=== PATIENT | male | born 1970 | race Caucasian/White ===

== ENCOUNTER 2016-07-20 10:32 | Observation (INO) | payer OTHER ==
[2016-07-20] MEDS ORDERED: ceFAZolin 1,000 MG in DEXTROSE/WATER 1 50ML.BAG IVPB STA (11:09)
[2016-07-20] MEDS ORDERED: ASPIRIN 325 MG TAB PO ONE (11:12)
[2016-07-20] MEDS ORDERED: fentaNYL (PF) 50 MCG/ML 2 ML AMP IV ONE (11:18)
[2016-07-20] MEDS ORDERED: SODIUM CHLORIDE 0.9% 1,000 ML IV ONE (11:19)
[2016-07-20] MEDS ORDERED: BIVALIRUDIN BOLUS 250 MG/50 ML IV ONE (11:22)
[2016-07-20] MEDS ORDERED: BIVALIRUDIN 250 MG in SODIUM CHLORIDE 0.9% 50 ML IV ONE (11:23)
[2016-07-20] MEDS ORDERED: NITROGLYCERIN 1000MCG/10ML SYRINGE INTRACORON ONE (11:39)
[2016-07-20] MEDS ORDERED: IOHEXOL 350 MG/ML 100 ML BOTTLE INJ ONE (11:48)
[2016-07-20] MEDS ORDERED: CLOPIDOGREL 75 MG TAB PO ONE (11:56)
[2016-07-20] MEDS ORDERED: RX INFO: IV CONTRAST WAS GIVEN 1 EACH MISC MISCELLANE PRN (12:01)
[2016-07-20] MEDS ORDERED: FAMOTIDINE 20 MG TAB PO PRN (12:01)
[2016-07-20] MEDS ORDERED: NITROGLYCERIN SL TABS 0.4 MG TAB SUBLINGUAL PRN (12:01)
[2016-07-20] MEDS ORDERED: HYDROmorphone 2 MG/ML 1 ML SYRINGE IV ONE (12:01)
[2016-07-20] MEDS ORDERED: ATROPINE SULFATE 0.1 MG/ML 10ML SYRINGE IV PRN (12:01)
[2016-07-20] MEDS ORDERED: ZOLPIDEM 5 MG TAB PO PRN (12:01)
[2016-07-20] MEDS ORDERED: MAG HYDROX/AL HYDROX/SIMETH 30 ML CUP PO PRN (12:01)
[2016-07-20] MEDS: SODIUM CHLORIDE 0.9% 1,000 ML IV SCH (14:02)
[2016-07-20] MEDS: HYDROmorphone 1 MG/ML 1 ML SYRINGE IVP PRN ×2 (14:33→20:45)
[2016-07-20] MEDS: GABAPENTIN 100 MG CAP PO SCH ×2 (17:00→22:37)
[2016-07-20] MEDS: GEMFIBROZIL 600 MG TAB PO SCH (17:00)
[2016-07-20] MEDS: HYDROcodone/APAP 5-325MG 1 EACH TAB PO PRN ×2 (17:08→22:47)
[2016-07-20] MEDS: METOPROLOL TARTRATE 25 MG TAB PO SCH (20:42)
[2016-07-20] MEDS ORDERED: ATORVASTATIN 80 MG TAB PO SCH (21:00)
--- NOTE | 2016-07-20 21:21 | PTCA ---
DATE OF SERVICE: CLINICAL INFORMATION: Patrick Hidalgo is a 45-year-old gentleman, known patient of hypertension, history of smoking, hypercholesterolemia, has been morbid obese also history with BMI 45, has been admitted to the hospital several times with stress tests which were inconclusive. Yesterday he had a stress test, which was positive for reversible ischemia in the anterior wall. Underwent cardiac catheterization, found to have 90% stenosis of the LAD and brought over here for angioplasty and stenting of the proximal LAD before any branches. Patient tolerated the procedure very well. There were no complications during or after completion of the procedure. DESCRIPTION OF PROCEDURE: With sterile precautions, exchanged a 6 Maori sheath for another 6 Maori sheath, gave prophylactic antibiotics, proceeded with angioplasty using left coronary guide, obtained Eigen shots of the LAD in FOX caudal and FOX cranial and FOX caudal projections. Advanced a Choice extra-support wire into the distal LAD , over the wire advanced a Xience stent 3.25, 12 mm placed across the lesion, confirmed the position, deployed at 12 atmospheres with excellent angiographic results. Patient tolerated the procedure very well. The patient had no EKG changes or symptoms suggestive of angina during the stent deployment. After the stent deployment, patient is asymptomatic. EKGs reverted to normal. Patient has received Angiomax bolus and infusion. Patient ( ) sheath pulled out in 2 hours from now and apply FemStop for 4 hours. ASSESSMENT: Successful dilatation of the 90% proximal LAD lesion to reduce 90 to 0% distal stenosis with excellent angiographic results.
--- NOTE | 2016-07-20 21:38 | HP ---
DATE OF ADMISSION: 07/20/2016 SUBJECTIVE: This is a 45-year-old white male admitted status post percutaneous transluminal coronary angioplasty after having an abnormal heart catheterization at [facility], transferred here for angioplasty and coronary stent was placed in the LAD and patient was admitted on to the floor. The patient currently is chest pain free. He has history of hypertension, obesity, and has been having pain down his left arm at which time he was sent to the hospital for work-up. MEDICATIONS: He is on includes: 1. Tower 5/325 every 4 hours for chronic neck pain back pain, neuropathy. 2. Aspirin 325 mg daily. 3. Lipitor 80 daily. 4. Plavix 75 daily. 5. Pepcid 20 daily. 6. Vitamin D 50,000 units weekly. 7. Gabapentin 100 t.i.d. 8. Gemfibrozil 600 b.i.d. 9. Synthroid 300 mcg daily. 10. Lisinopril 10 mg daily. 11. Lopressor 25 b.i.d. Past medical history of dementia, hypertension, degenerative disc disease, hypothyroidism, and nicotine addiction, restless leg syndrome for which he takes Requip at home and insomnia. REVIEW OF SYSTEMS: CARDIAC: As mentioned above. PULMONARY: Negative. GASTROINTESTINAL: Negative. MUSCULOSKELETAL: As mentioned above. NEUROLOGIC: Negative. PSYCH: Negative. Ophthalmologic: Negative. ENDOCRINE: BMI is over 40. INTEGUMENT: Negative. Immune: Negative. : Negative. PHYSICAL EXAM: Pulse is in the 60s, respiratory rate 16 to 18, blood pressure is 120s to 130s over 60s to 70s, O2 is 95% to 97% on 2 liters. CARDIOVASCULAR: S1, S2. LUNGS: Transmitted upper airway sounds, scattered wheeze. MUSCULOSKELETAL: Shows palpation of paracervical spinal muscles. 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 GI: Soft. HEMATOLOGIC: Negative Homans. PSYCHIATRIC: Fair mood and affect. ASSESSMENT: 1. Status post PTCA coronary artery disease. 2. Hypertension. 3. Dyslipidemia. 4. Cervical degenerative disease. 5. Hypothyroidism. 6. Restless leg syndrome. 7. Obstructive sleep apnea. PLAN: Continue home medications. Risk factor modification with the patient, nicotine patch for smoking, status post angioplasty care was given.
[2016-07-21 01:28] VITALS: RESP 18
[2016-07-21] MEDS: HYDROmorphone 1 MG/ML 1 ML SYRINGE IVP PRN ×3 (01:45→10:55)
[2016-07-21 03:27] VITALS: PULSE 65
[2016-07-21 06:17] LABS: Basophils % (A) 0 %; CH 29.4; CHCM 33.9; Eosinophils # (A) 0.2 k/uL (0-0.7); Eosinophils % (A) 2 %; HCT 42.7 % (39.0-53.0); HDW 2.84; HGB 13.9 gm/dL (13.0-17.5); Luc # (Auto) 0.11; Luc % (Auto) 2; Lymphocytes # (A) 1.9 k/uL (1.0-4.8); Lymphocytes % (A) 27 %; MCH 28.3 pg (25.0-35.0); MCHC 32.4 g/dL (31.0-37.0); MCV 87.1 fL (80.0-100.0); Mean Platelet Volume 7.6; Monocytes # (A) 0.6 k/uL (0-1.0); Monocytes % (A) 8 %; Neutrophils # (A) 4.3 k/uL (1.3-7.7); Neutrophils % (A) 61 %; RDW 13.8 % (11.5-15.5); WBC 7.1 k/uL (3.8-10.6); WBC (Perox) 7.38
[2016-07-21] MEDS ORDERED: LEVOTHYROXINE 100 MCG TAB PO SCH (06:30)
[2016-07-21 06:33] LABS: Anion Gap 10 mmol/L; Blood Urea Nitrogen 14 mg/dL (9-20); Calcium 9.4 mg/dL (8.4-10.2); Carbon Dioxide 27 mmol/L (22-30); Chloride 100 mmol/L (98-107); Cholesterol 208 mg/dL (<200); Glucose 128 mg/dL (74-99); HDL Cholesterol 32 mg/dL (40-60); Non-African American GFR(MDRD) >60 (>60 ml/min/1.73 sqM); Potassium 4.5 mmol/L (3.5-5.1); Sodium 137 mmol/L (137-145); Triglycerides 168 mg/dL (<150)
[2016-07-21] MEDS: GEMFIBROZIL 600 MG TAB PO SCH (06:40)
[2016-07-21] MEDS: SODIUM CHLORIDE 0.9% 1,000 ML IV SCH ×2 (07:39→13:04)
[2016-07-21] MEDS: METOPROLOL TARTRATE 25 MG TAB PO SCH (07:43)
[2016-07-21] MEDS: GABAPENTIN 100 MG CAP PO SCH (07:44)
[2016-07-21] MEDS ORDERED: CLOPIDOGREL 75 MG TAB PO SCH (09:00)
[2016-07-21] MEDS ORDERED: LISINOPRIL 10 MG TAB PO SCH (09:00)
[2016-07-21] MEDS ORDERED: ASPIRIN 325 MG TAB PO SCH (09:00)
[2016-07-21] MEDS ORDERED: NICOTINE 21MG/24HR PATCH TRANSDERM SCH (09:00)
[2016-07-21 09:21] VITALS: TEMP 98.1
[2016-07-21 12:57] VITALS: BP 130/78
--- NOTE | 2016-07-21 13:08 | P.DS ---
Providers Date of admission: 07/20/16 11:52 Expected date of discharge: 07/21/16 Attending physician: Lukas Reynolds Consults: 07/20/16 12:01 Consult Physician Routine Consulting Provider: [facility] Consult Reason/Comments: Post Interventional patient Do you want consulting provider notified?: Already Contacted Primary care physician: [facility] Course: 07/20/16 11:52 45-year-old male admitted on the day of admission as a transfer from [facility] for an abnormal heart catheterization done at [facility] transferred here for angioplasty coronary stent placed to the drug-eluting stent LAD. Postprocedure patient remained chest pain free. Patient denied any dizziness lightheadedness or shortness of breath. Patient does have a history of hypertension and dyslipidemia. On the day of discharge patient was ambulatory on the unit was not experiencing any chest pain was anxious to be discharged home Impression discharge diagnose Abnormal stress test done on the on June positive for reversible ischemia anterior wall Heart catheterization done on July 20 showing 90% stenosis of the LAD status post drug-eluting stent to the LAD Morbid obesity BMI 46 History of dyslipidemia History of hypertension essential benign Chronic nicotine dependency greater than a 20 year history Hypothyroid on supplements Vitamin D deficiency History of degenerative disc disease chronic A history of restless leg syndrome on Requip The above dictated assessment and findings were discussed with dr reynolds . Impression and the plan of care have been dictated as directed. Selene Johnson nurse practitioner acting as a scribe for dr reynolds Plan - Discharge Summary New Discharge Prescriptions: Atorvastatin [Lipitor] 80 mg PO HS #30 tab Clopidogrel [Plavix] 75 mg PO DAILY #30 tab Lisinopril [Zestril] 10 mg PO DAILY #30 tab Discharge Medication List rOPINIRole HCL [Requip] 0.25 mg PO HS 08/21/15 [History] Gemfibrozil [Lopid] 600 mg PO AC-BID 11/04/15 [History] Levothyroxine Sodium [Synthroid] 300 mcg PO DAILY 11/08/15 [History] Cyanocobalamin [Vitamin B-12] 1,000 mcg PO DAILY 05/16/16 [History] Ergocalciferol (Vitamin D2) [Drisdol] 50,000 unit PO WE 05/16/16 [History] Gabapentin [Neurontin] 100 mg PO TID 05/16/16 [History] Ibuprofen [Motrin] 600 mg PO TID PRN 05/16/16 [History] Hydrocodone/Acetaminophen [Beggs 5-325] 1 tab PO Q6HR PRN 06/12/16 [History] Loratadine [Claritin] 10 mg PO DAILY PRN 07/20/16 [History] Metoprolol Tartrate [Lopressor] 25 mg PO BID 07/20/16 [History] Sertraline HCl [Zoloft] 50 mg PO DAILY 07/20/16 [History] Aspirin 325 mg PO DAILY tab 07/21/16 [Rx] Atorvastatin [Lipitor] 80 mg PO HS #30 tab 07/21/16 [Rx] Clopidogrel [Plavix] 75 mg PO DAILY #30 tab 07/21/16 [Rx] Ergocalciferol [Vitamin D2 (DRISDOL)] 50,000 unit PO TU cap 07/21/16 [Rx] Gemfibrozil [Lopid] 600 mg PO AC-BID tab 07/21/16 [Rx] HYDROcodone/APAP 5-325MG [Beggs 5-325] 1 each PO Q4HR PRN #0 tab 07/21/16 [Rx] Lisinopril [Zestril] 10 mg PO DAILY #30 tab 07/21/16 [Rx] Nicotine 21Mg/24Hr Patch [Habitrol] 1 patch TRANSDERM DAILY patch 07/21/16 [Rx] Nitroglycerin Sl Tabs [Nitrostat] 0.4 mg SUBLINGUAL Q5M PRN #0 tab 07/21/16 [Rx] Follow up Appointment(s)/Referral(s): Jamila Mane MD [STAFF PHYSICIAN] - 07/25/16 Lukas Reynolds MD [Primary Care Provider] - 07/27/16 Activity/Diet/Wound Care/Special Instructions: Smoking cessation information provided patient's been advised to stop smoking cigarettes Discharge Disposition: HOME SELF-CARE
--- NOTE | 2016-07-21 13:25 | PN ---
Mr. Patrick Hidalgo is a 45-year-old male patient who was brought from [facility] with reversible ischemia in the anterior wall. He was found to have 90% stenosis of the LAD. He underwent stenting of the proximal LAD with a drug-eluting stent. He is doing very well. His ECG is normal. Heart rates are normal. Blood pressure is on 123/64 mmHg, pulse rate is in the 60s, afebrile, 98.1 degrees Fahrenheit. Head and neck examination is normal. Heart sounds S1, S2 are normal. No murmurs or gallops. Lungs are clear to auscultation. Extremities are warm. No edema. IMPRESSION: 1. Coronary artery disease, proximal left anterior descending artery stenosis, status post coronary stenting. 2. History of dyslipidemia. 3. Increased body mass index. SUGGEST: Discharge home on aspirin, Plavix, statins, beta blockers, MANUEL inhibitors and he will see Dr. Jef Mane on Sunday.
[2016-07-25] MEDS ORDERED: ERGOCALCIFEROL 50,000 UNIT CAP PO SCH (12:00)
== END 2016-07-21 15:12 | disposition home or self-care (01) ==
LOC: 6SEL 11:52 → INTOOBSV 11:52 → 6SEL 13:04
PROVIDERS: ADMIT Family Medicine; ATTEND Family Medicine
DX: I25.10 Atherosclerotic heart disease of native coronary artery without angina pectoris (principal); I10 Essential (primary) hypertension; E66.01 Morbid (severe) obesity due to excess calories; Z68.42 Body mass index [BMI] 45.0-49.9, adult; F17.200 Nicotine dependence, unspecified, uncomplicated; E78.5 Hyperlipidemia, unspecified; E03.9 Hypothyroidism, unspecified; E55.9 Vitamin D deficiency, unspecified; G25.81 Restless legs syndrome; G62.9 Polyneuropathy, unspecified; G47.33 Obstructive sleep apnea (adult) (pediatric); G89.29 Other chronic pain; M50.30 Other cervical disc degeneration, unspecified cervical region; M54.9 Dorsalgia, unspecified; Z79.02 Long term (current) use of antithrombotics/antiplatelets; Z79.82 Long term (current) use of aspirin; Z79.899 Other long term (current) drug therapy
CPT/HCPCS: 80061; 80048; 85025; G0379; G0378 ×3; C9600; C1769 ×2; C1887; C1894; C1874; S4990; J1170 ×3; Q9967; J3010; J0690; J0583

== ENCOUNTER 2016-09-24 17:12 | Emergency (ER) | payer OTHER ==
[2016-09-24] MEDS ORDERED: DIPH,PERTUS(ACELL)TETVAC-LF 0.5 ML VIAL IM ONE (18:00)
[2016-09-24 18:06] VITALS: BP 136/76; PULSE 64; RESP 20; TEMP 98.1
--- NOTE | 2016-09-24 18:13 | ED ---
General Adult HPI - General Chief complaint: Wound/Laceration Stated complaint: WRIST LACERATION - BOTH Time Seen by Provider: 09/24/16 17:55 Source: patient, RN notes reviewed Mode of arrival: ambulatory Limitations: no limitations - History of Present Illness Initial comments: This is a 45-year-old male who presents with scratches to bilateral wrists. Patient states he was moving a wooden table and scratched his wrist on it. Patient denies any numbness/tingling or weakness. Patient states he is not up to date on his tetanus shot. Patient denies any recent fever, chills, shortness breath, chest pain, abdominal pain, nausea/vomiting/diarrhea, back pain, hematuria, headache, or visual changes, or any other complaints. - Related Data Home Medications Medication Instructions Recorded Confirmed rOPINIRole HCL [Requip] 0.25 mg PO HS 08/21/15 09/24/16 Levothyroxine Sodium [Synthroid] 300 mcg PO DAILY 11/08/15 09/24/16 Cyanocobalamin [Vitamin B-12] 1,000 mcg PO DAILY 05/16/16 09/24/16 Ergocalciferol (Vitamin D2) 50,000 unit PO WE 05/16/16 09/24/16 [Drisdol] Gabapentin [Neurontin] 100 mg PO TID 05/16/16 09/24/16 Ibuprofen [Motrin] 600 mg PO TID PRN 05/16/16 09/24/16 Loratadine [Claritin] 10 mg PO DAILY PRN 07/20/16 09/24/16 Metoprolol Tartrate [Lopressor] 25 mg PO BID 07/20/16 09/24/16 Blood Thinner (Unknown) 1 tab PO DAILY 09/24/16 09/24/16 Previous Rx's Medication Instructions Recorded Atorvastatin [Lipitor] 80 mg PO HS #30 tab 07/21/16 Clopidogrel [Plavix] 75 mg PO DAILY #30 tab 07/21/16 Gemfibrozil [Lopid] 600 mg PO AC-BID tab 07/21/16 Lisinopril [Zestril] 10 mg PO DAILY #30 tab 07/21/16 Nitroglycerin Sl Tabs [Nitrostat] 0.4 mg SUBLINGUAL Q5M PRN #0 tab 07/21/16 Allergies Allergy/AdvReac Type Severity Reaction Status Date / Time No Known Allergies Allergy Verified 09/24/16 18:03 Review of Systems ROS Statement: Those systems with pertinent positive or pertinent negative responses have been documented in the HPI. ROS Other: All systems not noted in ROS Statement are negative. Past Medical History Past Medical History: Atrial Fibrillation, Coronary Artery Disease (CAD), CVA/ TIA, Myocardial Infarction ([place]), Sleep Apnea/CPAP/BIPAP, Thyroid Disorder Additional Past Medical History / Comment(s): restless leg syndrome, "stroke in mar 2016, lt arm weakness and chronic pain in lt arm since. History of Any Multi-Drug Resistant Organisms: None Reported Past Surgical History: Heart Catheterization, Heart Catheterization With Stent Additional Past Surgical History / Comment(s): loop monitor in chest. 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 Past Anesthesia/Blood Transfusion Reactions: No Reported Reaction Past Psychological History: Anxiety Smoking Status: Current every day smoker Past Alcohol Use History: Occasional Additional Past Alcohol Use History / Comment(s): patient states smoking about 1 /2 ppd Past Drug Use History: None Reported - Past Family History Father Family Medical History: Myocardial Infarction ([place]) Additional Family Medical History / Comment(s): of [place] Mother Family Medical History: No Reported History Brother(s) Additional Family Medical History / Comment(s): Bipolar disorder General Exam - General Exam Comments Initial Comments: General: The patient is awake and alert, in no distress, and does not appear acutely ill. Neck: The neck is supple, there is no tenderness or JVD. Cardiovascular: There is a regular rate and rhythm. No murmur, rub or gallop is appreciated. Respiratory: Lungs are clear to auscultation, respirations are non-labored, breath sounds are equal. No wheezes, stridor, rales, or rhonchi. Musculoskeletal: Patient has full range of motion, strength 5/5 and Sensation intact. Radial pulses 2+ bilaterally. Capillary refill is normal at less than 2 seconds. Neurological: A&O x 3. CN II-XII intact, There are no obvious motor or sensory deficits. Coordination appears grossly intact. Speech is normal. Skin: There are superficial scratches to the patient's bilateral wrists approximately 5 cm and 2 cm. Skin is warm and dry. Psychiatric: Normal mood and affect. Limitations: no limitations Course Vital Signs 09/24/16 17:59 Temperature 98.1 F Pulse Rate 64 Respiratory 20 Rate Blood Pressure 136/76 O2 Sat by Pulse 96 Oximetry Medical Decision Making - Medical Decision Making This is a 45-year-old male who presents with scratches to bilateral wrists. On physical exam there are superficial scratches to the patient's bilateral wrists approximately 5 cm and 2 cm. Skin is warm and dry. Patient is given a tetanus shot in the EC today. Lungs are soaked, cleansed and irrigated with normal saline. Wounds are very superficial. Scratch on the left upper extremity does not need any closure. Scratch on the left wrist will be covered with Dermabond to protect the wound while it heals. I discussed that Dermabond will fall off on its own. I discussed wound care. I discussed signs and symptoms of infection. I discussed Tylenol and Motrin for any pain. Bacitracin was applied to a scratch on the left side. I discussed return parameters. Discussed that patient should follow up with PCP in one to 2 days or return to the [facility] for any worsening symptoms or for any further concerns. Patient was receptive to this plan and patient will be discharged home. Disposition Clinical Impression: Scratch of wrist Disposition: HOME SELF-CARE Condition: Good Instructions: Abrasion (ED) Additional Instructions: Please keep the areas clean and dry. May apply Neosporin to the areas. Please allow Dermabond to fall off on its own. Please use Tylenol and Motrin for any pain. Please percent and symptoms of infection such as erythema, swelling, tenderness or any purulent drainage. Please follow-up with family doctor in the next 2 days of symptoms have not improved. Please return to emergency room if the symptoms increase or worsen or for any other concerns. Referrals: Lukas Bain MD [Primary Care Provider] - 1-2 days Time of Disposition: 18:22
[2016-09-24] MEDS ORDERED: TOPICAL SKIN ADHESIVE 1 EACH AMP TOPICAL ONE (18:18)
== END 2016-09-24 18:45 | disposition home or self-care (01) ==
LOC: EC 17:12
DX: S60.812A Abrasion of left wrist, initial encounter (principal); S60.811A Abrasion of right wrist, initial encounter; I48.91 Unspecified atrial fibrillation; I25.10 Atherosclerotic heart disease of native coronary artery without angina pectoris; I25.2 Old myocardial infarction; E07.9 Disorder of thyroid, unspecified; F41.9 Anxiety disorder, unspecified; G25.81 Restless legs syndrome; G47.30 Sleep apnea, unspecified; Z23 Encounter for immunization; F17.200 Nicotine dependence, unspecified, uncomplicated; Z86.73 Personal history of transient ischemic attack (TIA), and cerebral infarction without residual deficits; W20.8XXA Other cause of strike by thrown, projected or falling object, initial encounter; Y92.89 Other specified places as the place of occurrence of the external cause
CPT/HCPCS: 90471; 90715; 99282

== ENCOUNTER 2016-11-14 22:05 | Emergency (ER) | payer OTHER ==
[2016-11-14] MEDS ORDERED: HYDROmorphone 1 MG/ML 1 ML SYRINGE IVP STA (22:31)
[2016-11-14] MEDS ORDERED: RX INFO: IV CONTRAST WAS GIVEN 1 EACH MISC MISCELLANE PRN (22:31)
[2016-11-14] MEDS ORDERED: SODIUM CHLORIDE 0.9% 1,000 ML IV STA (22:31)
[2016-11-14] MEDS ORDERED: ONDANSETRON 4 MG/2 ML VIAL IVP STA (22:31)
[2016-11-14 23:08] LABS: Basophils % (A) 0 %; CH 29.8; CHCM 34.7; Eosinophils # (A) 0.2 k/uL (0-0.7); Eosinophils % (A) 3 %; HCT 44.9 % (39.0-53.0); HDW 2.96; HGB 14.8 gm/dL (13.0-17.5); Luc # (Auto) 0.09; Luc % (Auto) 1; Lymphocytes # (A) 2.3 k/uL (1.0-4.8); Lymphocytes % (A) 33 %; MCH 28.5 pg (25.0-35.0); MCV 86.4 fL (80.0-100.0); Mean Platelet Volume 6.8; Monocytes # (A) 0.3 k/uL (0-1.0); Monocytes % (A) 5 %; Neutrophils # (A) 4.1 k/uL (1.3-7.7); Neutrophils % (A) 58 %; RBC 5.19 m/uL (4.30-5.90); RDW 14.5 % (11.5-15.5)
[2016-11-14 23:15] LABS: ALT 36 U/L (21-72); AST 29 U/L (17-59); Alkaline Phosphatase 100 U/L (38-126); Amylase 44 U/L (30-110); Anion Gap 13 mmol/L; Blood Urea Nitrogen 11 mg/dL (9-20); Calcium 9.4 mg/dL (8.4-10.2); Carbon Dioxide 26 mmol/L (22-30); Chloride 104 mmol/L (98-107); Glucose 137 mg/dL (74-99); Non-African American GFR(MDRD) >60 (>60 ml/min/1.73 sqM); Potassium 3.8 mmol/L (3.5-5.1); Sodium 143 mmol/L (137-145); Total Bilirubin 0.7 mg/dL (0.2-1.3)
[2016-11-14 23:16] LABS: INR 1.1 (<1.1); Partial Thromboplastin Time 23.7 sec (22.0-30.0); Prothrombin Time 10.6 sec (9.0-12.0)
--- NOTE | 2016-11-14 23:29 | ED ---
Abdominal Pain HPI - General Chief Complaint: Abdominal Pain Stated Complaint: abd and groin pain Time Seen by Provider: 11/14/16 22:22 Source: patient, RN notes reviewed Mode of arrival: ambulatory Limitations: no limitations - History of Present Illness Initial Comments: 46-year-old male presents emergency Department chief complaint severe abdominal pain started yesterday. Patient states that he was walking his dog this felt mid abdominal pain. States it's more in the Umbilical region. He states it radiates down into his scrotum. Patient states he has no testicular swelling or pain itself he states his chest pain that radiates down there. Patient also states that his had some problems urinating and which she states it hurts. Patient has fever, chills. Patient had no prior abdominal surgeries. Denies any trauma. Patient denies any flank pain and has no history kidney stones. Patient had some nausea no vomiting or diarrhea no constipation. - Related Data Home Medications Medication Instructions Recorded Confirmed rOPINIRole HCL [Requip] 0.25 mg PO HS 08/21/15 11/14/16 Levothyroxine Sodium [Synthroid] 300 mcg PO DAILY 11/08/15 11/14/16 Gabapentin [Neurontin] 100 mg PO TID 05/16/16 11/14/16 Ibuprofen [Motrin] 600 mg PO TID PRN 05/16/16 11/14/16 Loratadine [Claritin] 10 mg PO DAILY PRN 07/20/16 11/14/16 Metoprolol Tartrate [Lopressor] 25 mg PO BID 07/20/16 11/14/16 cloNIDine HCL [Catapres] 0.1 mg PO DAILY 11/14/16 11/14/16 Previous Rx's Medication Instructions Recorded Clopidogrel [Plavix] 75 mg PO DAILY #30 tab 07/21/16 Gemfibrozil [Lopid] 600 mg PO AC-BID tab 07/21/16 Nitroglycerin Sl Tabs [Nitrostat] 0.4 mg SUBLINGUAL Q5M PRN #0 tab 07/21/16 HYDROcodone/APAP 7.5-325MG [[place] 1 tab PO Q6HR PRN #20 tab 11/15/16 7.5-325] Allergies Allergy/AdvReac Type Severity Reaction Status Date / Time No Known Allergies Allergy Verified 11/14/16 22:40 Review of Systems ROS Statement: Those systems with pertinent positive or pertinent negative responses have been documented in the HPI. ROS Other: All systems not noted in ROS Statement are negative. Past Medical History Past Medical History: Atrial Fibrillation, Coronary Artery Disease (CAD), CVA/ TIA, Hyperlipidemia, Hypertension, Myocardial Infarction ([place]), Sleep Apnea/CPAP/ BIPAP, Thyroid Disorder Additional Past Medical History / Comment(s): restless leg syndrome, "stroke in mar 2016, lt arm weakness and chronic pain in lt arm since. History of Any Multi-Drug Resistant Organisms: None Reported Past Surgical History: Heart Catheterization, Heart Catheterization With Stent Additional Past Surgical History / Comment(s): loop monitor in chest. 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 Past Anesthesia/Blood Transfusion Reactions: No Reported Reaction Past Psychological History: Anxiety Smoking Status: Current every day smoker Past Alcohol Use History: Occasional Additional Past Alcohol Use History / Comment(s): patient states smoking about 1 /2 ppd Past Drug Use History: None Reported - Past Family History Father Family Medical History: Myocardial Infarction ([place]) Additional Family Medical History / Comment(s): of [place] Mother Family Medical History: No Reported History Brother(s) Additional Family Medical History / Comment(s): Bipolar disorder General Exam Limitations: no limitations General appearance: alert, in no apparent distress, obese Neck exam: Present: normal inspection. Absent: tenderness, meningismus, lymphadenopathy Respiratory exam: Present: normal lung sounds bilaterally. Absent: respiratory distress, wheezes, rales, rhonchi, stridor Cardiovascular Exam: Present: regular rate, normal rhythm, normal heart sounds. Absent: systolic murmur, diastolic murmur, rubs, gallop, clicks GI/Abdominal exam: Present: soft, tenderness (Moderate umbilical tenderness, suprapubic tenderness), normal bowel sounds. Absent: distended, guarding, rebound, rigid exam: Present: normal inspection, testicular tenderness (right), other ( right inguinal tenderness). Absent: scrotal swelling Back exam: Absent: CVA tenderness (R), CVA tenderness (L) Skin exam: Present: warm, dry, intact, normal color. Absent: rash Course Vital Signs 11/14/16 11/15/16 22:17 00:11 Temperature 98.9 F Pulse Rate 60 76 Respiratory 18 20 Rate Blood Pressure 176/90 121/55 O2 Sat by Pulse 97 99 Oximetry Medical Decision Making - Medical Decision Making 46-year-old male presents emergency department for abdominal pain. Patient's CT shows fat-containing umbilical hernia and inguinal hernia. Patient's ultrasound shows hydroceles. Patient pain is most likely related to his him focal hernia, inguinal hernia. Patient will be discharged with follow-up with surgery. Patient discharged with pain medication. - Lab Data Result diagrams: 11/14/16 22:55 11/14/16 22:55 Lab Results 11/14/16 11/14/16 11/14/16 Range/Units 22:55 22:55 22:55 WBC 7.0 (3.8-10.6) k/uL RBC 5.19 (4.30-5.90) m/uL Hgb 14.8 (13.0-17.5) gm/dL Hct 44.9 (39.0-53.0) % MCV 86.4 (80.0-100.0) fL MCH 28.5 (25.0-35.0) pg MCHC 33.0 (31.0-37.0) g/dL RDW 14.5 (11.5-15.5) % Plt Count 185 (150-450) k/uL Neutrophils % 58 % Lymphocytes % 33 % Monocytes % 5 % Eosinophils % 3 % Basophils % 0 % Neutrophils # 4.1 (1.3-7.7) k/uL Lymphocytes # 2.3 (1.0-4.8) k/uL Monocytes # 0.3 (0-1.0) k/uL Eosinophils # 0.2 (0-0.7) k/uL Basophils # 0.0 (0-0.2) k/uL PT (9.0-12.0) sec INR (<1.1) APTT (22.0-30.0) sec Sodium 143 (137-145) mmol/L Potassium 3.8 (3.5-5.1) mmol/L Chloride 104 (98-107) mmol/L Carbon Dioxide 26 (22-30) mmol/L Anion Gap 13 mmol/L BUN 11 (9-20) mg/dL Creatinine 0.91 (0.66-1.25) mg/dL Est GFR (MDRD) Af Amer >60 (>60 ml/min/1.73 sqM) Est GFR (MDRD) Non-Af >60 (>60 ml/min/1.73 sqM) Glucose 137 H (74-99) mg/dL Plasma Lactic Acid Carlos 1.2 (0.7-2.0) mmol/L Calcium 9.4 (8.4-10.2) mg/dL Total Bilirubin 0.7 (0.2-1.3) mg/dL AST 29 (17-59) U/L ALT 36 (21-72) U/L Alkaline Phosphatase 100 (38-126) U/L Total Protein 8.0 (6.3-8.2) g/dL Albumin 4.5 (3.5-5.0) g/dL Amylase 44 (30-110) U/L Lipase 53 (23-300) U/L Urine Color Urine Appearance (Clear) Urine pH (5.0-8.0) Ur Specific [place] (1.001-1.035) Urine Protein (Negative) Urine Glucose (UA) (Negative) Urine Ketones (Negative) Urine Blood (Negative) Urine Nitrite (Negative) Urine Bilirubin (Negative) Urine Urobilinogen (<2.0) mg/dL Ur Leukocyte Esterase (Negative) 11/14/16 11/14/16 Range/Units 22:55 23:35 WBC (3.8-10.6) k/uL RBC (4.30-5.90) m/uL Hgb (13.0-17.5) gm/dL Hct (39.0-53.0) % MCV (80.0-100.0) fL MCH (25.0-35.0) pg MCHC (31.0-37.0) g/dL RDW (11.5-15.5) % Plt Count (150-450) k/uL Neutrophils % % Lymphocytes % % Monocytes % % Eosinophils % % Basophils % % Neutrophils # (1.3-7.7) k/uL Lymphocytes # (1.0-4.8) k/uL Monocytes # (0-1.0) k/uL Eosinophils # (0-0.7) k/uL Basophils # (0-0.2) k/uL PT 10.6 (9.0-12.0) sec INR 1.1 (<1.1) APTT 23.7 (22.0-30.0) sec Sodium (137-145) mmol/L Potassium (3.5-5.1) mmol/L Chloride (98-107) mmol/L Carbon Dioxide (22-30) mmol/L Anion Gap mmol/L BUN (9-20) mg/dL Creatinine (0.66-1.25) mg/dL Est GFR (MDRD) Af Amer (>60 ml/min/1.73 sqM) Est GFR (MDRD) Non-Af (>60 ml/min/1.73 sqM) Glucose (74-99) mg/dL Plasma Lactic Acid Carlos (0.7-2.0) mmol/L Calcium (8.4-10.2) mg/dL Total Bilirubin (0.2-1.3) mg/dL AST (17-59) U/L ALT (21-72) U/L Alkaline Phosphatase (38-126) U/L Total Protein (6.3-8.2) g/dL Albumin (3.5-5.0) g/dL Amylase (30-110) U/L Lipase (23-300) U/L Urine Color Yellow Urine Appearance Clear (Clear) Urine pH 5.5 (5.0-8.0) Ur Specific [place] 1.020 (1.001-1.035) Urine Protein Negative (Negative) Urine Glucose (UA) Negative (Negative) Urine Ketones Negative (Negative) Urine Blood Negative (Negative) Urine Nitrite Negative (Negative) Urine Bilirubin Negative (Negative) Urine Urobilinogen <2.0 (<2.0) mg/dL Ur Leukocyte Esterase Negative (Negative) Disposition Clinical Impression: Abdominal pain, Umbilical hernia, Inguinal hernia Disposition: HOME SELF-CARE Condition: Stable Instructions: Umbilical Hernia (ED), Inguinal Hernia (ED) Additional Instructions: Please return to the Emergency Department if symptoms worsen or any other concerns. Prescriptions: HYDROcodone/APAP 7.5-325MG [[place] 7.5-325] 1 tab PO Q6HR PRN #20 tab PRN Reason: Pain Referrals: Lukas Bain MD [Primary Care Provider] - 1-2 days Jose Ortiz MD [STAFF PHYSICIAN] - 1-2 days Time of Disposition: 01:01
[2016-11-14 23:59] LABS: Appearance,Urine Clear (Clear); Bilirubin,Urine Negative (Negative); Glucose,Urine (UA) Negative (Negative); Ketones,Urine Negative (Negative); Leukocyte Esterase,Urine Negative (Negative); Nitrite,Urine Negative (Negative); PH, Urine 5.5 (5.0-8.0); Protein,Urine Negative (Negative); UA Billing (MACRO vs. MICRO) CHEM; Urobilinogen,Urine <2.0 mg/dL (<2.0)
[2016-11-15 00:12] VITALS: RESP 20
--- NOTE | 2016-11-15 00:23 | CT ---
EXAM: CT Abdomen and Pelvis With Intravenous Contrast CLINICAL HISTORY: Abdominal pain. Umbilical pain radiates to right testis x 2 days. TECHNIQUE: Axial computed tomography images of the abdomen and pelvis with intravenous contrast. Coronal and sagittal reformatted images were created and reviewed. DOSE INFORMATION: CTDI is 40.00, 59.30 mGy and DLP is 4342.60 mGy-cm. This CT exam was performed using one or more of the following dose reduction techniques: automated exposure control, adjustment of the mA and/or kV according to patient size, and/or use of iterative reconstruction technique. CONTRAST: 100 mL of Omnipaque 300 administered intravenously. COMPARISON: No relevant prior studies available. FINDINGS: Lower thorax: No acute findings. ABDOMEN: Liver: Mild fatty infiltration of the liver. Liver is mildly enlarged, measuring 22.8 cm in craniocaudal dimension. Gallbladder and bile ducts: Unremarkable. No radiopaque calculi. No biliary ductal dilation. Pancreas: Unremarkable. No ductal dilation. No mass. No adjacent inflammatory changes. Spleen: Unremarkable. No splenomegaly. Small splenule noted. Adrenals: Unremarkable. No mass. Kidneys and ureters: Mild symmetric perinephric stranding, nonspecific. Kidneys otherwise unremarkable. No hydronephrosis or ureteral calculus. Stomach and bowel: Unremarkable. No bowel obstruction. No significant bowel wall thickening. Appendix: No evidence of acute appendicitis. PELVIS: Bladder: Unremarkable. No mass or wall thickening. Reproductive: Unremarkable as visualized. ABDOMEN and PELVIS: Intraperitoneal space: No free air. No significant fluid collection. Bones/joints: No acute fracture. No dislocation. Soft tissues: Rim calcified nodule in the right lower quadrant, possibly sequela of fat necrosis. Tiny fat-containing umbilical hernia. Small amount of fat within the inguinal canals. No large hernia or other abnormality. Vasculature: Mild atherosclerosis. No abdominal aortic aneurysm. Lymph nodes: No enlarged lymph nodes. IMPRESSION: 1. No CT evidence of acute inflammatory or obstructive process in the abdomen or pelvis to account for symptoms. 2. Mild symmetric perinephric stranding, nonspecific. Kidneys otherwise unremarkable without hydronephrosis or ureteral calculus. Recommend clinical correlation and correlation with laboratory values as clinically indicated. 3. Tiny fat-containing umbilical hernia. Small amount of fat within the bilateral inguinal canals. Otherwise no evidence of soft tissue abnormality. Scrotal contents not visualized. If there is clinical concern for acute scrotal pathology, scrotal ultrasound is recommended. 4. Mildly enlarged fatty liver. 5. No evidence of acute appendicitis.
[2016-11-15] MEDS ORDERED: HYDROmorphone 1 MG/ML 1 ML SYRINGE IVP STA (00:26)
[2016-11-15 01:18] VITALS: BP 151/62; PULSE 68; TEMP 98.4
--- NOTE | 2016-11-15 01:20 | US ---
EXAM: US Scrotum CLINICAL HISTORY: Pain. TECHNIQUE: Real-time ultrasound of the scrotum with color Doppler and image documentation. COMPARISON: No relevant prior studies available. FINDINGS: Right testicle: Right testis measures 4.4 x 2.7 x 2.7 cm. Color flow and arterial and venous waveforms documented in the right testis. No evidence of torsion. No evidence of testicular mass. Left testicle: Left testis measures 4.4 x 2.7 x 2.6 cm. Color flow and arterial and venous waveforms documented in the left testis. No evidence of torsion. No evidence of testicular mass. Epididymides: Right epididymis measures 1.2 cm. Right epididymal head cyst measuring 8 x 7 x 10 mm. Left epididymis measures 1.1 cm. no increased color flow to suggest acute epididymitis. Scrotum: Small bilateral hydroceles. No evidence of varicoceles. IMPRESSION: 1. No evidence of testicular torsion or acute epididymitis. 2. Incidental right epididymal head cyst measuring 8 x 7 x 10 mm. 3. Small bilateral hydroceles.
== END 2016-11-15 01:17 | disposition home or self-care (01) ==
LOC: EC 22:05
DX: K42.9 Umbilical hernia without obstruction or gangrene (principal); K40.90 Unilateral inguinal hernia, without obstruction or gangrene, not specified as recurrent; N43.3 Hydrocele, unspecified; R07.9 Chest pain, unspecified; G25.81 Restless legs syndrome; I48.91 Unspecified atrial fibrillation; I10 Essential (primary) hypertension; I25.2 Old myocardial infarction; E07.9 Disorder of thyroid, unspecified; I25.10 Atherosclerotic heart disease of native coronary artery without angina pectoris; F41.9 Anxiety disorder, unspecified; F17.200 Nicotine dependence, unspecified, uncomplicated; Z79.899 Other long term (current) drug therapy; Z95.5 Presence of coronary angioplasty implant and graft
CPT/HCPCS: 36415; 80053; 82150; 83605; 83690; 85025; 85610; 85730; 81003; 93975; 76870; 74177; 99284; 96374; 96375; 96361; J2405; J1170; Q9967

== ENCOUNTER 2016-11-15 11:27 | Observation (INO) | payer OTHER ==
[2016-11-15 12:05] VITALS: BMI 48.2
[2016-11-15] MEDS ORDERED: NITROGLYCERIN SL TABS 0.4 MG TAB SUBLINGUAL PRN (12:32)
[2016-11-15] MEDS ORDERED: HYDROcodone/APAP 7.5-325MG 1 EACH TAB PO PRN (12:32)
[2016-11-15 13:52] LABS: Basophils % (A) 0 %; CH 29.4; CHCM 33.6; Eosinophils # (A) 0.2 k/uL (0-0.7); Eosinophils % (A) 3 %; HCT 41.6 % (39.0-53.0); HDW 2.99; HGB 13.9 gm/dL (13.0-17.5); Luc # (Auto) 0.11; Luc % (Auto) 2; Lymphocytes # (A) 1.7 k/uL (1.0-4.8); Lymphocytes % (A) 27 %; MCH 29.5 pg (25.0-35.0); MCHC 33.5 g/dL (31.0-37.0); Monocytes # (A) 0.3 k/uL (0-1.0); Monocytes % (A) 6 %; Neutrophils # (A) 3.8 k/uL (1.3-7.7); Neutrophils % (A) 62 %; RBC 4.72 m/uL (4.30-5.90); RDW 14.4 % (11.5-15.5); WBC 6.1 k/uL (3.8-10.6); WBC (Perox) 6.24
[2016-11-15] MEDS: HYDROmorphone 1 MG/ML 1 ML SYRINGE IVP PRN ×3 (13:57→20:45)
[2016-11-15] MEDS: SODIUM CHLORIDE 0.9% 1,000 ML IV SCH ×2 (13:57→21:37)
[2016-11-15 14:06] LABS: ALT 40 U/L (21-72); AST 26 U/L (17-59); Alkaline Phosphatase 87 U/L (38-126); Anion Gap 11 mmol/L; Blood Urea Nitrogen 11 mg/dL (9-20); Calcium 9.5 mg/dL (8.4-10.2); Carbon Dioxide 24 mmol/L (22-30); Chloride 107 mmol/L (98-107); Glucose 106 mg/dL (74-99); Non-African American GFR(MDRD) >60 (>60 ml/min/1.73 sqM); Potassium 4.3 mmol/L (3.5-5.1); Sodium 142 mmol/L (137-145); Total Bilirubin 0.4 mg/dL (0.2-1.3); Total Protein 7.3 g/dL (6.3-8.2)
[2016-11-15] MEDS: FAMOTIDINE 20 MG/2 ML VIAL IV SCH ×2 (15:44→20:49)
[2016-11-15] MEDS: GABAPENTIN 100 MG CAP PO SCH ×2 (15:44→21:38)
--- NOTE | 2016-11-15 16:02 | P.GSCN ---
History of Present Illness Consult date: 11/15/16 Reason for Consult: Umbilical hernia Requesting physician: Lukas Bain History of present illness: Patient is a 46-year-old male, patient of Dr. Lukas Bain in the outpatient setting, admitted directly to the observation unit by Dr. Bain for abdominal pain. Patient had originally presented to the emergency department on 11/14/2016 with complaints of severe abdominal pain 1 day located in the umbilical region radiating down to the scrotum associated with urinary hesitancy and pain when urinating. No history of fevers, nausea, or vomiting. CT of abdomen and pelvis with evidence of tiny fat-containing umbilical hernia and small amount of fat within the bilateral inguinal canals. Scrotal ultrasound with evidence of small bilateral hydroceles; no evidence of varicoceles; no evidence of testicular torsion or acute epididymitis. Past Medical History Past Medical History: Atrial Fibrillation, Coronary Artery Disease (CAD), CVA/ TIA, Hyperlipidemia, Hypertension, Myocardial Infarction ([place]), Sleep Apnea/CPAP/ BIPAP, Thyroid Disorder Additional Past Medical History / Comment(s): restless leg syndrome, "stroke in mar 2016, lt arm weakness and chronic pain in lt arm since. Last Myocardial Infarction Date:: unk History of Any Multi-Drug Resistant Organisms: None Reported Past Surgical History: Heart Catheterization, Heart Catheterization With Stent Additional Past Surgical History / Comment(s): loop monitor in chest. Placed 2015, 07-20-16 transfer from [facility] to [facility]- heart cath with stent to lad. Past Anesthesia/Blood Transfusion Reactions: No Reported Reaction Date of Last Stent Placement:: unk Past Psychological History: Anxiety Smoking Status: Former smoker Past Alcohol Use History: Occasional Additional Past Alcohol Use History / Comment(s): pt quit smoking approx 3 months ago. Past Drug Use History: None Reported - Past Family History Father Family Medical History: Myocardial Infarction ([place]) Additional Family Medical History / Comment(s): of [place] Mother Family Medical History: No Reported History Brother(s) Additional Family Medical History / Comment(s): Bipolar disorder Medications and Allergies Home Medications Medication Instructions Recorded Confirmed Type rOPINIRole HCL [Requip] 0.25 mg PO HS 08/21/15 11/15/16 History Levothyroxine Sodium [Synthroid] 300 mcg PO DAILY 11/08/15 11/15/16 History Gabapentin [Neurontin] 100 mg PO TID 05/16/16 11/15/16 History Ibuprofen [Motrin] 600 mg PO TID PRN 05/16/16 11/15/16 History Loratadine [Claritin] 10 mg PO DAILY PRN 07/20/16 11/15/16 History Metoprolol Tartrate [Lopressor] 25 mg PO BID 07/20/16 11/15/16 History cloNIDine HCL [Catapres] 0.1 mg PO DAILY 11/14/16 11/15/16 History Allergies Allergy/AdvReac Type Severity Reaction Status Date / Time No Known Allergies Allergy Verified 11/14/16 22:40 Surgical - Exam Vital Signs Temp Pulse Resp BP Pulse Ox 98.1 F 51 L 18 120/68 98 11/15/16 11:45 11/15/16 11:45 11/15/16 11:45 11/15/16 11:45 11/15/16 11:45 GENERAL: Pt awake and alert, well-nourished, and in no acute distress. LUNGS: Breath sounds clear to auscultation bilaterally. No wheezes, rales, or rhonchi. HEART: Heart S1, S2, no S3 or S4. No murmurs, rubs or gallops. ABDOMEN: Soft, umbilical and suprapubic tenderness, nondistended, normoactive bowel sounds. No guarding, no rebound. NEUROLOGICAL: Pt oriented x 3. Results - Labs 11/15/16 13:23 11/15/16 13:23 Abnormal Lab Results - Last 24 Hours (Table) 11/15/16 Range/Units 13:23 Glucose 106 H (74-99) mg/dL Diabetes panel 11/15/16 Range/Units 13:23 Sodium 142 (137-145) mmol/L Potassium 4.3 (3.5-5.1) mmol/L Chloride 107 (98-107) mmol/L Carbon Dioxide 24 (22-30) mmol/L BUN 11 (9-20) mg/dL Creatinine 0.90 (0.66-1.25) mg/dL Glucose 106 H (74-99) mg/dL Calcium 9.5 (8.4-10.2) mg/dL AST 26 (17-59) U/L ALT 40 (21-72) U/L Alkaline Phosphatase 87 (38-126) U/L Total Protein 7.3 (6.3-8.2) g/dL Albumin 4.2 (3.5-5.0) g/dL Calcium panel 11/15/16 Range/Units 13:23 Calcium 9.5 (8.4-10.2) mg/dL Albumin 4.2 (3.5-5.0) g/dL Pituitary panel 11/15/16 Range/Units 13:23 Sodium 142 (137-145) mmol/L Potassium 4.3 (3.5-5.1) mmol/L Chloride 107 (98-107) mmol/L Carbon Dioxide 24 (22-30) mmol/L BUN 11 (9-20) mg/dL Creatinine 0.90 (0.66-1.25) mg/dL Glucose 106 H (74-99) mg/dL Calcium 9.5 (8.4-10.2) mg/dL Adrenal panel 11/15/16 Range/Units 13:23 Sodium 142 (137-145) mmol/L Potassium 4.3 (3.5-5.1) mmol/L Chloride 107 (98-107) mmol/L Carbon Dioxide 24 (22-30) mmol/L BUN 11 (9-20) mg/dL Creatinine 0.90 (0.66-1.25) mg/dL Glucose 106 H (74-99) mg/dL Calcium 9.5 (8.4-10.2) mg/dL Total Bilirubin 0.4 (0.2-1.3) mg/dL AST 26 (17-59) U/L ALT 40 (21-72) U/L Alkaline Phosphatase 87 (38-126) U/L Total Protein 7.3 (6.3-8.2) g/dL Albumin 4.2 (3.5-5.0) g/dL - Imaging CT scan - abdomen: report reviewed CT scan - pelvis: report reviewed Assessment and Plan Plan: Impression: 1. Small umbilical hernia. Plan: Patient will be scheduled for umbilical hernia repair as an outpatient. Continue medical management per medicine service. The above impression and plan have been discussed and directed by Dr. Ortiz. Damian HUTTON acting as scribe for Dr. Ortiz.
[2016-11-15] MEDS: GEMFIBROZIL 600 MG TAB PO SCH (17:17)
[2016-11-15 19:42] VITALS: RESP 18
[2016-11-15] MEDS ORDERED: METOPROLOL TARTRATE 25 MG TAB PO SCH (21:00)
[2016-11-15 23:05] LABS: Appearance,Urine Clear (Clear); Bilirubin,Urine Negative (Negative); Glucose,Urine (UA) Negative (Negative); Ketones,Urine Negative (Negative); Leukocyte Esterase,Urine Negative (Negative); Nitrite,Urine Negative (Negative); PH, Urine 5.5 (5.0-8.0); Protein,Urine Negative (Negative); Specific Gravity,Urine 1.013 (1.001-1.035); UA Billing (MACRO vs. MICRO) CHEM; Urobilinogen,Urine <2.0 mg/dL (<2.0)
[2016-11-16] MEDS: HYDROmorphone 1 MG/ML 1 ML SYRINGE IVP PRN ×2 (00:36→04:44)
[2016-11-16] MEDS ORDERED: LEVOTHYROXINE 100 MCG TAB PO SCH (06:30)
[2016-11-16] MEDS: GEMFIBROZIL 600 MG TAB PO SCH (07:40)
[2016-11-16] MEDS: GABAPENTIN 100 MG CAP PO SCH (07:40)
[2016-11-16] MEDS: FAMOTIDINE 20 MG/2 ML VIAL IV SCH (07:42)
[2016-11-16 08:02] VITALS: BP 121/82; PULSE 48; TEMP 97.9
[2016-11-16] MEDS ORDERED: cloNIDine HCL 0.1 MG TAB PO SCH (09:00)
--- NOTE | 2016-11-16 09:40 | HP ---
DATE OF ADMISSION: CHIEF COMPLAINT: A 46-year-old white male with acute abdominal pain. HISTORY OF PRESENT ILLNESS: This 46-year-old white male with recent PTCA 3 months ago, developed severe pain in his abdomen, worsening over the last 2 weeks, unable to get any relief. He is admitted for surgical consultation at this time. Is unable to eat or drink due to his severe abdominal pain, unable to move around due to the severe pain. Most of pain is surrounding his umbilical area. PAST MEDICAL HISTORY: As mentioned, hypertension, coronary artery disease with recent stent, hypothyroidism, obesity, restless leg syndrome, degenerative disc disease. HOME MEDICATIONS: 1. Catapres. 2. Nitro paste. 3. Lopressor. 4. Claritin. 5. Synthroid. 6. Motrin. 7. Requip. 8. Lopid. 9. Neurontin. 10. Plavix. A 14-point review of systems negative except for as mentioned in HPI. VITAL SIGNS: Temperature 96 to 97, pulse is in the high 40s. Respirations 16 to 18, blood pressure 114 to 120's/60s to 80s. O2 sat 95% to 100% on room air. CARDIOVASCULAR: S1, S2. LUNGS: Scattered wheeze. HEMATOLOGIC: Negative Homans. PSYCH: Fair mood and affect. Neurologically alert and oriented x3. ASSESSMENT: 1. Acute abdominal pain, atypical in nature. 2. History of coronary artery disease, ( ). 3. Hypertension. 4. Obesity. 5. Dyslipidemia. Continue home medications. Surgical consultation will be done for abdominal pain. If cleared from their standpoint, he would be able to be sent home.
--- NOTE | 2016-11-16 09:42 | P.DS ---
Providers Date of admission: 11/15/16 11:33 Expected date of discharge: 11/16/16 Attending physician: Lukas Reynolds Consults: 11/15/16 12:31 Consult Physician Stat Consulting Provider: Jose Ortiz Consult Reason/Comments: Umbilical hernia Do you want consulting provider notified?: Yes Primary care physician: [facility] Hospital Course: 46-year-old was a direct admission from Dr. Lukas Reynolds's office. Patient originally presented to the emergency room on November 14 with the complaint of severe abdominal pain 1 day. Patient stated was located in umbilical region. Radiated down to the scrotum. Patient did have a computed tomography scan of the abdomen pelvis it showed a tiny fat-containing umbilical hernia with a small amount of fat within the bilateral inguinal canals. Scrotal ultrasound showed no evidence of testicular torsion or acute epididymitis. Patient gives a history of having chronic pain in his left arm he stated that he had a stroke in 2016 and since then has had pain in his left arm. Patient was seen and evaluated by surgical service who indicated that there was no surgical intervention warranted at this time and that the patient could be discharged home patient was asking for IV dilaidid for pain control was asking for a prescription for dilaudid. Told patient that there would not be a prescription for pain medication that he has [place] start home. Instructed the patient he can follow-up with Dr. Reynolds in Dr. mack in the outpatient setting Impression discharge diagnoses Present on admission severe abdominal pain unclear etiology negative computed tomography scan of the abdomen and pelvis Computed tomography scan abdomen and pelvis showed evidence of a tiny fat- containing umbilical hernia with a small amount of fat within the bilateral inguinal canal surgery reviewed the CAT scan indicated no surgical intervention Scrotal ultrasound present on admission showed evidence of small bilateral hydroceles no evidence of testicular torsion or acute epididymitis Morbid obesity BMI 48 History of nicotine dependency quit 3 months ago former smoker Anxiety disorder nonspecified The above dictated assessment and findings were discussed with dr reynolds . Impression and the plan of care have been dictated as directed. Selene Johnson nurse practitioner acting as a scribe for dr reynolds Plan - Discharge Summary Discharge Medication List rOPINIRole HCL [Requip] 0.25 mg PO HS 08/21/15 [History] Levothyroxine Sodium [Synthroid] 300 mcg PO DAILY 11/08/15 [History] Gabapentin [Neurontin] 100 mg PO TID 05/16/16 [History] Ibuprofen [Motrin] 600 mg PO TID PRN 05/16/16 [History] Loratadine [Claritin] 10 mg PO DAILY PRN 07/20/16 [History] Metoprolol Tartrate [Lopressor] 25 mg PO BID 07/20/16 [History] Clopidogrel [Plavix] 75 mg PO DAILY #30 tab 07/21/16 [Rx] Gemfibrozil [Lopid] 600 mg PO AC-BID tab 07/21/16 [Rx] Nitroglycerin Sl Tabs [Nitrostat] 0.4 mg SUBLINGUAL Q5M PRN #0 tab 07/21/16 [Rx] cloNIDine HCL [Catapres] 0.1 mg PO DAILY 11/14/16 [History] HYDROcodone/APAP 7.5-325MG [[place] 7.5-325] 1 tab PO Q6HR PRN #20 tab 11/15/16 [ Rx] Follow up Appointment(s)/Referral(s): Jose Ortiz MD [STAFF PHYSICIAN] - 1 Week Lukas Reynolds MD [Primary Care Provider] - 1 Week Discharge Disposition: HOME SELF-CARE
== END 2016-11-16 10:00 | disposition home or self-care (01) ==
LOC: 3OBS 11:33
PROVIDERS: ADMIT Family Medicine; ATTEND Family Medicine
DX: K42.9 Umbilical hernia without obstruction or gangrene (principal); F41.9 Anxiety disorder, unspecified; G89.29 Other chronic pain; I48.91 Unspecified atrial fibrillation; I25.2 Old myocardial infarction; I25.10 Atherosclerotic heart disease of native coronary artery without angina pectoris; I10 Essential (primary) hypertension; G47.30 Sleep apnea, unspecified; E78.5 Hyperlipidemia, unspecified; E07.9 Disorder of thyroid, unspecified; G25.81 Restless legs syndrome; E66.9 Obesity, unspecified; E03.9 Hypothyroidism, unspecified; I69.354 Hemiplegia and hemiparesis following cerebral infarction affecting left non-dominant side; Z82.49 Family history of ischemic heart disease and other diseases of the circulatory system; Z87.891 Personal history of nicotine dependence; Z79.899 Other long term (current) drug therapy; Z68.42 Body mass index [BMI] 45.0-49.9, adult; Z79.02 Long term (current) use of antithrombotics/antiplatelets
CPT/HCPCS: 96376 ×2; 96361 ×2; 96374; 96375; 80053; 85025; 81003; 87086; G0378 ×2; G0379; J1170 ×2; 36415; 74177; 76870; 82150; 83605; 83690; 85610; 85730; 93975; 99284

== ENCOUNTER 2016-12-05 06:34 | Day surgery (SDC) | payer OTHER ==
[2016-11-30 15:54] VITALS: BMI 48.8
[~2016-12-05 06:34] MED LIST: DEXAMETHASONE SOD PHOSPHATE 10 MG/ML 1 ML VIAL IV ONE; FAMOTIDINE 20 MG/2 ML VIAL IV PRN; HEPARIN SODIUM,PORCINE 5,000 UNIT/ML 1 ML VIAL SQ ONE; HYDROmorphone 1 MG/ML 1 ML SYRINGE IVP PRN; LACTATED RINGERS 1,000 ML IV SCH; LIDOCAINE 1% 20 ML VIAL (10MG/ML) FOR IV START INTRADERMA PRN; SCOPOLAMINE 1.5MG/72HR PATCH TRANSDERM ONE; ceFAZolin 3 GM in SODIUM CHLORIDE 0.9% 100 ML IVPB ONE
[2016-12-05] MEDS ORDERED: ONDANSETRON 4 MG/2 ML VIAL IVP ONE ×2 (07:25)
[2016-12-05] MEDS: MIDAZOLAM 2 MG/2 ML VIAL IV PRN ×2 (07:27→07:58)
--- NOTE | 2016-12-05 08:55 | P.GSHP ---
History of Present Illness H&P Date: 12/05/16 Chief Complaint: Incarcerated umbilical hernia This is a 46-year-old male referred from Dr. Lukas Murguia. Patient presents today for laparoscopic robotic-assisted repair of incarcerated umbilical hernia. - Constitutional Constitutional: Reports as per HPI Past Medical History Past Medical History: Atrial Fibrillation, Coronary Artery Disease (CAD), CVA/ TIA, Myocardial Infarction ([place]), Sleep Apnea/CPAP/BIPAP, Thyroid Disorder Additional Past Medical History / Comment(s): denies hx hypertension, restless leg syndrome, "TIA (x 5) last Apr 2016", memory loss and numbness left fingers left hand and occ lt arm weakness, gout, Last Myocardial Infarction Date:: unk History of Any Multi-Drug Resistant Organisms: None Reported Past Surgical History: Heart Catheterization, Heart Catheterization With Stent Additional Past Surgical History / Comment(s): loop monitor in chest. one cardiac stent Past Anesthesia/Blood Transfusion Reactions: No Reported Reaction Date of Last Stent Placement:: unknown Type of Cardiac Device: Loop Device Placement Date:: Apr 2016 Past Psychological History: Anxiety Additional Psychological History / Comment(s): memory loss from TIA's Smoking Status: Former smoker Past Alcohol Use History: Occasional Additional Past Alcohol Use History / Comment(s): quit smoking 08/2016- smoked for 4 yrs- 1/2 PPD Past Drug Use History: None Reported - Past Family History Father Family Medical History: Myocardial Infarction ([place]) Additional Family Medical History / Comment(s): of [place] Mother Family Medical History: No Reported History Brother(s) Additional Family Medical History / Comment(s): Bipolar disorder Medications and Allergies Home Medications Medication Instructions Recorded Confirmed Type rOPINIRole HCL [Requip] 0.25 mg PO HS 08/21/15 11/30/16 History Levothyroxine Sodium [Synthroid] 300 mcg PO DAILY 11/08/15 11/30/16 History Gabapentin [Neurontin] 100 mg PO TID 05/16/16 11/30/16 History Ibuprofen [Motrin] 600 mg PO TID PRN 05/16/16 11/30/16 History Loratadine [Claritin] 10 mg PO DAILY PRN 07/20/16 11/30/16 History Metoprolol Tartrate [Lopressor] 25 mg PO BID 01/26/17 06/08/17 History cloNIDine HCL [Catapres] 0.1 mg PO DAILY 11/14/16 11/30/16 History Allergies Allergy/AdvReac Type Severity Reaction Status Date / Time No Known Allergies Allergy Verified 11/30/16 15:39 Surgical - Exam Vital Signs Temp Pulse Resp BP Pulse Ox 97.1 F L 55 L 18 117/81 95 12/05/16 06:58 12/05/16 06:58 12/05/16 06:58 12/05/16 06:58 12/05/16 06:58 - General well developed, no distress - Eyes PERRL - ENT normal pinna - Neck no masses - Respiratory normal expansion - Cardiovascular Rhythm: regular - Abdomen Abdomen: soft, non tender Hernia: umbilical (Incarcerated) Assessment and Plan Plan: Incarcerated umbilical hernia. We'll perform laparoscopic robotic-assisted repair.
[2016-12-05] MEDS ORDERED: fentaNYL (PF) 50 MCG/ML 2 ML AMP ONE (08:58)
[2016-12-05] MEDS ORDERED: KETOROLAC 30 MG/ML 1 ML VIAL ONE (08:58)
[2016-12-05] MEDS ORDERED: MORPHINE SULFATE 10 MG/ML SYRINGE ONE (08:58)
[2016-12-05] MEDS ORDERED: MIDAZOLAM 2 MG/2 ML VIAL ONE (08:58)
[2016-12-05] MEDS ORDERED: GLYCOPYRROLATE 0.2 MG/ML 2 ML VIAL ONE (08:58)
[2016-12-05] MEDS ORDERED: ROCURONIUM BROMIDE 10 MG/ML 10 ML VIAL IV ONE (08:58)
[2016-12-05] MEDS ORDERED: SUCCINYLCHOLINE CHLORIDE VIAL 200 MG/10 ML VIAL IV ONE (08:58)
[2016-12-05] MEDS ORDERED: LIDOCAINE 1% INJ 10MG/ML (20 ML MDV) ONE (08:58)
[2016-12-05] MEDS ORDERED: PROPOFOL 10 MG/ML 20 ML VIAL IV ONE (08:58)
[2016-12-05] MEDS ORDERED: NEOSTIGMINE 1 MG/ML 10 ML VIAL ONE (08:58)
[2016-12-05] MEDS ORDERED: BUPIVACAIN-EPI 0.25%-1:200,000 30 ML VIAL SQ ONE (09:38)
--- NOTE | 2016-12-05 10:04 | P.OP ---
Date of Procedure: 12/05/16 Preoperative Diagnosis: Incarcerated umbilical hernia Postoperative Diagnosis: Incarcerated umbilical hernia Procedure(s) Performed: Laparoscopic robotic-assisted repair of incarcerated umbilical hernia Implants: Anesthesia: VASYLA Surgeon: Jose Ortiz Estimated Blood Loss (ml): 5 Pathology: none sent Condition: stable Disposition: PACU Indications for Procedure: Operative Findings: Description of Procedure: Patient's placed the operative table in the supine position. He received general anesthesia. His abdomen was prepped and draped usual sterile fashion. The skin incision sites were anesthetized 1% local Xylocaine. Using 11 blade the skin was incised in the left upper quadrant and then using a I millimeter optical trocar the peritoneal cavity was entered under direct visualization. Abdomen insufflated. After adequate insufflation the laparoscope was placed the peritoneal cavity. Next a 8 mm robotic trochars placed in the left lower quadrant and a 12 mm robotic trochars placed in the left lateral position. And the original 5 ohmmeter trocar was exchanged for a 8 mm robotic trocar. The patient's placed in the left side up position. The patient was then docked to the robot. The incarcerated hernia was visualized. There was omentum within the incarcerated hernia. Using the hook cautery the pressure omentum was withdrawn. And then the fascial defect was closed OV lock suture. Next a round ventral light ST mesh 11 cm was placed into the cavity and this was secured with 2 OV lock suture. The patient was then undocked the robot. The needles were retrieved. The fascia was then clipped closed with 0 Ethibond suture at the 12 trocar site. The skin was closed interrupted 3-0 Monocryl suture. Dermabond was applied. Patient top she will was sent to recovery in stable condition.
[2016-12-05] MEDS ORDERED: LACTATED RINGERS 1,000 ML IV ONE (10:11)
[2016-12-05 10:26] VITALS: TEMP 98.8
[2016-12-05] MEDS ORDERED: HYDROmorphone 1 MG/ML 1 ML SYRINGE IVP ONE (11:00)
[2016-12-05] MEDS ORDERED: HYDROcodone/APAP 7.5-325MG 1 EACH TAB PO ONE (11:52)
[2016-12-05 12:28] VITALS: BP 131/81; PULSE 50; RESP 20
== END 2016-12-05 13:17 | disposition home or self-care (01) ==
LOC: OR 06:34
PROVIDERS: ATTEND Surgery
DX: K42.0 Umbilical hernia with obstruction, without gangrene (principal); G47.33 Obstructive sleep apnea (adult) (pediatric); E07.9 Disorder of thyroid, unspecified; I25.2 Old myocardial infarction; I25.10 Atherosclerotic heart disease of native coronary artery without angina pectoris; Z87.891 Personal history of nicotine dependence; Z95.5 Presence of coronary angioplasty implant and graft; Z79.899 Other long term (current) drug therapy; Z86.73 Personal history of transient ischemic attack (TIA), and cerebral infarction without residual deficits
CPT/HCPCS: 49653; C1781; J2250; J0330; J1644; J1100; J2710; J2270; J0690; J2405; J2001; J3010; J1885; J1170; J2704

== ENCOUNTER 2016-12-15 23:30 | Emergency (ER) | payer OTHER ==
[2016-12-15 23:43] VITALS: RESP 20
[2016-12-15] MEDS ORDERED: HYDROmorphone 1 MG/ML 1 ML SYRINGE IVP STA (23:51)
[2016-12-15] MEDS ORDERED: SODIUM CHLORIDE 0.9% 1,000 ML IV STA (23:51)
--- NOTE | 2016-12-15 23:54 | ED ---
Abdominal Pain HPI - General Chief Complaint: Abdominal Pain Stated Complaint: Abd Pain/Injury-Post Hernia Sx Time Seen by Provider: 12/15/16 23:44 Source: patient, RN notes reviewed Mode of arrival: wheelchair Limitations: no limitations - History of Present Illness Initial Comments: 46-year-old male presents emergency Department chief complaint of left-sided abdominal pain. Patient recently had a umbilical hernia surgery by Dr. Valencia. Patient states she's been healing well without any complications until today when his dog jumped onto his abdomen. Patient states since she's been having some left-sided abdominal pain. Patient denies any nausea vomiting fever chills this. Patient denies any cough cold. Patient states that he was concerned due to his continued pain and discomfort so he thought that he should be evaluated. Patient denies any changes of bowel or bladder habits. Patient states pain is moderate worse to touch and worse to sitting forward. Patient is better when he lays back. - Related Data Home Medications Medication Instructions Recorded Confirmed rOPINIRole HCL [Requip] 0.25 mg PO HS 08/21/15 11/30/16 Levothyroxine Sodium [Synthroid] 300 mcg PO DAILY 11/08/15 11/30/16 Gabapentin [Neurontin] 100 mg PO TID 05/16/16 11/30/16 Ibuprofen [Motrin] 600 mg PO TID PRN 05/16/16 11/30/16 Loratadine [Claritin] 10 mg PO DAILY PRN 07/20/16 11/30/16 Metoprolol Tartrate [Lopressor] 25 mg PO BID 07/20/16 11/30/16 cloNIDine HCL [Catapres] 0.1 mg PO DAILY 11/14/16 11/30/16 Previous Rx's Medication Instructions Recorded Clopidogrel [Plavix] 75 mg PO DAILY #30 tab 07/21/16 Gemfibrozil [Lopid] 600 mg PO AC-BID tab 07/21/16 HYDROcodone/APAP 7.5-325MG [[place] 1 tab PO Q6HR PRN #20 tab 11/15/16 7.5-325] Docusate [Colace] 100 mg PO BID #20 capsule 12/05/16 HYDROcodone/APAP 7.5-325MG [[place] 1 each PO Q4H PRN #60 tab 12/05/16 7.5] Allergies Allergy/AdvReac Type Severity Reaction Status Date / Time No Known Allergies Allergy Verified 12/15/16 23:42 Review of Systems ROS Statement: Those systems with pertinent positive or pertinent negative responses have been documented in the HPI. ROS Other: All systems not noted in ROS Statement are negative. Past Medical History Past Medical History: Atrial Fibrillation, Coronary Artery Disease (CAD), CVA/ TIA, Myocardial Infarction ([place]), Sleep Apnea/CPAP/BIPAP, Thyroid Disorder Additional Past Medical History / Comment(s): denies hx hypertension, restless leg syndrome, "TIA (x 5) last Apr 2016", memory loss and numbness left fingers left hand and occ lt arm weakness, gout, Last Myocardial Infarction Date:: unk History of Any Multi-Drug Resistant Organisms: None Reported Past Surgical History: Heart Catheterization, Heart Catheterization With Stent, Hernia Repair Additional Past Surgical History / Comment(s): loop monitor in chest. one cardiac stent Past Anesthesia/Blood Transfusion Reactions: No Reported Reaction Date of Last Stent Placement:: unknown Type of Cardiac Device: Loop Device Placement Date:: Apr 2016 Past Psychological History: Anxiety Smoking Status: Former smoker Past Alcohol Use History: Occasional Past Drug Use History: None Reported - Past Family History Father Family Medical History: Myocardial Infarction ([place]) Additional Family Medical History / Comment(s): of [place] Mother Family Medical History: No Reported History Brother(s) Additional Family Medical History / Comment(s): Bipolar disorder General Exam - General Exam Comments Initial Comments: General: The patient is awake and alert, in no distress, and does not appear acutely ill. Eye: Pupils are equal, round and reactive to light, extra-ocular movements are intact; there is normal conjunctiva bilaterally. No signs of icterus. Ears, nose, mouth and throat: There are moist mucous membranes and no oral lesions. Neck: The neck is supple, there is no tenderness. Cardiovascular: There is a regular rate and rhythm. No murmur, rub or gallop is appreciated. Respiratory: Lungs are clear to auscultation, respirations are non-labored, breath sounds are equal. No wheezes, stridor, rales, or rhonchi. Gastrointestinal: Ecchymosis and healing surgical incisions noted to the abdominal wall, Soft, non-distended, localized superficial tenderness over the left side of the abdomen without masses or organomegaly noted. There is no rebound or guarding present. No CVA tenderness. Bowel sounds are unremarkable. Back: There is no tenderness to palpation in the midline. There is no obvious deformity. No rashes noted. Musculoskeletal: Normal ROM, no tenderness, There is no pedal edema. There is no calf tenderness or swelling. Sensation intact. Pulses equal bilaterally 2+. Neurological: CN II-XII intact, There are no obvious motor or sensory deficits. Coordination appears grossly intact. Speech is normal. Skin: Skin is warm and dry and no rashes or lesions are noted. Psychiatric: Cooperative, appropriate mood & affect, normal judgment. Limitations: no limitations Course Vital Signs 12/15/16 23:38 Temperature 98.6 F Pulse Rate 62 Respiratory 20 Rate Blood Pressure 140/89 O2 Sat by Pulse 97 Oximetry Medical Decision Making - Medical Decision Making 46-year-old male presents emergency Department chief complaint of abdominal pain after his dog jumped onto his abdomen. At this time patient's CAT scan is reviewed. This time there does not appear to be an acute traumatic process going on. This time CAT scan of the results do show concern for inflammation patient has no white count. No pain prior to this traumatic incident. This tenderness is most likely the appropriately healing surgery. This time we did discuss close follow-up with a surgeon. We discussed return for hours on questions. Patient's pain has completely resolved at this time. This time we will discharge the patient home. Patient is in agreement with the plan. - Lab Data Result diagrams: 12/16/16 00:22 12/16/16 00:22 Lab Results 12/16/16 12/16/16 Range/Units 00:22 00:22 WBC 9.4 (3.8-10.6) k/uL RBC 4.98 (4.30-5.90) m/uL Hgb 14.9 (13.0-17.5) gm/dL Hct 43.5 (39.0-53.0) % MCV 87.4 (80.0-100.0) fL MCH 29.9 (25.0-35.0) pg MCHC 34.2 (31.0-37.0) g/dL RDW 14.8 (11.5-15.5) % Plt Count 187 (150-450) k/uL Neutrophils % 71 % Lymphocytes % 21 % Monocytes % 5 % Eosinophils % 2 % Basophils % 0 % Neutrophils # 6.6 (1.3-7.7) k/uL Lymphocytes # 2.0 (1.0-4.8) k/uL Monocytes # 0.5 (0-1.0) k/uL Eosinophils # 0.2 (0-0.7) k/uL Basophils # 0.0 (0-0.2) k/uL Sodium 141 (137-145) mmol/L Potassium 4.3 (3.5-5.1) mmol/L Chloride 103 (98-107) mmol/L Carbon Dioxide 24 (22-30) mmol/L Anion Gap 14 mmol/L BUN 15 (9-20) mg/dL Creatinine 1.10 (0.66-1.25) mg/dL Est GFR (MDRD) Af Amer >60 (>60 ml/min/1.73 sqM) Est GFR (MDRD) Non-Af >60 (>60 ml/min/1.73 sqM) Glucose 103 H (74-99) mg/dL Calcium 9.8 (8.4-10.2) mg/dL Total Bilirubin 0.6 (0.2-1.3) mg/dL AST 33 (17-59) U/L ALT 45 (21-72) U/L Alkaline Phosphatase 92 (38-126) U/L Total Protein 7.9 (6.3-8.2) g/dL Albumin 4.7 (3.5-5.0) g/dL - Radiology Data Radiology results: report reviewed, image reviewed Disposition Clinical Impression: Abdominal pain Disposition: TRANSFER TO PSYCH HOSP/UNIT Condition: Stable Instructions: Abdominal Pain (ED) Additional Instructions: Please use medication as discussed. Please follow up with family doctor if symptoms have not improved over the next two days. Please return to the emergency room if your symptoms increase or worsen or for any other concerns. Referrals: Lukas Bain MD [Primary Care Provider] - 1-2 days Time of Disposition: 01:36
[2016-12-16 01:00] LABS: Basophils % (A) 0 %; CHCM 34.5; Eosinophils # (A) 0.2 k/uL (0-0.7); Eosinophils % (A) 2 %; HCT 43.5 % (39.0-53.0); HDW 2.88; HGB 14.9 gm/dL (13.0-17.5); Luc # (Auto) 0.13; Luc % (Auto) 1; Lymphocytes % (A) 21 %; MCH 29.9 pg (25.0-35.0); MCHC 34.2 g/dL (31.0-37.0); MCV 87.4 fL (80.0-100.0); Mean Platelet Volume 7.3; Monocytes # (A) 0.5 k/uL (0-1.0); Monocytes % (A) 5 %; Neutrophils # (A) 6.6 k/uL (1.3-7.7); Neutrophils % (A) 71 %; RBC 4.98 m/uL (4.30-5.90); RDW 14.8 % (11.5-15.5); WBC 9.4 k/uL (3.8-10.6); WBC (Perox) 8.94
[2016-12-16 01:09] LABS: ALT 45 U/L (21-72); AST 33 U/L (17-59); Alkaline Phosphatase 92 U/L (38-126); Anion Gap 14 mmol/L; Blood Urea Nitrogen 15 mg/dL (9-20); Calcium 9.8 mg/dL (8.4-10.2); Carbon Dioxide 24 mmol/L (22-30); Chloride 103 mmol/L (98-107); Glucose 103 mg/dL (74-99); Non-African American GFR(MDRD) >60 (>60 ml/min/1.73 sqM); Potassium 4.3 mmol/L (3.5-5.1); Sodium 141 mmol/L (137-145); Total Bilirubin 0.6 mg/dL (0.2-1.3); Total Protein 7.9 g/dL (6.3-8.2)
--- NOTE | 2016-12-16 01:11 | CT ---
EXAM: CT Abdomen Without Intravenous Contrast CLINICAL HISTORY: Reason: Pain TECHNIQUE: Axial computed tomography images of the abdomen without intravenous contrast. CTDI is 51.7 mGy and DLP is 2884.3 mGy-cm. This CT exam was performed using one or more of the following dose reduction techniques: automated exposure control, adjustment of the mA and/or kV according to patient size, and/or use of iterative reconstruction technique. Coronal and sagittal reformatted images were created and reviewed. COMPARISON: CT 11/14/16 FINDINGS: Lower thorax: No acute findings. Liver: Fatty liver with mild hepatomegaly. Gallbladder and bile ducts: Unremarkable. No calcified stones. No ductal dilation. Pancreas: Unremarkable. No ductal dilation. Spleen: Unremarkable. No splenomegaly. Adrenals: Unremarkable. No mass. Kidneys and ureters: Similar appearance of bilateral nonspecific perinephric stranding. No renal calculus or hydronephrosis. Stomach and bowel: Unremarkable. No obstruction. No mucosal thickening. Appendix: No findings to suggest acute appendicitis. Intraperitoneal space: Unremarkable. No free air. No significant fluid collection. Bones/joints: Multilevel degenerative changes of the spine. No acute fracture. No dislocation. Soft tissues: Interval ventral hernia repair with mesh. Some fat stranding is seen along the mesh as well as skin thickening and edema in the region of surgery. Vasculature: Unremarkable. No abdominal aortic aneurysm. Lymph nodes: Unremarkable. No enlarged lymph nodes. IMPRESSION: 1. Interval ventral hernia repair with mesh. Some fat stranding is seen along the mesh as well as skin thickening and edema in the region of surgery. While this may be due to surgery, underlying inflammatory process is not excluded. Mesenteric infarct may also be considered. 2. Similar appearance of bilateral nonspecific perinephric stranding. No renal calculus or hydronephrosis. 3. Fatty liver with mild hepatomegaly.
[2016-12-16 01:41] VITALS: BP 115/54; PULSE 51; TEMP 98
== END 2016-12-16 01:51 ==
LOC: EC 23:30
DX: R10.9 Unspecified abdominal pain (principal); R58 Hemorrhage, not elsewhere classified; G25.81 Restless legs syndrome; E07.9 Disorder of thyroid, unspecified; I25.2 Old myocardial infarction; Z87.891 Personal history of nicotine dependence; Z79.899 Other long term (current) drug therapy; Z98.890 Other specified postprocedural states
CPT/HCPCS: 99285; 96374; 96361; 36415; 80053; 85025; 74176; J1170

== ENCOUNTER 2017-01-09 23:28 | Emergency (ER) | payer OTHER ==
[2017-01-10] MEDS ORDERED: RX INFO: IV CONTRAST WAS GIVEN 1 EACH MISC MISCELLANE PRN (00:06)
--- NOTE | 2017-01-10 00:14 | ED ---
Abdominal Pain HPI - General Chief Complaint: Abdominal Pain Stated Complaint: abd pain post hernia surgery Time Seen by Provider: 01/10/17 00:00 Source: patient Mode of arrival: ambulatory Limitations: no limitations - History of Present Illness Initial Comments: Patient is an obese 46-year-old male who presents to the emergency department for evaluation of abdominal pain. Patient states that on December 05 of this year he underwent a laparoscopic umbilical hernia repair with mesh. Patient states that he was prescribed 2 weeks of [place] postoperatively but since that time is been without pain medication. Patient reports that he has had pain in his abdomen since the procedure but over the past 2 days the pain has become unbearable. Pain is on the left side of his abdomen, sharp and worse with palpation or movement. Patient states when he stands he feels as though he can see a bulge on his left abdomen. Patient reports he's been able to eat a normal diet, had normal bowel movements without the caliber or consistency. He denies any melena or hematochezia. He reports no change in bladder habits or development of any hematuria. She denies any fevers, chills chest pain or shortness of breath. He reports that this evening the pain became unbearable which prompted him to come to the emergency department for further evaluation. - Related Data Home Medications Medication Instructions Recorded Confirmed rOPINIRole HCL [Requip] 0.25 mg PO HS 08/21/15 11/30/16 Levothyroxine Sodium [Synthroid] 300 mcg PO DAILY 11/08/15 11/30/16 Gabapentin [Neurontin] 100 mg PO TID 05/16/16 11/30/16 Ibuprofen [Motrin] 600 mg PO TID PRN 05/16/16 11/30/16 Loratadine [Claritin] 10 mg PO DAILY PRN 07/20/16 11/30/16 Metoprolol Tartrate [Lopressor] 25 mg PO BID 07/20/16 11/30/16 cloNIDine HCL [Catapres] 0.1 mg PO DAILY 11/14/16 11/30/16 Previous Rx's Medication Instructions Recorded Clopidogrel [Plavix] 75 mg PO DAILY #30 tab 07/21/16 Gemfibrozil [Lopid] 600 mg PO AC-BID tab 07/21/16 HYDROcodone/APAP 7.5-325MG [[place] 1 tab PO Q6HR PRN #20 tab 11/15/16 7.5-325] Docusate [Colace] 100 mg PO BID #20 capsule 12/05/16 HYDROcodone/APAP 7.5-325MG [[place] 1 each PO Q4H PRN #60 tab 12/05/16 7.5] Allergies Allergy/AdvReac Type Severity Reaction Status Date / Time No Known Allergies Allergy Verified 01/09/17 23:52 Review of Systems ROS Statement: Those systems with pertinent positive or pertinent negative responses have been documented in the HPI. ROS Other: All systems not noted in ROS Statement are negative. Constitutional: Denies: fever, chills ENT: Denies: throat pain Respiratory: Denies: cough, dyspnea Cardiovascular: Denies: chest pain, palpitations Endocrine: Denies: fatigue Gastrointestinal: Reports: abdominal pain. Denies: vomiting, diarrhea, constipation, hematemesis, melena, hematochezia Genitourinary: Denies: urgency, dysuria, frequency, hematuria Musculoskeletal: Denies: back pain Skin: Reports: other (Well-healing) Neurological: Denies: headache, weakness Psychiatric: Denies: anxiety, depression Hematological/Lymphatic: Denies: easy bleeding, easy bruising Past Medical History Past Medical History: Atrial Fibrillation, Coronary Artery Disease (CAD), CVA/ TIA, Myocardial Infarction ([place]), Sleep Apnea/CPAP/BIPAP, Thyroid Disorder Additional Past Medical History / Comment(s): denies hx hypertension, restless leg syndrome, "TIA (x 5) last Apr 2016", memory loss and numbness left fingers left hand and occ lt arm weakness, gout, Last Myocardial Infarction Date:: unk History of Any Multi-Drug Resistant Organisms: None Reported Past Surgical History: Heart Catheterization, Heart Catheterization With Stent, Hernia Repair Additional Past Surgical History / Comment(s): loop monitor in chest. one cardiac stent Past Anesthesia/Blood Transfusion Reactions: No Reported Reaction Date of Last Stent Placement:: unknown Type of Cardiac Device: Loop Device Placement Date:: Apr 2016 Past Psychological History: Anxiety Smoking Status: Former smoker Past Alcohol Use History: Occasional Past Drug Use History: None Reported - Past Family History Father Family Medical History: Myocardial Infarction ([place]) Additional Family Medical History / Comment(s): of [place] Mother Family Medical History: No Reported History Brother(s) Additional Family Medical History / Comment(s): Bipolar disorder General Exam Limitations: no limitations General appearance: alert, in no apparent distress, obese Head exam: Present: atraumatic, normocephalic, normal inspection Eye exam: Present: normal appearance, PERRL, EOMI. Absent: scleral icterus, conjunctival injection, periorbital swelling ENT exam: Present: normal exam, mucous membranes moist Neck exam: Present: normal inspection. Absent: tenderness, meningismus, lymphadenopathy Respiratory exam: Present: normal lung sounds bilaterally. Absent: respiratory distress Cardiovascular Exam: Present: regular rate, normal rhythm GI/Abdominal exam: Present: soft, tenderness, normal bowel sounds. Absent: guarding, rebound Extremities exam: Present: normal inspection, full ROM Neurological exam: Present: alert, oriented X3, CN II-XII intact Psychiatric exam: Present: normal affect, normal mood Skin exam: Present: warm, dry, intact, other (Well-healing laparoscopic surgical incisions) Course Vital Signs 01/09/17 23:48 Temperature 97.7 F Pulse Rate 64 Respiratory 18 Rate Blood Pressure 153/95 O2 Sat by Pulse 97 Oximetry - Reevaluation(s) Reevaluation #1: Patient re-evaluated, laying in hospital bed using his cell phone. Advised patient we are awaiting CT read. Patient states he would like to just be sent home if he isnt going to receive any IV pain medications. Advised patient we will await CT read for discharge. 01/10/17 02:41 Medical Decision Making - Medical Decision Making Patient was seen and evaluated Vital signs were reviewed, they reveal no Sirs criteria History was obtained from the patient and review of his medical record Physical exam with an obese abdomen, tender to gentle palpation in the left abdomen, well-healing laparoscopic surgical incisions Patient's pain appears to be distractible, although when asked if he has pain during palpation patient very dramatically rides and states that he is in excruciating pain however when palpating his abdomen during conversation the patient did not appear distressed Labs and imaging ordered Patient able to go to CT prior to AAS being completed, AAS canceled Patient requesting IV narcotics for abdominal pain, advised we will await full workup and treat based on findings. CT with no acute findings Results were discussed with the patient, advised the patient the treatment for postsurgical pain is anti-inflammatories patient states he's been taking Motrin with minimal help. Advised the patient to continue taking Motrin scheduled and to follow-up with his surgeon as scheduled. I advised the patient that narcotics are not the treatment of choice for abdominal pain persisting in 2 weeks after surgery. I advised him that narcotics are treatment for acute pain but long-term pain is better treated with anti-inflammatories. All questions pertaining to care to do the best of my ability and patient was discharged home in stable condition. - Lab Data Result diagrams: 01/10/17 00:35 01/10/17 00:35 Lab Results 01/10/17 01/10/17 01/10/17 Range/Units 00:35 00:35 00:35 WBC 7.1 (3.8-10.6) k/uL RBC 5.13 (4.30-5.90) m/uL Hgb 14.9 (13.0-17.5) gm/dL Hct 44.6 (39.0-53.0) % MCV 86.8 (80.0-100.0) fL MCH 29.1 (25.0-35.0) pg MCHC 33.5 (31.0-37.0) g/dL RDW 14.5 (11.5-15.5) % Plt Count 195 (150-450) k/uL Neutrophils % 54 % Lymphocytes % 35 % Monocytes % 5 % Eosinophils % 3 % Basophils % 0 % Neutrophils # 3.9 (1.3-7.7) k/uL Lymphocytes # 2.5 (1.0-4.8) k/uL Monocytes # 0.4 (0-1.0) k/uL Eosinophils # 0.2 (0-0.7) k/uL Basophils # 0.0 (0-0.2) k/uL PT 10.8 (9.0-12.0) sec INR 1.1 (<1.2) APTT 24.5 (22.0-30.0) sec Sodium 143 (137-145) mmol/L Potassium 3.9 (3.5-5.1) mmol/L Chloride 106 (98-107) mmol/L Carbon Dioxide 24 (22-30) mmol/L Anion Gap 13 mmol/L BUN 12 (9-20) mg/dL Creatinine 0.90 (0.66-1.25) mg/dL Est GFR (MDRD) Af Amer >60 (>60 ml/min/1.73 sqM) Est GFR (MDRD) Non-Af >60 (>60 ml/min/1.73 sqM) Glucose 95 (74-99) mg/dL Calcium 9.8 (8.4-10.2) mg/dL Total Bilirubin 0.6 (0.2-1.3) mg/dL AST 28 (17-59) U/L ALT 48 (21-72) U/L Alkaline Phosphatase 106 (38-126) U/L Total Protein 8.0 (6.3-8.2) g/dL Albumin 4.8 (3.5-5.0) g/dL Disposition Clinical Impression: Postoperative abdominal pain Disposition: HOME SELF-CARE Condition: Good Instructions: Acute Abdominal Pain (ED), Abdominal Pain (ED) Referrals: Lukas Bain MD [Primary Care Provider] - 1-2 days Time of Disposition: 02:46
[2017-01-10 00:54] LABS: Basophils % (A) 0 %; CH 30.2; Eosinophils # (A) 0.2 k/uL (0-0.7); Eosinophils % (A) 3 %; HCT 44.6 % (39.0-53.0); HDW 3.03; HGB 14.9 gm/dL (13.0-17.5); Luc # (Auto) 0.15; Luc % (Auto) 2; Lymphocytes # (A) 2.5 k/uL (1.0-4.8); Lymphocytes % (A) 35 %; MCH 29.1 pg (25.0-35.0); MCHC 33.5 g/dL (31.0-37.0); MCV 86.8 fL (80.0-100.0); Mean Platelet Volume 7.5; Monocytes # (A) 0.4 k/uL (0-1.0); Monocytes % (A) 5 %; Neutrophils # (A) 3.9 k/uL (1.3-7.7); Neutrophils % (A) 54 %; RBC 5.13 m/uL (4.30-5.90); RDW 14.5 % (11.5-15.5); WBC 7.1 k/uL (3.8-10.6); WBC (Perox) 7.15
[2017-01-10 01:05] LABS: INR 1.1 (<1.2); Partial Thromboplastin Time 24.5 sec (22.0-30.0); Prothrombin Time 10.8 sec (9.0-12.0)
[2017-01-10 01:06] LABS: ALT 48 U/L (21-72); AST 28 U/L (17-59); Alkaline Phosphatase 106 U/L (38-126); Anion Gap 13 mmol/L; Blood Urea Nitrogen 12 mg/dL (9-20); Calcium 9.8 mg/dL (8.4-10.2); Carbon Dioxide 24 mmol/L (22-30); Chloride 106 mmol/L (98-107); Glucose 95 mg/dL (74-99); Non-African American GFR(MDRD) >60 (>60 ml/min/1.73 sqM); Potassium 3.9 mmol/L (3.5-5.1); Sodium 143 mmol/L (137-145); Total Bilirubin 0.6 mg/dL (0.2-1.3)
--- NOTE | 2017-01-10 02:44 | CT ---
EXAM: CT Abdomen and Pelvis With Intravenous Contrast CLINICAL HISTORY: Lower abdominal pain TECHNIQUE: Axial computed tomography images of the abdomen and pelvis with intravenous contrast. CTDI is 118.5 mGy and DLP is 5565.80 mGy-cm. This CT exam was performed using one or more of the following dose reduction techniques: automated exposure control, adjustment of the mA and/or kV according to patient size, and/or use of iterative reconstruction technique. COMPARISON: CT of the abdomen/pelvis dated 12/16/2016 FINDINGS: Lower thorax: No acute findings. ABDOMEN: Liver: Liver is again noted to be mildly enlarged, measuring up to 23. 4 cm in craniocaudad dimension, with evidence of hepatic steatosis. Gallbladder and bile ducts: Unremarkable. No calcified stones. No ductal dilation. Pancreas: Unremarkable. No mass. No ductal dilation. Spleen: Unremarkable. No splenomegaly. Adrenals: Unremarkable. No mass. Kidneys and ureters: Mild symmetric perinephric stranding is again seen, nonspecific. Stomach and bowel: Unremarkable. No obstruction. No mucosal thickening. Appendix: A normal appendix is seen. PELVIS: Bladder: Unremarkable. No mass. Reproductive: Unremarkable as visualized. ABDOMEN and PELVIS: Intraperitoneal space: No significant fluid collection. Bones/joints: No acute fracture. No dislocation. Soft tissues: Patient status post ventral abdominal hernia repair with associated postsurgical changes. Small amount of fat is again seen within the inguinal canals. No large hernia or other abnormality. Vasculature: Minimal atherosclerotic vascular calcifications involving the abdominal aorta. No abdominal aortic aneurysm. Lymph nodes: Unremarkable. No grossly enlarged lymph nodes. IMPRESSION: Mildly enlarged fatty liver, as seen on prior study. No evidence of acute intra-abdominal pathology. No significant interval change from the prior study. Findings as above.
[2017-01-10 02:57] VITALS: BP 134/65; PULSE 78; RESP 16; TEMP 98.2
== END 2017-01-10 02:56 | disposition home or self-care (01) ==
LOC: EC 23:28
DX: R10.9 Unspecified abdominal pain (principal); G89.18 Other acute postprocedural pain; I48.91 Unspecified atrial fibrillation; I25.10 Atherosclerotic heart disease of native coronary artery without angina pectoris; E07.9 Disorder of thyroid, unspecified; I25.2 Old myocardial infarction; I10 Essential (primary) hypertension; G25.81 Restless legs syndrome; Z87.891 Personal history of nicotine dependence; Z79.899 Other long term (current) drug therapy; Z98.890 Other specified postprocedural states; Z95.5 Presence of coronary angioplasty implant and graft; Y83.8 Other surgical procedures as the cause of abnormal reaction of the patient, or of later complication, without mention of misadventure at the time of the procedure
CPT/HCPCS: 36415; 80053; 85025; 85610; 85730; 74177; 99284; Q9967

== ENCOUNTER 2017-06-16 18:32 | Observation (INO) | payer OTHER ==
[2017-06-16] MEDS ORDERED: SODIUM CHLORIDE 0.9% 1,000 ML IV STA (19:02)
[2017-06-16] MEDS ORDERED: MORPHINE SULFATE 5 MG/ML SYRINGE IV STA (19:02)
[2017-06-16] MEDS ORDERED: NITROGLYCERIN OINT 1 INCH/GM PACKET TOPICAL STA (19:02)
[2017-06-16] MEDS ORDERED: ASPIRIN 81 MG PO STA (19:02)
[2017-06-16 19:16] LABS: Basophils % (A) 0 %; Eosinophils # (A) 0.2 k/uL (0-0.7); Eosinophils % (A) 3 %; HCT 40.7 % (39.0-53.0); HGB 13.3 gm/dL (13.0-17.5); Lymphocytes # (A) 1.5 k/uL (1.0-4.8); Lymphocytes % (A) 21 %; MCH 28.2 pg (25.0-35.0); MCHC 32.7 g/dL (31.0-37.0); MCV 86.2 fL (80.0-100.0); Mean Platelet Volume 8.1; Monocytes # (A) 0.3 k/uL (0-1.0); Monocytes % (A) 5 %; Neutrophils % (A) 70 %; Platelet Count 175 k/uL (150-450); RBC 4.72 m/uL (4.30-5.90); RDW 14.5 % (11.5-15.5); WBC 7.1 k/uL (3.8-10.6)
--- NOTE | 2017-06-16 19:17 | ED ---
General Adult HPI - General Chief complaint: Chest Pain Stated complaint: Chest pain Time Seen by Provider: 06/16/17 18:43 Source: patient, family, EMS, RN notes reviewed, old records reviewed Mode of arrival: EMS Limitations: no limitations - History of Present Illness Initial comments: Chief complaint and history of present illness a 46-year-old male to complaint of chest pain that started 45 minutes ago. Patient reports it's retrosternal no some left arm numbness. He complains of mild nausea but no vomiting no sweats. It occurred while just resting. He was given sublingual nitroglycerin by EMS that brought the pain from a 10 to a 7. Stat EKG was done and did not show any acute ST elevation - Related Data Home Medications Medication Instructions Recorded Confirmed rOPINIRole HCL [Requip] 0.25 mg PO HS 08/21/15 06/16/17 Levothyroxine Sodium [Synthroid] 300 mcg PO DAILY 11/08/15 06/16/17 Ibuprofen [Motrin] 600 mg PO TID PRN 05/16/16 06/16/17 Allergies Allergy/AdvReac Type Severity Reaction Status Date / Time No Known Allergies Allergy Verified 06/16/17 20:06 Review of Systems ROS Statement: Those systems with pertinent positive or pertinent negative responses have been documented in the HPI. Review of systems. No headache or visual acuity changes. He has retrosternal area chest discomfort. Complained of some numbness to the left arm before range of motion. Nausea but no vomiting no diarrhea pains slightly reproducible by taking a deep breath or pushing on his chest. Denies any injuries from lifting or movement lately. No neuro deficits. All systems are reviewed. Past medical problems significant for angina and a stent because of a 90% occlusion of the LAD. Also hypertension, hypothyroidism. Patient used to have A. fib. But after the stent stopped. He is no longer on any blood thinners. The patient's surgeries 1 stent, umbilical hernia repair. Family history no cancers. Patient denies any ALLERGIES. Quit smoking one year ago. Drink alcohol socially. ROS Other: All systems not noted in ROS Statement are negative. Past Medical History Past Medical History: Atrial Fibrillation, Coronary Artery Disease (CAD), CVA/ TIA, Myocardial Infarction ([place]), Sleep Apnea/CPAP/BIPAP, Thyroid Disorder Additional Past Medical History / Comment(s): denies hx hypertension, restless leg syndrome, "TIA (x 5) last Apr 2016", memory loss and numbness left fingers left hand and occ lt arm weakness, gout, Last Myocardial Infarction Date:: unk History of Any Multi-Drug Resistant Organisms: None Reported Past Surgical History: Heart Catheterization, Heart Catheterization With Stent, Hernia Repair Additional Past Surgical History / Comment(s): loop monitor in chest. one cardiac stent Past Anesthesia/Blood Transfusion Reactions: No Reported Reaction Date of Last Stent Placement:: unknown Type of Cardiac Device: Loop Device Placement Date:: Apr 2016 Past Psychological History: Anxiety Smoking Status: Former smoker Past Alcohol Use History: Occasional Past Drug Use History: None Reported - Past Family History Father Family Medical History: Myocardial Infarction ([place]) Additional Family Medical History / Comment(s): of [place] Mother Family Medical History: No Reported History Brother(s) Additional Family Medical History / Comment(s): Bipolar disorder General Exam - General Exam Comments Initial Comments: General: The patient is awake and alert, in no distress, and does not appear acutely ill. With a chief complaint of retrosternal chest pain no left arm numbness. Vital signs shows temperature 98.2 pulse 60 respiratory rate 16 pulse ox 98% on 2 L. Blood pressure 132/77 Eye: Pupils are equal, round and reactive to light, extra-ocular movements are intact ; there is normal conjunctiva bilaterally. No signs of icterus. Ears, nose, mouth and throat: There are moist mucous membranes and no oral lesions. Neck: The neck is supple, there is no tenderness .. Cardiovascular: There is a regular rate and rhythm. No murmur, rub or gallop is appreciated. Respiratory: Lungs are clear to auscultation, respirations are non-labored, breath sounds are equal. No wheezes, stridor, rales, or rhonchi. Gastrointestinal: Soft, non-distended, non-tender abdomen without masses or organomegaly noted. There is no rebound or guarding present. No CVA tenderness. Bowel sounds are unremarkable. Back: There is no tenderness to palpation in the midline. There is no obvious deformity. No rashes noted. Musculoskeletal: Normal ROM, no tenderness, There is no pedal edema. There is no calf tenderness or swelling. Sensation intact. Pulses equal bilaterally 2+. Neurological: CN II-XII intact, There are no obvious motor or sensory deficits. Coordination appears grossly intact. Speech is normal. Skin: Skin is warm and dry and no rashes or lesions are noted. Psychiatric: Cooperative, appropriate mood & affect, normal judgment. Limitations: no limitations Course Vital Signs 06/16/17 18:38 Temperature 98.2 F Pulse Rate 68 Respiratory 16 Rate Blood Pressure 132/77 O2 Sat by Pulse 98 Oximetry EKG Findings - EKG Comments: EKG Findings:: EKG was done and reviewed at 1840 6 PM showing normal sinus rhythm no acute ST elevation no ectopy no ischemic changes. Rate 63 MI interval was 172 QRS 84 QT 316 QTC 368. This EKG was compared to one done on and they're very similar. Dr. Ludwig Medical Decision Making - Medical Decision Making Decision-making the patient's arrived with angina type pain. Mildly relieved with nitro given by EMS. EKG does not show any acute changes at this time. The patient had lab work done labs show white count 7.1 hemoglobin 13 hematocrit 40.7. INR is 1.0, potassium 4.4, BUN 12 creatinine 0.8 with a GFR greater than 60. Troponin less than 0.012 CK and MB normal. Blood sugar 109. Chest x-ray is done AP and lateral view and reviewed by radiologist his findings are there is mild cephalization of the pulmonary vessels. An implantable device is again noted in the left hemithorax. There is no pneumothorax or pleural effusion. Cardiac silhouette is mildly enlarged. Impression; mild CHF as read by Dr. Stewart. Case discussion Dr. Lukas Bain, the patient's attending. Patient be admitted his service and started on heparin with cardiology consultation. Patient states feeling better with the medications provided including morphine and Nitropaste. - Lab Data Result diagrams: 06/16/17 19:02 06/16/17 19:02 Lab Results 06/16/17 06/16/17 06/16/17 Range/Units 19:02 19:02 19:02 WBC 7.1 (3.8-10.6) k/uL RBC 4.72 (4.30-5.90) m/uL Hgb 13.3 (13.0-17.5) gm/dL Hct 40.7 (39.0-53.0) % MCV 86.2 (80.0-100.0) fL MCH 28.2 (25.0-35.0) pg MCHC 32.7 (31.0-37.0) g/dL RDW 14.5 (11.5-15.5) % Plt Count 175 (150-450) k/uL Neutrophils % 70 % Lymphocytes % 21 % Monocytes % 5 % Eosinophils % 3 % Basophils % 0 % Neutrophils # 5.0 (1.3-7.7) k/uL Lymphocytes # 1.5 (1.0-4.8) k/uL Monocytes # 0.3 (0-1.0) k/uL Eosinophils # 0.2 (0-0.7) k/uL Basophils # 0.0 (0-0.2) k/uL PT (9.0-12.0) sec INR (<1.2) APTT (22.0-30.0) sec D-Dimer (<0.60) mg/L FEU Sodium 141 (137-145) mmol/L Potassium 4.4 (3.5-5.1) mmol/L Chloride 104 (98-107) mmol/L Carbon Dioxide 28 (22-30) mmol/L Anion Gap 9 mmol/L BUN 12 (9-20) mg/dL Creatinine 0.81 (0.66-1.25) mg/dL Est GFR (MDRD) Af Amer >60 (>60 ml/min/1.73 sqM) Est GFR (MDRD) Non-Af >60 (>60 ml/min/1.73 sqM) Glucose 109 H (74-99) mg/dL Calcium 9.8 (8.4-10.2) mg/dL Magnesium 1.9 (1.6-2.3) mg/dL Total Bilirubin 0.7 (0.2-1.3) mg/dL AST 23 (17-59) U/L ALT 36 (21-72) U/L Alkaline Phosphatase 73 (38-126) U/L Total Creatine Kinase 147 (55-170) U/L CK-MB (CK-2) 1.4 (0.0-2.4) ng/mL CK-MB (CK-2) Rel Index 1.0 Troponin I <0.012 (0.000-0.034) ng/mL Total Protein 7.8 (6.3-8.2) g/dL Albumin 4.2 (3.5-5.0) g/dL 06/16/17 Range/Units 19:02 WBC (3.8-10.6) k/uL RBC (4.30-5.90) m/uL Hgb (13.0-17.5) gm/dL Hct (39.0-53.0) % MCV (80.0-100.0) fL MCH (25.0-35.0) pg MCHC (31.0-37.0) g/dL RDW (11.5-15.5) % Plt Count (150-450) k/uL Neutrophils % % Lymphocytes % % Monocytes % % Eosinophils % % Basophils % % Neutrophils # (1.3-7.7) k/uL Lymphocytes # (1.0-4.8) k/uL Monocytes # (0-1.0) k/uL Eosinophils # (0-0.7) k/uL Basophils # (0-0.2) k/uL PT 9.9 (9.0-12.0) sec INR 1.0 (<1.2) APTT 24.3 (22.0-30.0) sec D-Dimer 0.45 (<0.60) mg/L FEU Sodium (137-145) mmol/L Potassium (3.5-5.1) mmol/L Chloride (98-107) mmol/L Carbon Dioxide (22-30) mmol/L Anion Gap mmol/L BUN (9-20) mg/dL Creatinine (0.66-1.25) mg/dL Est GFR (MDRD) Af Amer (>60 ml/min/1.73 sqM) Est GFR (MDRD) Non-Af (>60 ml/min/1.73 sqM) Glucose (74-99) mg/dL Calcium (8.4-10.2) mg/dL Magnesium (1.6-2.3) mg/dL Total Bilirubin (0.2-1.3) mg/dL AST (17-59) U/L ALT (21-72) U/L Alkaline Phosphatase (38-126) U/L Total Creatine Kinase (55-170) U/L CK-MB (CK-2) (0.0-2.4) ng/mL CK-MB (CK-2) Rel Index Troponin I (0.000-0.034) ng/mL Total Protein (6.3-8.2) g/dL Albumin (3.5-5.0) g/dL Disposition Clinical Impression: Unstable angina pectoris Disposition: ADMITTED IP TO THIS HOSP Condition: Fair Referrals: Lukas Bain MD [Primary Care Provider] - 1-2 days
[2017-06-16 19:26] LABS: ALT 36 U/L (21-72); AST 23 U/L (17-59); Albumin 4.2 g/dL (3.5-5.0); Alkaline Phosphatase 73 U/L (38-126); Anion Gap 9 mmol/L; Blood Urea Nitrogen 12 mg/dL (9-20); Calcium 9.8 mg/dL (8.4-10.2); Carbon Dioxide 28 mmol/L (22-30); Chloride 104 mmol/L (98-107); Glucose 109 mg/dL (74-99); Magnesium 1.9 mg/dL (1.6-2.3); Potassium 4.4 mmol/L (3.5-5.1); Sodium 141 mmol/L (137-145); Total Bilirubin 0.7 mg/dL (0.2-1.3); Total Protein 7.8 g/dL (6.3-8.2)
[2017-06-16 19:31] LABS: D-Dimer 0.45 mg/L FEU (<0.60); Partial Thromboplastin Time 24.3 sec (22.0-30.0); Prothrombin Time 9.9 sec (9.0-12.0)
[2017-06-16 19:34] LABS: Creatine Kinase 147 U/L (55-170)
[2017-06-16 19:47] LABS: Creatine Kinase MB 1.4 ng/mL (0.0-2.4); Troponin I <0.012 ng/mL (0.000-0.034)
--- NOTE | 2017-06-16 20:09 | XR ---
EXAMINATION TYPE: XR chest 2V DATE OF EXAM: 06/16/2017 COMPARISON: June 21, 2016 HISTORY: Chest pain TECHNIQUE: Frontal and lateral views of the chest are obtained. FINDINGS: There is mild cephalization of the pulmonary vessels. An implantable device is again noted in the left hemithorax. There is no pneumothorax or pleural effusion. The cardiac silhouette is mild ly enlarged. IMPRESSION: Mild CHF
[2017-06-16] MEDS ORDERED: HEPARIN SODIUM,PORCINE 5,000 UNIT/ML 1 ML VIAL IV STA (20:26)
[2017-06-16] MEDS ORDERED: HEPARIN SOD,PORK IN 0.45% NACL 25,000 UNIT in 0.45% NACL 1 500ML.BAG IV SCH (20:30)
[2017-06-16] MEDS ORDERED: NALOXONE 0.4 MG/ML 1 ML VIAL IV PRN (20:30)
[2017-06-16] MEDS ORDERED: ONDANSETRON 4 MG/2 ML VIAL IVP PRN (20:30)
[2017-06-16 21:36] VITALS: BMI 47.5
[2017-06-16] MEDS: FAMOTIDINE 20 MG TAB PO SCH (21:46)
[2017-06-16] MEDS: MORPHINE SULFATE 5 MG/ML SYRINGE IV PRN (23:27)
[2017-06-17 02:14] LABS: Creatine Kinase 123 U/L (55-170)
[2017-06-17 02:27] LABS: Creatine Kinase MB 1.1 ng/mL (0.0-2.4); Troponin I <0.012 ng/mL (0.000-0.034)
[2017-06-17] MEDS: MORPHINE SULFATE 5 MG/ML SYRINGE IV PRN (05:05)
[2017-06-17] MEDS ORDERED: LEVOTHYROXINE 100 MCG TAB PO SCH (06:30)
[2017-06-17 06:57] LABS: Creatine Kinase 115 U/L (55-170)
[2017-06-17 07:10] LABS: Troponin I <0.012 ng/mL (0.000-0.034)
[2017-06-17] MEDS: FAMOTIDINE 20 MG TAB PO SCH (09:23)
[2017-06-17 09:30] VITALS: BP 107/50; PULSE 56; RESP 17; TEMP 97
[2017-06-17] MEDS ORDERED: ATORVASTATIN 40 MG TAB PO SCH (11:00)
[2017-06-17] MEDS ORDERED: CLOPIDOGREL 75 MG TAB PO SCH (11:00)
--- NOTE | 2017-06-17 18:16 | CONS ---
CONSULTATION This is a 46-year-old obese gentleman who used to see Dr. Howard on a regular basis. In June of 2016, because of an abnormal stress test, he underwent stenting of mid LAD performed by Dr. Howard. Since then, he has seen him in the office and somewhere along the road and unsure when, he stopped taking both aspirin and Plavix and just takes a beta vi and his and seems to be quite unaware of the importance of taking his medications on a regular basis. He is here because of an episode of chest pain. He described this as a feeling of a sharp pain lasting less than a minute or so, came on spontaneously without and without any physical activity. It seemed to have recurred twice and he came into the hospital with these symptoms. He is currently taking Ultram, Synthroid and ibuprofen and sees Dr. Lukas Bain as an outpatient. He has not seen Dr. Howard for the last few months. PAST MEDICAL HISTORY: 1. Unstable angina with a positive stress test and stenting of a mid LAD performed on July 21, 2016 with a drug-eluting Xience stent of 3.25 caliber. 2. Obesity. 3. Hyperlipidemia. 4. Hypertension. EXAMINATION: Blood pressure is 128/70, pulse rate is 56 per minute. HEENT unremarkable. Fundus was not examined by me. NECK: Supple. No JVD. I do not hear a carotid bruit. There is no thyromegaly. Heart exam reveals S1, S2 heard normally. Heart sounds are distantly. Lungs are clear. ABDOMEN: Soft, nontender. Lower extremities reveal normal pulses. No edema. Central nervous system is normal. EKG revealed sinus rhythm, sinus bradycardia, no acute changes. IMPRESSION: 1. Atypical chest pain. 2. History of coronary artery disease with previous LAD PCI in June of this year. 3. Obesity. 4. Hyperlipidemia. 5. RECOMMENDATIONS: I explained to the patient importance of dual antiplatelet therapy. Will be start him on aspirin 81 mg daily, Plavix 75 mg daily, Lipitor 40 mg daily, metoprolol tartrate 25 mg daily, discontinue IV heparin and increase activity. His troponins are normal. Pain is atypical. Reassured the patient. Advised risk factor modification. We will discharge him and I will see him in the office in the next 7-10 days. Discharge instructions and importance of being compliant with medications was emphasized. MMODL / IJN: [id number] /
--- NOTE | 2017-06-17 21:07 | HP ---
HISTORY AND PHYSICAL CHIEF COMPLAINT: A 46-year-old white male with chest pain. HISTORY OF PRESENT ILLNESS: 46-year-old white male with chest pain, rule out myocardial infarction. Pain is more epigastric and lower sternum area. It is more of a burning pain. So far troponins are negative x3. D-dimer is negative. Chest x-ray shows mild CHF. No tachypneic. No tachycardia. No hemoptysis. No diarrhea, vomiting, nausea. HOME MEDICINES: See list. ALLERGIES: See list. REVIEW OF SYSTEM: Fourteen point review of systems negative except for mentioned in HPI. VITAL SIGNS: Stable, afebrile. ENDOCRINE: BMI is over 40. CARDIOVASCULAR: S1, S2 without any murmurs, rubs or gallops. LUNGS: Clear to auscultation. No rales, rhonchi, or wheezing. ABDOMEN: Soft, nontender. No mass, organomegaly. Mild tenderness to palpation epigastric area. VASCULAR: Normal dorsalis pedis, posterior pulse. HEMATOLOGIC: Negative Homans. SKIN: No rash, excoriations, bruising. OPHTHALMOLOGIC: Pupils equal, round, react to light and accommodation. NEUROLOGIC: Alert and oriented x3. PSYCH: Fair mood and affect. ASSESSMENT: Atypical chest pain, suspect GERD. Myocardial infarction was ruled out. Pulmonary embolism is ruled out. Cardiology will see the patient. Patient will possibly be discharged home once cleared by Cardiology. MMODL / IJN: [id number] /
[2017-06-18] MEDS ORDERED: METOPROLOL TARTRATE 25 MG TAB PO SCH (09:00)
[2017-06-18] MEDS ORDERED: ASPIRIN 81 MG PO SCH (09:00)
--- NOTE | 2017-07-15 15:59 | DS ---
DISCHARGE SUMMARY DATE OF ADMISSION: 06/16/2017. DATE OF DISCHARGE: 06/17/2017. MEDICATIONS: Including Requip 0.25 mg daily, Synthroid 300 mcg daily, Motrin 600 t.i.d., tramadol 50 mg daily, aspirin 81 mg daily, Lipitor 40 mg daily, Plavix 75 mg daily, metoprolol 25 mg daily. CONDITION: Stable. PROGNOSIS: Guarded. Ambulate as tolerated. DISCHARGE DIAGNOSES: 1. Atypical chest pain. 2. History of coronary artery disease with previous LAD. PCI in June of this year. 3. Dyslipidemia. The patient stabilized. Came to the hospital with atypical chest pain. Was seen by Cardiology. Cardiology placed him on aspirin and Plavix, Lipitor, metoprolol, took him off heparin. He was ruled out for myocardial infarction. Follow up as an outpatient. All pulmonary findings were ruled out also. EDISON / SANDY: [id number] /
== END 2017-06-17 12:19 | disposition home or self-care (01) ==
LOC: EC 18:32 → 6SEL 20:30
PROVIDERS: ADMIT Family Medicine; ATTEND Family Medicine
DX: R07.89 Other chest pain (principal); I25.10 Atherosclerotic heart disease of native coronary artery without angina pectoris; Z95.5 Presence of coronary angioplasty implant and graft; I25.2 Old myocardial infarction; E66.9 Obesity, unspecified; R11.0 Nausea; E78.5 Hyperlipidemia, unspecified; Z68.42 Body mass index [BMI] 45.0-49.9, adult; E03.9 Hypothyroidism, unspecified; Z87.891 Personal history of nicotine dependence; G47.30 Sleep apnea, unspecified; G25.81 Restless legs syndrome; Z99.89 Dependence on other enabling machines and devices; Z86.73 Personal history of transient ischemic attack (TIA), and cerebral infarction without residual deficits; Z79.899 Other long term (current) drug therapy; Z82.49 Family history of ischemic heart disease and other diseases of the circulatory system; Z91.14 Patient's other noncompliance with medication regimen
CPT/HCPCS: 99285; 96365; 96366 ×2; 96375 ×2; 96376 ×3; 36415; 94760; 93005; 85379; 83880; 80053; 82550 ×2; 82553 ×2; 83735; 84484 ×2; 85025; 85610; 85730 ×2; 71020; G0378 ×2; J1644 ×2; J2405; J2274 ×2

== ENCOUNTER → 2017-07-18 | Outpatient (CLI) | payer OTHER ==
--- NOTE | 2017-07-18 12:53 | XR ---
EXAMINATION TYPE: XR Hip Complete LT DATE OF EXAM: 07/18/2017 CLINICAL HISTORY: Left hip pain for 2 days. TECHNIQUE: AP and frogleg views of the left hip are obtained. COMPARISON: None. FINDINGS: Evaluation suboptimal as there is overlying linear lucency possibly from overlying clothing material. In addition evaluation suboptimal as patient performed limited frog-leg position. There is no definitive acute fracture/dislocation evident in the left hip. Mild axial joint space loss left h ip is present. Small spur greater trochanter level is seen. A few pelvic phleboliths are noted. IMPRESSION: There is no acute fracture or dislocation in the left hip.
--- NOTE | 2017-07-18 12:56 | XR ---
EXAMINATION TYPE: XR shoulder complete RT DATE OF EXAM: 07/18/2017 CLINICAL HISTORY: Right shoulder pain. TECHNIQUE: Three views of the right shoulder are attempted. COMPARISON: None. FINDINGS: Exam is suboptimal as patient refused to move arm for dedicated internal rotational and ex ternal rotational views. There is no acute fracture/dislocation evident in the right shoulder. The a cromioclavicular and glenohumeral joint spaces appear within normal limits on images acquired. The v isualized ribs are intact and unremarkable. IMPRESSION: Suboptimal study but there is no acute fracture or dislocation in the right shoulder.
== END | disposition home or self-care (01) ==
LOC: RADXRMAIN 12:04
PROVIDERS: ATTEND Family Medicine
DX: M25.552 Pain in left hip (principal); M25.511 Pain in right shoulder
CPT/HCPCS: 73502

== ENCOUNTER 2017-09-26 22:08 | Inpatient (IN) | payer MEDICAID, OTHER ==
[2017-09-26 22:45] LABS: Amphetamine Screen,Urine Not Detected (NotDetected); Barbiturate Screen,Urine Not Detected (NotDetected); Benzodiazepines Screen,Urine Not Detected (NotDetected); Cocaine Screen,Urine Not Detected (NotDetected); Methadone Screen, Urine Not Detected (NotDetected); Opiate Screen,Urine Not Detected (NotDetected); Oxycodone Screen, Urine Not Detected (NotDetected); Phencyclidine Screen,Urine Not Detected (NotDetected); Tricyclic Antidepressant,Urine Not Detected (NotDetected); Urn Cannabinoid Scrn Not Detected (NotDetected)
--- NOTE | 2017-09-27 00:07 | ED ---
General Adult HPI - General Chief complaint: Psychiatric Symptoms Stated complaint: mental health Time Seen by Provider: 09/26/17 22:09 Source: patient, RN notes reviewed, old records reviewed Mode of arrival: EMS Limitations: no limitations - History of Present Illness Initial comments: This is a 46-year-old male to the ER for evaluation. Patient is ER for evaluation of psychiatric illness, suicidal thoughts. Positive EtOH patient has significant suicidal thoughts secondary to recently living including taking a lot of her house. - Related Data Home Medications Medication Instructions Recorded Confirmed Gabapentin (Unknown Dose) 1 tab PO DIRECTED 09/26/17 09/26/17 HYDROcodone/APAP 5-325MG [[place] 1 tab PO BID PRN 09/26/17 09/26/17 5-325] Ibuprofen (Unknown Dose) 1 tab PO DIRECTED PRN 09/26/17 09/26/17 Klonopin (Unknown Dose) 1 tab PO DIRECTED 09/26/17 09/26/17 Metoprolol (Unknown Dose) 1 tab PO DAILY 09/26/17 09/26/17 Requip (Unknown Dose) 1 tab PO HS 09/26/17 09/26/17 Synthroid (Unknown Dose) 1 dose PO DAILY 09/26/17 09/26/17 Allergies Allergy/AdvReac Type Severity Reaction Status Date / Time No Known Allergies Allergy Verified 09/26/17 23:16 Review of Systems ROS Statement: Those systems with pertinent positive or pertinent negative responses have been documented in the HPI. ROS Other: All systems not noted in ROS Statement are negative. Past Medical History Past Medical History: Atrial Fibrillation, Coronary Artery Disease (CAD), CVA/ TIA, Myocardial Infarction ([place]), Sleep Apnea/CPAP/BIPAP, Thyroid Disorder Additional Past Medical History / Comment(s): denies hx hypertension, restless leg syndrome, "TIA (x 5) last Apr 2016", memory loss and numbness left fingers left hand and occ lt arm weakness, gout, wears CPAP at home Last Myocardial Infarction Date:: unk History of Any Multi-Drug Resistant Organisms: None Reported Past Surgical History: Heart Catheterization, Heart Catheterization With Stent, Hernia Repair Additional Past Surgical History / Comment(s): loop monitor in chest. one cardiac stent Past Anesthesia/Blood Transfusion Reactions: No Reported Reaction Date of Last Stent Placement:: unknown Type of Cardiac Device: Loop Device Placement Date:: Apr 2016 Past Psychological History: Anxiety Smoking Status: Former smoker Past Alcohol Use History: Occasional Past Drug Use History: None Reported - Past Family History Father Family Medical History: Myocardial Infarction ([place]) Additional Family Medical History / Comment(s): of [place] Mother Family Medical History: No Reported History Brother(s) Additional Family Medical History / Comment(s): Bipolar disorder General Exam Limitations: no limitations General appearance: alert, in no apparent distress Head exam: Present: atraumatic, normocephalic, normal inspection Eye exam: Present: normal appearance, PERRL, EOMI. Absent: scleral icterus, conjunctival injection, periorbital swelling ENT exam: Present: normal exam, mucous membranes moist Neck exam: Present: normal inspection. Absent: tenderness, meningismus, lymphadenopathy Respiratory exam: Present: normal lung sounds bilaterally. Absent: respiratory distress, wheezes, rales, rhonchi, stridor Cardiovascular Exam: Present: regular rate, normal rhythm, normal heart sounds. Absent: systolic murmur, diastolic murmur, rubs, gallop, clicks GI/Abdominal exam: Present: soft, normal bowel sounds. Absent: distended, tenderness, guarding, rebound, rigid Extremities exam: Present: normal inspection, full ROM, normal capillary refill. Absent: tenderness, pedal edema, joint swelling, calf tenderness Back exam: Present: normal inspection Neurological exam: Present: alert, oriented X3, CN II-XII intact Psychiatric exam: Present: normal affect, normal mood Skin exam: Present: warm, dry, intact, normal color. Absent: rash Course Vital Signs 09/26/17 09/27/17 22:12 02:59 Temperature 98.3 F Pulse Rate 88 65 Respiratory 19 18 Rate Blood Pressure 169/100 128/56 O2 Sat by Pulse 95 97 Oximetry - Reevaluation(s) Reevaluation #1: 09/27/17 00:30 Patient will medically clear Medical Decision Making - Medical Decision Making 46 male the ER for evaluation of suicidal thoughts and ideation, patient is seen by psyche will be admitted for psychiatric treatment - Lab Data Lab Results 09/26/17 Range/Units 22:09 Urine Opiates Screen Not Detected (NotDetected) Ur Oxycodone Screen Not Detected (NotDetected) Urine Methadone Screen Not Detected (NotDetected) Ur Propoxyphene Screen Not Detected (NotDetected) Ur Barbiturates Screen Not Detected (NotDetected) U Tricyclic Antidepress Not Detected (NotDetected) Ur Phencyclidine Scrn Not Detected (NotDetected) Ur Amphetamines Screen Not Detected (NotDetected) U Methamphetamines Scrn Not Detected (NotDetected) U Benzodiazepines Scrn Not Detected (NotDetected) Urine Cocaine Screen Not Detected (NotDetected) U Marijuana (THC) Screen Not Detected (NotDetected) Disposition Clinical Impression: Suicidal ideation, Attempted suicide, Depression Disposition: TRANSFER TO PSYCH HOSP/UNIT Condition: Fair
[2017-09-27] MEDS ORDERED: cloNIDine HCL 0.1 MG TAB PO STA (02:41)
[2017-09-27] MEDS ORDERED: METOPROLOL TARTRATE 50 MG TAB PO STA (02:41)
[2017-09-27] MEDS ORDERED: TOPICAL SKIN ADHESIVE 1 EACH AMP TOPICAL ONE (02:43)
[2017-09-27] MEDS ORDERED: MAG HYDROX/AL HYDROX/SIMETH 30 ML CUP PO PRN (03:09)
[2017-09-27] MEDS ORDERED: ACETAMINOPHEN TAB 325 MG TAB PO PRN (03:09)
[2017-09-27] MEDS ORDERED: MAGNESIUM HYDROXIDE 2,400 MG/10 ML CUP PO PRN (03:09)
[2017-09-27 06:37] VITALS: TEMP 98.2
[2017-09-27 08:23] LABS: Basophils % (A) 0 %; Eosinophils # (A) 0.1 k/uL (0-0.7); Eosinophils % (A) 1 %; HCT 41.9 % (39.0-53.0); Lymphocytes # (A) 1.7 k/uL (1.0-4.8); Lymphocytes % (A) 20 %; MCH 27.6 pg (25.0-35.0); MCHC 33.4 g/dL (31.0-37.0); MCV 82.6 fL (80.0-100.0); Mean Platelet Volume 7.2; Monocytes # (A) 0.3 k/uL (0-1.0); Monocytes % (A) 4 %; Neutrophils # (A) 5.9 k/uL (1.3-7.7); Neutrophils % (A) 72 %; Platelet Count 263 k/uL (150-450); Poikilocytosis Slight; RBC 5.07 m/uL (4.30-5.90); RDW 13.9 % (11.5-15.5); WBC 8.2 k/uL (3.8-10.6)
[2017-09-27 08:30] LABS: ALT 29 U/L (21-72); AST 20 U/L (17-59); Albumin 4.5 g/dL (3.5-5.0); Alkaline Phosphatase 104 U/L (38-126); Anion Gap 15 mmol/L; Blood Urea Nitrogen 19 mg/dL (9-20); Calcium 10.1 mg/dL (8.4-10.2); Carbon Dioxide 25 mmol/L (22-30); Chloride 104 mmol/L (98-107); Cholesterol 186 mg/dL (<200); Glucose 135 mg/dL (74-99); HDL Cholesterol 30 mg/dL (40-60); LDL Cholesterol,Calculated 111 mg/dL (0-99); Potassium 4.7 mmol/L (3.5-5.1); Sodium 144 mmol/L (137-145); Total Bilirubin 0.4 mg/dL (0.2-1.3); Triglycerides 226 mg/dL (<150)
[2017-09-27] MEDS ORDERED: METOPROLOL TARTRATE 25 MG TAB PO SCH (09:00)
[2017-09-27 09:37] VITALS: BP 135/77; PULSE 78; RESP 16
--- NOTE | 2017-09-27 12:05 | P.HP ---
Psychiatric H&P - . H&P Date: 09/27/17 History & Physical: Allergies Allergy/AdvReac Type Severity Reaction Status Date / Time No Known Allergies Allergy Verified 09/26/17 23:16 Vital Signs Temp 98.2 F 09/27/17 06:36 Pulse 78 09/27/17 09:36 Resp 16 09/27/17 09:36 BP 135/77 09/27/17 09:36 Pulse Ox 94 L 09/27/17 04:15 Intake & Output 09/26/17 09/27/17 09/27/17 18:59 06:59 18:59 Weight 148.733 kg Laboratory Last Values WBC 8.2 k/uL (3.8-10.6) 09/27/17 07:56 RBC 5.07 m/uL (4.30-5.90) 09/27/17 07:56 Hgb 14.0 gm/dL (13.0-17.5) 09/27/17 07:56 Hct 41.9 % (39.0-53.0) 09/27/17 07:56 MCV 82.6 fL (80.0-100.0) 09/27/17 07:56 MCH 27.6 pg (25.0-35.0) 09/27/17 07:56 MCHC 33.4 g/dL (31.0-37.0) 09/27/17 07:56 RDW 13.9 % (11.5-15.5) 09/27/17 07:56 Plt Count 263 k/uL (150-450) 09/27/17 07:56 Neutrophils % 72 % 09/27/17 07:56 Lymphocytes % 20 % 09/27/17 07:56 Monocytes % 4 % 09/27/17 07:56 Eosinophils % 1 % 09/27/17 07:56 Basophils % 0 % 09/27/17 07:56 Neutrophils # 5.9 k/uL (1.3-7.7) 09/27/17 07:56 Lymphocytes # 1.7 k/uL (1.0-4.8) 09/27/17 07:56 Monocytes # 0.3 k/uL (0-1.0) 09/27/17 07:56 Eosinophils # 0.1 k/uL (0-0.7) 09/27/17 07:56 Basophils # 0.0 k/uL (0-0.2) 09/27/17 07:56 Poikilocytosis Slight 09/27/17 07:56 Sodium 144 mmol/L (137-145) 09/27/17 07:56 Potassium 4.7 mmol/L (3.5-5.1) 09/27/17 07:56 Chloride 104 mmol/L (98-107) 09/27/17 07:56 Carbon Dioxide 25 mmol/L (22-30) 09/27/17 07:56 Anion Gap 15 mmol/L 09/27/17 07:56 BUN 19 mg/dL (9-20) 09/27/17 07:56 Creatinine 0.92 mg/dL (0.66-1.25) 09/27/17 07:56 Est GFR (CKD-EPI)AfAm >90 (>60 ml/min/1.73 sqM) 09/27/17 07:56 Est GFR (CKD-EPI)NonAf >90 (>60 ml/min/1.73 sqM) 09/27/17 07:56 Glucose 135 mg/dL (74-99) H 09/27/17 07:56 Calcium 10.1 mg/dL (8.4-10.2) 09/27/17 07:56 Total Bilirubin 0.4 mg/dL (0.2-1.3) 09/27/17 07:56 AST 20 U/L (17-59) 09/27/17 07:56 ALT 29 U/L (21-72) 09/27/17 07:56 Alkaline Phosphatase 104 U/L (38-126) 09/27/17 07:56 Total Protein 8.0 g/dL (6.3-8.2) 09/27/17 07:56 Albumin 4.5 g/dL (3.5-5.0) 09/27/17 07:56 Triglycerides 226 mg/dL (<150) H 09/27/17 07:56 Cholesterol 186 mg/dL (<200) 09/27/17 07:56 LDL Cholesterol, Calc 111 mg/dL (0-99) H 09/27/17 07:56 HDL Cholesterol 30 mg/dL (40-60) L 09/27/17 07:56 TSH 2.520 mIU/L (0.465-4.680) 09/27/17 07:56 Urine Opiates Screen Not Detected (NotDetected) 09/26/17 22:09 Ur Oxycodone Screen Not Detected (NotDetected) 09/26/17 22:09 Urine Methadone Screen Not Detected (NotDetected) 09/26/17 22:09 Ur Propoxyphene Screen Not Detected (NotDetected) 09/26/17 22:09 Ur Barbiturates Screen Not Detected (NotDetected) 09/26/17 22:09 U Tricyclic Antidepress Not Detected (NotDetected) 09/26/17 22:09 Ur Phencyclidine Scrn Not Detected (NotDetected) 09/26/17 22:09 Ur Amphetamines Screen Not Detected (NotDetected) 09/26/17 22:09 U Methamphetamines Scrn Not Detected (NotDetected) 09/26/17 22:09 U Benzodiazepines Scrn Not Detected (NotDetected) 09/26/17 22:09 Urine Cocaine Screen Not Detected (NotDetected) 09/26/17 22:09 U Marijuana (THC) Screen Not Detected (NotDetected) 09/26/17 22:09 09/27/17 11:47 Identification: Patient is a 46-year-old male who presented to the emergency room after calling 911 when he cut his left forearm with a knife after he had been drinking a 12 pack of beer and a half a pint of alcohol. History of Present Illness: Patient states that he was doing well until a week ago when his girlfriend of 10 months asked him to move out. He states that his girlfriend told him she had heard rumors that he was losing his job and was visiting with a female friend. She asked him to leave and he states that this was all done through text messages. He told her that none of it was true and found out later that she was seeing someone else. Patient states he moved into a motel and was doing well until yesterday when he hurt his song which caused him to feel sad and he started drinking. Patient states that he does not usually use alcohol at all and became intoxicated and then cut his arm, he states once he saw the blood and the cuts that he had made he called 911. Patient states that he did not have suicidal ideation yesterday, has never made any suicide attempts and currently is not feeling suicidal nor does he want to . He states when he saw what he had done to himself he realized stupid it was and reports he was intoxicated when he did it. Patient states he does not usually use alcohol, has no prior history of depression, does not endorse any symptoms of clementine or psychosis currently or in the past. 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 Patient reports that he was living in a hotel with his dog. Patient does not endorse any current symptoms of feeling worthless or hopeless, he denies any suicidal ideation currently and states that he is not feeling depressed now and has not been depressed in the past. Patient does not endorse any current manic symptoms and no psychotic symptoms. Past Psychiatric History: Patient denies any prior psychiatric inpatient treatment or outpatient treatment and no history of treatment with psychotropic medication. Past Medical/Surgical History: Patient has a history of hypertension, hypothyroidism, coronary artery disease with a stent placement, hyperlipidemia and he reports having TIAs/CVA in the past with no sequela. Patient states he also has diagnosis of gout and is being worked up for neuropathy secondary to degenerative disc disease. He reports he is status post hernia repair. Family History: Patient states that there is no family history of psychiatric illness, alcohol or drug use and no completed suicides. Social History: Patient was born and raised in [place]. His mother is alive his father in 2002.'s parents were at the age of 10 and he continued to live with his mother never remarried. He states that his father had on and off contact with them and he did not have a good relationship with them. He has 2 brothers and 1 sister. He states that he quit high school in the 11th grade because he got caught up with the wrong crowd. He never obtained his GED. He states that he has been 3 times and is currently but from his third . He has a son from a prior relationship who is 22 years of age and from his first marriage he has a 21-year -old daughter, he states this marriage lasted several months. His second marriage lasted 15 years and he has a 19-year-old daughter from that marriage. He states that he is currently but and they have no children together, they've been together for 4 years. He states they due to his being unfaithful. 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 He denies any abuse history and states he is currently living in a motel with his dog. Substance Use History: Patient states that he rarely uses alcohol, and denies any prior drug use or current drug use. Patient states he quit smoking cigarettes. Legal History: Patient states that he was charged with larceny in the past and [facility] several [facility] and then was sent to see her in house for 6 months. He states he was charged with felony theft, he states he stole jewelry spent 4 months in [facility] and then was sent to [facility]. Mental status: Appearance/Attitude: Patient is appropriately dressed, makes good eye contact and was cooperative. Behavior: Patient did not display any psychomotor agitation or retardation. Speech/Language: Patient's speech was spontaneous and normal volume and rhythm and he was coherent. Thought Process: Patient was goal-directed there is no evidence of loose association or flight of ideas and he was not circumstantial or tangential. Thought Content: Patient denied any auditory or visual hallucinations and no delusions or paranoid ideation were elicited. Patient states that he began drinking yesterday after hearing a song and while intoxicated cut his forearm when he realized what he had done immediately called 911 and was brought to the emergency room. He states he usually does not drink at all and stated what he did was stupid. Patient states he does not want to , is not currently feeling depressed or hopeless or worthless. Patient states that he and his girlfriend of 10 months broke up a week ago when she asked him to leave and he found out that she was seeing someone else. Patient reports no sleep or appetite disturbance Suicidal/Homicidal Ideation: Patient states he is not currently suicidal or homicidal and states what he did yesterday was stupid and he was intoxicated when he did. Sensorium/Cognition: Patient is alert and oriented to person, place, and time and his recent and remote memory are grossly intact. Mood/Affect: Patient's mood is euthymic and his affect is appropriate. Insight/Judgment: Patient's insight and judgment are intact Intellectual Functioning: Patient's intellectual functioning appears average Strength/Weakness: Patient has employment, housing, support system/relationship concerns Assessment: Patient presented to the emergency room after he called EMS after he had cut his left forearm in a suicide attempt while he was intoxicated. Patient states that once he realized what he had done immediately called 911. Patient states today he has no idea why he did this as he was not feeling depressed or suicidal before he started drinking. He states that he heard a song and began drinking alcohol. States that he and his girlfriend of 10 months broke up a week ago when she asked him to move out and he later found it was due to her being involved with someone else. Patient is not able to endorse any symptoms of depression stating he is not feeling hopeless, helpless or worthless and states he has no prior history of suicide attempts and is not currently feeling suicidal and reports what he did yesterday was stupid. Patient has no prior psychiatric treatment history. Patient does not endorse any symptoms of depression, clementine, psychosis or anxiety currently or in the past. Patient has no history of alcohol use and stated that he drinks on very rare occasions. Admission Diagnosis: Alcohol intoxication without use disorder Plan: Patient was admitted on a voluntary basis, routine observation was ordered and the patient was ordered group and activity therapy. Patient was also ordered routine laboratory studies as well as a medical consultation. Patient was restarted on Lipitor and metoprolol but his other medications were not restarted due to awaiting confirmation from his medical doctor. Patient and I met and discussed his suicide attempt yesterday while intoxicated and he stated that he is not currently suicidal, which shocked when he discovered what he had done and immediately called 911. He states that it was a stupid idea and that he usually does not drink alcohol. Patient and I discussed his relationship with his who is currently from and this current ex- girlfriend and he was agreeable to counseling. Patient is not endorsing any symptoms of depression, clementine, psychosis or anxiety and denies that he has any current suicidal ideation stating that he has no reason to and wants to live. Patient will be discharged today with outpatient follow-up counseling which the patient was agreeable to and felt may be helpful to him. Patient was not begun on any psychotropic medication at this time and will follow-up with his primary care physician for his continued medical care. 09/27/17 11:52
--- NOTE | 2017-09-27 12:14 | P.DS ---
Providers Date of admission: 09/27/17 02:24 Expected date of discharge: 09/27/17 Attending physician: Shira Villatoro MD Consults: 09/27/17 03:09 Consult Physician Routine Consulting Provider: Lukas Bain Consult Reason/Comments: H and P with medical follow up Do you want consulting provider notified?: Yes, Notify in am Primary care physician: Lukas Bain [facility] Course: Discharge Diagnosis: Alcohol intoxication, without use disorder; lacerations of the left forearm Reason for Admission: Patient is a 46-year-old male who presented to the emergency room after calling 911 when he cut his left forearm with a knife after he had been drinking a 12 pack of beer and a half a pint of alcohol. Patient states that he was doing well until a week ago when his girlfriend of 10 months asked him to move out. He states that his girlfriend told him she had heard rumors that he was losing his job and was visiting with a female friend. She asked him to leave and he states that this was all done through text messages. He told her that none of it was true and found out later that she was seeing someone else. Patient states he moved into a motel and was doing well until yesterday when he hurt his song which caused him to feel sad and he started drinking. Patient states that he does not usually use alcohol at all and became intoxicated and then cut his arm, he states once he saw the blood and the cuts that he had made he called 911. Patient states that he did not have suicidal ideation yesterday, has never made any suicide attempts and currently is not feeling suicidal nor does he want to . He states when he saw what he had done to himself he realized stupid it was and reports he was intoxicated when he did it. Patient states he does not usually use alcohol, has no prior history of depression, does not endorse any symptoms of clementine or psychosis currently or in the past. 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 Patient reports that he was living in a hotel with his dog. Patient does not endorse any current symptoms of feeling worthless or hopeless, he denies any suicidal ideation currently and states that he is not feeling depressed now and has not been depressed in the past. Patient does not endorse any current manic symptoms and no psychotic symptoms. Mental status on Admission: Appearance/Attitude: Patient is appropriately dressed, makes good eye contact and was cooperative. Behavior: Patient did not display any psychomotor agitation or retardation. Speech/Language: Patient's speech was spontaneous and normal volume and rhythm and he was coherent. Thought Process: Patient was goal-directed there is no evidence of loose association or flight of ideas and he was not circumstantial or tangential. Thought Content: Patient denied any auditory or visual hallucinations and no delusions or paranoid ideation were elicited. Patient states that he began drinking yesterday after hearing a song and while intoxicated cut his forearm when he realized what he had done immediately called 911 and was brought to the emergency room. He states he usually does not drink at all and stated what he did was stupid. Patient states he does not want to , is not currently feeling depressed or hopeless or worthless. Patient states that he and his girlfriend of 10 months broke up a week ago when she asked him to leave and he found out that she was seeing someone else. Patient reports no sleep or appetite disturbance Suicidal/Homicidal Ideation: Patient states he is not currently suicidal or homicidal and states what he did yesterday was stupid and he was intoxicated when he did. Sensorium/Cognition: Patient is alert and oriented to person, place, and time and his recent and remote memory are grossly intact. Mood/Affect: Patient's mood is euthymic and his affect is appropriate. Insight/Judgment: Patient's insight and judgment are intact Hospital Course: Patient was admitted on a voluntary basis, routine observation in group and activity therapy were ordered. Routine laboratory studies and a medical consultation was requested. Patient was seen, he reported that he usually was not an alcohol user and had been drinking a 12 pack of beer and a half a pint of alcohol yesterday and while intoxicated made cuts on his left forearm. Patient states once he realized what he had done he called 911 and was brought to the emergency room. Patient denied any prior history of psychiatric treatment either inpatient or outpatient. Patient also denied any other suicide attempts in the past and reported that he was not feeling hopeless , helpless or worthless. Patient had recently and asked by his girlfriend of 10 months to move out and the patient had moved out into a motel room. Patient states that his girlfriend told him that there were rumors that he was losing his job and that he had been at a female friend's house, patient states these were untrue and that he eventually found out that she was seeing someone else. Patient did not endorse any symptoms of depression, psychosis or clementine and denied any current suicidal ideation and stated that he wanted to live and was agreeable to outpatient counseling to assist with some difficulties he is had in relationships. Patient was did not require continued inpatient treatment and will be discharged with follow-up as an outpatient for counseling, which he was agreeable to. Patient was not begun on any psychotropic medication. Allergies No Known Allergies Allergy (Verified 09/26/17 23:16) Laboratory Last Values WBC 8.2 k/uL (3.8-10.6) 09/27/17 07:56 RBC 5.07 m/uL (4.30-5.90) 09/27/17 07:56 Hgb 14.0 gm/dL (13.0-17.5) 09/27/17 07:56 Hct 41.9 % (39.0-53.0) 09/27/17 07:56 MCV 82.6 fL (80.0-100.0) 09/27/17 07:56 MCH 27.6 pg (25.0-35.0) 09/27/17 07:56 MCHC 33.4 g/dL (31.0-37.0) 09/27/17 07:56 RDW 13.9 % (11.5-15.5) 09/27/17 07:56 Plt Count 263 k/uL (150-450) 09/27/17 07:56 Neutrophils % 72 % 09/27/17 07:56 Lymphocytes % 20 % 09/27/17 07:56 Monocytes % 4 % 09/27/17 07:56 Eosinophils % 1 % 09/27/17 07:56 Basophils % 0 % 09/27/17 07:56 Neutrophils # 5.9 k/uL (1.3-7.7) 09/27/17 07:56 Lymphocytes # 1.7 k/uL (1.0-4.8) 09/27/17 07:56 Monocytes # 0.3 k/uL (0-1.0) 09/27/17 07:56 Eosinophils # 0.1 k/uL (0-0.7) 09/27/17 07:56 Basophils # 0.0 k/uL (0-0.2) 09/27/17 07:56 Poikilocytosis Slight 09/27/17 07:56 Sodium 144 mmol/L (137-145) 09/27/17 07:56 Potassium 4.7 mmol/L (3.5-5.1) 09/27/17 07:56 Chloride 104 mmol/L (98-107) 09/27/17 07:56 Carbon Dioxide 25 mmol/L (22-30) 09/27/17 07:56 Anion Gap 15 mmol/L 09/27/17 07:56 BUN 19 mg/dL (9-20) 09/27/17 07:56 Creatinine 0.92 mg/dL (0.66-1.25) 09/27/17 07:56 Est GFR (CKD-EPI)AfAm >90 (>60 ml/min/1.73 sqM) 09/27/17 07:56 Est GFR (CKD-EPI)NonAf >90 (>60 ml/min/1.73 sqM) 09/27/17 07:56 Glucose 135 mg/dL (74-99) H 09/27/17 07:56 Calcium 10.1 mg/dL (8.4-10.2) 09/27/17 07:56 Total Bilirubin 0.4 mg/dL (0.2-1.3) 09/27/17 07:56 AST 20 U/L (17-59) 09/27/17 07:56 ALT 29 U/L (21-72) 09/27/17 07:56 Alkaline Phosphatase 104 U/L (38-126) 09/27/17 07:56 Total Protein 8.0 g/dL (6.3-8.2) 09/27/17 07:56 Albumin 4.5 g/dL (3.5-5.0) 09/27/17 07:56 Triglycerides 226 mg/dL (<150) H 09/27/17 07:56 Cholesterol 186 mg/dL (<200) 09/27/17 07:56 LDL Cholesterol, Calc 111 mg/dL (0-99) H 09/27/17 07:56 HDL Cholesterol 30 mg/dL (40-60) L 09/27/17 07:56 TSH 2.520 mIU/L (0.465-4.680) 09/27/17 07:56 Urine Opiates Screen Not Detected (NotDetected) 09/26/17 22:09 Ur Oxycodone Screen Not Detected (NotDetected) 09/26/17 22:09 Urine Methadone Screen Not Detected (NotDetected) 09/26/17 22:09 Ur Propoxyphene Screen Not Detected (NotDetected) 09/26/17 22:09 Ur Barbiturates Screen Not Detected (NotDetected) 09/26/17 22:09 U Tricyclic Antidepress Not Detected (NotDetected) 09/26/17 22:09 Ur Phencyclidine Scrn Not Detected (NotDetected) 09/26/17 22:09 Ur Amphetamines Screen Not Detected (NotDetected) 09/26/17 22:09 U Methamphetamines Scrn Not Detected (NotDetected) 09/26/17 22:09 U Benzodiazepines Scrn Not Detected (NotDetected) 09/26/17 22:09 Urine Cocaine Screen Not Detected (NotDetected) 09/26/17 22:09 U Marijuana (THC) Screen Not Detected (NotDetected) 09/26/17 22:09 Discharge Mental Status: Appearance/Attitude: Patient is appropriately dressed , makes good eye contact and was cooperative. Behavior: Patient did not display any psychomotor agitation or retardation. Speech/Language: Patient's speech was spontaneous and normal volume and rhythm and he was coherent. Thought Process: Patient was goal-directed there is no evidence of loose association or flight of ideas and he was not circumstantial or tangential. Thought Content: Patient denied any auditory or visual hallucinations and no delusions or paranoid ideation were elicited. Patient states that he began drinking yesterday after hearing a song and while intoxicated cut his forearm when he realized what he had done immediately called 911 and was brought to the emergency room. He states he usually does not drink at all and stated what he did was stupid. Patient states he does not want to , is not currently feeling depressed or hopeless or worthless. Patient states that he and his girlfriend of 10 months broke up a week ago when she asked him to leave and he found out that she was seeing someone else. Patient reports no sleep or appetite disturbance Suicidal/Homicidal Ideation: Patient states he is not currently suicidal or homicidal and states what he did yesterday was stupid and he was intoxicated when he did. Sensorium/Cognition: Patient is alert and oriented to person, place, and time and his recent and remote memory are grossly intact. Mood/Affect: Patient's mood is euthymic and his affect is appropriate. Insight/Judgment: Patient's insight and judgment are intact Risk Assessment: Patient's risk for self harm is low, due to no prior suicide attempts, no alcohol use disorder Discharge Plan: Patient will return to his hotel room, he will continue to work in his [employer] business. Patient was not started on any psychotropic medication and he will continue on his prior medications prescribed by his PCP. Patient will follow-up with his PCP. Patient was also agreeable to a referral for outpatient counseling and will be seen at [facility]. Patient was encouraged to avoid any alcohol use in the future. Patient Condition at Discharge: Stable Plan - Discharge Summary New Discharge Prescriptions: Continue HYDROcodone/APAP 5-325MG [[place] 5-325] 1 tab PO BID PRN PRN Reason: Pain Methocarbamol [Robaxin] 500 mg PO TID Levothyroxine Sodium [Synthroid] 300 mcg PO DAILY Ibuprofen 600 mg PO TID Colchicine [Colcrys] 0.6 mg PO DAILY Atorvastatin Calcium [Lipitor] 40 mg PO HS Metoprolol Tartrate 25 mg PO DAILY Gabapentin [Neurontin] 100 mg PO TID Discharge Medication List HYDROcodone/APAP 5-325MG [[place] 5-325] 1 tab PO BID PRN 09/26/17 [History] Atorvastatin Calcium [Lipitor] 40 mg PO HS 09/27/17 [History] Colchicine [Colcrys] 0.6 mg PO DAILY 09/27/17 [History] Gabapentin [Neurontin] 100 mg PO TID 09/27/17 [History] Ibuprofen 600 mg PO TID 09/27/17 [History] Levothyroxine Sodium [Synthroid] 300 mcg PO DAILY 09/27/17 [History] Methocarbamol [Robaxin] 500 mg PO TID 09/27/17 [History] Metoprolol Tartrate 25 mg PO DAILY 09/27/17 [History] Follow up Appointment(s)/Referral(s): [facility] - 10/02/17 1:00 pm (Allan Carmona) Lukas Bain MD [Primary Care Provider] - 1-2 days Discharge Disposition: HOME SELF-CARE
[2017-09-27 18:27] LABS: Hemoglobin A1C 5.7 % (4.0-6.0)
[2017-09-27] MEDS ORDERED: ATORVASTATIN 40 MG TAB PO SCH (21:00)
== END 2017-09-27 13:22 | disposition home or self-care (01) | DRG 897 ==
LOC: EC 22:08 → 3MHU 09-27 02:24
PROVIDERS: ADMIT Psychiatry & Neurology Psychiatry; ATTEND Psychiatry & Neurology Psychiatry
DX: F10.129 Alcohol abuse with intoxication, unspecified (principal); G62.9 Polyneuropathy, unspecified; E03.9 Hypothyroidism, unspecified; E78.5 Hyperlipidemia, unspecified; I48.91 Unspecified atrial fibrillation; I10 Essential (primary) hypertension; I25.10 Atherosclerotic heart disease of native coronary artery without angina pectoris; S51.812A Laceration without foreign body of left forearm, initial encounter; F32.9 Major depressive disorder, single episode, unspecified; G47.30 Sleep apnea, unspecified; F41.9 Anxiety disorder, unspecified; M10.9 Gout, unspecified; I25.2 Old myocardial infarction; Z86.73 Personal history of transient ischemic attack (TIA), and cerebral infarction without residual deficits; X83.8XXA Intentional self-harm by other specified means, initial encounter; Z82.49 Family history of ischemic heart disease and other diseases of the circulatory system; Z81.8 Family history of other mental and behavioral disorders; Z95.5 Presence of coronary angioplasty implant and graft; Z79.899 Other long term (current) drug therapy; Z87.19 Personal history of other diseases of the digestive system; Z87.891 Personal history of nicotine dependence; Z79.1 Long term (current) use of non-steroidal anti-inflammatories (NSAID); Z63.0 Problems in relationship with spouse or partner
CPT/HCPCS: 80053; 80061; 80306; 82075; 83036; 84443; 85025; 93005; 99285

== ENCOUNTER 2017-11-30 11:38 | Observation (INO) | payer OTHER ==
[2017-11-30] MEDS ORDERED: ASPIRIN 81 MG PO STA (11:58)
[2017-11-30] MEDS ORDERED: NITROGLYCERIN OINT 1 INCH/GM PACKET TOPICAL STA (11:58)
--- NOTE | 2017-11-30 12:02 | ED ---
General Adult HPI - General Chief complaint: Chest Pain Stated complaint: Chest Pain Time Seen by Provider: 11/30/17 11:40 Source: patient, RN notes reviewed Mode of arrival: ambulatory Limitations: no limitations - History of Present Illness Initial comments: This is a 47-year-old male who has a past medical history significant for coronary artery stent and high blood pressure. Patient also states she has a strong family history of heart disease. Patient states hour prior to arrival he started having some chest pain that radiated to his neck and left arm. Patient states the pain lasts about 10 minutes and subsided but has occurred multiple times in that our so decided to come to the emergency department. Patient states very reminiscent of the pain he had when he had his last stent. Patient denies any diaphoretic episodes. Patient denies shortness of breath or nausea. Patient denies any abdominal pain. Patient denies any recent fever chills or cough. Patient denies lightheadedness dizziness or near syncopal episode. Patient denies any headache patient denies numbness weakness. Patient denies any leg swelling or calf tenderness. Patient denies history of smoking - Related Data Home Medications Medication Instructions Recorded Confirmed HYDROcodone/APAP 5-325MG [[place] 1 tab PO BID PRN 09/26/17 09/26/17 5-325] Atorvastatin Calcium [Lipitor] 40 mg PO HS 09/27/17 09/27/17 Colchicine [Colcrys] 0.6 mg PO DAILY 09/27/17 09/27/17 Gabapentin [Neurontin] 100 mg PO TID 09/27/17 09/27/17 Ibuprofen 600 mg PO TID 09/27/17 09/27/17 Levothyroxine Sodium [Synthroid] 300 mcg PO DAILY 09/27/17 09/27/17 Methocarbamol [Robaxin] 500 mg PO TID 09/27/17 09/27/17 Metoprolol Tartrate 25 mg PO DAILY 09/27/17 09/27/17 Allergies Allergy/AdvReac Type Severity Reaction Status Date / Time No Known Allergies Allergy Verified 11/30/17 12:45 Review of Systems ROS Statement: Those systems with pertinent positive or pertinent negative responses have been documented in the HPI. ROS Other: All systems not noted in ROS Statement are negative. Past Medical History Past Medical History: Atrial Fibrillation, Coronary Artery Disease (CAD), CVA/ TIA, Myocardial Infarction ([place]), Sleep Apnea/CPAP/BIPAP, Thyroid Disorder Additional Past Medical History / Comment(s): denies hx hypertension, restless leg syndrome, "TIA (x 5) last Apr 2016", memory loss and numbness left fingers left hand and occ lt arm weakness, gout, wears CPAP at home Last Myocardial Infarction Date:: unk History of Any Multi-Drug Resistant Organisms: None Reported Past Surgical History: Heart Catheterization, Heart Catheterization With Stent, Hernia Repair Additional Past Surgical History / Comment(s): loop monitor in chest. one cardiac stent Past Anesthesia/Blood Transfusion Reactions: No Reported Reaction Date of Last Stent Placement:: unknown Type of Cardiac Device: Loop Device Placement Date:: Apr 2016 Past Psychological History: Anxiety Smoking Status: Former smoker Past Alcohol Use History: Occasional Past Drug Use History: None Reported - Past Family History Father Family Medical History: Myocardial Infarction ([place]) Additional Family Medical History / Comment(s): of [place] Mother Family Medical History: No Reported History Brother(s) Additional Family Medical History / Comment(s): Bipolar disorder General Exam - General Exam Comments Initial Comments: GENERAL: Patient is well-developed and well-nourished. Patient is nontoxic and well- hydrated and is in mild distress. ENT: Neck is soft and supple. No significant lymphadenopathy is noted. Oropharynx is clear. Moist mucous membranes. Neck has full range of motion without eliciting any pain. EYES: The sclera were anicteric and conjunctiva were pink and moist. Extraocular movements were intact and pupils were equal round and reactive to light. Eyelids were unremarkable. PULMONARY: Unlabored respirations. Good breath sounds bilaterally. No audible rales rhonchi or wheezing was noted. CARDIOVASCULAR: There is a regular rate and rhythm without any murmurs gallops or rubs. ABDOMEN: Soft and nontender with normal bowel sounds. No palpable organomegaly was noted. There is no palpable pulsatile mass. SKIN: Skin is clear with no lesions or rashes and otherwise unremarkable. NEUROLOGIC: Patient is alert and oriented x3. Cranial nerves II through XII are grossly intact. Motor and sensory are also intact. Normal speech, volume and content. Symmetrical smile. MUSCULOSKELETAL: Normal extremities with adequate strength and full range of motion. No lower extremity swelling or edema. No calf tenderness. LYMPHATICS: No significant lymphadenopathy is noted PSYCHIATRIC: Normal psychiatric evaluation. Normal interpersonal interactions appears functionally intact in deals appropriately with others. No signs of depression. No signs of anxiety. Limitations: no limitations Course Vital Signs 11/30/17 11/30/17 11/30/17 11:40 12:39 12:46 Temperature 98 F Pulse Rate 61 53 L 52 L Respiratory 22 16 Rate Blood Pressure 169/85 114/58 129/62 O2 Sat by Pulse 97 98 97 Oximetry 11/30/17 13:46 Temperature Pulse Rate 50 L Respiratory Rate Blood Pressure 105/57 O2 Sat by Pulse 99 Oximetry Medical Decision Making - Medical Decision Making EKG shows normal sinus rhythm at 60 bpm [place] interval is 176 dresses 82 QT interval 374 QTC is 374. Patient's EKG shows no ST segment elevation or depression. Chest x-ray shows no acute abnormality. Patient's chest pain was relieved with the nitroglycerin emergency department. Patient started on heparin emergency department. I spoke with Dr. Bain he agreed to admit the patient admitted the patient I wrote admitting orders I continued heparin and aspirin and Nitropaste on the floor. I consult to cardiology. - Lab Data Result diagrams: 11/30/17 11:50 11/30/17 11:50 Lab Results 11/30/17 11/30/17 11/30/17 Range/Units 11:50 11:50 11:50 WBC 5.5 (3.8-10.6) k/uL RBC 5.14 (4.30-5.90) m/uL Hgb 14.3 (13.0-17.5) gm/dL Hct 42.3 (39.0-53.0) % MCV 82.4 (80.0-100.0) fL MCH 27.9 (25.0-35.0) pg MCHC 33.8 (31.0-37.0) g/dL RDW 14.6 (11.5-15.5) % Plt Count 197 (150-450) k/uL Neutrophils % 68 % Lymphocytes % 23 % Monocytes % 4 % Eosinophils % 2 % Basophils % 0 % Neutrophils # 3.7 (1.3-7.7) k/uL Lymphocytes # 1.2 (1.0-4.8) k/uL Monocytes # 0.2 (0-1.0) k/uL Eosinophils # 0.1 (0-0.7) k/uL Basophils # 0.0 (0-0.2) k/uL PT (9.0-12.0) sec INR (<1.2) APTT (22.0-30.0) sec Sodium 143 (137-145) mmol/L Potassium 4.3 (3.5-5.1) mmol/L Chloride 105 (98-107) mmol/L Carbon Dioxide 23 (22-30) mmol/L Anion Gap 15 mmol/L BUN 11 (9-20) mg/dL Creatinine 0.82 (0.66-1.25) mg/dL Est GFR (CKD-EPI)AfAm >90 (>60 ml/min/1.73 sqM) Est GFR (CKD-EPI)NonAf >90 (>60 ml/min/1.73 sqM) Glucose 152 H (74-99) mg/dL Calcium 9.8 (8.4-10.2) mg/dL Magnesium 1.9 (1.6-2.3) mg/dL Total Bilirubin 0.4 (0.2-1.3) mg/dL AST 24 (17-59) U/L ALT 38 (21-72) U/L Alkaline Phosphatase 113 (38-126) U/L Total Creatine Kinase 279 H (55-170) U/L CK-MB (CK-2) 2.3 (0.0-2.4) ng/mL CK-MB (CK-2) Rel Index 0.8 Troponin I <0.012 (0.000-0.034) ng/mL Total Protein 7.7 (6.3-8.2) g/dL Albumin 4.5 (3.5-5.0) g/dL /02/09 Range/Units 11:50 WBC (3.8-10.6) k/uL RBC (4.30-5.90) m/uL Hgb (13.0-17.5) gm/dL Hct (39.0-53.0) % MCV (80.0-100.0) fL MCH (25.0-35.0) pg MCHC (31.0-37.0) g/dL RDW (11.5-15.5) % Plt Count (150-450) k/uL Neutrophils % % Lymphocytes % % Monocytes % % Eosinophils % % Basophils % % Neutrophils # (1.3-7.7) k/uL Lymphocytes # (1.0-4.8) k/uL Monocytes # (0-1.0) k/uL Eosinophils # (0-0.7) k/uL Basophils # (0-0.2) k/uL PT 10.2 (9.0-12.0) sec INR 1.0 (<1.2) APTT 22.5 (22.0-30.0) sec Sodium (137-145) mmol/L Potassium (3.5-5.1) mmol/L Chloride (98-107) mmol/L Carbon Dioxide (22-30) mmol/L Anion Gap mmol/L BUN (9-20) mg/dL Creatinine (0.66-1.25) mg/dL Est GFR (CKD-EPI)AfAm (>60 ml/min/1.73 sqM) Est GFR (CKD-EPI)NonAf (>60 ml/min/1.73 sqM) Glucose (74-99) mg/dL Calcium (8.4-10.2) mg/dL Magnesium (1.6-2.3) mg/dL Total Bilirubin (0.2-1.3) mg/dL AST (17-59) U/L ALT (21-72) U/L Alkaline Phosphatase (38-126) U/L Total Creatine Kinase (55-170) U/L CK-MB (CK-2) (0.0-2.4) ng/mL CK-MB (CK-2) Rel Index Troponin I (0.000-0.034) ng/mL Total Protein (6.3-8.2) g/dL Albumin (3.5-5.0) g/dL Critical Care Time Critical Care Time: Yes Total Critical Care Time: 35 Disposition Clinical Impression: Unstable angina pectoris Disposition: Left Against Medical Advice Is patient prescribed a controlled substance at d/c from ED?: No Time of Disposition: 13:43
[2017-11-30 12:17] LABS: Basophils % (A) 0 %; Eosinophils # (A) 0.1 k/uL (0-0.7); Eosinophils % (A) 2 %; HCT 42.3 % (39.0-53.0); HGB 14.3 gm/dL (13.0-17.5); Lymphocytes # (A) 1.2 k/uL (1.0-4.8); Lymphocytes % (A) 23 %; MCH 27.9 pg (25.0-35.0); MCHC 33.8 g/dL (31.0-37.0); MCV 82.4 fL (80.0-100.0); Mean Platelet Volume 7.3; Monocytes # (A) 0.2 k/uL (0-1.0); Monocytes % (A) 4 %; Neutrophils # (A) 3.7 k/uL (1.3-7.7); Neutrophils % (A) 68 %; Platelet Count 197 k/uL (150-450); RBC 5.14 m/uL (4.30-5.90); RDW 14.6 % (11.5-15.5); WBC 5.5 k/uL (3.8-10.6)
--- NOTE | 2017-11-30 12:25 | XR ---
EXAMINATION TYPE: XR chest 2V DATE OF EXAM: 11/30/2017 COMPARISON: 06/16/2017 INDICATION: Chest pain TECHNIQUE: Frontal and lateral views of the chest are obtained. FINDINGS: The heart size is normal. The pulmonary vasculature is normal. The lungs are clear. Electronic device is over the left hilar region. EKG leads overlie the chest. IMPRESSION: 1. No acute pulmonary process.
[2017-11-30 12:27] LABS: ALT 38 U/L (21-72); AST 24 U/L (17-59); Albumin 4.5 g/dL (3.5-5.0); Alkaline Phosphatase 113 U/L (38-126); Anion Gap 15 mmol/L; Blood Urea Nitrogen 11 mg/dL (9-20); Calcium 9.8 mg/dL (8.4-10.2); Carbon Dioxide 23 mmol/L (22-30); Chloride 105 mmol/L (98-107); Glucose 152 mg/dL (74-99); Magnesium 1.9 mg/dL (1.6-2.3); Potassium 4.3 mmol/L (3.5-5.1); Sodium 143 mmol/L (137-145); Total Bilirubin 0.4 mg/dL (0.2-1.3); Total Protein 7.7 g/dL (6.3-8.2)
[2017-11-30 12:32] LABS: Partial Thromboplastin Time 22.5 sec (22.0-30.0); Prothrombin Time 10.2 sec (9.0-12.0)
[2017-11-30 12:41] LABS: Creatine Kinase 279 U/L (55-170)
[2017-11-30 12:54] LABS: Creatine Kinase MB 2.3 ng/mL (0.0-2.4); Troponin I <0.012 ng/mL (0.000-0.034)
[2017-11-30] MEDS ORDERED: HEPARIN SODIUM,PORCINE 5,000 UNIT/ML 1 ML VIAL IV ONE (13:12)
[2017-11-30] MEDS ORDERED: HEPARIN SODIUM,PORCINE/D5W PMX 25,000 UNIT in DEXTROSE/WATER 1 500ML.BAG IV SCH (13:15)
[2017-11-30] MEDS ORDERED: NITROGLYCERIN SL TABS 0.4 MG TAB SUBLINGUAL PRN (13:43)
[2017-11-30 14:38] VITALS: BP 100/58; PULSE 51; RESP 18; TEMP 97.7
[2017-11-30] MEDS ORDERED: NITROGLYCERIN OINT 1 INCH/GM PACKET TOPICAL SCH (18:00)
[2017-12-01] MEDS ORDERED: ASPIRIN 325 MG TAB PO SCH (09:00)
== END 2017-11-30 14:47 | disposition left against medical advice (07) ==
LOC: EC 11:38 → 3OBS 13:47
PROVIDERS: ADMIT Family Medicine; ATTEND Family Medicine
DX: I25.110 Atherosclerotic heart disease of native coronary artery with unstable angina pectoris (principal); I48.91 Unspecified atrial fibrillation; G47.30 Sleep apnea, unspecified; Z99.89 Dependence on other enabling machines and devices; E07.9 Disorder of thyroid, unspecified; M10.9 Gout, unspecified; R03.0 Elevated blood-pressure reading, without diagnosis of hypertension; G25.81 Restless legs syndrome; R41.3 Other amnesia; F41.9 Anxiety disorder, unspecified; Z86.73 Personal history of transient ischemic attack (TIA), and cerebral infarction without residual deficits; Z95.5 Presence of coronary angioplasty implant and graft; Z79.1 Long term (current) use of non-steroidal anti-inflammatories (NSAID); Z79.890 Hormone replacement therapy; Z79.899 Other long term (current) drug therapy; I25.2 Old myocardial infarction; Z87.891 Personal history of nicotine dependence; Z53.21 Procedure and treatment not carried out due to patient leaving prior to being seen by health care provider; Z82.49 Family history of ischemic heart disease and other diseases of the circulatory system; Z81.8 Family history of other mental and behavioral disorders
CPT/HCPCS: 99291 ×2; 96365 ×2; 96376 ×2; 36415; 93005; 80053; 82550; 82553; 83735; 84484; 85025; 85610; 85730; 71046; G0378; J1644 ×2

== ENCOUNTER 2018-02-06 22:25 | Observation (INO) | payer OTHER ==
[2018-02-06 23:08] LABS: Basophils % (A) 0 %; Eosinophils # (A) 0.2 k/uL (0-0.7); Eosinophils % (A) 3 %; HCT 43.9 % (39.0-53.0); HGB 14.5 gm/dL (13.0-17.5); Lymphocytes # (A) 1.9 k/uL (1.0-4.8); Lymphocytes % (A) 27 %; MCH 27.7 pg (25.0-35.0); MCHC 33.1 g/dL (31.0-37.0); MCV 83.8 fL (80.0-100.0); Mean Platelet Volume 7.2; Monocytes # (A) 0.3 k/uL (0-1.0); Monocytes % (A) 4 %; Neutrophils # (A) 4.6 k/uL (1.3-7.7); Neutrophils % (A) 66 %; Platelet Count 209 k/uL (150-450); RBC 5.24 m/uL (4.30-5.90); RDW 15.4 % (11.5-15.5)
--- NOTE | 2018-02-06 23:11 | ED ---
General Adult HPI - General Chief complaint: Chest Pain Stated complaint: chest pain Time Seen by Provider: 02/06/18 22:31 Source: patient, RN notes reviewed, old records reviewed Mode of arrival: wheelchair Limitations: no limitations - History of Present Illness Initial comments: This is a 47-year-old male to the ER for evasive chest pain. Patient has history of CAD with stent. Multiple cardiac issues and comorbidities. Patient states he has severe left-sided chest pain rating left arm rating to left back. Also symptoms of chest pain weakness and fatigue for one week. Patient states he's been this multiple times he does know that is his heart. Patient complaining of no improvement or modifying factors for pain - Related Data Home Medications Medication Instructions Recorded Confirmed Colchicine [Colcrys] 0.6 mg PO DAILY 09/27/17 02/10/18 Gabapentin [Neurontin] 100 mg PO TID 09/27/17 02/10/18 Ibuprofen 600 mg PO TID PRN 09/27/17 02/10/18 Levothyroxine Sodium [Synthroid] 300 mcg PO DAILY 09/27/17 02/10/18 Methocarbamol [Robaxin] 500 mg PO TID PRN 09/27/17 02/10/18 Previous Rx's Medication Instructions Recorded amLODIPine [Norvasc] 5 mg PO DAILY #30 tab 02/08/18 Allergies Allergy/AdvReac Type Severity Reaction Status Date / Time No Known Allergies Allergy Verified 02/10/18 12:33 Review of Systems ROS Statement: Those systems with pertinent positive or pertinent negative responses have been documented in the HPI. ROS Other: All systems not noted in ROS Statement are negative. Past Medical History Past Medical History: Atrial Fibrillation, Coronary Artery Disease (CAD), CVA/ TIA, Myocardial Infarction ([place]), Sleep Apnea/CPAP/BIPAP, Thyroid Disorder Additional Past Medical History / Comment(s): denies hx hypertension, restless leg syndrome, "TIA (x 5) last Apr 2016", memory loss and numbness left fingers left hand and occ lt arm weakness, gout, wears CPAP at home Last Myocardial Infarction Date:: unk History of Any Multi-Drug Resistant Organisms: None Reported Past Surgical History: Heart Catheterization, Heart Catheterization With Stent, Hernia Repair Additional Past Surgical History / Comment(s): loop monitor in chest. one cardiac stent Past Anesthesia/Blood Transfusion Reactions: No Reported Reaction Date of Last Stent Placement:: unknown Type of Cardiac Device: Loop Device Placement Date:: Apr 2016 Past Psychological History: Anxiety Smoking Status: Former smoker Past Alcohol Use History: Occasional Past Drug Use History: None Reported - Past Family History Father Family Medical History: Myocardial Infarction ([place]) Additional Family Medical History / Comment(s): of [place] Mother Family Medical History: No Reported History Brother(s) Additional Family Medical History / Comment(s): Bipolar disorder General Exam Limitations: no limitations General appearance: alert, in no apparent distress, obese Head exam: Present: atraumatic, normocephalic, normal inspection Eye exam: Present: normal appearance, PERRL, EOMI. Absent: scleral icterus, conjunctival injection, periorbital swelling ENT exam: Present: normal exam, mucous membranes moist Neck exam: Present: normal inspection. Absent: tenderness, meningismus, lymphadenopathy Respiratory exam: Present: normal lung sounds bilaterally. Absent: respiratory distress, wheezes, rales, rhonchi, stridor Cardiovascular Exam: Present: regular rate, normal rhythm, normal heart sounds. Absent: systolic murmur, diastolic murmur, rubs, gallop, clicks GI/Abdominal exam: Present: soft, normal bowel sounds. Absent: distended, tenderness, guarding, rebound, rigid Extremities exam: Present: normal inspection, full ROM, normal capillary refill. Absent: tenderness, pedal edema, joint swelling, calf tenderness Back exam: Present: normal inspection Neurological exam: Present: alert, oriented X3, CN II-XII intact Psychiatric exam: Present: normal affect, normal mood Skin exam: Present: warm, dry, intact, normal color. Absent: rash Course Vital Signs 02/06/18 02/06/18 22:31 23:56 Temperature 98.4 F 97.9 F Pulse Rate 72 69 Respiratory 16 18 Rate Blood Pressure 131/78 162/87 O2 Sat by Pulse 96 96 Oximetry EKG Findings - EKG Comments: EKG Findings:: EKG shows sinus rhythm rate of 69, CO 162, QRS 80, QTC 381 Medical Decision Making - Medical Decision Making 47 male the ER with significant cardiac risk factors coming in with significant left-sided chest pain, patient be admitted for anticoagulation and evaluation by cardiology - Lab Data Result diagrams: 02/07/18 05:21 02/06/18 22:45 Lab Results 02/06/18 02/06/18 02/06/18 Range/Units 22:45 22:45 22:45 WBC 7.0 (3.8-10.6) k/uL RBC 5.24 (4.30-5.90) m/uL Hgb 14.5 (13.0-17.5) gm/dL Hct 43.9 (39.0-53.0) % MCV 83.8 (80.0-100.0) fL MCH 27.7 (25.0-35.0) pg MCHC 33.1 (31.0-37.0) g/dL RDW 15.4 (11.5-15.5) % Plt Count 209 (150-450) k/uL Neutrophils % 66 % Lymphocytes % 27 % Monocytes % 4 % Eosinophils % 3 % Basophils % 0 % Neutrophils # 4.6 (1.3-7.7) k/uL Lymphocytes # 1.9 (1.0-4.8) k/uL Monocytes # 0.3 (0-1.0) k/uL Eosinophils # 0.2 (0-0.7) k/uL Basophils # 0.0 (0-0.2) k/uL PT (9.0-12.0) sec INR (<1.2) APTT (22.0-30.0) sec Sodium 142 (137-145) mmol/L Potassium 4.0 (3.5-5.1) mmol/L Chloride 107 (98-107) mmol/L Carbon Dioxide 27 (22-30) mmol/L Anion Gap 8 mmol/L BUN 10 (9-20) mg/dL Creatinine 0.80 (0.66-1.25) mg/dL Est GFR (CKD-EPI)AfAm >90 (>60 ml/min/1.73 sqM) Est GFR (CKD-EPI)NonAf >90 (>60 ml/min/1.73 sqM) Glucose 157 H (74-99) mg/dL Calcium 9.7 (8.4-10.2) mg/dL Magnesium 1.8 (1.6-2.3) mg/dL Total Bilirubin 0.5 (0.2-1.3) mg/dL AST 35 (17-59) U/L ALT 43 (21-72) U/L Alkaline Phosphatase 83 (38-126) U/L Total Creatine Kinase 257 H (55-170) U/L CK-MB (CK-2) 2.0 (0.0-2.4) ng/mL CK-MB (CK-2) Rel Index 0.8 Troponin I <0.012 (0.000-0.034) ng/mL NT-Pro-B Natriuret Pep pg/mL Total Protein 7.7 (6.3-8.2) g/dL Albumin 4.3 (3.5-5.0) g/dL Lipase 49 (23-300) U/L 02/06/18 02/06/18 Range/Units 22:45 22:45 WBC (3.8-10.6) k/uL RBC (4.30-5.90) m/uL Hgb (13.0-17.5) gm/dL Hct (39.0-53.0) % MCV (80.0-100.0) fL MCH (25.0-35.0) pg MCHC (31.0-37.0) g/dL RDW (11.5-15.5) % Plt Count (150-450) k/uL Neutrophils % % Lymphocytes % % Monocytes % % Eosinophils % % Basophils % % Neutrophils # (1.3-7.7) k/uL Lymphocytes # (1.0-4.8) k/uL Monocytes # (0-1.0) k/uL Eosinophils # (0-0.7) k/uL Basophils # (0-0.2) k/uL PT 10.6 (9.0-12.0) sec INR 1.1 (<1.2) APTT 22.2 (22.0-30.0) sec Sodium (137-145) mmol/L Potassium (3.5-5.1) mmol/L Chloride (98-107) mmol/L Carbon Dioxide (22-30) mmol/L Anion Gap mmol/L BUN (9-20) mg/dL Creatinine (0.66-1.25) mg/dL Est GFR (CKD-EPI)AfAm (>60 ml/min/1.73 sqM) Est GFR (CKD-EPI)NonAf (>60 ml/min/1.73 sqM) Glucose (74-99) mg/dL Calcium (8.4-10.2) mg/dL Magnesium (1.6-2.3) mg/dL Total Bilirubin (0.2-1.3) mg/dL AST (17-59) U/L ALT (21-72) U/L Alkaline Phosphatase (38-126) U/L Total Creatine Kinase (55-170) U/L CK-MB (CK-2) (0.0-2.4) ng/mL CK-MB (CK-2) Rel Index Troponin I (0.000-0.034) ng/mL NT-Pro-B Natriuret Pep 22 pg/mL Total Protein (6.3-8.2) g/dL Albumin (3.5-5.0) g/dL Lipase (23-300) U/L - Radiology Data Radiology results: report reviewed (Chest x-rays negative for acute disease), image reviewed Critical Care Time Critical Care Time: Yes Total Critical Care Time: 31 Disposition Clinical Impression: Chest pain Disposition: ADMITTED IP TO THIS [facility] Condition: Undetermined Is patient prescribed a controlled substance at d/c from ED?: No
[2018-02-06 23:18] LABS: INR 1.1 (<1.2); Partial Thromboplastin Time 22.2 sec (22.0-30.0); Prothrombin Time 10.6 sec (9.0-12.0)
[2018-02-06 23:21] LABS: ALT 43 U/L (21-72); AST 35 U/L (17-59); Albumin 4.3 g/dL (3.5-5.0); Alkaline Phosphatase 83 U/L (38-126); Anion Gap 8 mmol/L; Blood Urea Nitrogen 10 mg/dL (9-20); Calcium 9.7 mg/dL (8.4-10.2); Carbon Dioxide 27 mmol/L (22-30); Chloride 107 mmol/L (98-107); Glucose 157 mg/dL (74-99); Lipase 49 U/L (23-300); Magnesium 1.8 mg/dL (1.6-2.3); Sodium 142 mmol/L (137-145); Total Bilirubin 0.5 mg/dL (0.2-1.3); Total Protein 7.7 g/dL (6.3-8.2)
[2018-02-06 23:25] LABS: Creatine Kinase 257 U/L (55-170)
--- NOTE | 2018-02-06 23:27 | XR ---
EXAMINATION TYPE: XR chest 2V DATE OF EXAM: 02/06/2018 COMPARISON: 11/30/2017 HISTORY: Chest pain TECHNIQUE: Frontal and lateral views of the chest are obtained. FINDINGS: There is no heart failure nor confluent pneumonic infiltrate. Heart size is normal. There are chest leads. Bony thorax is intact. There is no sign of pleural effusion. IMPRESSION: No active cardiopulmonary disease. No change.
[2018-02-06 23:37] LABS: Troponin I <0.012 ng/mL (0.000-0.034)
[2018-02-06] MEDS ORDERED: HEPARIN SOD,PORK IN 0.45% NACL 25,000 UNIT in 0.45% NACL 1 500ML.BAG IV SCH (23:45)
[2018-02-06] MEDS ORDERED: SODIUM CHLORIDE 0.9% 1,000 ML IV SCH (23:45)
[2018-02-06] MEDS ORDERED: HEPARIN SODIUM,PORCINE 5,000 UNIT/ML 1 ML VIAL IV ONE (23:48)
[2018-02-06] MEDS ORDERED: HEPARIN SODIUM,PORCINE 5,000 UNIT/ML 1 ML VIAL IV PRN (23:48)
[2018-02-06] MEDS ORDERED: ASPIRIN 81 MG PO STA (23:48)
[2018-02-06] MEDS ORDERED: NITROGLYCERIN SL TABS 0.4 MG TAB SUBLINGUAL PRN (23:48)
[2018-02-07 00:30] VITALS: BMI 44.7
[2018-02-07] MEDS: HYDROcodone/APAP 5-325MG 1 EACH TAB PO PRN ×3 (00:54→21:14)
[2018-02-07] MEDS ORDERED: METHOCARBAMOL 500 MG TAB PO PRN (01:28)
[2018-02-07] MEDS ORDERED: IBUPROFEN 600 MG TAB PO PRN (01:28)
[2018-02-07 06:25] LABS: Mean Platelet Volume 6.9; Platelet Count 194 k/uL (150-450)
[2018-02-07 06:34] LABS: Cholesterol 209 mg/dL (<200); HDL Cholesterol 30 mg/dL (40-60); Triglycerides 408 mg/dL (<150)
[2018-02-07 06:42] LABS: Creatine Kinase 194 U/L (55-170)
[2018-02-07] MEDS: LEVOTHYROXINE 100 MCG TAB PO SCH ×2 (06:50→11:49)
[2018-02-07 06:54] LABS: Creatine Kinase MB 1.7 ng/mL (0.0-2.4); Troponin I <0.012 ng/mL (0.000-0.034)
[2018-02-07] MEDS ORDERED: ASPIRIN 325 MG TAB PO SCH (09:00)
[2018-02-07] MEDS ORDERED: METOPROLOL TARTRATE 25 MG TAB PO SCH ×2 (09:00)
[2018-02-07] MEDS ORDERED: AMINOPHYLLINE 500 MG/20 ML VIAL IV PRN (09:30)
[2018-02-07] MEDS ORDERED: REGADENOSON 0.4 MG/5 ML SYRINGE IV ONE (09:30)
--- NOTE | 2018-02-07 10:12 | P.CRDCN ---
History of Present Illness History of present illness: Mr. Hidalgo is a pleasant 47-year-old male past medical history significant for coronary artery disease s/p angioplasty 06/2016 of the proximal LAD, hypertension, obstructive sleep apnea, dyslipidemia, SVT and sinus tachycardia. He follows with Dr. Kennedy in the office. Although he hasn't been to the office since 2015 prior to his angioplasty. He states he hasn't had any cardiac concerns so he hasn't made an appointment. At one point in 2015 there was a question of atrial fibrillation versus SVT. He underwent Holter monitoring that revealed sinus tachycardia. At that time lopressor was started. We have been asked to see him in consultation for chest pain. He states yesterday while working he felt a heavy sensation in the left precordial region with radiation to the left neck, left shoulder and down the left arm. He states his arm felt weak. He denies radiation to the back. He denies shortness of breath, nausea, vomiting, diaphoresis, palpitations or dizziness. The pressure in his chest lasted for approximately 4 hours but did decrease in intensity when he sat down and stopped working. Ultimately it went away on its own with no specific alleviating factors. Telemetry tracings indicate he has been significantly bradycardic overnight with heart rates as low as 42 and sinus. He states he is compliant with his C-pap at home however didn't have it here with him last night. He denies any further symptoms of chest discomfort since admission. EKG reveals sinus mechanism with no acute ST or T-wave abnormalities. Chest xray negative for an acute cardiopulmonary process. Laboratory data reviewed, cardiac enzymes negative 2, triglycerides 408, creatinine 0.8, magnesium 1.8, potassium 4.0, sodium 142, hemoglobin 14.5, platelets 194. Current cardiac medications include metoprolol 25 mg daily, atorvastatin 40 mg daily. He also takes Robaxin, Synthroid, Neurontin and colchicine. Review of Systems At the time of my exam: CONSTITUTIONAL: Denies fever. Denies chills. EYES: Denies blurred vision. Denies vision changes. Denies eye pain. EARS, NOSE, MOUTH & THROAT: Denies headache. Denies sore throat. Denies ear pain. CARDIOVASCULAR: Denies chest pain. Denies shortness of breath. Denies orthopnea. Denies PND. Denies palpitations. RESPIRATORY: Denies cough. GASTROINTESTINAL: Denies abdominal pain. Denies diarrhea. Denies constipation. Denies nausea. Denies vomiting. MUSCULOSKELETAL: Denies myalgias. INTEGUMENTARY: Denies pruitis. Denies rash. NEUROLOGIC: Denies numbness. Denies tingling. Denies weakness. PSYCHIATRIC: Denies anxiety. Denies depression. ENDOCRINE: Denies fatigue. Denies weight change. Denies polydipsia. Denies polyurina. GENITOURINARY: Denies burning, hematuria or urgency with micturation. HEMATOLOGIC: Denies history of anemia. Denies bleeding. Past Medical History Past Medical History: Atrial Fibrillation, Coronary Artery Disease (CAD), CVA/ TIA, Myocardial Infarction ([place]), Sleep Apnea/CPAP/BIPAP, Thyroid Disorder Additional Past Medical History / Comment(s): denies hx hypertension, restless leg syndrome, "TIA (x 5) last Apr 2016", memory loss and numbness left fingers left hand and occ lt arm weakness, gout, wears CPAP at home Last Myocardial Infarction Date:: unk History of Any Multi-Drug Resistant Organisms: None Reported Past Surgical History: Heart Catheterization, Heart Catheterization With Stent, Hernia Repair Additional Past Surgical History / Comment(s): loop monitor in chest. one cardiac stent Past Anesthesia/Blood Transfusion Reactions: No Reported Reaction Date of Last Stent Placement:: unknown Type of Cardiac Device: Loop Device Placement Date:: Apr 2016 Past Psychological History: Anxiety Additional Psychological History / Comment(s): memory loss from TIA's Smoking Status: Former smoker Past Alcohol Use History: Occasional Additional Past Alcohol Use History / Comment(s): quit smoking 08/2016- smoked for 4 yrs- 1/2 PPD Past Drug Use History: None Reported - Past Family History Father Family Medical History: Myocardial Infarction ([place]) Additional Family Medical History / Comment(s): of [place] Mother Family Medical History: No Reported History Brother(s) Additional Family Medical History / Comment(s): Bipolar disorder Medications and Allergies Home Medications Medication Instructions Recorded Confirmed Type Atorvastatin Calcium [Lipitor] 40 mg PO HS 09/27/17 02/07/18 History Colchicine [Colcrys] 0.6 mg PO DAILY 09/27/17 02/07/18 History Gabapentin [Neurontin] 100 mg PO TID 09/27/17 02/07/18 History Ibuprofen 600 mg PO TID PRN 09/27/17 02/07/18 History Levothyroxine Sodium [Synthroid] 300 mcg PO DAILY 09/27/17 02/07/18 History Methocarbamol [Robaxin] 500 mg PO TID PRN 09/27/17 02/07/18 History Metoprolol Tartrate 25 mg PO DAILY 09/27/17 02/07/18 History Allergies Allergy/AdvReac Type Severity Reaction Status Date / Time No Known Allergies Allergy Verified 02/07/18 08:50 Physical Exam Vitals: Vital Signs Temp Pulse Pulse Resp BP BP Pulse Ox 02/07/18 08:00 97.5 F L 42 L 16 141/85 96 02/07/18 04:00 48 L 16 02/07/18 03:47 97.5 F L 46 L 16 142/75 97 02/07/18 01:03 60 16 02/07/18 00:28 98.3 F 56 L 16 111/73 96 02/06/18 23:56 97.9 F 69 18 162/87 96 02/06/18 22:31 98.4 F 72 16 131/78 96 Intake and Output 02/06/18 02/07/18 02/07/18 22:59 06:59 14:59 Intake Total 134.205 Balance 134.205 Intake: Intake, IV Titration 134.205 Amount Heparin Sod,Pork in 0.45% 134.205 NaCl 25,000 unit In 0.45 % NaCl 1 500ml.bag @ 6.5 UNITS/KG/HR 19.45 mls/hr IV .Q24H [facility] Rx#: [id number] Other: Voiding Method Toilet # Voids 1 Weight 149.685 kg 149.685 kg Blood pressure 141/85 heart rate 42 afebrile maintaining oxygen saturation on room air GENERAL: This is a 47-year-old male in no apparent distress at the time of my examination. Morbidly obese. HEENT: Head is atraumatic, normocephalic. Pupils are equal, round. Sclerae anicteric. Conjunctivae are clear. Mucous membranes of the mouth are moist. Neck is supple. There is no jugular venous distention. No carotid bruit is heard. LUNGS: Clear to auscultation no wheezes, rales or rhonchi. No chest wall tenderness is noted on palpation or with deep breathing. HEART: Regular rate and rhythm without murmurs, rubs or gallops. S1 and S2 heard. ABDOMEN: Soft, nontender. Bowel sounds are heard. No organomegaly noted. EXTREMITIES: No evidence of peripheral edema and no calf tenderness noted. VASCULAR: Radial and dorsalis pedis pulses palpated, no evidence of clubbing. NEUROLOGIC: Patient is awake, alert and oriented x3. Results 02/07/18 05:21 02/06/18 22:45 Cardiac Enzymes 02/06/18 02/06/18 02/06/18 Range/Units 22:45 22:45 22:45 WBC 7.0 (3.8-10.6) k/uL RBC 5.24 (4.30-5.90) m/uL Hgb 14.5 (13.0-17.5) gm/dL Hct 43.9 (39.0-53.0) % MCV 83.8 (80.0-100.0) fL MCH 27.7 (25.0-35.0) pg MCHC 33.1 (31.0-37.0) g/dL RDW 15.4 (11.5-15.5) % Plt Count 209 (150-450) k/uL Neutrophils % 66 % Lymphocytes % 27 % Monocytes % 4 % Eosinophils % 3 % Basophils % 0 % Neutrophils # 4.6 (1.3-7.7) k/uL Lymphocytes # 1.9 (1.0-4.8) k/uL Monocytes # 0.3 (0-1.0) k/uL Eosinophils # 0.2 (0-0.7) k/uL Basophils # 0.0 (0-0.2) k/uL PT (9.0-12.0) sec INR (<1.2) APTT (22.0-30.0) sec Sodium 142 (137-145) mmol/L Potassium 4.0 (3.5-5.1) mmol/L Chloride 107 (98-107) mmol/L Carbon Dioxide 27 (22-30) mmol/L Anion Gap 8 mmol/L BUN 10 (9-20) mg/dL Creatinine 0.80 (0.66-1.25) mg/dL Est GFR (CKD-EPI)AfAm >90 (>60 ml/min/1.73 sqM) Est GFR (CKD-EPI)NonAf >90 (>60 ml/min/1.73 sqM) Glucose 157 H (74-99) mg/dL Calcium 9.7 (8.4-10.2) mg/dL Magnesium 1.8 (1.6-2.3) mg/dL Total Bilirubin 0.5 (0.2-1.3) mg/dL AST 35 (17-59) U/L ALT 43 (21-72) U/L Alkaline Phosphatase 83 (38-126) U/L Total Creatine Kinase 257 H (55-170) U/L CK-MB (CK-2) 2.0 (0.0-2.4) ng/mL CK-MB (CK-2) Rel Index 0.8 Troponin I <0.012 (0.000-0.034) ng/mL NT-Pro-B Natriuret Pep pg/mL Total Protein 7.7 (6.3-8.2) g/dL Albumin 4.3 (3.5-5.0) g/dL Triglycerides (<150) mg/dL Cholesterol (<200) mg/dL LDL Cholesterol, Calc (0-99) mg/dL HDL Cholesterol (40-60) mg/dL Lipase 49 (23-300) U/L 02/06/18 02/06/18 02/07/18 Range/Units 22:45 22:45 05:21 WBC (3.8-10.6) k/uL RBC (4.30-5.90) m/uL Hgb (13.0-17.5) gm/dL Hct (39.0-53.0) % MCV (80.0-100.0) fL MCH (25.0-35.0) pg MCHC (31.0-37.0) g/dL RDW (11.5-15.5) % Plt Count (150-450) k/uL Neutrophils % % Lymphocytes % % Monocytes % % Eosinophils % % Basophils % % Neutrophils # (1.3-7.7) k/uL Lymphocytes # (1.0-4.8) k/uL Monocytes # (0-1.0) k/uL Eosinophils # (0-0.7) k/uL Basophils # (0-0.2) k/uL PT 10.6 (9.0-12.0) sec INR 1.1 (<1.2) APTT 22.2 (22.0-30.0) sec Sodium (137-145) mmol/L Potassium (3.5-5.1) mmol/L Chloride (98-107) mmol/L Carbon Dioxide (22-30) mmol/L Anion Gap mmol/L BUN (9-20) mg/dL Creatinine (0.66-1.25) mg/dL Est GFR (CKD-EPI)AfAm (>60 ml/min/1.73 sqM) Est GFR (CKD-EPI)NonAf (>60 ml/min/1.73 sqM) Glucose (74-99) mg/dL Calcium (8.4-10.2) mg/dL Magnesium (1.6-2.3) mg/dL Total Bilirubin (0.2-1.3) mg/dL AST (17-59) U/L ALT (21-72) U/L Alkaline Phosphatase (38-126) U/L Total Creatine Kinase 194 H (55-170) U/L CK-MB (CK-2) 1.7 (0.0-2.4) ng/mL CK-MB (CK-2) Rel Index 0.9 Troponin I <0.012 (0.000-0.034) ng/mL NT-Pro-B Natriuret Pep 22 pg/mL Total Protein (6.3-8.2) g/dL Albumin (3.5-5.0) g/dL Triglycerides (<150) mg/dL Cholesterol (<200) mg/dL LDL Cholesterol, Calc (0-99) mg/dL HDL Cholesterol (40-60) mg/dL Lipase (23-300) U/L 02/07/18 02/07/18 02/07/18 Range/Units 05:21 05:21 05:21 WBC (3.8-10.6) k/uL RBC (4.30-5.90) m/uL Hgb (13.0-17.5) gm/dL Hct (39.0-53.0) % MCV (80.0-100.0) fL MCH (25.0-35.0) pg MCHC (31.0-37.0) g/dL RDW (11.5-15.5) % Plt Count 194 (150-450) k/uL Neutrophils % % Lymphocytes % % Monocytes % % Eosinophils % % Basophils % % Neutrophils # (1.3-7.7) k/uL Lymphocytes # (1.0-4.8) k/uL Monocytes # (0-1.0) k/uL Eosinophils # (0-0.7) k/uL Basophils # (0-0.2) k/uL PT (9.0-12.0) sec INR (<1.2) APTT 25.4 (22.0-30.0) sec Sodium (137-145) mmol/L Potassium (3.5-5.1) mmol/L Chloride (98-107) mmol/L Carbon Dioxide (22-30) mmol/L Anion Gap mmol/L BUN (9-20) mg/dL Creatinine (0.66-1.25) mg/dL Est GFR (CKD-EPI)AfAm (>60 ml/min/1.73 sqM) Est GFR (CKD-EPI)NonAf (>60 ml/min/1.73 sqM) Glucose (74-99) mg/dL Calcium (8.4-10.2) mg/dL Magnesium (1.6-2.3) mg/dL Total Bilirubin (0.2-1.3) mg/dL AST (17-59) U/L ALT (21-72) U/L Alkaline Phosphatase (38-126) U/L Total Creatine Kinase (55-170) U/L CK-MB (CK-2) (0.0-2.4) ng/mL CK-MB (CK-2) Rel Index Troponin I (0.000-0.034) ng/mL NT-Pro-B Natriuret Pep pg/mL Total Protein (6.3-8.2) g/dL Albumin (3.5-5.0) g/dL Triglycerides 408 H (<150) mg/dL Cholesterol 209 H (<200) mg/dL LDL Cholesterol, Calc (0-99) mg/dL HDL Cholesterol 30 L (40-60) mg/dL Lipase (23-300) U/L Coagulation 02/06/18 02/07/18 Range/Units 22:45 05:21 PT 10.6 (9.0-12.0) sec APTT 22.2 25.4 (22.0-30.0) sec Lipids 02/07/18 Range/Units 05:21 Triglycerides 408 H (<150) mg/dL Cholesterol 209 H (<200) mg/dL HDL Cholesterol 30 L (40-60) mg/dL CBC 02/06/18 02/07/18 Range/Units 22:45 05:21 WBC 7.0 (3.8-10.6) k/uL RBC 5.24 (4.30-5.90) m/uL Hgb 14.5 (13.0-17.5) gm/dL Hct 43.9 (39.0-53.0) % Plt Count 209 194 (150-450) k/uL Comprehensive Metabolic Panel 02/06/18 Range/Units 22:45 Sodium 142 (137-145) mmol/L Potassium 4.0 (3.5-5.1) mmol/L Chloride 107 (98-107) mmol/L Carbon Dioxide 27 (22-30) mmol/L BUN 10 (9-20) mg/dL Creatinine 0.80 (0.66-1.25) mg/dL Glucose 157 H (74-99) mg/dL Calcium 9.7 (8.4-10.2) mg/dL AST 35 (17-59) U/L ALT 43 (21-72) U/L Alkaline Phosphatase 83 (38-126) U/L Total Protein 7.7 (6.3-8.2) g/dL Albumin 4.3 (3.5-5.0) g/dL Current Medications Generic Name Dose Route Start Last Admin Trade Name Freq PRN Reason Stop Dose Admin Hydrocodone Bitart/Acetaminophen 1 each 02/07/18 00:35 02/07/18 00:54 [place] 5-325 PO 1 each Q4HR PRN Administration MODERATE Pain Colchicine 0.6 mg 02/07/18 09:00 Colcrys PO DAILY [facility] Gabapentin 100 mg 02/07/18 09:00 Neurontin PO TID [facility] Heparin Sodium (Porcine) 0 unit 02/06/18 23:48 02/07/18 06:59 Heparin IV 4,000 unit Q6HR PRN Administration Low PTT Protocol Heparin Sodium/Sodium Chloride 500 mls @ 19.45 mls/hr 02/06/18 23:45 07:00 25,000 unit/ Sodium Chloride IV 9.51 units/kg/hr .Q24H [facility] 28.5 mls/hr Titration Protocol 6.5 UNITS/KG/HR Sodium Chloride 1,000 mls @ 20 mls/hr 02/06/18 23:45 02/07/18 00:02 Saline 0.9% IV 20 mls/hr .Q24H [facility] Administration Ibuprofen 600 mg 02/07/18 01:28 Motrin PO TID PRN MILD Pain Levothyroxine Sodium 300 mcg 02/07/18 06:30 02/07/18 06:50 Synthroid PO Not Given DAILY@0630 [facility] Methocarbamol 500 mg 02/07/18 01:28 Robaxin PO TID PRN muscle spams Nitroglycerin 0.4 mg 02/06/18 23:48 Nitrostat SUBLINGUAL Q5M PRN Chest Pain Intake and Output 02/06/18 02/07/18 02/07/18 22:59 06:59 14:59 Intake Total 134.205 Balance 134.205 Intake: Intake, IV Titration 134.205 Amount Heparin Sod,Pork in 0.45% 134.205 NaCl 25,000 unit In 0.45 % NaCl 1 500ml.bag @ 6.5 UNITS/KG/HR 19.45 mls/hr IV .Q24H [facility] Rx#: [id number] Other: Voiding Method Toilet # Voids 1 Weight 149.685 kg 149.685 kg 02/07/18 05:21 02/06/18 22:45 Assessment and Plan Assessment: ASSESSMENT Precordial chest pain, an acute coronary event has been ruled out. History of coronary artery disease s/p angioplasty proximal LAD 06/2016 Dyslipidemia, uncontrolled Former nicotine dependence Morbid obesity Obstructive sleep apnea Significant family history of premature coronary artery disease PLAN An acute coronary event has been ruled out. Discontinue heparin infusion. Obtain 2D echocardiogram and doppler study to assess cardiac structure and function. Perform Lexiscan stress test to assess for reversible cardiac ischemia. Increase atorvastatin to 80 mg daily. Add aspirin 81 mg to his daily regimen. Hold lopressor for bradycardia. Further recommendations to follow based on clinical course. Thank you kindly for this consultation. Nurse Practitioner note has been reviewed, I agree with a documented findings and plan of care. Patient was seen and examined.
[2018-02-07] MEDS: COLCHICINE 0.6 MG EACH PO SCH (11:45)
[2018-02-07] MEDS: GABAPENTIN 100 MG CAP PO SCH ×3 (11:45→21:07)
[2018-02-07] MEDS: amLODIPine 5 MG TAB PO SCH (11:45)
--- NOTE | 2018-02-07 12:03 | ECHOF ---
Referral Reason:cp MEASUREMENTS -------- HEIGHT: 182.9 cm WEIGHT: 149.7 kg BP: 141/85 RVIDd: 3.2 cm (< 3.3) IVSd: 1.6 cm (0.6 - 1.1) LVIDd: 4.6 cm (3.9 - 5.3) LVPWd: 1.5 cm (0.6 - 1.1) IVSs: 1.8 cm LVIDs: 3.1 cm LVPWs: 2.0 cm LA Diam: 3.8 cm (2.7 - 3.8) Ao Diam: 3.6 cm (2.0 - 3.7) AV Cusp: 2.1 cm (1.5 - 2.6) MV EXCURSION: 12.885 mm (> 18.000) MV EF SLOPE: 97 mm/s (70 - 150) EPSS: 0.6 cm MV E Rodriguez: 1.26 m/s MV DecT: 232 ms MV A Rodriguez: 0.63 m/s MV E/A Ratio: 2.01 FINDINGS -------- Resting bradycardia (HR<60bpm). This was a technically difficult study with suboptimal apical views. The left ventricular size is normal. There is moderate concentric left ventricular hypertrophy. O verall left ventricular systolic function is low-normal with, an EF between 50 - 55 %. The right ventricle is normal in size. The left atrium is normal in size. The right atrium is normal in size. 5 ml of Lumason was utilized for enhancement of images. The aortic valve was not well visualized. The mitral valve is normal. The tricuspid valve was not well visualized. Trace/mild (physiologic) pulmonic regurgitation. The aortic root size is normal. Normal inferior vena cava with normal inspiratory collapse consistent with estimated right atrial pre ssure of 5 mmHg. There is no pericardial effusion. CONCLUSIONS -------- 1. Resting bradycardia (HR<60bpm). 2. This was a technically difficult study with suboptimal apical views. 3. The left ventricular size is normal. 4. There is moderate concentric left ventricular hypertrophy. 5. Overall left ventricular systolic function is low-normal with, an EF between 50 - 55 %. 6. The right ventricle is normal in size. 7. The left atrium is normal in size. 8. The right atrium is normal in size. 9. 5 ml of Lumason was utilized for enhancement of images. 10. The aortic valve was not well visualized. 11. The mitral valve is normal. 12. The tricuspid valve was not well visualized. 13. Trace/mild (physiologic) pulmonic regurgitation. 14. The aortic root size is normal. 15. Normal inferior vena cava with normal inspiratory collapse consistent with estimated right atrial pressure of 5 mmHg. 16. There is no pericardial effusion. HUB BANDER: Stephaine Rao RDCS
[2018-02-07 13:12] LABS: T4, Free (Free Thyroxine) 1.6 ng/dL (0.78-2.19)
--- NOTE | 2018-02-07 13:30 | P.PN ---
Progress Note - Text Notified by nursing of pause on telemetry. Strips evaluated and indicate approximately 5 second pause. Patient was sleeping at the time and asymptomatic. He states this is normal for him to have a low heart rate and sometimes he drops into the 30's and sustains. He denies dizziness, shortness of breath or chest pain. Lexiscan stress test will be placed on hold at this time due to the side effect of causing AV block with regadenoson. We will add small dose of norvasc to hopefully attain reflex tachycardia and discontinue lopressor. Ongoing telemetry monitoring overnight and will reasses in the AM. Advised him to have CPAP machine brought in from home. Further recommendations to follow. Plan has been discussed in detail with the patient and he is agreeable.
--- NOTE | 2018-02-07 20:54 | HP ---
HISTORY AND PHYSICAL SUBJECTIVE: 47-year-old white male with significant coronary artery disease, angioplasty, proximal LAD, hypertension, sleep apnea, DVT, sinus tachycardia, came to hospital due to precordial type region chest pain radiating to his back. Denies shortness of breath. No nausea, vomiting, diaphoresis, palpitations. EKG no acute ST changes. Chest x-ray negative. Labs show triglycerides 408. Cardiac enzymes negative. REVIEW OF SYSTEM: Fourteen point review of systems negative except for morbid obesity. PAST MEDICAL HISTORY: History of atrial fibrillation, coronary artery disease, atrial tachycardia, CVA, TIA, myocardial infarction, sleep apnea, BiPAP, hypothyroidism, TIA in April 2016 and heart catheterization with a stent, history of loop recorder. SOCIAL HISTORY: Former smoker for 2 packs a day. FAMILY HISTORY: Father with myocardial infarction. Brother with bipolar disorder. MEDICATIONS: Home medicines: Colcrys for gout, dyslipidemia on Lipitor, Neurontin, ibuprofen, Synthroid, Robaxin, metoprolol tartrate. ALLERGIES: Negative. PHYSICAL EXAMINATION: VITAL SIGNS: Temperature 97 to 98, pulse is 40s to 70s, respiratory 16 to 18, blood pressure is 130s to 160s over 70s to 80s. CARDIOVASCULAR: S1, S2. Lungs clear. GI soft. Hematology negative Homans. Psych fair mood and affect. Neurologic: Alert and oriented x3. Vascular: Normal dorsalis pedis, posterior tibial radial pulse. Ophthalmologic: Pupils equal, round, reactive to light and accommodation. ASSESSMENT: 1. Precordial chest pain, rule out myocardial infarction. 2. Coronary artery disease status post PTCA. 3. Nicotine addiction. 4. Morbid obesity. 5. Sleep apnea. Cardiac consult. Will send home when cleared from Cardiology standpoint. MMODL / IJN: [id number] /
[2018-02-07] MEDS ORDERED: ATORVASTATIN 80 MG TAB PO SCH (21:00)
[2018-02-07] MEDS ORDERED: ATORVASTATIN 40 MG TAB PO SCH (21:00)
[2018-02-08] MEDS: LEVOTHYROXINE 100 MCG TAB PO SCH (06:34)
[2018-02-08] MEDS ORDERED: DOBUTamine DRIP for NUC MED 500 MG in DEXTROSE/WATER 1 250ML.BAG IV ONE (08:17)
[2018-02-08] MEDS ORDERED: ASPIRIN 325 MG TAB PO SCH (09:00)
[2018-02-08] MEDS ORDERED: ATROPINE SULFATE 0.1 MG/ML 10ML SYRINGE ONE (09:45)
[2018-02-08] MEDS ORDERED: METOPROLOL TARTRATE 5 MG/5 ML VIAL IVP ONE (09:45)
[2018-02-08] MEDS ORDERED: ONDANSETRON 4 MG/2 ML VIAL ONE (09:45)
--- NOTE | 2018-02-08 10:00 | NM ---
EXAMINATION TYPE: NM myocardial SPECT single DATE OF EXAM: 02/08/2018 COMPARISON: NONE HISTORY: Chest pain, hypertension, hyperlipidemia and CVA TECHNIQUE: Following administration of 10.86 mCi Tc 99m Sestamibi. Images obtained at the appropriate time interval post injection. Resting images only were obtained. FINDINGS: Calculated ejection fraction is 53% at rest. There is no focal scintigraphic defect within the ventri kashif. The ventricular cavity does appear dilated although the transient ischemic dilatation coefficien t could not be calculated with only rest images. IMPRESSION: 1. No focal scintigraphic defect on rest images only. Estimated ejection fraction of 53%. 2. Although the transient ischemic dilatation coefficient cannot be calculated with rest images only the ventricular cavity does appear dilated which can be seen in cardiomyopathy or balanced 3 vessel i schemia.
[2018-02-08] MEDS ORDERED: ASPIRIN 81 MG PO SCH (10:23)
[2018-02-08] MEDS: GABAPENTIN 100 MG CAP PO SCH (10:23)
[2018-02-08] MEDS: COLCHICINE 0.6 MG EACH PO SCH (10:23)
[2018-02-08] MEDS: amLODIPine 5 MG TAB PO SCH (10:23)
--- NOTE | 2018-02-08 11:08 | P.PN ---
Subjective Mr. Hidalgo seen and examined sleeping in bed with C-PAP in place. He denies any further symptoms of chest discomfort. He denies shortness of breath, dizziness or palpitations. Telemetry tracings continue to show persistent sinus bradycardia with heart rates in the 30-40 range. Blood pressure 134/81. Lexiscan stress test was canceled yesterday due to bradycardia. Amlodipine was initiated in hopes to cause some reflex tachycardia. This is not the case. Lexiscan stress test will be canceled. Echocardiogram revealed moderate concentric left ventricular hypertrophy, preserved left ventricular systolic function with ejection fraction 50-55%. Objective - Vital Signs Vital signs: Vital Signs Temp 97.5 F L 02/08/18 07:42 Pulse 42 L 02/08/18 08:00 Resp 16 02/08/18 08:00 BP 134/81 02/08/18 07:42 Pulse Ox 99 02/08/18 07:42 Intake & Output 02/07/18 02/08/18 02/08/18 18:59 06:59 18:59 Intake Total 1658.205 Balance 1658.205 Weight 149.685 kg Intake: Intake, IV Titration 134.205 Amount Heparin Sod,Pork in 0.45% 134.205 NaCl 25,000 unit In 0.45 % NaCl 1 500ml.bag @ 6.5 UNITS/KG/HR 19.45 mls/hr IV .Q24H [facility] Rx#: [id number] Oral 1524 Other: Voiding Method Toilet Toilet Toilet # Voids 2 2 - Exam GENERAL: Well-appearing, well-nourished and in no acute distress. Morbidly obese. NECK: Supple without JVD or thyromegaly. LUNGS: Breath sounds clear to auscultation bilaterally. Respiration equal and unlabored. No wheezes, rales or rhonchi. HEART: Regular rate and rhythm without murmurs, rubs or gallops. S1 and S2 heard. EXTREMITIES: Normal range of motion, no edema. No clubbing or cyanosis. Peripheral pulses intact. - Labs CBC & Chem 7: 02/07/18 05:21 02/06/18 22:45 Labs: Abnormal Lab Results - Last 24 Hours (Table) 02/07/18 Range/Units 05:21 TSH 6.970 H (0.465-4.680) mIU/L Assessment and Plan Assessment: ASSESSMENT Precordial chest pain, an acute coronary event has been ruled out. History of coronary artery disease s/p angioplasty proximal LAD 06/2016 Dyslipidemia, uncontrolled Former nicotine dependence Morbid obesity Obstructive sleep apnea Significant family history of premature coronary artery disease PLAN An acute coronary event has been ruled out. Proceed with dobutamine stress echocardiogram to assess for stress induced cardiac ischemic changes. Hold all AV armin blocking agents indefinitely. Primary team to manage thyroid. Further recommendations to follow based on diagnostic test findings. Nurse Practitioner note has been reviewed, I agree with a documented findings and plan of care. Patient was seen and examined.
[2018-02-08 11:47] VITALS: BP 119/76; PULSE 57; RESP 18; TEMP 97.9
--- NOTE | 2018-02-08 13:55 | ECHOS ---
STRESS ECHOCARDIOGRAM DOBUTAMINE STRESS ECHOCARDIOGRAM DATE OF SERVICE: 02/08/2018 INDICATIONS: Chest pain. MEDICATIONS: BASELINE HEART RATE: 41 BASELINE BLOOD PRESSURE: 119/83 MAXIMUM HEART RATE: 152 MAXIMUM BLOOD PRESSURE: 210/103 85% MPHR: 149 100% MPHR: 175 METS: MAXIMUM STAGE REACHED: TOTAL EXERCISE TIME: CLINICAL INFORMATION: STRESS DATA: Pretesting physical examination showed a heart rate of 41, pressure is 119/83 mmHg. Baseline EKG showed sinus mechanism. Dobutamine infusion at dose of 10 mcg/kg per minute was initiated and increased to 30 mcg/kg per minute. The patient also was atropine to enhance the heart rate. Max heart rate was 152, which is about 87% of maximum predicted heart rate. Maximum blood pressure was 210/103 mmHg. The patient did not have any symptoms of chest pain or discomfort and the EKG did not show any significant ST or T-wave abnormalities concerning for ischemia. ECHOCARDIOGRAM IMAGES: On echocardiogram images from parasternal long axis view, parasternal short-axis view, apical 4 chamber and apical 2 chamber view were obtained as the baseline images, at low dose dobutamine infusion, at the peak of the heart rate, as well as on recovery. The echocardiogram images did not show any significant ST or T wave abnormalities concerning for ischemia. CONCLUSION: 1. Technically difficult study. 2. Normal EKG in response to dobutamine. 3. Probably normal echocardiogram in response to dobutamine as well. The echocardiogram images were technically very difficult and Definity was used. MMODL / IJN: [id number] /
== END 2018-02-08 14:33 | disposition home or self-care (01) ==
LOC: EC 22:25 → 3OBS 23:50
PROVIDERS: ADMIT Family Medicine; ATTEND Family Medicine
DX: R07.2 Precordial pain (principal); R07.89 Other chest pain; R53.83 Other fatigue; R53.1 Weakness; R41.3 Other amnesia; R20.0 Anesthesia of skin; I48.91 Unspecified atrial fibrillation; I25.2 Old myocardial infarction; G47.33 Obstructive sleep apnea (adult) (pediatric); G25.81 Restless legs syndrome; M10.9 Gout, unspecified; F41.9 Anxiety disorder, unspecified; I47.1 Supraventricular tachycardia; I10 Essential (primary) hypertension; E78.5 Hyperlipidemia, unspecified; R00.1 Bradycardia, unspecified; E03.9 Hypothyroidism, unspecified; I25.10 Atherosclerotic heart disease of native coronary artery without angina pectoris; Z95.5 Presence of coronary angioplasty implant and graft; Z79.899 Other long term (current) drug therapy; Z79.890 Hormone replacement therapy; Z86.73 Personal history of transient ischemic attack (TIA), and cerebral infarction without residual deficits; Z99.89 Dependence on other enabling machines and devices; Z87.891 Personal history of nicotine dependence; Z95.818 Presence of other cardiac implants and grafts; Z81.8 Family history of other mental and behavioral disorders; E66.01 Morbid (severe) obesity due to excess calories; Z68.41 Body mass index [BMI] 40.0-44.9, adult
CPT/HCPCS: 99291; 96376 ×3; 96365 ×2; 96366; 36415; 93005; 93270; 93271; 93351; 84439; 83880; 80061; 80053; 84443; 82550 ×2; 82553 ×2; 83690; 83735; 84484 ×2; 85025; 85049; 85610; 85730 ×2; 71046; 78451; G0378 ×3; C8929; A9500; J1250; J1644 ×2; J2405; J0461; Q9950 ×2; 93306

== ENCOUNTER 2018-02-09 21:49 | Observation (INO) | payer OTHER ==
--- NOTE | 2018-02-09 22:23 | ED ---
General Adult HPI - General Chief complaint: Chest Pain Stated complaint: Chest discomfort Time Seen by Provider: 02/09/18 21:59 Source: patient, RN notes reviewed, old records reviewed Mode of arrival: ambulatory Limitations: physical limitation - History of Present Illness Initial comments: 47-year-old male presents for reevaluation of chest pain. He was recently admitted to this institution with chest pain. Receive workup including stress test. He states he was discharged yesterday. This evening he began having left -sided chest pain again. As sharp in nature. No significant dyspnea. Denies lower extremity pain or swelling. He states that the pain was moderate in severity. Denies vomiting but states he had nausea. He also has some generalized weakness. Patient states that wall laying on his bed he did have a brief loss of consciousness. He attributes this to the symptoms he was having including chest pain and lightheadedness. He was placed on a monitor prior to discharge and has been wearing a monitor. - Related Data Home Medications Medication Instructions Recorded Confirmed Atorvastatin Calcium [Lipitor] 40 mg PO HS 09/27/17 02/07/18 Colchicine [Colcrys] 0.6 mg PO DAILY 09/27/17 02/07/18 Gabapentin [Neurontin] 100 mg PO TID 09/27/17 02/07/18 Ibuprofen 600 mg PO TID PRN 09/27/17 02/07/18 Levothyroxine Sodium [Synthroid] 300 mcg PO DAILY 09/27/17 02/07/18 Methocarbamol [Robaxin] 500 mg PO TID PRN 09/27/17 02/07/18 Previous Rx's Medication Instructions Recorded amLODIPine [Norvasc] 5 mg PO DAILY #30 tab 02/08/18 Allergies Allergy/AdvReac Type Severity Reaction Status Date / Time No Known Allergies Allergy Verified 02/07/18 08:50 Review of Systems ROS Statement: Those systems with pertinent positive or pertinent negative responses have been documented in the HPI. ROS Other: All systems not noted in ROS Statement are negative. Past Medical History Past Medical History: Atrial Fibrillation, Coronary Artery Disease (CAD), CVA/ TIA, Myocardial Infarction ([place]), Sleep Apnea/CPAP/BIPAP, Thyroid Disorder Additional Past Medical History / Comment(s): denies hx hypertension, restless leg syndrome, "TIA (x 5) last Apr 2016", memory loss and numbness left fingers left hand and occ lt arm weakness, gout, wears CPAP at home Last Myocardial Infarction Date:: unk History of Any Multi-Drug Resistant Organisms: None Reported Past Surgical History: Heart Catheterization, Heart Catheterization With Stent, Hernia Repair Additional Past Surgical History / Comment(s): loop monitor in chest. one cardiac stent Past Anesthesia/Blood Transfusion Reactions: No Reported Reaction Date of Last Stent Placement:: unknown Type of Cardiac Device: Loop Device Placement Date:: Apr 2016 Past Psychological History: Anxiety Smoking Status: Former smoker Past Alcohol Use History: Occasional Past Drug Use History: None Reported - Past Family History Father Family Medical History: Myocardial Infarction ([place]) Additional Family Medical History / Comment(s): of [place] Mother Family Medical History: No Reported History Brother(s) Additional Family Medical History / Comment(s): Bipolar disorder General Exam Limitations: physical limitation General appearance: alert, in no apparent distress Head exam: Present: atraumatic, normocephalic Eye exam: Present: normal appearance, PERRL ENT exam: Present: normal exam, mucous membranes dry Neck exam: Present: normal inspection. Absent: tenderness, meningismus Respiratory exam: Present: normal lung sounds bilaterally. Absent: respiratory distress, wheezes Cardiovascular Exam: Present: regular rate, normal rhythm GI/Abdominal exam: Present: soft. Absent: distended, tenderness Extremities exam: Present: normal inspection, normal capillary refill. Absent: pedal edema, calf tenderness Neurological exam: Present: alert, oriented X3, CN II-XII intact. Absent: motor sensory deficit Psychiatric exam: Present: normal affect, normal mood Skin exam: Present: warm, dry, intact. Absent: cyanosis, diaphoretic Course Vital Signs 02/09/18 22:05 Temperature 98.7 F Pulse Rate 60 Respiratory 16 Rate Blood Pressure 137/81 O2 Sat by Pulse 95 Oximetry EKG Findings - EKG Comments: EKG Findings:: EKG: Sinus bradycardia, low voltage QRS, rate of 56, WA interval 180, QRS duration 86, QTC 378, no ST segment elevation or depression. Medical Decision Making - Medical Decision Making 47-year-old male presenting with chest pain. Pain is left-sided, sharp in nature. It is associated with some nausea. Symptoms began approximately one hour prior to arrival. Patient was recently seen in this hospital with chest pain. His cardiac enzymes were negative at that time. Patient did report some radiation to his back. For this reason, CT angiography is obtained, this is negative for aneurysm or dissection. CBC is within normal limits. Chest x-ray negative for any acute cardiopulmonary disease. Troponin is indeterminate, 0.03. Patient's symptoms did begin approximately one hour prior to arrival, for this reason he will be kept in observation for repeat testing of troponin as well as telemetry and cardiology consultation. He is started on heparin. - Lab Data Result diagrams: 02/09/18 22:36 02/09/18 22:36 Lab Results 02/09/18 02/09/18 02/09/18 Range/Units 22:36 22:36 22:36 WBC 6.3 (3.8-10.6) k/uL RBC 5.11 (4.30-5.90) m/uL Hgb 14.2 (13.0-17.5) gm/dL Hct 43.3 (39.0-53.0) % MCV 84.6 (80.0-100.0) fL MCH 27.9 (25.0-35.0) pg MCHC 32.9 (31.0-37.0) g/dL RDW 15.5 (11.5-15.5) % Plt Count 202 (150-450) k/uL Neutrophils % 57 % Lymphocytes % 33 % Monocytes % 6 % Eosinophils % 2 % Basophils % 0 % Neutrophils # 3.6 (1.3-7.7) k/uL Lymphocytes # 2.1 (1.0-4.8) k/uL Monocytes # 0.4 (0-1.0) k/uL Eosinophils # 0.1 (0-0.7) k/uL Basophils # 0.0 (0-0.2) k/uL PT (9.0-12.0) sec INR (<1.2) APTT (22.0-30.0) sec D-Dimer (<0.60) mg/L FEU Sodium 141 (137-145) mmol/L Potassium 4.2 (3.5-5.1) mmol/L Chloride 107 (98-107) mmol/L Carbon Dioxide 25 (22-30) mmol/L Anion Gap 9 mmol/L BUN 12 (9-20) mg/dL Creatinine 0.84 (0.66-1.25) mg/dL Est GFR (CKD-EPI)AfAm >90 (>60 ml/min/1.73 sqM) Est GFR (CKD-EPI)NonAf >90 (>60 ml/min/1.73 sqM) Glucose 100 H (74-99) mg/dL Calcium 9.7 (8.4-10.2) mg/dL Magnesium 1.9 (1.6-2.3) mg/dL Total Bilirubin 0.4 (0.2-1.3) mg/dL AST 32 (17-59) U/L ALT 51 (21-72) U/L Alkaline Phosphatase 97 (38-126) U/L Total Creatine Kinase 230 H (55-170) U/L CK-MB (CK-2) 2.2 (0.0-2.4) ng/mL CK-MB (CK-2) Rel Index 1.0 Troponin I 0.030 (0.000-0.034) ng/mL NT-Pro-B Natriuret Pep pg/mL Total Protein 7.7 (6.3-8.2) g/dL Albumin 4.4 (3.5-5.0) g/dL 02/09/18 02/09/18 Range/Units 22:36 22:36 WBC (3.8-10.6) k/uL RBC (4.30-5.90) m/uL Hgb (13.0-17.5) gm/dL Hct (39.0-53.0) % MCV (80.0-100.0) fL MCH (25.0-35.0) pg MCHC (31.0-37.0) g/dL RDW (11.5-15.5) % Plt Count (150-450) k/uL Neutrophils % % Lymphocytes % % Monocytes % % Eosinophils % % Basophils % % Neutrophils # (1.3-7.7) k/uL Lymphocytes # (1.0-4.8) k/uL Monocytes # (0-1.0) k/uL Eosinophils # (0-0.7) k/uL Basophils # (0-0.2) k/uL PT 10.2 (9.0-12.0) sec INR 1.0 (<1.2) APTT 23.2 (22.0-30.0) sec D-Dimer 0.36 (<0.60) mg/L FEU Sodium (137-145) mmol/L Potassium (3.5-5.1) mmol/L Chloride (98-107) mmol/L Carbon Dioxide (22-30) mmol/L Anion Gap mmol/L BUN (9-20) mg/dL Creatinine (0.66-1.25) mg/dL Est GFR (CKD-EPI)AfAm (>60 ml/min/1.73 sqM) Est GFR (CKD-EPI)NonAf (>60 ml/min/1.73 sqM) Glucose (74-99) mg/dL Calcium (8.4-10.2) mg/dL Magnesium (1.6-2.3) mg/dL Total Bilirubin (0.2-1.3) mg/dL AST (17-59) U/L ALT (21-72) U/L Alkaline Phosphatase (38-126) U/L Total Creatine Kinase (55-170) U/L CK-MB (CK-2) (0.0-2.4) ng/mL CK-MB (CK-2) Rel Index Troponin I (0.000-0.034) ng/mL NT-Pro-B Natriuret Pep 28 pg/mL Total Protein (6.3-8.2) g/dL Albumin (3.5-5.0) g/dL Disposition Clinical Impression: Chest pain, Unstable angina pectoris Disposition: ADMITTED IP TO THIS [facility] Condition: Stable Is patient prescribed a controlled substance at d/c from ED?: No Referrals: Lukas Bain MD [Primary Care Provider] - 1-2 days Decision to Admit Reason: Admit from EC Decision Date: 02/10/18 Decision Time: 00:42
[2018-02-09 22:46] LABS: Basophils % (A) 0 %; Eosinophils # (A) 0.1 k/uL (0-0.7); Eosinophils % (A) 2 %; HCT 43.3 % (39.0-53.0); HGB 14.2 gm/dL (13.0-17.5); Lymphocytes # (A) 2.1 k/uL (1.0-4.8); Lymphocytes % (A) 33 %; MCH 27.9 pg (25.0-35.0); MCHC 32.9 g/dL (31.0-37.0); MCV 84.6 fL (80.0-100.0); Monocytes # (A) 0.4 k/uL (0-1.0); Monocytes % (A) 6 %; Neutrophils # (A) 3.6 k/uL (1.3-7.7); Neutrophils % (A) 57 %; Platelet Count 202 k/uL (150-450); RBC 5.11 m/uL (4.30-5.90); RDW 15.5 % (11.5-15.5); WBC 6.3 k/uL (3.8-10.6)
[2018-02-09 22:56] LABS: ALT 51 U/L (21-72); AST 32 U/L (17-59); Albumin 4.4 g/dL (3.5-5.0); Alkaline Phosphatase 97 U/L (38-126); Anion Gap 9 mmol/L; Blood Urea Nitrogen 12 mg/dL (9-20); Calcium 9.7 mg/dL (8.4-10.2); Carbon Dioxide 25 mmol/L (22-30); Chloride 107 mmol/L (98-107); Glucose 100 mg/dL (74-99); Magnesium 1.9 mg/dL (1.6-2.3); Potassium 4.2 mmol/L (3.5-5.1); Sodium 141 mmol/L (137-145); Total Bilirubin 0.4 mg/dL (0.2-1.3); Total Protein 7.7 g/dL (6.3-8.2)
[2018-02-09 23:00] LABS: D-Dimer 0.36 mg/L FEU (<0.60); Partial Thromboplastin Time 23.2 sec (22.0-30.0); Prothrombin Time 10.2 sec (9.0-12.0)
--- NOTE | 2018-02-09 23:06 | XR ---
EXAMINATION TYPE: XR chest 2V DATE OF EXAM: 02/09/2018 COMPARISON: 02/06/2018 HISTORY: Chest pain TECHNIQUE: Frontal and lateral views of the chest are obtained. FINDINGS: Heart and mediastinum are normal. Lungs are clear. Diaphragm is normal. There are chest le ads. There is implanted device over the left anterior upper chest. IMPRESSION: No cardiopulmonary disease. No change.
[2018-02-09 23:18] LABS: Creatine Kinase MB 2.2 ng/mL (0.0-2.4); Troponin I 0.03 ng/mL (0.000-0.034)
[2018-02-09] MEDS ORDERED: MORPHINE SULFATE 4 MG/ML SYRINGE IVP STA (23:40)
[2018-02-09] MEDS ORDERED: ONDANSETRON 4 MG/2 ML VIAL IVP STA (23:40)
--- NOTE | 2018-02-10 00:17 | CT ---
EXAMINATION TYPE: CT angio thor/abd pel aorta DATE OF EXAM: 02/09/2018 COMPARISON: None HISTORY: Pain CT DLP: 3341.50 mGycm. Automated Exposure Control for Dose Reduction was Utilized. CONTRAST: CT scan of the thorax, abdomen and pelvis is performed with IV Contrast, patient injected with 100 mL of Isovue 370. Exam was performed from the thoracic inlet to the mid pelvis. FINDINGS: There are 3-D post processed images. Thoracic aorta is intact. There is no evidence of aortic aneurysm or dissection. Abdominal aorta has normal size. There is patency of the celiac artery and superior mesenteric artery. There is patency o f the renal arteries. There is arterial flow in the common internal and external iliac arteries. Ther e is no retroperitoneal adenopathy. Lungs are clear of infiltrate. There is no pleural effusion. Liver spleen pancreas gallbladder appear normal. Bile ducts are not dilated. Kidneys have normal size and contour. There is no hydronephrosis . There is no ascites. There is no intestinal wall thickening. There are no dilated loops. Appendix a ppears normal. Thoracic and lumbar spine appear intact. IMPRESSION: Normal CT angiogram of the chest and abdomen and pelvis. No evidence of aneurysm or dissection. No ev idence of hemodynamically significant stenosis. No evidence of pulmonary embolism.
[2018-02-10] MEDS ORDERED: ASPIRIN 325 MG TAB PO STA (00:24)
[2018-02-10] MEDS ORDERED: HEPARIN SODIUM,PORCINE 5,000 UNIT/ML 1 ML VIAL IV ONE (00:24)
[2018-02-10] MEDS ORDERED: HEPARIN SODIUM,PORCINE 5,000 UNIT/ML 1 ML VIAL IV PRN (00:24)
[2018-02-10] MEDS ORDERED: HEPARIN SOD,PORK IN 0.45% NACL 25,000 UNIT in 0.45% NACL 1 500ML.BAG IV SCH (00:30)
[2018-02-10] MEDS ORDERED: NALOXONE 0.4 MG/ML 1 ML VIAL IV PRN (00:37)
[2018-02-10] MEDS ORDERED: ACETAMINOPHEN TAB 325 MG TAB PO PRN (00:37)
[2018-02-10] MEDS ORDERED: METHOCARBAMOL 500 MG TAB PO PRN (00:39)
[2018-02-10] MEDS ORDERED: SODIUM CHLORIDE 0.9% 1,000 ML IV SCH (00:45)
[2018-02-10 01:45] VITALS: BMI 40.1
[2018-02-10] MEDS: MORPHINE SULFATE 4 MG/ML SYRINGE IV PRN ×2 (02:00→05:55)
[2018-02-10] MEDS ORDERED: LEVOTHYROXINE 100 MCG TAB PO SCH (06:30)
[2018-02-10 07:33] LABS: Creatine Kinase MB 1.9 ng/mL (0.0-2.4); Troponin I 0.024 ng/mL (0.000-0.034)
[2018-02-10 08:23] VITALS: RESP 16
[2018-02-10] MEDS ORDERED: amLODIPine 5 MG TAB PO SCH (09:00)
[2018-02-10] MEDS ORDERED: GABAPENTIN 100 MG CAP PO SCH (09:00)
[2018-02-10 12:00] VITALS: BP 142/85; PULSE 50; TEMP 97.7
[2018-02-10 12:45] LABS: Creatine Kinase MB 2.1 ng/mL (0.0-2.4); Troponin I 0.015 ng/mL (0.000-0.034)
--- NOTE | 2018-02-10 13:28 | P.CRDCN ---
History of Present Illness History of present illness: This is a pleasant 47-year-old male past medical history significant for coronary artery disease status post angioplasty June 2016 of the proximal LAD, hypertension, obstructive sleep apnea, dyslipidemia, SVT, sinus tachycardia and significant sinus bradycardia. He follows with Dr. Kennedy in the office. He was recently admitted to the hospital the end of last week with symptoms of chest discomfort and underwent a dobutamine stress echocardiogram which was negative. He was sent home on an event monitor secondary to a significant sinus bradycardia. His Lopressor was discontinued and he was placed on amlodipine 5 mg daily. He states he was woken up in the middle of the night last night with significant discomfort in the midsternal region. He denies radiation to the arm, back, neck or jaw. He denies associated shortness of breath, dizziness, palpitations, nausea, vomiting or diaphoresis. He has had no further symptoms of chest discomfort since admission. His chest pain resolved on its own prior to arrival. EKG reveals sinus bradycardia heart rate [address] or T wave abnormalities noted. Chest x-ray is negative for an acute cardiopulmonary process. CT of the thoracic aorta is negative for acute aneurysm or dissection. Laboratory data reviewed, hemoglobin 14.2, platelets 202, d-dimer 0.36, sodium 141, potassium 4.2, magnesium 1.9, creatinine 0.84, cardiac enzymes negative 3. Telemetry tracings indicate sinus bradycardia again was sleeping. Echocardiogram obtained on last admission reveals preserved left ventricular systolic function with ejection fraction 50-55%. Review of Systems At the time of my exam: CONSTITUTIONAL: Denies fever. Denies chills. EYES: Denies blurred vision. Denies vision changes. Denies eye pain. EARS, NOSE, MOUTH & THROAT: Denies headache. Denies sore throat. Denies ear pain. CARDIOVASCULAR: Denies chest pain. Denies shortness of breath. Denies orthopnea. Denies PND. Denies palpitations. RESPIRATORY: Denies cough. GASTROINTESTINAL: Denies abdominal pain. Denies diarrhea. Denies constipation. Denies nausea. Denies vomiting. MUSCULOSKELETAL: Denies myalgias. INTEGUMENTARY: Denies pruitis. Denies rash. NEUROLOGIC: Denies numbness. Denies tingling. Denies weakness. PSYCHIATRIC: Denies anxiety. Denies depression. ENDOCRINE: Denies fatigue. Denies weight change. Denies polydipsia. Denies polyurina. GENITOURINARY: Denies burning, hematuria or urgency with micturation. HEMATOLOGIC: Denies history of anemia. Denies bleeding. Past Medical History Past Medical History: Atrial Fibrillation, Coronary Artery Disease (CAD), CVA/ TIA, Myocardial Infarction ([place]), Sleep Apnea/CPAP/BIPAP, Thyroid Disorder Additional Past Medical History / Comment(s): denies hx hypertension, restless leg syndrome, "TIA (x 5) last Apr 2016", memory loss and numbness left fingers left hand and occ lt arm weakness, gout, wears CPAP at home Last Myocardial Infarction Date:: unk History of Any Multi-Drug Resistant Organisms: None Reported Past Surgical History: Heart Catheterization, Heart Catheterization With Stent, Hernia Repair Additional Past Surgical History / Comment(s): loop monitor in chest. one cardiac stent Past Anesthesia/Blood Transfusion Reactions: No Reported Reaction Date of Last Stent Placement:: unknown Type of Cardiac Device: Loop Device Placement Date:: Apr 2016 Smoking Status: Former smoker - Past Family History Father Family Medical History: Myocardial Infarction ([place]) Additional Family Medical History / Comment(s): of [place] Mother Family Medical History: No Reported History Brother(s) Additional Family Medical History / Comment(s): Bipolar disorder Medications and Allergies Home Medications Medication Instructions Recorded Confirmed Type Colchicine [Colcrys] 0.6 mg PO DAILY 09/27/17 02/10/18 History Gabapentin [Neurontin] 100 mg PO TID 09/27/17 02/10/18 History Ibuprofen 600 mg PO TID PRN 09/27/17 02/10/18 History Levothyroxine Sodium [Synthroid] 300 mcg PO DAILY 09/27/17 02/10/18 History Methocarbamol [Robaxin] 500 mg PO TID PRN 09/27/17 02/10/18 History amLODIPine [Norvasc] 5 mg PO DAILY #30 tab 02/08/18 02/10/18 Rx Allergies Allergy/AdvReac Type Severity Reaction Status Date / Time No Known Allergies Allergy Verified 02/10/18 12:33 Physical Exam Vitals: Vital Signs Temp Pulse Pulse Resp BP BP Pulse Ox 02/10/18 12:00 97.7 F 50 L 16 142/85 96 02/10/18 08:00 97.4 F L 46 L 16 110/65 98 02/10/18 03:30 98.3 F 49 L 18 146/77 96 02/10/18 01:24 97.8 F 79 17 124/62 99 02/09/18 22:05 98.7 F 60 16 137/81 95 Intake and Output 02/09/18 02/10/18 02/10/18 22:59 06:59 14:59 Other: Voiding Method Toilet # Voids 1 Weight 149.685 kg 149.7 kg Blood pressure 146/77 heart rate 49 afebrile maintaining oxygen saturation on room air GENERAL: This is a 47-year-old male in no apparent distress at the time of my examination. Obese. HEENT: Head is atraumatic, normocephalic. Pupils are equal, round. Sclerae anicteric. Conjunctivae are clear. Mucous membranes of the mouth are moist. Neck is supple. There is no jugular venous distention. No carotid bruit is heard. LUNGS: Clear to auscultation no wheezes, rales or rhonchi. No chest wall tenderness is noted on palpation or with deep breathing. HEART: Regular rate and rhythm without murmurs, rubs or gallops. S1 and S2 heard. ABDOMEN: Soft, nontender. Bowel sounds are heard. No organomegaly noted. EXTREMITIES: No evidence of peripheral edema and no calf tenderness noted. VASCULAR: Radial and dorsalis pedis pulses palpated, no evidence of clubbing. NEUROLOGIC: Patient is awake, alert and oriented x3. Results 02/09/18 22:36 02/09/18 22:36 Cardiac Enzymes 02/09/18 02/09/18 02/10/18 Range/Units 22:36 22:36 06:40 AST 32 (17-59) U/L CK-MB (CK-2) 2.2 1.9 (0.0-2.4) ng/mL Troponin I 0.030 0.024 (0.000-0.034) ng/mL 02/10/18 Range/Units 12:04 AST (17-59) U/L CK-MB (CK-2) 2.1 (0.0-2.4) ng/mL Troponin I 0.015 (0.000-0.034) ng/mL Coagulation 02/09/18 02/10/18 Range/Units 22:36 06:40 PT 10.2 (9.0-12.0) sec APTT 23.2 26.3 (22.0-30.0) sec CBC 02/09/18 Range/Units 22:36 WBC 6.3 (3.8-10.6) k/uL RBC 5.11 (4.30-5.90) m/uL Hgb 14.2 (13.0-17.5) gm/dL Hct 43.3 (39.0-53.0) % Plt Count 202 (150-450) k/uL Comprehensive Metabolic Panel 02/09/18 Range/Units 22:36 Sodium 141 (137-145) mmol/L Potassium 4.2 (3.5-5.1) mmol/L Chloride 107 (98-107) mmol/L Carbon Dioxide 25 (22-30) mmol/L BUN 12 (9-20) mg/dL Creatinine 0.84 (0.66-1.25) mg/dL Glucose 100 H (74-99) mg/dL Calcium 9.7 (8.4-10.2) mg/dL AST 32 (17-59) U/L ALT 51 (21-72) U/L Alkaline Phosphatase 97 (38-126) U/L Total Protein 7.7 (6.3-8.2) g/dL Albumin 4.4 (3.5-5.0) g/dL Current Medications Generic Name Dose Route Start Last Admin Trade Name Freq PRN Reason Stop Dose Admin Acetaminophen 650 mg 02/10/18 00:37 Tylenol Tab PO Q6HR PRN Mild Pain or Fever > 100.5 Amlodipine Besylate 5 mg 02/10/18 09:00 02/10/18 11:26 Norvasc PO 5 mg DAILY LEVI Administration Atorvastatin Calcium 40 mg 02/10/18 21:00 Lipitor PO HS LEVI Gabapentin 100 mg 02/10/18 09:00 02/10/18 11:26 Neurontin PO 100 mg TID LEVI Administration Heparin Sodium (Porcine) 0 unit 02/10/18 00:24 Heparin IV PER PROTOCOL PRN Low PTT Protocol Heparin Sodium/Sodium Chloride 500 mls @ 20.05 mls/hr 02/10/18 00:30 00:41 25,000 unit/ Sodium Chloride IV 6.68 units/kg/hr .Q24H LEVI 20 mls/hr Administration Protocol 6.7 UNITS/KG/HR Sodium Chloride 1,000 mls @ 50 mls/hr 02/10/18 00:45 02/10/18 02:09 Saline 0.9% IV 50 mls/hr .Q20H LEVI Administration Levothyroxine Sodium 300 mcg 02/10/18 06:30 02/10/18 05:55 Synthroid PO 300 mcg 0630 LEVI Administration Methocarbamol 500 mg 02/10/18 00:39 Robaxin PO TID PRN muscle spams Morphine Sulfate 4 mg 02/10/18 00:37 02/10/18 05:55 Morphine Sulfate (Inj) IV 4 mg Q4HR PRN Administration Severe Pain Naloxone HCl 0.2 mg 02/10/18 00:37 Narcan IV Q2M PRN Opioid Reversal Intake and Output 02/09/18 02/10/18 02/10/18 22:59 06:59 14:59 Other: Voiding Method Toilet # Voids 1 Weight 149.685 kg 149.7 kg 02/09/18 22:36 02/09/18 22:36 Assessment and Plan Assessment: ASSESSMENT Chest pain, atypical. An acute coronary event has been ruled out with no EKG evidence of ischemia and negative cardiac enzymes History of coronary artery disease status post angioplasty of proximal LAD June 2016 Sinus bradycardia secondary to obstructive sleep apnea Dyslipidemia Morbid obesity Former nicotine dependence Obstructive sleep apnea Significant family history of premature coronary artery disease PLAN An acute coronary event has been ruled out. Discontinue heparin infusion. Feed the patient and increase activity. Ambulate the patient in the halls and assess for further symptoms of chest discomfort. Continue to hold all beta blocking agents. Thank you kindly for this consultation. Nurse Practitioner note has been reviewed, I agree with a documented findings and plan of care. Patient was seen and examined.
[2018-02-10] MEDS ORDERED: ATORVASTATIN 40 MG TAB PO SCH (21:00)
--- NOTE | 2018-02-10 22:12 | HP ---
HISTORY AND PHYSICAL CHIEF COMPLAINT: 47-year-old white male with chest pain. HISTORY OF PRESENT ILLNESS: 47-year-old white male with history of hypertension, hypothyroidism and gout, neuropathy was admitted with atypical severe sharp chest pain in the mid chest. Cardiology direct see. HOME MEDICATIONS: Norvasc 5 mg daily. Robaxin 500 t.i.d., Synthroid 300 mcg daily, Ibuprofen 600 t.i.d., Neurontin 100 t.i.d., Colcrys 0.6 mg daily. ALLERGIES: No known drug allergies. REVIEW OF SYSTEMS: Fourteen point review of systems negative except for mentioned in HPI. PHYSICAL EXAMINATION: Vital signs stable. Afebrile. Cardiovascular S1, S2. LUNGS: Clear. GI soft. Hematology negative Homans. Ophthalmological: Pupils equal, round, reactive to light and accommodation. NEUROLOGIC: Alert and orient x3. ASSESSMENT: 1. Atypical chest pain. 2. Hypertension acceleration. 3. Hypothyroidism. 4. Gout. 5. Neuropathy. 6. Rule out myocardial infarction. Cardiology consult. Please see further orders. MMODL / IJN: [id number] /
[2018-02-11] MEDS ORDERED: ASPIRIN 81 MG PO SCH (09:00)
== END 2018-02-10 14:10 | disposition home or self-care (01) ==
LOC: EC 21:49 → 3SUR 02-10 00:39
PROVIDERS: ADMIT Family Medicine; ATTEND Family Medicine
DX: R07.89 Other chest pain (principal); I10 Essential (primary) hypertension; I25.10 Atherosclerotic heart disease of native coronary artery without angina pectoris; G47.33 Obstructive sleep apnea (adult) (pediatric); R11.0 Nausea; I48.91 Unspecified atrial fibrillation; E78.5 Hyperlipidemia, unspecified; R00.1 Bradycardia, unspecified; I47.1 Supraventricular tachycardia; F41.9 Anxiety disorder, unspecified; R41.3 Other amnesia; G62.9 Polyneuropathy, unspecified; E03.9 Hypothyroidism, unspecified; G25.81 Restless legs syndrome; M10.9 Gout, unspecified; E66.01 Morbid (severe) obesity due to excess calories; Z68.41 Body mass index [BMI] 40.0-44.9, adult; I25.2 Old myocardial infarction; Z95.5 Presence of coronary angioplasty implant and graft; Z99.89 Dependence on other enabling machines and devices; Z95.818 Presence of other cardiac implants and grafts; Z79.890 Hormone replacement therapy; Z79.899 Other long term (current) drug therapy; Z87.891 Personal history of nicotine dependence; Z86.73 Personal history of transient ischemic attack (TIA), and cerebral infarction without residual deficits; Z82.49 Family history of ischemic heart disease and other diseases of the circulatory system; Z81.8 Family history of other mental and behavioral disorders
CPT/HCPCS: 96375 ×3; 96376 ×3; 96365 ×2; 99285 ×2; 36415; 93005; 85379; 83880; 80053; 82550 ×2; 82553 ×2; 83735; 84484 ×2; 85025; 85610; 85730 ×2; 71046; 71275; 74174; G0378; J2270 ×2; J1644 ×2; J2405; Q9967

== ENCOUNTER 2018-03-16 09:04 | Emergency (ER) | payer OTHER ==
[2018-03-16 09:07] VITALS: TEMP 98.5
--- NOTE | 2018-03-16 09:19 | ED ---
General Adult HPI - General Source: patient, RN notes reviewed Mode of arrival: wheelchair Limitations: no limitations <Ryan Osorio - Last Filed: 03/16/18 13:56> <Sandoval Jeong - Last Filed: 03/16/18 21:51> - General Chief complaint: Extremity Problem,Nontraumatic Stated complaint: rt knee pain Time Seen by Provider: 03/16/18 09:09 - History of Present Illness Initial comments: Patient 47-year-old male presenting to the emergency room today with chief complaint of pain to the right knee that began yesterday. Patient does admit that woke him up tonight pain was getting worse. States more swollen today. Denies any specific injury or trauma. He does admit that he has a job worries doing a lot of lifting but denies any known injury. Patient states she's had problems with this knee in the past and had some swelling in the past but never this much. Patient does admit that it's worse with flexion and extension. He denies any other complaints or symptoms. Patient denies any recent fever, chills , shortness of breath, chest pain, back pain, abdominal pain, nausea or vomiting , numbness or tingling, headaches or visual changes, or any other complaints. ( Ryan Osorio) - Related Data Home Medications Medication Instructions Recorded Confirmed Colchicine [Colcrys] 0.6 mg PO DAILY 09/27/17 02/26/18 Gabapentin [Neurontin] 100 mg PO TID 09/27/17 02/26/18 Ibuprofen 600 mg PO TID PRN 09/27/17 02/26/18 Levothyroxine Sodium [Synthroid] 300 mcg PO DAILY 09/27/17 02/26/18 Methocarbamol [Robaxin] 500 mg PO TID PRN 09/27/17 02/26/18 Aspirin [Adult Low Dose Aspirin EC] 81 mg PO DAILY 02/26/18 02/26/18 Atorvastatin Calcium [Lipitor] 40 mg PO DAILY 02/26/18 02/26/18 rOPINIRole HCL [Requip] 0.25 mg PO HS 02/26/18 02/26/18 Previous Rx's Medication Instructions Recorded amLODIPine [Norvasc] 5 mg PO DAILY #30 tab 02/08/18 Ibuprofen [Motrin] 800 mg PO Q6HR #30 tab 03/16/18 Allergies Allergy/AdvReac Type Severity Reaction Status Date / Time No Known Allergies Allergy Verified 03/16/18 09:07 Review of Systems ROS Other: All systems not noted in ROS Statement are negative. <Ryan Osorio - Last Filed: 03/16/18 13:56> ROS Other: All systems not noted in ROS Statement are negative. <Sandoval Jeong - Last Filed: 03/16/18 21:51> ROS Statement: Those systems with pertinent positive or pertinent negative responses have been documented in the HPI. Past Medical History Past Medical History: Atrial Fibrillation, Coronary Artery Disease (CAD), CVA/ TIA, Myocardial Infarction ([place]), Sleep Apnea/CPAP/BIPAP, Thyroid Disorder Additional Past Medical History / Comment(s): denies hx hypertension, restless leg syndrome, "TIA (x 5) last Apr 2016", memory loss and numbness left fingers left hand and occ lt arm weakness, gout, wears CPAP at home Last Myocardial Infarction Date:: unk History of Any Multi-Drug Resistant Organisms: None Reported Past Surgical History: Heart Catheterization, Heart Catheterization With Stent, Hernia Repair Additional Past Surgical History / Comment(s): loop monitor in chest. one cardiac stent Past Anesthesia/Blood Transfusion Reactions: No Reported Reaction Date of Last Stent Placement:: unknown Type of Cardiac Device: Loop Device Placement Date:: Apr 2016 Past Psychological History: Anxiety Smoking Status: Former smoker Past Alcohol Use History: Occasional Past Drug Use History: None Reported - Past Family History Father Family Medical History: Myocardial Infarction ([place]) Additional Family Medical History / Comment(s): of [place] Mother Family Medical History: No Reported History Brother(s) Additional Family Medical History / Comment(s): Bipolar disorder <Ryan Osorio - Last Filed: 03/16/18 13:56> General Exam Limitations: no limitations <Ryan Osorio - Last Filed: 03/16/18 13:56> <Sandoval Jeong - Last Filed: 03/16/18 21:51> - General Exam Comments Initial Comments: General: The patient is awake and alert, in no distress, and does not appear acutely ill. Neck: The neck is supple, there is no tenderness or JVD. Musculoskeletal: Patient does have moderate swelling to the right knee. Patient shows limited range of motion with flexion extension due to pain. Sensations are intact. No tenderness to the right hip or down onto the right ankle. Pedal pulse 2+. Neurological: A&O x 3. CN II-XII intact, There are no obvious motor or sensory deficits. Coordination appears grossly intact. Speech is normal. Skin: Skin is warm and dry and no rashes or lesions are noted. Psychiatric: Normal mood and affect. (Ryan Osorio) Vital Signs 03/16/18 03/16/18 09:05 13:38 Temperature 98.5 F Pulse Rate 70 68 Respiratory 20 16 Rate Blood Pressure 122/80 121/79 O2 Sat by Pulse 96 99 Oximetry Procedures <Ryan Osorio - Last Filed: 03/16/18 13:56> <Sandoval Jeong - Last Filed: 03/16/18 21:51> - Procedures Initial comment: Patient's right knee was prepped and cleaned with Betadine. 27-gauge needle with 1% lidocaine was used to make small wheal and anesthetized the area locally. 18-gauge needle was used to aspirate right knee at the lateral aspect. Proximate 100 mL of yellow fluid was removed. Patient tolerated procedure well. (Ryan Osorio) Medical Decision Making - Lab Data Result diagrams: 03/16/18 11:00 03/16/18 11:00 <Ryan Osorio - Last Filed: 03/16/18 13:56> - Lab Data Result diagrams: 03/16/18 11:00 03/16/18 11:00 <Sandoval Jeong - Last Filed: 03/16/18 21:51> - Medical Decision Making Patient's x-ray was reviewed and was negative for any give fracture dislocation. Patient did have basic lab work obtained showed no elevated white count. patient right knee was aspirated and partially 100 mL of synovial fluid removed. color was yellow. cell count shows 25,000 white cells 96% PMNs the case discussed with attending physician along with orthopedics on- call medical branch physician billing assistant who did discuss with his attending doctor. admission to the hospital he feels couple being discharged. States he does not stay in the hospital. Patient is advised to follow up orthopedics Sunday morning. He is advised that he should return to the emergency room for worsening fever, increased or worsening of pain or symptoms. He states understanding and is in agreement. (Ryan Osorio) Resident/PA attestation: I, Dr. Sandoval Jeong, personally saw and examined the patient. I have reviewed and agree with the resident/PA findings, including all diagnostic interpretations and treatment plans as written unless otherwise stated. I was present for the andrade portions of any procedures performed and inclusive time noted for any critical care statement. Patient was seen and evaluated by myself. Patient presents with severe knee pain. She does have external exam findings of knee swelling. Knee was aspirated by my physician billing assistant. The aspirate was reviewed by myself. It was cloudy appearance to it. Aspirate in synovial fluid analysis was mildly suspicious for septic arthritis. Patient case and lab analysis was reviewed with orthopedic physician billing assistant Mr. delaney. He allegedly spoke about the case with attending orthopedic surgeon who felt that symptoms are not suspicious for septic arthritis. Discussed with patient that we can have him admitted for medical monitoring for suspicion of septic arthritis versus inflammatory arthritis. Patient felt that his symptoms were not severe enough to be admitted to the hospital. Patient told that his symptoms may reflect early septic arthritis. He understands and still prefers to discharge. Patient given strict return precautions. Told to follow up with orthopedic surgery. Understandable and agreeable. (Sandoval Jeong) - Lab Data Lab Results 03/16/18 03/16/18 03/16/18 Range/Units 11:00 11:00 11:00 WBC 8.7 (3.8-10.6) k/uL RBC 4.84 (4.30-5.90) m/uL Hgb 14.1 (13.0-17.5) gm/dL Hct 41.6 (39.0-53.0) % MCV 85.8 (80.0-100.0) fL MCH 29.2 (25.0-35.0) pg MCHC 34.0 (31.0-37.0) g/dL RDW 14.1 (11.5-15.5) % Plt Count 175 (150-450) k/uL Neutrophils % 82 % Lymphocytes % 11 % Monocytes % 5 % Eosinophils % 1 % Basophils % 0 % Neutrophils # 7.1 (1.3-7.7) k/uL Lymphocytes # 1.0 (1.0-4.8) k/uL Monocytes # 0.4 (0-1.0) k/uL Eosinophils # 0.1 (0-0.7) k/uL Basophils # 0.0 (0-0.2) k/uL Sodium 139 (137-145) mmol/L Potassium 3.9 (3.5-5.1) mmol/L Chloride 101 (98-107) mmol/L Carbon Dioxide 28 (22-30) mmol/L Anion Gap 10 mmol/L BUN 13 (9-20) mg/dL Creatinine 0.89 (0.66-1.25) mg/dL Est GFR (CKD-EPI)AfAm >90 (>60 ml/min/1.73 sqM) Est GFR (CKD-EPI)NonAf >90 (>60 ml/min/1.73 sqM) Glucose 141 H (74-99) mg/dL Calcium 9.3 (8.4-10.2) mg/dL Fluid Source Synovial Fluid Color Yellow Fluid Appearance Cloudy Fluid RBC 100 /uL Fluid Nucleated Cells 61210 /uL Fluid Polynuclear WBCs 96 % Fluid Mononuclear WBCs 4 % Synovial Source 03/16/18 Range/Units 13:35 WBC (3.8-10.6) k/uL RBC (4.30-5.90) m/uL Hgb (13.0-17.5) gm/dL Hct (39.0-53.0) % MCV (80.0-100.0) fL MCH (25.0-35.0) pg MCHC (31.0-37.0) g/dL RDW (11.5-15.5) % Plt Count (150-450) k/uL Neutrophils % % Lymphocytes % % Monocytes % % Eosinophils % % Basophils % % Neutrophils # (1.3-7.7) k/uL Lymphocytes # (1.0-4.8) k/uL Monocytes # (0-1.0) k/uL Eosinophils # (0-0.7) k/uL Basophils # (0-0.2) k/uL Sodium (137-145) mmol/L Potassium (3.5-5.1) mmol/L Chloride (98-107) mmol/L Carbon Dioxide (22-30) mmol/L Anion Gap mmol/L BUN (9-20) mg/dL Creatinine (0.66-1.25) mg/dL Est GFR (CKD-EPI)AfAm (>60 ml/min/1.73 sqM) Est GFR (CKD-EPI)NonAf (>60 ml/min/1.73 sqM) Glucose (74-99) mg/dL Calcium (8.4-10.2) mg/dL Fluid Source Fluid Color Fluid Appearance Fluid RBC /uL Fluid Nucleated Cells /uL Fluid Polynuclear WBCs % Fluid Mononuclear WBCs % Synovial Source Right Knee Disposition Is patient prescribed a controlled substance at d/c from ED?: No Time of Disposition: 14:00 <Ryan Osorio - Last Filed: 03/16/18 13:56> <Sandoval Jeong - Last Filed: 03/16/18 21:51> Clinical Impression: Knee effusion Disposition: HOME SELF-CARE Condition: Good Additional Instructions: Please follow up with orthopedics Sunday. Please return to the ER if any symptoms increase or worsen. Prescriptions: Ibuprofen [Motrin] 800 mg PO Q6HR #30 tab Referrals: Lukas Bain MD [Primary Care Provider] - 1-2 days Phoenix Mcdonough DO [Doctor of Osteopathic Medicine] - 1-2 days
--- NOTE | 2018-03-16 09:59 | XR ---
EXAMINATION TYPE: XR knee complete RT , 3 VIEWS DATE OF EXAM ORDERED: 03/16/2018 HISTORY: Pain. COMPARISON: Previous study dated 09/16/2015. FINDINGS: The joint spaces are maintained. There is a prominent joint effusion. No fracture or dislo cation is seen. IMPRESSION: PROMINENT JOINT EFFUSION.
[2018-03-16] MEDS ORDERED: LIDOCAINE 1% INJ 10MG/ML (20 ML MDV) SQ STA (10:13)
[2018-03-16] MEDS ORDERED: KETOROLAC 30 MG/ML 1 ML VIAL IVP STA (10:21)
[2018-03-16 11:31] LABS: Basophils % (A) 0 %; Eosinophils # (A) 0.1 k/uL (0-0.7); Eosinophils % (A) 1 %; HCT 41.6 % (39.0-53.0); HGB 14.1 gm/dL (13.0-17.5); Lymphocytes % (A) 11 %; MCH 29.2 pg (25.0-35.0); MCV 85.8 fL (80.0-100.0); Mean Platelet Volume 7.1; Monocytes # (A) 0.4 k/uL (0-1.0); Monocytes % (A) 5 %; Neutrophils # (A) 7.1 k/uL (1.3-7.7); Neutrophils % (A) 82 %; Platelet Count 175 k/uL (150-450); RBC 4.84 m/uL (4.30-5.90); RDW 14.1 % (11.5-15.5); WBC 8.7 k/uL (3.8-10.6)
[2018-03-16 11:33] LABS: Anion Gap 10 mmol/L; Blood Urea Nitrogen 13 mg/dL (9-20); Calcium 9.3 mg/dL (8.4-10.2); Carbon Dioxide 28 mmol/L (22-30); Chloride 101 mmol/L (98-107); Glucose 141 mg/dL (74-99); Potassium 3.9 mmol/L (3.5-5.1); Sodium 139 mmol/L (137-145)
[2018-03-16 12:20] LABS: Appearance,BF Cloudy; Color,BF Yellow; Nucleated Cells, Body Fluid 25700 /uL; RBC, Body Fluid 100 /uL
[2018-03-16 12:22] LABS: Mononuclear WBC,Body Fluid 4 %; Polynuclear WBC,Body Fluid 96 %; Total Cells Counted,Body Fluid 100
[2018-03-16 13:39] VITALS: BP 121/79; PULSE 68; RESP 16
== END 2018-03-16 14:10 | disposition home or self-care (01) ==
LOC: EC 09:04
DX: M25.461 Effusion, right knee (principal); I48.91 Unspecified atrial fibrillation; I25.10 Atherosclerotic heart disease of native coronary artery without angina pectoris; G47.30 Sleep apnea, unspecified; Z86.73 Personal history of transient ischemic attack (TIA), and cerebral infarction without residual deficits; Z95.5 Presence of coronary angioplasty implant and graft; Z87.891 Personal history of nicotine dependence; Z79.82 Long term (current) use of aspirin; Z79.899 Other long term (current) drug therapy
CPT/HCPCS: 36415; 89060; 80048; 89050; 85025; 87070; 87205; 73562; 99283; 20610; 96374; J2001; J1885

== ENCOUNTER → 2018-03-25 | Outpatient (CLI) | payer OTHER ==
--- NOTE | 2018-03-25 15:31 | MR ---
EXAMINATION TYPE: MR knee RT wo con DATE OF EXAM: 03/25/2018 COMPARISON: None HISTORY: Rt. knee pain TECHNIQUE: Multiplanar, multisequence imaging of the right knee is performed without IV contrast. FINDINGS: MEDIAL MENISCUS: There is oblique signal extending to the inferior articular surface within the poste rior horn medial meniscus compatible with an oblique tear. Anterior horn appears intact LATERAL MENISCUS: Mild increased signal is within the substance of the anterior and posterior horns c ompatible some degenerative change or minimal internal derangement. CRUCIATE LIGAMENTS: Anterior and posterior cruciate ligaments are intact. Minimal signal increase is within the anterior cruciate ligament. Mild strain may be present. Partial tear or complete tear are not identified. COLLATERAL LIGAMENTS: The medial collateral ligament and lateral collateral ligament complex are inta ct and unremarkable. EXTENSOR MECHANISM: Distal quadriceps tendon within the [id number] appears normal. Some minimal in creased signal near the insertion of the patellar tendon is present. Mild strain should be considered . No complete tear is evident. The remaining portion of the patellar tendon are intact. EFFUSION: Large joint effusion is present. POPLITEAL CYST: There is a 4.4 x 1.1 cm popliteal cyst. TRICOMPARTMENT SPACES: Joint spaces appear preserved. Articular cartilage appears preserved. CARTILAGE: No significant erosions are evident. BONE MARROW SIGNAL: No focal abnormal marrow signal is appreciated. OTHER: No additional significant abnormality is appreciated. IMPRESSION: Very large joint effusion. 2. Popliteal cyst. 3. Oblique tear posterior horn medial meniscus. 4. Some very minimal degenerative change or internal derangement of the anterior posterior horn later al meniscus may be present. 5. Mild strain of the anterior cruciate ligament is not excluded.
== END | disposition home or self-care (01) ==
LOC: RADMRIMAIN 07:44
PROVIDERS: ATTEND Orthopaedic Surgery
DX: S83.241A Other tear of medial meniscus, current injury, right knee, initial encounter (principal); M71.21 Synovial cyst of popliteal space [Baker], right knee; M25.461 Effusion, right knee

== ENCOUNTER 2018-03-27 14:16 | Emergency (ER) | payer OTHER ==
[2018-03-27 14:31] VITALS: RESP 18; TEMP 97.6
[2018-03-27] MEDS ORDERED: KETOROLAC 60 MG/2 ML VIAL IM STA (15:00)
--- NOTE | 2018-03-27 15:04 | ED ---
General Adult HPI - General Chief complaint: Extremity Problem,Nontraumatic Stated complaint: shoulder pain Time Seen by Provider: 03/27/18 14:33 Source: patient, RN notes reviewed Mode of arrival: ambulatory Limitations: no limitations - History of Present Illness Initial comments: Patient is a 47-year-old male who presents to the emergency department with complaints of left shoulder pain that started 2 days ago. He reports that the pain is worse with movement and that the shoulder area is tender to touch. He also reports that he has had cold symptoms for the past few days with runny nose , sneezing, coughing. Patient denies any recent fever, chills, shortness of breath, chest pain, back pain, abdominal pain, numbness or tingling, headaches or visual changes, or any other complaints. - Related Data Home Medications Medication Instructions Recorded Confirmed Colchicine [Colcrys] 0.6 mg PO DAILY 09/27/17 02/26/18 Gabapentin [Neurontin] 100 mg PO TID 09/27/17 02/26/18 Ibuprofen 600 mg PO TID PRN 09/27/17 02/26/18 Levothyroxine Sodium [Synthroid] 300 mcg PO DAILY 09/27/17 02/26/18 Methocarbamol [Robaxin] 500 mg PO TID PRN 09/27/17 02/26/18 Aspirin [Adult Low Dose Aspirin EC] 81 mg PO DAILY 02/26/18 02/26/18 Atorvastatin Calcium [Lipitor] 40 mg PO DAILY 02/26/18 02/26/18 rOPINIRole HCL [Requip] 0.25 mg PO HS 02/26/18 02/26/18 Previous Rx's Medication Instructions Recorded amLODIPine [Norvasc] 5 mg PO DAILY #30 tab 02/08/18 Ibuprofen [Motrin] 800 mg PO Q6HR #30 tab 03/16/18 Ibuprofen [Motrin] 600 mg PO Q6HR PRN #40 day 03/27/18 Allergies Allergy/AdvReac Type Severity Reaction Status Date / Time No Known Allergies Allergy Verified 03/16/18 09:07 Review of Systems ROS Statement: Those systems with pertinent positive or pertinent negative responses have been documented in the HPI. ROS Other: All systems not noted in ROS Statement are negative. Past Medical History Past Medical History: Atrial Fibrillation, Coronary Artery Disease (CAD), CVA/ TIA, Myocardial Infarction ([place]), Sleep Apnea/CPAP/BIPAP, Thyroid Disorder Additional Past Medical History / Comment(s): denies hx hypertension, restless leg syndrome, "TIA (x 5) last Apr 2016", memory loss and numbness left fingers left hand and occ lt arm weakness, gout, wears CPAP at home Last Myocardial Infarction Date:: unk History of Any Multi-Drug Resistant Organisms: None Reported Past Surgical History: Heart Catheterization, Heart Catheterization With Stent, Hernia Repair Additional Past Surgical History / Comment(s): loop monitor in chest. one cardiac stent Past Anesthesia/Blood Transfusion Reactions: No Reported Reaction Date of Last Stent Placement:: unknown Type of Cardiac Device: Loop Device Placement Date:: Apr 2016 Past Psychological History: Anxiety Smoking Status: Former smoker Past Alcohol Use History: Occasional Past Drug Use History: None Reported - Past Family History Father Family Medical History: Myocardial Infarction ([place]) Additional Family Medical History / Comment(s): of [place] Mother Family Medical History: No Reported History Brother(s) Additional Family Medical History / Comment(s): Bipolar disorder General Exam - General Exam Comments Initial Comments: General: Well-developed, well-nourished, no acute distress HEENT: Normocephalic/atraumatic, PERRL Neck: Supple, nontender, trachea midline Chest/Lungs: Patient unable to take deep breaths secondary to his shoulder pain. Normal respirations, no signs of respiratory distress, clear to auscultation bilaterally, no wheezes, rales, or rhonchi Cardiac: Regular rate and rhythm, normal S1-S2, no murmurs rubs or gallops Abdomen/GI: Soft, nontender, bowel sounds equal x4, no guarding, no rebound Musculoskeletal: Tender to palpation over the left shoulder. Left shoulder range of motion limited due to pain. No obvious deformity. Skin: Warmth, no rashes or lesions, no cyanosis or diaphoresis Neurologic: A&O x 3, CN 2-12 intact Psychiatric: Mood and affect normal, judgment normal Limitations: no limitations Course Vital Signs 03/27/18 03/27/18 14:28 17:21 Temperature 97.6 F Pulse Rate 88 69 Respiratory 18 18 Rate Blood Pressure 136/80 127/67 O2 Sat by Pulse 96 Oximetry Medical Decision Making - Medical Decision Making Patient is a 47-year-old male who presents to the emergency department with complaints of left shoulder pain. He denies any trauma or changes in physical activity. He reports that he had similar pain in his right shoulder in the past after he lifted something too heavy. X-ray revealed AC joint OA and suggests rotator cuff tendinopathy. MRI is indicated to rule out any rotator cuff tear. Patient is to follow-up with orthopedics for examination. Can schedule MRI outpatient. Wrote prescription for ibuprofen. Disposition Clinical Impression: Tendinitis of shoulder Disposition: HOME SELF-CARE Condition: Good Instructions: Rotator Cuff Tendinitis (ED) Additional Instructions: Follow-up with PCP and orthopedics in 2 days. Return to the emergency department if symptoms worsen or any other concerns. Prescriptions: Ibuprofen [Motrin] 600 mg PO Q6HR PRN #40 day PRN Reason: Pain Is patient prescribed a controlled substance at d/c from ED?: No Referrals: Lukas Bain MD [Primary Care Provider] - 1-2 days Woo Gibson MD [STAFF PHYSICIAN] - 1-2 days Time of Disposition: 18:04
--- NOTE | 2018-03-27 16:11 | XR ---
EXAMINATION TYPE: XR chest 2V DATE OF EXAM: 03/27/2018 COMPARISON: 02/26/2018 HISTORY: 47-year-old male with cough TECHNIQUE: Frontal and lateral views FINDINGS: Loop recorder is present. Heart upper limits of normal in size. Mild diffuse interstitial prominence is unchanged. No consolidation or pleural effusion. IMPRESSION: Chronic changes, possible bronchitis/asthma. Otherwise, no acute process seen.
--- NOTE | 2018-03-27 16:17 | XR ---
EXAMINATION TYPE: XR shoulder complete LT DATE OF EXAM: 03/27/2018 COMPARISON: NONE HISTORY: 47-year-old male with shoulder pain without injury TECHNIQUE: 3 views FINDINGS: Moderate degenerative joint space narrowing with marginal spurring at the AC joint. Tiny 2 mm superio r loose body versus fragmented spur is present. Subacromial space is preserved. There is bony irregul arity at the greater tuberosity. No acute fracture, subluxation, or dislocation. IMPRESSION: 1. Bony irregularity at the greater tuberosity suggests chronic rotator cuff tendinopathy. Underlying rotator cuff tear is not excluded. MRI is clinically indicated. 2. Moderate AC joint OA, progressed from 2011. 3. No acute osseous abnormality seen.
[2018-03-27 17:22] VITALS: BP 127/67; PULSE 69
== END 2018-03-27 18:34 | disposition home or self-care (01) ==
LOC: EC 14:16
DX: M75.92 Shoulder lesion, unspecified, left shoulder (principal); M19.012 Primary osteoarthritis, left shoulder; R05 Cough; R09.89 Other specified symptoms and signs involving the circulatory and respiratory systems; R06.7 Sneezing; I25.10 Atherosclerotic heart disease of native coronary artery without angina pectoris; I25.2 Old myocardial infarction; E07.9 Disorder of thyroid, unspecified; M10.9 Gout, unspecified; G25.81 Restless legs syndrome; G47.30 Sleep apnea, unspecified; Z99.89 Dependence on other enabling machines and devices; Z86.73 Personal history of transient ischemic attack (TIA), and cerebral infarction without residual deficits; Z95.818 Presence of other cardiac implants and grafts; Z95.5 Presence of coronary angioplasty implant and graft; Z87.891 Personal history of nicotine dependence; Z79.82 Long term (current) use of aspirin; Z79.899 Other long term (current) drug therapy
CPT/HCPCS: 73030; 71046; 99283; 96372; J1885

== ENCOUNTER 2018-05-09 10:37 | Day surgery (SDC) | payer OTHER ==
[2018-05-07 13:40] VITALS: BMI 42.1
--- NOTE | 2018-05-08 18:41 | HP ---
HISTORY AND PHYSICAL REASON FOR ADMISSION: Surgery is 05/09/2018 HISTORY OF PRESENT ILLNESS: Patrick Hidalgo is a 47-year-old patient seen with progressive right knee pain. After having treatment options discussed, he elected to proceed with arthroscopy. Consent was obtained. Medical clearance was provided by Dr. Bain. PAST MEDICAL HISTORY: Hypertension, hypothyroidism, coronary artery disease. PAST SURGICAL HISTORY: Herniorrhaphy, cardiac catheterization. MEDICATIONS: Amlodipine, atorvastatin, levothyroxine, methocarbamol. ALLERGIES: Allergies are none reported. SOCIAL HISTORY: Patient denies current tobacco use. PHYSICAL EXAMINATION: Evaluation of the right knee range of motion is -2/3 to 100 degrees. Moderate effusion. Tenderness along the medial and lateral joint lines. Positive medial Rufus's. Ligaments stable. Hip rotation without pain. Distal neurovascular exam is intact. X-RAY: Of the right knee revealed mild osteoarthritis. An MRI of the right knee revealed medial meniscal tear and large joint effusion. IMPRESSION: 1. Internal derangement, right knee with medial meniscal tear. 2. Hypertension. 3. Hyperlipidemia. 4. Hypothyroidism. PLAN: Right knee arthroscopy with partial meniscectomy and debridement. Surgery scheduled for 05/09/2018. MMODL / IJN: [id number] /
[~2018-05-09 10:37] MED LIST changes: -FAMOTIDINE 20 MG/2 ML VIAL IV PRN; -HEPARIN SODIUM,PORCINE 5,000 UNIT/ML 1 ML VIAL SQ ONE; +MIDAZOLAM 2 MG/2 ML VIAL IV PRN; +ONDANSETRON 4 MG/2 ML VIAL IVP ONE; -SCOPOLAMINE 1.5MG/72HR PATCH TRANSDERM ONE; -ceFAZolin 3 GM in SODIUM CHLORIDE 0.9% 100 ML IVPB ONE; +fentaNYL (PF) 50 MCG/ML 2 ML AMP IV PRN
[2018-05-09] MEDS ORDERED: MIDAZOLAM 2 MG/2 ML VIAL ONE (13:11)
[2018-05-09] MEDS ORDERED: SUCCINYLCHOLINE CHLORIDE VIAL 200 MG/10 ML VIAL IV ONE (13:11)
[2018-05-09] MEDS ORDERED: fentaNYL (PF) 50 MCG/ML 2 ML AMP ONE (13:11)
[2018-05-09] MEDS ORDERED: PROPOFOL 10 MG/ML 20 ML VIAL IV ONE (13:11)
[2018-05-09] MEDS ORDERED: BUPIVACAIN-EPI 0.25%-1:200,000 30 ML VIAL SQ ONE (13:17)
[2018-05-09] MEDS ORDERED: LACTATED RINGERS 1,000 ML IV ONE (14:02)
--- NOTE | 2018-05-09 14:11 | P.OP ---
Date of Procedure: 05/09/18 Preoperative Diagnosis: Internal derangement right knee Postoperative Diagnosis: 1. Tear medial meniscus right knee 2. Grade 2 chondromalacia medial femoral condyle right knee 3. Reactive synovitis medial and suprapatellar compartments right knee Procedure(s) Performed: 1. Arthroscopic partial medial meniscectomy right knee 2. Arthroscopic chondroplasty medial femoral condyle right knee 3. Arthroscopic partial synovectomy medial and suprapatellar compartments right knee Anesthesia: VASYLA, local Surgeon: Phoenix Mcdonough Estimated Blood Loss (ml): 10 Pathology: none sent Condition: stable Disposition: PACU Indications for Procedure: 47-year-old patient seen with progressive right knee pain. After having treatment options discussed, he elected to proceed with arthroscopy. Operative Findings: see description of procedure Description of Procedure: Patient was taken to the operative suite. Patient underwent a general anesthetic by the department of anesthesia. Patient was given preoperative antibiotics. The right lower extremity was placed in a well-padded arthroscopic leg castelan. The right leg was prepped and draped in the normal sterile orthopedic fashion. A lateral parapatellar and suprapatellar incision was made. Trochars were inserted. Arthroscopy was initiated. Suprapatellar pouch revealed diffuse thick reactive synovitis. The patellofemoral joint appeared to articulate congruently. There grade 1 chondromalacia changes of the patella with no osteochondral tears present. The scope was guided into the medial gutter. No loose bodies or plica were identified. The scope was then guided into the medial compartment. A medial parapatellar incision was made. Trocar inserted followed by probe. There was a radial tear involving the posterior horn of the medial meniscus. There were grade 2, she changes of the medial femoral condyle with osteochondral flap tear present. There was thick reactive synovitis anteriorly. I performed a partial medial meniscectomy down to stable tissue. I performed a chondroplasty of the medial femoral condyle down to stable tissue. I performed a partial synovectomy decompressing the reactive synovitis anteriorly. The residual meniscus was found to be stable. The residual osteochondral surface of the femoral condyle was stable. There was good decompression of the synovitis. Scope and probe were then guided into the intercondylar notch. Cruciates were identified, probed and found to be stable. The scope and probe were then guided into lateral compartment. Lateral meniscus was probed and found to be stable. There was no chondromalacia. There was no synovitis present. The scope was in guided back into the suprapatellar compartment. I introduced a motorized shaver into the suprapatellar compartment. I performed a partial synovectomy. The shaver was removed. There was good decompression of the synovitis. I took one more look on the entire knee, no residual debris. Instruments were now removed from the joint. The joint was infiltrated with .25% Marcaine. Steri-Strips were applied to the portal sites. Sterile dressings were applied. The patient was placed into a CIRILO hose. No tourniquet was utilized. The patient was awakened, transferred to a bed and taken to recovery stable satisfactory condition.
[2018-05-09 14:17] VITALS: TEMP 97
[2018-05-09 14:21] VITALS: RESP 16
[2018-05-09] MEDS ORDERED: HYDROcodone/APAP 7.5-325MG 1 EACH TAB PO ONE (15:34)
[2018-05-09 15:44] VITALS: BP 109/66; PULSE 51
== END 2018-05-09 16:19 | disposition home or self-care (01) ==
LOC: OR 10:37
PROVIDERS: ATTEND Orthopaedic Surgery
DX: S83.241A Other tear of medial meniscus, current injury, right knee, initial encounter (principal); X58.XXXA Exposure to other specified factors, initial encounter; M94.261 Chondromalacia, right knee; M65.861 Other synovitis and tenosynovitis, right lower leg; I10 Essential (primary) hypertension; E03.9 Hypothyroidism, unspecified; I25.10 Atherosclerotic heart disease of native coronary artery without angina pectoris; I48.91 Unspecified atrial fibrillation; Z86.73 Personal history of transient ischemic attack (TIA), and cerebral infarction without residual deficits; M19.90 Unspecified osteoarthritis, unspecified site; G25.81 Restless legs syndrome; G47.33 Obstructive sleep apnea (adult) (pediatric); Z79.01 Long term (current) use of anticoagulants; Z79.82 Long term (current) use of aspirin; Z79.890 Hormone replacement therapy; Z79.899 Other long term (current) drug therapy
CPT/HCPCS: 29881; J2250; J0330; J1100; J0690; J2405; J3010; J1170; J2704

== ENCOUNTER 2018-07-30 13:56 | Emergency (ER) | payer OTHER ==
--- NOTE | 2018-07-30 16:42 | XR ---
PROCEDURE: XR shoulder complete RT - 3V DATE AND TIME: 07/30/2018 4:31 PM CLINICAL INDICATION: PHH; Pain TECHNIQUE: Department protocol COMPARISON: 07/18/2017 FINDINGS: There is no fracture or malalignment. The soft tissues are unremarkable. IMPRESSION: NO ACUTE PROCESS.
[2018-07-30] MEDS ORDERED: KETOROLAC 60 MG/2 ML VIAL IM STA (16:43)
--- NOTE | 2018-07-30 16:52 | ED ---
General Adult HPI - General Chief complaint: Extremity Injury, Upper Stated complaint: right shoulder pain Time Seen by Provider: 07/30/18 15:57 Source: patient, family, RN notes reviewed, old records reviewed Mode of arrival: ambulatory Limitations: no limitations - History of Present Illness Initial comments: 47-year-old female patient past medical history of chronic right shoulder pain, coronary artery disease, hypertension, depression, presents to ED with 4 days of right shoulder pain. 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 Patient states that this feels identical to exacerbation of right shoulder pain he experienced approximately 4 months ago. Patient did compare for that exacerbation of right shoulder pain and x-ray findings displayed some chronic tendinitis and degenerative changes. Patient did not follow up with orthopedic surgeon after that visit. Patient states that he has shoulder pain that radiates down to his biceps with range of motion exercises. Patient does have sensation. Patient denies any other complaints. Patient has chest pain, shortness of breath, abdominal pain, nausea vomiting diarrhea. Systemic: Pt denies fatigue, fever/chills, rash. Pt denies weakness, night sweats, weight loss. Neuro: Pt denies headache, visual disturbances, syncope or pre-syncope. HEENT: Pt denies ocular discharge or irritation, otalgia, rhinorrhea, pharyngitis or notable lymphadenopathy. Cardiopulmonary: Pt denies chest pain, SOB, heart palpitations, dyspnea on exertion. Abdominal/GI: Pt denies abdominal pain, n/v/d. : Pt denies dysuria, burning w/ urination, frequency/urgency. Denies new onset urinary or bowel incontinence. Neuro: Pt denies new onset weakness, paresthesias. - Related Data Home Medications Medication Instructions Recorded Confirmed Colchicine [Colcrys] 0.6 mg PO DAILY 09/27/17 05/09/18 Gabapentin [Neurontin] 100 mg PO TID PRN 09/27/17 05/09/18 Levothyroxine Sodium [Synthroid] 300 mcg PO DAILY 09/27/17 05/09/18 Methocarbamol [Robaxin] 500 mg PO TID PRN 09/27/17 05/07/18 Aspirin [Adult Low Dose Aspirin EC] 81 mg PO DAILY 02/26/18 05/07/18 Atorvastatin Calcium [Lipitor] 40 mg PO DAILY 02/26/18 05/09/18 rOPINIRole HCL [Requip] 0.25 mg PO HS 02/26/18 05/09/18 Apixaban [Eliquis] 5 mg PO BID 05/07/18 05/07/18 Metoprolol Succinate [Toprol XL] 25 mg PO DAILY 05/09/18 05/09/18 Previous Rx's Medication Instructions Recorded amLODIPine [Norvasc] 5 mg PO DAILY #30 tab 02/08/18 Ibuprofen [Motrin] 600 mg PO Q6HR PRN #40 day 03/27/18 HYDROcodone/APAP 7.5-325MG [[place] 1 each PO Q6HR PRN #28 tab 05/09/18 7.5] Ibuprofen [Motrin] 600 mg PO Q6HR PRN #40 day 07/30/18 Allergies Allergy/AdvReac Type Severity Reaction Status Date / Time No Known Allergies Allergy Verified 07/30/18 14:28 Review of Systems ROS Statement: Those systems with pertinent positive or pertinent negative responses have been documented in the HPI. ROS Other: All systems not noted in ROS Statement are negative. Past Medical History Past Medical History: Atrial Fibrillation, Coronary Artery Disease (CAD), CVA/ TIA, Memory Impairment, Myocardial Infarction ([place]), Osteoarthritis (OA), Sleep Apnea/CPAP/BIPAP, Thyroid Disorder Additional Past Medical History / Comment(s): denies hx hypertension, restless leg syndrome, "TIA (x 5) last Apr 2016", memory loss and numbness left fingers left hand and occ lt arm weakness, gout, wears CPAP at home Last Myocardial Infarction Date:: unk History of Any Multi-Drug Resistant Organisms: None Reported Past Surgical History: Heart Catheterization, Heart Catheterization With Stent, Hernia Repair, Orthopedic Surgery Additional Past Surgical History / Comment(s): loop monitor in chest. one cardiac stent, rt knee Past Anesthesia/Blood Transfusion Reactions: No Reported Reaction Date of Last Stent Placement:: 2016 Type of Cardiac Device: Loop Device Placement Date:: Apr 2016 Past Psychological History: Anxiety Smoking Status: Former smoker Past Alcohol Use History: None Reported Past Drug Use History: None Reported - Past Family History Father Family Medical History: Myocardial Infarction ([place]) Additional Family Medical History / Comment(s): of [place] Mother Family Medical History: No Reported History Brother(s) Additional Family Medical History / Comment(s): Bipolar disorder General Exam - General Exam Comments Initial Comments: Constitutional: NAD, AOX3, Pt has pleasant affect. HEENT: NC/AT, trachea midline, neck supple, no lymphadenopathy. Posterior pharynx non erythematous, without exudates. External ears appear normal, without discharge. Mucous membranes moist. Eyes PERRLA, EOM intact. There is no scleral icterus. No pallor noted. Cardiopulmonary: RRR, no murmurs, rubs or gallops, no JVD noted. Lungs CTAB in anterior and posterior eason. No peripheral edema. Abdominal exam: Abdomen soft and non-distended. Abdomen non-tender to palpation in all 4 quadrants. Bowel sounds active in LLQ. No hepatosplenomegaly. No ecchymosis Neuro: CN II-XII grossly intact. No nuchal rigidity. MSK: Right shoulder mildly tender to palpation. No erythema no warmth. Patient has range of motion limited secondary to pain. Patient has full passive range of motion. Patient is vascularly intact. Sensation intact, radial pulse +2. No posterior calf tenderness bilaterally, homans sign negative bilaterally. Sensation intact in upper and lower extremities. Limitations: no limitations Course Vital Signs 07/30/18 14:25 Temperature 98.3 F Pulse Rate 59 L Respiratory 20 Rate Blood Pressure 151/94 O2 Sat by Pulse 97 Oximetry Medical Decision Making - Medical Decision Making 47-year-old male patient for exacerbation of chronic right shoulder pain. 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 Patient states this feels exactly the same as prior exacerbation approximate 4 months prior. Patient has pain in his right shoulder, pain with range of motion. Patient vital signs stable, afebrile. Physical exam displayed mild tenderness palpation of shoulder. Limited range of motion secondary to pain. Full passive range of motion. Neurovascularly intact. Sensation intact, radial pulse +2. No Erythema or warmth. Plain films displayed no acute process. Patient improved with Toradol administration. Patient to be discharged with follow-up to orthopedics tomorrow. Patient to return to ED if new signs symptoms develop or condition worsens in any way. Case discussed in depth with Dr. Hwang. - EKG Data -: EKG Interpreted by Me (EKG ordered by advanced triage nurse ) EKG Comments: Ventricular rate 68, by mouth once a day, QRS 84, QT/QTC 384/376. Sinus bradycardia, otherwise normal EKG. Disposition Clinical Impression: Chronic right shoulder pain Disposition: HOME SELF-CARE Condition: Stable Instructions (If sedation given, give patient instructions): Shoulder Sprain ( ED), Shoulder Pain (ED) Additional Instructions: Patient to adhere to previously discussed treatment plan and will take medication(s) as directed. Patient to follow up with PCP in 1-2 days. Patient to return to ED if symptoms do not improve. Prescriptions: Ibuprofen [Motrin] 600 mg PO Q6HR PRN #40 day PRN Reason: Pain Is patient prescribed a controlled substance at d/c from ED?: No Referrals: Lukas Bain MD [Primary Care Provider] - 1-2 days Erwin Wong MD [STAFF PHYSICIAN] - 1-2 days Time of Disposition: 17:43
[2018-07-30 17:56] VITALS: BP 113/70; PULSE 61; RESP 18; TEMP 98.1
== END 2018-07-30 17:55 | disposition home or self-care (01) ==
LOC: EC 13:56
DX: M25.511 Pain in right shoulder (principal); G89.29 Other chronic pain; I48.91 Unspecified atrial fibrillation; I25.10 Atherosclerotic heart disease of native coronary artery without angina pectoris; I25.2 Old myocardial infarction; G47.30 Sleep apnea, unspecified; E07.9 Disorder of thyroid, unspecified; Z79.01 Long term (current) use of anticoagulants; Z79.82 Long term (current) use of aspirin; Z79.890 Hormone replacement therapy; Z79.899 Other long term (current) drug therapy; Z87.891 Personal history of nicotine dependence; Z86.73 Personal history of transient ischemic attack (TIA), and cerebral infarction without residual deficits; Z95.5 Presence of coronary angioplasty implant and graft
CPT/HCPCS: 93005; 73030; 99284; 96372; J1885

== ENCOUNTER 2018-09-09 22:09 | Emergency (ER) | payer OTHER ==
[2018-09-09] MEDS ORDERED: SODIUM CHLORIDE 0.9% 1,000 ML IV STA ×2 (22:24)
--- NOTE | 2018-09-09 23:03 | ED ---
Arrhythmia/Palpitations HPI - General Chief Complaint: Arrhythmia/Palpitations Stated Complaint: High heart rate. SOB Time Seen by Provider: 09/09/18 22:24 Source: patient, RN notes reviewed, old records reviewed Mode of arrival: ambulatory Limitations: no limitations - History of Present Illness Initial Comments: This is a 47-year-old male will follow-up with her ER for evaluation of palpitations possible irregular heart rate not feeling well. Patient states is taking all medications as prescribed, denies suicidal thoughts, he does have psychiatric history, denies drug or alcohol abuse. Patient states he folic his heart was racing feeling lightheaded and dizziness is all prior to coming to the hospital. Upon arrival to Hospital patient feels normal with no headache chest pain shortness breath or abdominal pain MD Complaint: rapid heart beat, "heart racing", atrial fibrillation -: hour(s) Context: occurred during rest Arrhythmia History: atrial fibrillation Associated Symptoms: denies other symptoms - Related Data Home Medications Medication Instructions Recorded Confirmed Levothyroxine Sodium [Synthroid] 300 mcg PO DAILY 09/27/17 09/09/18 Aspirin [Adult Low Dose Aspirin EC] 81 mg PO DAILY 02/26/18 09/09/18 Apixaban [Eliquis] 5 mg PO BID 05/07/18 09/09/18 Chlorthalidone 25 mg PO DAILY 09/09/18 09/09/18 HYDROcodone/APAP 5-325MG [[place] 1 tab PO BID 09/09/18 09/09/18 5-325] Metoprolol Tartrate [Lopressor] 25 mg PO DAILY 09/09/18 09/09/18 rOPINIRole HCL [Requip] 0.5 mg PO HS 09/09/18 09/09/18 Previous Rx's Medication Instructions Recorded Ibuprofen [Motrin] 600 mg PO Q6HR PRN #40 day 07/30/18 Allergies Allergy/AdvReac Type Severity Reaction Status Date / Time No Known Allergies Allergy Verified 09/09/18 22:23 Review of Systems ROS Statement: Those systems with pertinent positive or pertinent negative responses have been documented in the HPI. ROS Other: All systems not noted in ROS Statement are negative. Past Medical History Past Medical History: Atrial Fibrillation, Coronary Artery Disease (CAD), CVA/TIA, Memory Impairment, Myocardial Infarction ([place]), Osteoarthritis (OA), Sleep Apnea/CPAP/BIPAP, Thyroid Disorder Additional Past Medical History / Comment(s): denies hx hypertension, restless leg syndrome, "TIA (x 5) last Apr 2016", memory loss and numbness left fingers left hand and occ lt arm weakness, gout, wears CPAP at home Last Myocardial Infarction Date:: unk History of Any Multi-Drug Resistant Organisms: None Reported Past Surgical History: Heart Catheterization, Heart Catheterization With Stent, Hernia Repair, Orthopedic Surgery Additional Past Surgical History / Comment(s): loop monitor in chest. one cardiac stent, rt knee Past Anesthesia/Blood Transfusion Reactions: No Reported Reaction Date of Last Stent Placement:: 2016 Type of Cardiac Device: Loop Device Placement Date:: Apr 2016 Past Psychological History: Anxiety Smoking Status: Former smoker Past Alcohol Use History: None Reported, Occasional Past Drug Use History: None Reported - Past Family History Father Family Medical History: Myocardial Infarction ([place]) Additional Family Medical History / Comment(s): of [place] Mother Family Medical History: No Reported History Brother(s) Additional Family Medical History / Comment(s): Bipolar disorder General Exam Limitations: no limitations General appearance: alert, in no apparent distress Head exam: Present: atraumatic, normocephalic, normal inspection Eye exam: Present: normal appearance, PERRL, EOMI. Absent: scleral icterus, conjunctival injection, periorbital swelling ENT exam: Present: normal exam, mucous membranes moist Neck exam: Present: normal inspection. Absent: tenderness, meningismus, lymphadenopathy Respiratory exam: Present: normal lung sounds bilaterally. Absent: respiratory distress, wheezes, rales, rhonchi, stridor Cardiovascular Exam: Present: regular rate, normal rhythm, normal heart sounds. Absent: systolic murmur, diastolic murmur, rubs, gallop, clicks GI/Abdominal exam: Present: soft, normal bowel sounds. Absent: distended, tenderness, guarding, rebound, rigid Extremities exam: Present: normal inspection, full ROM, normal capillary refill. Absent: tenderness, pedal edema, joint swelling, calf tenderness Back exam: Present: normal inspection Neurological exam: Present: alert, oriented X3, CN II-XII intact Psychiatric exam: Present: normal affect, normal mood Skin exam: Present: warm, dry, intact, normal color. Absent: rash Course Vital Signs 09/09/18 09/09/18 09/10/18 22:12 23:22 00:11 Temperature 98.4 F 98.4 F 98.2 F Pulse Rate 65 62 59 L Respiratory 20 18 18 Rate Blood Pressure 157/74 139/80 138/62 O2 Sat by Pulse 96 97 97 Oximetry EKG Findings - EKG Comments: EKG Findings:: EKG shows normal sinus rhythm rate of 61, MS 160, QRS 84, QTC 372 Medical Decision Making - Medical Decision Making 47 male the ER for evaluation, without arrhythmia or palpitations near the ER. Without significant finding on lab tests are vital signs, rhythm evaluation, rh ythm strip. Patient can be discharged home - Lab Data Result diagrams: 09/09/18 22:38 09/09/18 22:42 Lab Results 09/09/18 09/09/18 09/09/18 Range/Units 22:38 22:38 22:38 WBC 5.3 (3.8-10.6) k/uL RBC 4.99 (4.30-5.90) m/uL Hgb 13.5 (13.0-17.5) gm/dL Hct 41.0 (39.0-53.0) % MCV 82.0 (80.0-100.0) fL MCH 27.0 (25.0-35.0) pg MCHC 32.9 (31.0-37.0) g/dL RDW 14.5 (11.5-15.5) % Plt Count 200 (150-450) k/uL Neutrophils % 58 % Lymphocytes % 30 % Monocytes % 6 % Eosinophils % 4 % Basophils % 0 % Neutrophils # 3.1 (1.3-7.7) k/uL Lymphocytes # 1.6 (1.0-4.8) k/uL Monocytes # 0.3 (0-1.0) k/uL Eosinophils # 0.2 (0-0.7) k/uL Basophils # 0.0 (0-0.2) k/uL PT 10.1 (9.0-12.0) sec INR 0.9 (<1.2) APTT 23.0 (22.0-30.0) sec Sodium (137-145) mmol/L Potassium (3.5-5.1) mmol/L Chloride (98-107) mmol/L Carbon Dioxide (22-30) mmol/L Anion Gap mmol/L BUN (9-20) mg/dL Creatinine (0.66-1.25) mg/dL Est GFR (CKD-EPI)AfAm (>60 ml/min/1.73 sqM) Est GFR (CKD-EPI)NonAf (>60 ml/min/1.73 sqM) Glucose (74-99) mg/dL Calcium (8.4-10.2) mg/dL Magnesium (1.6-2.3) mg/dL Total Bilirubin (0.2-1.3) mg/dL AST (17-59) U/L ALT (21-72) U/L Alkaline Phosphatase (38-126) U/L Troponin I <0.012 (0.000-0.034) ng/mL Total Protein (6.3-8.2) g/dL Albumin (3.5-5.0) g/dL TSH (0.465-4.680) mIU/L Urine Color Urine Appearance (Clear) Urine pH (5.0-8.0) Ur Specific [place] (1.001-1.035) Urine Protein (Negative) Urine Glucose (UA) (Negative) Urine Ketones (Negative) Urine Blood (Negative) Urine Nitrite (Negative) Urine Bilirubin (Negative) Urine Urobilinogen (<2.0) mg/dL Ur Leukocyte Esterase (Negative) Urine Opiates Screen (NotDetected) Ur Oxycodone Screen (NotDetected) Urine Methadone Screen (NotDetected) Ur Propoxyphene Screen (NotDetected) Ur Barbiturates Screen (NotDetected) U Tricyclic Antidepress (NotDetected) Ur Phencyclidine Scrn (NotDetected) Ur Amphetamines Screen (NotDetected) U Methamphetamines Scrn (NotDetected) U Benzodiazepines Scrn (NotDetected) Urine Cocaine Screen (NotDetected) U Marijuana (THC) Screen (NotDetected) Serum Alcohol mg/dL 09/09/18 09/09/18 Range/Units 22:42 22:51 WBC (3.8-10.6) k/uL RBC (4.30-5.90) m/uL Hgb (13.0-17.5) gm/dL Hct (39.0-53.0) % MCV (80.0-100.0) fL MCH (25.0-35.0) pg MCHC (31.0-37.0) g/dL RDW (11.5-15.5) % Plt Count (150-450) k/uL Neutrophils % % Lymphocytes % % Monocytes % % Eosinophils % % Basophils % % Neutrophils # (1.3-7.7) k/uL Lymphocytes # (1.0-4.8) k/uL Monocytes # (0-1.0) k/uL Eosinophils # (0-0.7) k/uL Basophils # (0-0.2) k/uL PT (9.0-12.0) sec INR (<1.2) APTT (22.0-30.0) sec Sodium 142 (137-145) mmol/L Potassium 3.9 (3.5-5.1) mmol/L Chloride 106 (98-107) mmol/L Carbon Dioxide 26 (22-30) mmol/L Anion Gap 10 mmol/L BUN 16 (9-20) mg/dL Creatinine 0.79 (0.66-1.25) mg/dL Est GFR (CKD-EPI)AfAm >90 (>60 ml/min/1.73 sqM) Est GFR (CKD-EPI)NonAf >90 (>60 ml/min/1.73 sqM) Glucose 177 H (74-99) mg/dL Calcium 9.7 (8.4-10.2) mg/dL Magnesium 1.7 (1.6-2.3) mg/dL Total Bilirubin 0.3 (0.2-1.3) mg/dL AST 28 (17-59) U/L ALT 42 (21-72) U/L Alkaline Phosphatase 134 H (38-126) U/L Troponin I (0.000-0.034) ng/mL Total Protein 7.5 (6.3-8.2) g/dL Albumin 4.1 (3.5-5.0) g/dL TSH <0.015 L (0.465-4.680) mIU/L Urine Color Yellow Urine Appearance Clear (Clear) Urine pH 6.5 (5.0-8.0) Ur Specific [place] 1.014 (1.001-1.035) Urine Protein Negative (Negative) Urine Glucose (UA) Negative (Negative) Urine Ketones Negative (Negative) Urine Blood Negative (Negative) Urine Nitrite Negative (Negative) Urine Bilirubin Negative (Negative) Urine Urobilinogen <2.0 (<2.0) mg/dL Ur Leukocyte Esterase Negative (Negative) Urine Opiates Screen Detected H (NotDetected) Ur Oxycodone Screen Not Detected (NotDetected) Urine Methadone Screen Not Detected (NotDetected) Ur Propoxyphene Screen Not Detected (NotDetected) Ur Barbiturates Screen Not Detected (NotDetected) U Tricyclic Antidepress Not Detected (NotDetected) Ur Phencyclidine Scrn Not Detected (NotDetected) Ur Amphetamines Screen Not Detected (NotDetected) U Methamphetamines Scrn Not Detected (NotDetected) U Benzodiazepines Scrn Detected H (NotDetected) Urine Cocaine Screen Not Detected (NotDetected) U Marijuana (THC) Screen Not Detected (NotDetected) Serum Alcohol <10 mg/dL Disposition Clinical Impression: Paroxysmal a-fib, Atrial fibrillation Disposition: HOME SELF-CARE Condition: Good Instructions (If sedation given, give patient instructions): Heart Palpitations (ED) Is patient prescribed a controlled substance at d/c from ED?: No Referrals: Lukas Bain MD [Primary Care Provider] - 1-2 days
[2018-09-09 23:06] LABS: Basophils % (A) 0 %; Eosinophils # (A) 0.2 k/uL (0-0.7); Eosinophils % (A) 4 %; HGB 13.5 gm/dL (13.0-17.5); Lymphocytes # (A) 1.6 k/uL (1.0-4.8); Lymphocytes % (A) 30 %; MCHC 32.9 g/dL (31.0-37.0); Mean Platelet Volume 7.9; Monocytes # (A) 0.3 k/uL (0-1.0); Monocytes % (A) 6 %; Neutrophils # (A) 3.1 k/uL (1.3-7.7); Neutrophils % (A) 58 %; Platelet Count 200 k/uL (150-450); RBC 4.99 m/uL (4.30-5.90); RDW 14.5 % (11.5-15.5); WBC 5.3 k/uL (3.8-10.6)
[2018-09-09 23:12] LABS: Appearance,Urine Clear (Clear); Bilirubin,Urine Negative (Negative); Blood,Urine Negative (Negative); Color,Urine Yellow; Glucose,Urine (UA) Negative (Negative); Ketones,Urine Negative (Negative); Leukocyte Esterase,Urine Negative (Negative); Nitrite,Urine Negative (Negative); PH, Urine 6.5 (5.0-8.0); Protein,Urine Negative (Negative); Specific Gravity,Urine 1.014 (1.001-1.035); Urobilinogen,Urine <2.0 mg/dL (<2.0)
[2018-09-09 23:12] LABS: INR 0.9 (<1.2); Prothrombin Time 10.1 sec (9.0-12.0)
[2018-09-09 23:22] LABS: ALT 42 U/L (21-72); AST 28 U/L (17-59); Albumin 4.1 g/dL (3.5-5.0); Alcohol <10 mg/dL; Alkaline Phosphatase 134 U/L (38-126); Anion Gap 10 mmol/L; Blood Urea Nitrogen 16 mg/dL (9-20); Calcium 9.7 mg/dL (8.4-10.2); Carbon Dioxide 26 mmol/L (22-30); Chloride 106 mmol/L (98-107); Glucose 177 mg/dL (74-99); Magnesium 1.7 mg/dL (1.6-2.3); Potassium 3.9 mmol/L (3.5-5.1); Sodium 142 mmol/L (137-145); Total Bilirubin 0.3 mg/dL (0.2-1.3); Total Protein 7.5 g/dL (6.3-8.2)
[2018-09-09 23:25] LABS: Amphetamine Screen,Urine Not Detected (NotDetected); Barbiturate Screen,Urine Not Detected (NotDetected); Benzodiazepines Screen,Urine Detected (NotDetected); Cocaine Screen,Urine Not Detected (NotDetected); Methadone Screen, Urine Not Detected (NotDetected); Opiate Screen,Urine Detected (NotDetected); Oxycodone Screen, Urine Not Detected (NotDetected); Phencyclidine Screen,Urine Not Detected (NotDetected); Tricyclic Antidepressant,Urine Not Detected (NotDetected); Urn Cannabinoid Scrn Not Detected (NotDetected)
[2018-09-09 23:26] VITALS: RESP 18
[2018-09-10 00:13] VITALS: BP 138/62; PULSE 59; TEMP 98.2
== END 2018-09-10 00:22 | disposition home or self-care (01) ==
LOC: EC 22:09
DX: I48.0 Paroxysmal atrial fibrillation (principal); I25.10 Atherosclerotic heart disease of native coronary artery without angina pectoris; I25.2 Old myocardial infarction; G25.81 Restless legs syndrome; M19.90 Unspecified osteoarthritis, unspecified site; G47.30 Sleep apnea, unspecified; E07.9 Disorder of thyroid, unspecified; Z87.891 Personal history of nicotine dependence; Z79.01 Long term (current) use of anticoagulants; Z79.82 Long term (current) use of aspirin; Z79.890 Hormone replacement therapy; Z79.891 Long term (current) use of opiate analgesic; Z79.899 Other long term (current) drug therapy; Z86.73 Personal history of transient ischemic attack (TIA), and cerebral infarction without residual deficits; Z95.5 Presence of coronary angioplasty implant and graft; Z99.89 Dependence on other enabling machines and devices; Z82.49 Family history of ischemic heart disease and other diseases of the circulatory system
CPT/HCPCS: 36415; 93005; 80053; 83735; 84443; 84484; 85025; 85610; 85730; 81003; 80306; 99285; 96360; G0480; 80320

== ENCOUNTER 2018-10-11 18:49 | Emergency (ER) | payer OTHER ==
[2018-10-11] MEDS ORDERED: KETOROLAC 60 MG/2 ML VIAL IM STA (19:11)
--- NOTE | 2018-10-11 19:15 | ED ---
General Adult HPI - General Chief complaint: Urogenital Stated complaint: testicular pain Time Seen by Provider: 10/11/18 19:00 Source: patient, RN notes reviewed Mode of arrival: ambulatory Limitations: no limitations - History of Present Illness Initial comments: This is a 47-year-old male presents emergency department stating that over the last few days he's had some pain in his testicles bilaterally but mostly in the left per patient states he can't see his testicles he doesn't know if they're swollen red. Patient denies any trauma to the area. Patient denies any penile discharge. Patient denies any dysuria hematuria urinary frequency. Patient denies abdominal pain. Patient denies any fever chills. Patient denies any back pain. Patient states he's had some pain in the past and right testicle when he had hernia but hasn't had that in a while. Patient denies any bulging in the inguinal area or any abnormal testicular masses. - Related Data Home Medications Medication Instructions Recorded Confirmed Apixaban [Eliquis] 5 mg PO BID 05/07/18 10/11/18 Chlorthalidone 25 mg PO DAILY 09/09/18 10/11/18 HYDROcodone/APAP 5-325MG [[place] 1 tab PO BID 09/09/18 10/11/18 5-325] Metoprolol Tartrate [Lopressor] 25 mg PO DAILY 09/09/18 10/11/18 rOPINIRole HCL [Requip] 0.5 mg PO HS 09/09/18 10/11/18 Levothyroxine Sodium [Synthroid] 200 mcg PO DAILY 10/11/18 10/11/18 Previous Rx's Medication Instructions Recorded Ibuprofen [Motrin] 600 mg PO Q6HR PRN #40 day 07/30/18 Allergies Allergy/AdvReac Type Severity Reaction Status Date / Time No Known Allergies Allergy Verified 10/11/18 19:06 Review of Systems ROS Statement: Those systems with pertinent positive or pertinent negative responses have been documented in the HPI. ROS Other: All systems not noted in ROS Statement are negative. Past Medical History Past Medical History: Atrial Fibrillation, Coronary Artery Disease (CAD), CVA/TIA, Memory Impairment, Myocardial Infarction ([place]), Osteoarthritis ([place]), Sleep Apnea/CPAP/BIPAP, Thyroid Disorder Additional Past Medical History / Comment(s): denies hx hypertension, restless leg syndrome, "TIA (x 5) last Apr 2016", memory loss and numbness left fingers left hand and occ lt arm weakness, gout, wears CPAP at home Last Myocardial Infarction Date:: unk History of Any Multi-Drug Resistant Organisms: None Reported Past Surgical History: Heart Catheterization, Heart Catheterization With Stent, Hernia Repair, Orthopedic Surgery Additional Past Surgical History / Comment(s): loop monitor in chest. one cardiac stent, rt knee Past Anesthesia/Blood Transfusion Reactions: No Reported Reaction Date of Last Stent Placement:: 2016 Type of Cardiac Device: Loop Device Placement Date:: Apr 2016 Past Psychological History: Anxiety Smoking Status: Former smoker Past Alcohol Use History: Occasional Past Drug Use History: None Reported - Past Family History Father Family Medical History: Myocardial Infarction ([place]) Additional Family Medical History / Comment(s): of [place] Mother Family Medical History: No Reported History Brother(s) Additional Family Medical History / Comment(s): Bipolar disorder General Exam - General Exam Comments Initial Comments: GENERAL Patient is well-developed and well-nourished. Patient is in mild distress. EYES Patient's pupils are equal and round. Extraocular motion is intact SKIN Unremarkable NEURO The patient is alert and oriented 3 PYSCH Patient has normal interpersonal interactions. MUSCULOSKELETAL All 4 times and full range of motion GENITALIA Inspection shows no redness or swelling. On palpation I felt no significant te nderness. There is no hernia noted on either side. Limitations: no limitations Course Vital Signs 10/11/18 18:56 Temperature 98.7 F Pulse Rate 73 Respiratory 18 Rate Blood Pressure 128/82 O2 Sat by Pulse 99 Oximetry Medical Decision Making - Medical Decision Making Ultrasound showed bilateral hydroceles - Lab Data Lab Results 10/11/18 Range/Units 19:15 Urine Color Yellow Urine Appearance Clear (Clear) Urine pH 5.5 (5.0-8.0) Ur Specific [place] 1.018 (1.001-1.035) Urine Protein Negative (Negative) Urine Glucose (UA) Negative (Negative) Urine Ketones Negative (Negative) Urine Blood Negative (Negative) Urine Nitrite Negative (Negative) Urine Bilirubin Negative (Negative) Urine Urobilinogen 2.0 (<2.0) mg/dL Ur Leukocyte Esterase Negative (Negative) Disposition Clinical Impression: Bilateral hydrocele Disposition: HOME SELF-CARE Condition: Good Instructions (If sedation given, give patient instructions): Hydrocele (ED) Additional Instructions: Patient should follow-up with urology. Is patient prescribed a controlled substance at d/c from ED?: No Referrals: Lukas Bain MD [Primary Care Provider] - 1-2 days Time of Disposition: 20:56
[2018-10-11 19:28] LABS: Appearance,Urine Clear (Clear); Bilirubin,Urine Negative (Negative); Blood,Urine Negative (Negative); Color,Urine Yellow; Glucose,Urine (UA) Negative (Negative); Ketones,Urine Negative (Negative); Leukocyte Esterase,Urine Negative (Negative); Nitrite,Urine Negative (Negative); PH, Urine 5.5 (5.0-8.0); Protein,Urine Negative (Negative); Specific Gravity,Urine 1.018 (1.001-1.035)
--- NOTE | 2018-10-11 21:08 | US ---
EXAMINATION TYPE: US scrotum with doppler. Grayscale and color Doppler Duplex imaging performed of ahns crum scrotum. DATE OF EXAM: 10/11/2018 COMPARISON: US CLINICAL HISTORY: Pain. EC patient with scrotal pain and swelling x 1 week; patient denies trauma EXAM MEASUREMENTS: TESTICLES: Right Testicle: 4.4 x 3.0 x 1.9 cm Left Testicle: 4.3 x 2.6 x 2.7 cm EPIDIDYMIS HEAD: Right Epididymis: 0.8 x 1.4 x 1.1 cm Left Epididymis: 0.7 x 1.2 x 0.9 cm Doppler performed to assess for testicular vascularity; good bilateral color flow and waveforms are s een. There is no evidence of testicular torsion. Multiple right epididymal head cysts with largest = 0.8 x 0.8 x 0.8cm. Left epididymal head cyst = 0. 2 x 0.3 x 0.2cm. Presence of hydroceles: large right hydrocele = 6.3 x 1.3 x 1.3cm; left hydrocele = 5.0 x 3.3 x 3.8 cm. Presence of varicoceles: no IMPRESSION: 1. Bilateral hydroceles right greater than left. 2. Epididymal head cysts.
[2018-10-11 22:03] VITALS: BP 129/90; PULSE 64; RESP 17; TEMP 97.9
== END 2018-10-11 22:03 | disposition home or self-care (01) ==
LOC: EC 18:49
DX: N43.3 Hydrocele, unspecified (principal); I25.10 Atherosclerotic heart disease of native coronary artery without angina pectoris; I25.2 Old myocardial infarction; M19.90 Unspecified osteoarthritis, unspecified site; G25.81 Restless legs syndrome; I48.91 Unspecified atrial fibrillation; Z87.891 Personal history of nicotine dependence; Z79.890 Hormone replacement therapy; Z79.01 Long term (current) use of anticoagulants; Z79.891 Long term (current) use of opiate analgesic; Z79.899 Other long term (current) drug therapy; Z86.73 Personal history of transient ischemic attack (TIA), and cerebral infarction without residual deficits; Z95.5 Presence of coronary angioplasty implant and graft; E07.9 Disorder of thyroid, unspecified
CPT/HCPCS: 99284; 96372; 81003; 93975; 76870; J1885

== ENCOUNTER 2018-12-05 05:53 | Day surgery (SDC) | payer OTHER ==
[2018-12-04 08:50] VITALS: BMI 46.0
--- NOTE | 2018-12-04 16:50 | HP ---
HISTORY AND PHYSICAL DATE OF SURGERY: 12/05/2018 Patrick Hidalgo is a 48-year-old patient seen with progressive right shoulder pain. After having treatment options discussed, he elected to proceed with right shoulder arthroscopy. Consent regarding the procedure was obtained. Medical clearance was provided by Dr. Lukas Bain. PAST MEDICAL HISTORY: 1. Hypertension. 2. Hypercholesterolemia. 3. Hypothyroidism. PAST SURGICAL HISTORY: 1. Herniorrhaphy. 2. Cardiac catheterization. DAILY MEDICATIONS: 1. Amlodipine. 2. Aspirin. 3. Atorvastatin. 4. Ibuprofen. 5. Levothyroxine. ALLERGIES: NONE. SOCIAL HISTORY: He denies current tobacco use. PHYSICAL EVALUATION OF RIGHT SHOULDER: Flexion is 90 degrees, abduction 80 degrees, external rotation 30 degrees with weakness. There is tenderness along the anterolateral acromion and rotator cuff insertion site. Impingement sign positive at 90 degrees. Drop-arm sign is positive. Distal neurovascular exam is intact. RADIOGRAPHS: Right shoulder radiographs revealed a type 2 anterior acromion. MRI of right shoulder revealed full rotator cuff tear and acromioclavicular joint osteoarthritis. IMPRESSION: 1. Right shoulder impingement with rotator cuff tear. 2. Right shoulder acromioclavicular osteoarthritis. PLAN: Right shoulder arthroscopy with subacromial decompression, probable arthroscopic rotator cuff repair, possible Cyndie procedure and debridement. MMODL / IJN: [id number] /
[~2018-12-05 05:53] MED LIST changes: -DEXAMETHASONE SOD PHOSPHATE 10 MG/ML 1 ML VIAL IV ONE; -HYDROmorphone 1 MG/ML 1 ML SYRINGE IVP PRN; -LACTATED RINGERS 1,000 ML IV SCH; -LIDOCAINE 1% 20 ML VIAL (10MG/ML) FOR IV START INTRADERMA PRN; -MIDAZOLAM 2 MG/2 ML VIAL IV PRN; -ONDANSETRON 4 MG/2 ML VIAL IVP ONE; +ceFAZolin 3 GM in SODIUM CHLORIDE 0.9% 100 ML IVPB ONE; -fentaNYL (PF) 50 MCG/ML 2 ML AMP IV PRN
[2018-12-05] MEDS ORDERED: HYDROmorphone 0.5 MG/0.5 ML SYRINGE IVP PRN (05:56)
[2018-12-05] MEDS ORDERED: MIDAZOLAM 2 MG/2 ML VIAL IV PRN (05:56)
[2018-12-05] MEDS ORDERED: DEXAMETHASONE SOD PHOSPHATE 10 MG/ML 1 ML VIAL IV ONE (05:56)
[2018-12-05] MEDS ORDERED: LACTATED RINGERS 1,000 ML IV SCH (05:56)
[2018-12-05] MEDS: ONDANSETRON 4 MG/2 ML VIAL IVP ONE ×2 (06:42→09:50)
[2018-12-05] MEDS ORDERED: fentaNYL (PF) 50 MCG/ML 2 ML AMP ONE (07:25)
[2018-12-05] MEDS ORDERED: ROPIVACAINE 5 MG/ML 30 ML VIAL ONE (07:25)
[2018-12-05] MEDS ORDERED: SUCCINYLCHOLINE CHLORIDE VIAL 200 MG/10 ML VIAL IV ONE (07:25)
[2018-12-05] MEDS ORDERED: MIDAZOLAM 2 MG/2 ML VIAL ONE (07:25)
[2018-12-05] MEDS ORDERED: PROPOFOL 10 MG/ML 20 ML VIAL IV ONE (07:25)
[2018-12-05] MEDS ORDERED: LIDOCAINE 1% INJ 10MG/ML (20 ML MDV) ONE (07:25)
[2018-12-05] MEDS ORDERED: DEXAMETHASONE SOD PHOS (MDV) 100 MG/10 ML VIAL ONE (07:25)
[2018-12-05] MEDS ORDERED: SODIUM CHLORIDE 0.9% 100 ML with ceFAZolin 3,000 MG IV ONE ×2 (07:58)
[2018-12-05] MEDS ORDERED: LACTATED RINGERS 1,000 ML IV ONE (09:02)
--- NOTE | 2018-12-05 09:16 | P.OP ---
Date of Procedure: 12/05/18 Preoperative Diagnosis: Right shoulder impingement Postoperative Diagnosis: 1. Right shoulder rotator cuff tear 2. Right shoulder impingement 3. Right shoulder acromioclavicular joint osteoarthritis 4. Right shoulder partial long head biceps tendon tear 5. Right shoulder superficial labral tear Procedure(s) Performed: 1. Right shoulder arthroscopic rotator cuff repair 2. Right shoulder arthroscopic subacromial decompression 3. Right shoulder arthroscopic Cyndie procedure 4. Right shoulder arthroscopic biceps tenotomy 5. Right shoulder arthroscopic debridement labral tear Implants: 14.75 Arthrex swivel lock anchor Anesthesia: GETA, regional (Interscalene block) Surgeon: Phoenix Mcdonough Associate Designer #1: Kerwin Woodall Estimated Blood Loss (ml): 10 Pathology: none sent Condition: stable Disposition: PACU Indications for Procedure: 48-year-old patient seen with progressive right shoulder pain. After treatment options were discussed, he elected to proceed with arthroscopy. Operative Findings: See description of procedure Description of Procedure: Patient underwent an interscalene block by department of anesthesia for postoperative pain management. The patient was then taken to the operative suite. The patient underwent a general anesthetic by the department of anesthesia. The patient was placed into a lateral position and secured. There was appropriate padding of the bony prominence. Right shoulder was then prepped and draped in normal sterile orthopedic fashion. We placed the extremity in 10 pounds of longitudinal traction. A posterior incision was now made for a posterior working portal site. The trocar and cannula were inserted into the glenohumeral joint. Arthroscopy was initiated. Spinal needle was now inserted anteriorly, to ascertain the anterior working portal site. An incision was now made in that area, a trocar was inserted followed by a probe. There was some partial tearing long head biceps tendon. There was superficial tearing of the superior labrum. There was no obvious rotator cuff tear visualized from glenohumeral side. I performed an arthroscopic biceps tenotomy. I debrided the superficial labral tear down to stable tissue. The residual labrum was stable. Instruments now removed from the glenohumeral joint. Utilizing the posterior working portal site, the trocar and cannula were inserted into the subacromial space. Arthroscopy initiated. I made an incision 2 fingerbreadths lateral to the acromion. I introduced my trocar followed by my ArthroCare ablator. I now began ablating thick subacromial bursal tissue, which exposed the undersurface of the anterior acromion. There was diminished subacromial space. There was a very prominent anterior acromion. A motorized bur was introduced and a subacromial decompression was performed. I also excised some osteophytes off the inferior aspect of the distal clavicle. The AC joint was visualized and noted to be fairly arthritic. The motorized bur was introduced in the anterior portal site and a Cyndie procedure was performed without difficulty, decompressing the AC joint nicely. I turned my attention to the rotator cuff. There was a 11.5 cm rotator cuff tear. I debrided the margins gained down to stable tendon tissue. I abraded the footprint with a motorized bur. I passed 2 everted mattress sutures through good bites of rotator cuff tendon with the assistance of Mehdi HOLLEY. I punched to holes in our footprint for insertion of anchor. The suture limbs were passed through a Arthrex swivel lock anchor eyelet and introduced into our pre-punch hole. Mehdi HOLLEY attention the sutures appropriately and then introduced anchor with good fixation noted. All residual suture limbs were now clipped. We had good compression of the tendon along the entire footprint. I injected 1 mL Renue intra-articular. Instruments now removed from the portal sites. All portal sites were approximated with nylon suture. Sterile dressings were applied followed by a shoulder sling. Kerwin HOLLEY assisted in this case. The patient was awakened, transferred to a bed, and taken to recovery in stable condition.
[2018-12-05 09:21] VITALS: TEMP 97.7
[2018-12-05 11:09] VITALS: BP 125/74; PULSE 61; RESP 16
== END 2018-12-05 11:39 | disposition home or self-care (01) ==
LOC: OR 05:53
PROVIDERS: ATTEND Orthopaedic Surgery
DX: M75.101 Unspecified rotator cuff tear or rupture of right shoulder, not specified as traumatic (principal); M75.41 Impingement syndrome of right shoulder; M19.011 Primary osteoarthritis, right shoulder; S46.111A Strain of muscle, fascia and tendon of long head of biceps, right arm, initial encounter; S43.431A Superior glenoid labrum lesion of right shoulder, initial encounter; X58.XXXA Exposure to other specified factors, initial encounter; M25.711 Osteophyte, right shoulder; I10 Essential (primary) hypertension; E78.00 Pure hypercholesterolemia, unspecified; E03.9 Hypothyroidism, unspecified; Z98.61 Coronary angioplasty status; G47.33 Obstructive sleep apnea (adult) (pediatric); Z99.89 Dependence on other enabling machines and devices; Z86.73 Personal history of transient ischemic attack (TIA), and cerebral infarction without residual deficits; Z79.01 Long term (current) use of anticoagulants; Z79.891 Long term (current) use of opiate analgesic; Z79.1 Long term (current) use of non-steroidal anti-inflammatories (NSAID); Z79.82 Long term (current) use of aspirin; Z79.890 Hormone replacement therapy; Z79.899 Other long term (current) drug therapy
CPT/HCPCS: 64415; 29826; 29827; 29824; C1713; C1765; J2250; J0330; J1100 ×2; J2405; J0690; J2001; J3010; J2795; J2704

== ENCOUNTER 2018-12-09 22:12 | Emergency (ER) | payer OTHER ==
[2018-12-09 22:25] VITALS: RESP 18
--- NOTE | 2018-12-10 00:04 | US ---
EXAM: US Duplex Right Upper Extremity Veins CLINICAL HISTORY: ITS.REASON US Reason: swelling TECHNIQUE: Real-time duplex ultrasound scan of the right upper extremity veins integrating B-mode two-dimensional vascular structure, Doppler spectral analysis, color flow Doppler imaging and compression. COMPARISON: No relevant prior studies available. FINDINGS: Deep veins: Unremarkable. No DVT in the internal jugular, subclavian, axillary, or brachial veins. The veins demonstrate normal color flow, are normally compressible, with normal phasic flow and/or augmentation response. Superficial veins: Unremarkable. No thrombus in the visualized basilic and cephalic veins. Soft tissues: No suspicious findings. IMPRESSION: Normal right upper extremity duplex venous ultrasound.
[2018-12-10] MEDS ORDERED: HYDROcodone/APAP 10-325MG 1 EACH TAB PO ONE (01:04)
--- NOTE | 2018-12-10 01:09 | ED ---
Extremity Problem HPI - General Chief complaint: Extremity Problem,Nontraumatic Stated complaint: Hand Swelling-post op pain Time Seen by Provider: 12/09/18 22:52 Source: patient Mode of arrival: ambulatory Limitations: no limitations - History of Present Illness Initial comments: This patient is a 48-year-old man who presents with complaint of right arm swelling and discomfort. He is now postoperative day number after having had right rotator cuff surgery by Dr. Mcdonough. The patient is not having other complaints, including no fever or chills. He is not having marked shoulder pain. Patient denies numbness of the right hand though he has had some tingling at times. The patient and his state that they had done some reading and they were concerned about the possibility of having had a blood clot in the arm. No chest symptoms, including no chest pain or palpitations, no cough or dyspnea, no hemoptysis. No previous history of DVT or PE. No known family history. MD Complaint: extremity pain, extremity swelling Onset/Timin -: days(s) Location: right, upper extremity History of Same: No Quality: aching, dull Consistency: constant Improves with: nothing Worsens with: nothing Associated Symptoms: denies other symptoms - Related Data Home Medications Medication Instructions Recorded Confirmed Apixaban [Eliquis] 5 mg PO BID 05/07/18 12/09/18 Chlorthalidone 25 mg PO DAILY 09/09/18 12/09/18 Metoprolol Tartrate [Lopressor] 25 mg PO DAILY 09/09/18 12/09/18 rOPINIRole HCL [Requip] 0.5 mg PO HS 09/09/18 12/09/18 Levothyroxine Sodium [Synthroid] 200 mcg PO DAILY 10/11/18 12/09/18 HYDROcodone/APAP 7.5-325MG [[place] 1 tab PO Q6HR PRN 12/09/18 12/09/18 7.5] Levothyroxine Sodium [Synthroid] 50 mcg PO DAILY 12/09/18 12/09/18 Previous Rx's Medication Instructions Recorded Ibuprofen [Motrin] 600 mg PO Q6HR PRN #40 day 07/30/18 Allergies Allergy/AdvReac Type Severity Reaction Status Date / Time No Known Allergies Allergy Verified 12/09/18 22:45 Review of Systems ROS Statement: Those systems with pertinent positive or pertinent negative responses have been documented in the HPI. ROS Other: All systems not noted in ROS Statement are negative. Constitutional: Denies: fever, chills, weakness Respiratory: Denies: cough, dyspnea, hemoptysis Cardiovascular: Denies: chest pain, palpitations, edema, syncope Gastrointestinal: Denies: abdominal pain Musculoskeletal: Denies: back pain Skin: Denies: rash Neurological: Reports: paresthesias. Denies: headache, weakness, numbness Hematological/Lymphatic: Denies: easy bleeding Past Medical History Past Medical History: Atrial Fibrillation, Coronary Artery Disease (CAD), CVA/TIA, Memory Impairment, Myocardial Infarction ([place]), Osteoarthritis (OA), Sleep Apnea/CPAP/BIPAP, Thyroid Disorder Additional Past Medical History / Comment(s): denies hx hypertension, restless leg syndrome, "TIA (x 5) last Apr 2016", memory loss and numbness left fingers left hand and occ lt arm weakness, gout, wears CPAP at home Last Myocardial Infarction Date:: unk History of Any Multi-Drug Resistant Organisms: None Reported Past Surgical History: Heart Catheterization, Heart Catheterization With Stent, Hernia Repair, Joint Replacement, Orthopedic Surgery Additional Past Surgical History / Comment(s): loop monitor in chest. one cardiac stent, rt knee Past Anesthesia/Blood Transfusion Reactions: No Reported Reaction Date of Last Stent Placement:: 2016 Type of Cardiac Device: Loop Device Placement Date:: Apr 2016 Past Psychological History: Anxiety Smoking Status: Former smoker Past Alcohol Use History: Rare Past Drug Use History: Marijuana - Past Family History Father Family Medical History: Myocardial Infarction ([place]) Additional Family Medical History / Comment(s): of [place] Mother Family Medical History: No Reported History Brother(s) Additional Family Medical History / Comment(s): Bipolar disorder General Exam Limitations: no limitations General appearance: alert, in no apparent distress Head exam: Present: atraumatic, normocephalic Respiratory exam: Present: normal lung sounds bilaterally. Absent: respiratory distress, wheezes, rales, rhonchi, stridor Cardiovascular Exam: Present: regular rate, normal rhythm, normal heart sounds. Absent: systolic murmur, diastolic murmur, rubs, gallop Extremities exam: Present: normal capillary refill. Absent: pedal edema Right Shoulder Exam: Present: swelling, other (There are 3 surgical puncture sites the sutures are intact. There is no abnormal erythema, warmth, or any drainage. Normal postsurgical appearance). Absent: tenderness, abrasion, ecchymosis, deformity, erythema Upper Arm exam: Present: normal inspection. Absent: tenderness, swelling Elbow exam: Present: normal inspection, full ROM. Absent: tenderness, swelling, laceration, ecchymosis Forearm Wrist exam: Present: full ROM, swelling. Absent: tenderness Hand Wrist exam: Present: full ROM, swelling. Absent: tenderness, abrasion, ecchymosis Neurosensory exam: Present: radial nerve intact, ulnar nerve intact, median nerve intact Vascular: Present: normal capillary refill, radial pulse (Normal), ulnar pulse. Absent: vascular compromise Neurological exam: Present: alert. Absent: motor sensory deficit Skin exam: Present: warm, dry, intact, normal color. Absent: rash Course Vital Signs 12/09/18 12/10/18 22:21 01:24 Temperature 98.6 F 97.5 F L Pulse Rate 67 60 Respiratory 18 18 Rate Blood Pressure 141/91 147/92 O2 Sat by Pulse 97 96 Oximetry Medical Decision Making - Medical Decision Making Patient is a 48-year-old man presenting for evaluation of his right upper extremity following a rotator cuff surgery. There is some right forearm and hand swelling that is within the range of normal postoperative appearance. He did have duplex Doppler to rule out. We discussed further care and follow-up. He has had good relief with analgesia here. He is discussed with KISHAN delaney and they will see the patient in clinic Disposition Clinical Impression: Post-operative pain Disposition: HOME SELF-CARE Condition: Fair Instructions (If sedation given, give patient instructions): Rotator Cuff Tear Repair (DC) Is patient prescribed a controlled substance at d/c from ED?: No Referrals: Lukas Bain MD [Primary Care Provider] - 1-2 days Phoenix Mcdonough DO [Doctor of Osteopathic Medicine] - 1-2 days
[2018-12-10 01:25] VITALS: BP 147/92; PULSE 60; TEMP 97.5
--- NOTE | 2018-12-11 05:13 | CDI ---
Documentation Clarification OP Dear Alec DAIGLE MD Please do addendum to ED report for missing HPI and Physical examination. Thank you, Jose Jain Mining Engineering Technologist If you have any questions, please contact Big Machine Consultant at [phone] [facility]
== END 2018-12-10 01:24 | disposition home or self-care (01) ==
LOC: EC 22:12
DX: G89.18 Other acute postprocedural pain (principal); M79.89 Other specified soft tissue disorders; M79.601 Pain in right arm; I48.91 Unspecified atrial fibrillation; I25.10 Atherosclerotic heart disease of native coronary artery without angina pectoris; I25.2 Old myocardial infarction; G47.30 Sleep apnea, unspecified; E07.9 Disorder of thyroid, unspecified; Z79.01 Long term (current) use of anticoagulants; Z79.890 Hormone replacement therapy; Z79.899 Other long term (current) drug therapy; Z87.891 Personal history of nicotine dependence; Z86.73 Personal history of transient ischemic attack (TIA), and cerebral infarction without residual deficits; Z95.5 Presence of coronary angioplasty implant and graft; Z96.651 Presence of right artificial knee joint
CPT/HCPCS: 99283

== ENCOUNTER 2019-02-13 18:20 | Emergency (ER) | payer OTHER ==
[2019-02-13 18:32] VITALS: BP 144/84; PULSE 80; RESP 18; TEMP 98.3
--- NOTE | 2019-02-13 19:15 | XR ---
EXAMINATION TYPE: XR shoulder complete RT DATE OF EXAM: 02/13/2019 COMPARISON: 07/18/2017 HISTORY: Pain. FINDINGS: There is no fracture nor dislocation. There are some spurring and calcification at the greater tuber osity of the humerus. There is slight widening of the AC joint space. Joint measures 13 mm. TECHNIQUE: 3 views : IMPRESSION: There is evidence for calcific tendinitis that is a change compared to old exam. No fract ure seen. There is widening of AC joint space that is a change compared to old exam.
[2019-02-13] MEDS ORDERED: KETOROLAC 60 MG/2 ML VIAL IM STA (19:24)
--- NOTE | 2019-02-13 20:01 | ED ---
General Adult HPI - General Chief complaint: Extremity Problem,Nontraumatic Stated complaint: R Shoulder Pain Source: patient, RN notes reviewed, old records reviewed Mode of arrival: ambulatory Limitations: no limitations - History of Present Illness Initial comments: 48 year old male patient with chief complaint of right shoulder pain. He had a rotator cuff surgery approximately 2 months ago by . Patient reports that he has persistent right shoulder pain, numbness tingling in his fingertips. Patient was this is unchanged for approximately 2 months. Patient reports he was seen by his surgeon on Sunday. Says that nothing is wrong, advised him to continue therapy. Patient requests evaluation here, second opinion. Patient denies any symptoms of infection. Denies any other complaints. Systemic: Pt denies fatigue, fever/chills, rash. Pt denies weakness, night sweats, weight loss. Neuro: Pt denies headache, visual disturbances, syncope or pre-syncope. HEENT: Pt denies ocular discharge or irritation, otalgia, rhinorrhea, pharyngitis or notable lymphadenopathy. Cardiopulmonary: Pt denies chest pain, SOB, heart palpitations, dyspnea on exertion. Abdominal/GI: Pt denies abdominal pain, n/v/d. : Pt denies dysuria, burning w/ urination, frequency/urgency. Denies new onset urinary or bowel incontinence. MSK: Pt denies myalgia, loss of strength or function in extremities. Neuro: Pt denies new onset weakness, paresthesias. - Related Data Home Medications Medication Instructions Recorded Confirmed Apixaban [Eliquis] 5 mg PO BID 05/07/18 12/09/18 Chlorthalidone 25 mg PO DAILY 09/09/18 12/09/18 Metoprolol Tartrate [Lopressor] 25 mg PO DAILY 09/09/18 12/09/18 rOPINIRole HCL [Requip] 0.5 mg PO HS 09/09/18 12/09/18 Levothyroxine Sodium [Synthroid] 200 mcg PO DAILY 10/11/18 12/09/18 HYDROcodone/APAP 7.5-325MG [[place] 1 tab PO Q6HR PRN 12/09/18 12/09/18 7.5] Levothyroxine Sodium [Synthroid] 50 mcg PO DAILY 12/09/18 12/09/18 Previous Rx's Medication Instructions Recorded Ibuprofen [Motrin] 600 mg PO Q6HR PRN #40 day 07/30/18 Allergies Allergy/AdvReac Type Severity Reaction Status Date / Time No Known Allergies Allergy Verified 02/13/19 18:32 Review of Systems ROS Statement: Those systems with pertinent positive or pertinent negative responses have been documented in the HPI. ROS Other: All systems not noted in ROS Statement are negative. Past Medical History Past Medical History: Atrial Fibrillation, Coronary Artery Disease (CAD), CVA/TIA, Memory Impairment, Myocardial Infarction ([place]), Osteoarthritis (OA), Sleep Apnea/CPAP/BIPAP, Thyroid Disorder Additional Past Medical History / Comment(s): denies hx hypertension, restless leg syndrome, "TIA (x 5) last Apr 2016", memory loss and numbness left fingers left hand and occ lt arm weakness, gout, wears CPAP at home Last Myocardial Infarction Date:: unk History of Any Multi-Drug Resistant Organisms: None Reported Past Surgical History: Heart Catheterization, Heart Catheterization With Stent, Hernia Repair, Joint Replacement, Orthopedic Surgery Additional Past Surgical History / Comment(s): loop monitor in chest. one cardiac stent, rt knee Past Anesthesia/Blood Transfusion Reactions: No Reported Reaction Date of Last Stent Placement:: 2016 Type of Cardiac Device: Loop Device Placement Date:: Apr 2016 Past Psychological History: Anxiety Smoking Status: Former smoker Past Alcohol Use History: Rare Past Drug Use History: Marijuana - Past Family History Father Family Medical History: Myocardial Infarction ([place]) Additional Family Medical History / Comment(s): of [place] Mother Family Medical History: No Reported History Brother(s) Additional Family Medical History / Comment(s): Bipolar disorder General Exam - General Exam Comments Initial Comments: Constitutional: NAD, AOX3, Pt has pleasant affect. HEENT: NC/AT, trachea midline, neck supple, no lymphadenopathy. Posterior pharynx non erythematous, without exudates. External ears appear normal, without discharge. Mucous membranes moist. Eyes PERRLA, EOM intact. There is no scleral icterus. No pallor noted. Cardiopulmonary: RRR, no murmurs, rubs or gallops, no JVD noted. Lungs CTAB in anterior and posterior eason. No peripheral edema. Abdominal exam: Abdomen soft and non-distended. Abdomen non-tender to palpation in all 4 quadrants. Bowel sounds active in LLQ. No hepatosplenomegaly. No ecchymosis Neuro: CN II-XII grossly intact. No nuchal rigidity. No raccon eyes, no chowdary sign, no hemotympanum. No cervical spinal tenderness. MSK: Right shoulder tender with palpation before meals joint, anterior right s houlder, full active range of motion, sensation intact, distal pulses intact and equal. Pain with range of motion. No erythema or skin changes. No posterior calf tenderness bilaterally, homans sign negative bilaterally. Posterior tibialis and radial pulse +2 bilaterally. Sensation intact in upper and lower extremities. Full active ROM in upper and lower extremities, 5/5 stregnth. Limitations: no limitations Course Vital Signs 02/13/19 18:29 Temperature 98.3 F Pulse Rate 80 Respiratory 18 Rate Blood Pressure 144/84 O2 Sat by Pulse 96 Oximetry Medical Decision Making - Medical Decision Making 48-year-old male patient presents to the chief complaint of right shoulder pain following rotator cuff surgery. Patient will signs stable, afebrile. Physical exam displayed active range of motion, however with pain. No skin changes. Tender to palpation, AC joint, anterior shoulder. Distal pulses intact and equal, sensation intact. Plain films displayed evidence for calcific tendinitis, widening of the before meals joint. Patient not placed in a sling for wrist. He said capsulitis. Patient requests patient referred to different orthopedic group, [facility] Return precautions discussed. Case discussed with Dr. booth. Disposition Clinical Impression: Shoulder pain Disposition: HOME SELF-CARE Condition: Stable Instructions (If sedation given, give patient instructions): Calcific Tendinitis (ED) Additional Instructions: Patient to adhere to previously discussed treatment plan and will take medication(s) as directed. Patient to follow up with PCP in 1-2 days. Patient to return to ED if symptoms do not improve. follow up with orthopedic surgeon tomorrow. Return to ER if condition worsens. Is patient prescribed a controlled substance at d/c from ED?: No Referrals: Lukas Bain MD [Primary Care Provider] - 1-2 days Jeff Francisco DO [Medical Doctor] - 1-2 days
== END 2019-02-13 20:14 | disposition home or self-care (01) ==
LOC: EC 18:20
DX: M25.511 Pain in right shoulder (principal); R20.2 Paresthesia of skin; R20.0 Anesthesia of skin; I48.91 Unspecified atrial fibrillation; I25.10 Atherosclerotic heart disease of native coronary artery without angina pectoris; I25.2 Old myocardial infarction; G25.81 Restless legs syndrome; M19.90 Unspecified osteoarthritis, unspecified site; E07.9 Disorder of thyroid, unspecified; G47.30 Sleep apnea, unspecified; Z99.89 Dependence on other enabling machines and devices; Z86.73 Personal history of transient ischemic attack (TIA), and cerebral infarction without residual deficits; Z95.818 Presence of other cardiac implants and grafts; Z95.5 Presence of coronary angioplasty implant and graft; Z96.698 Presence of other orthopedic joint implants; Z87.891 Personal history of nicotine dependence; Z98.890 Other specified postprocedural states; Z79.01 Long term (current) use of anticoagulants; Z79.890 Hormone replacement therapy; Z79.899 Other long term (current) drug therapy
CPT/HCPCS: 73030; 99284; 96372; J1885

== ENCOUNTER 2019-04-01 20:00 | Emergency (ER) | payer OTHER ==
[2019-04-01 20:15] VITALS: BP 140/78; PULSE 89; RESP 16; TEMP 97.8
--- NOTE | 2019-04-01 21:03 | XR ---
EXAMINATION TYPE: XR ankle complete LT DATE OF EXAM: 04/01/2019 COMPARISON: None HISTORY: Ankle pain TECHNIQUE: 3 views FINDINGS: Ankle mortise is anatomic. I see no fracture nor dislocation. There is mild soft tissue swe lling over the lateral malleolus. Joint spaces are fairly normal. IMPRESSION: Mild soft tissue swelling. No fracture seen.
[2019-04-01] MEDS ORDERED: KETOROLAC 60 MG/2 ML VIAL IM STA (21:11)
[2019-04-01] MEDS ORDERED: ACET/COD 300 MG/30 MG STARTER PACK 6 TAB BTL PO STA (21:13)
--- NOTE | 2019-04-01 21:13 | ED ---
Extremity Problem HPI - General Chief complaint: Extremity Problem,Nontraumatic Stated complaint: ankle pain Time Seen by Provider: 04/01/19 20:14 Source: patient Mode of arrival: wheelchair Limitations: no limitations - History of Present Illness Initial comments: Patient is a 48-year-old male presenting to the emergency Department with complaints of left ankle pain and swelling that started yesterday. Patient denies any trauma or injuries to his left ankle. Patient does admit to history of gout with most recent flare about 1 week ago to his right ankle. Patient states he has never had gout flares in his left ankle. Patient denies any wounds to his left ankle. Patient states the pain has steadily been increasing over the last 24 hours and he can no longer move his ankle without significant pain. Patient describes his pain as sharp and constant and 8/10 pain. Patient does take preventative gout medication. Patient denies fever, chills, nausea, vomiting. Patient has no other complaints at this time. Upon arrival to ER, vital signs are stable. - Related Data Home Medications Medication Instructions Recorded Confirmed Apixaban [Eliquis] 5 mg PO BID 05/07/18 12/09/18 Chlorthalidone 25 mg PO DAILY 09/09/18 12/09/18 Metoprolol Tartrate [Lopressor] 25 mg PO DAILY 09/09/18 12/09/18 rOPINIRole HCL [Requip] 0.5 mg PO HS 09/09/18 12/09/18 Levothyroxine Sodium [Synthroid] 200 mcg PO DAILY 10/11/18 12/09/18 HYDROcodone/APAP 7.5-325MG [[place] 1 tab PO Q6HR PRN 12/09/18 12/09/18 7.5] Levothyroxine Sodium [Synthroid] 50 mcg PO DAILY 12/09/18 12/09/18 Previous Rx's Medication Instructions Recorded Ibuprofen [Motrin] 600 mg PO Q6HR PRN #40 day 07/30/18 Allergies Allergy/AdvReac Type Severity Reaction Status Date / Time No Known Allergies Allergy Verified 04/01/19 20:14 Review of Systems ROS Statement: Those systems with pertinent positive or pertinent negative responses have been documented in the HPI. ROS Other: All systems not noted in ROS Statement are negative. Past Medical History Past Medical History: Atrial Fibrillation, Coronary Artery Disease (CAD), CVA/TIA, Memory Impairment, Myocardial Infarction ([place]), Osteoarthritis ([place]), Sleep Apnea/CPAP/BIPAP, Thyroid Disorder Additional Past Medical History / Comment(s): denies hx hypertension, restless leg syndrome, "TIA (x 5) last Apr 2016", memory loss and numbness left fingers left hand and occ lt arm weakness, gout, wears CPAP at home Last Myocardial Infarction Date:: unk History of Any Multi-Drug Resistant Organisms: None Reported Past Surgical History: Heart Catheterization, Heart Catheterization With Stent, Hernia Repair, Joint Replacement, Orthopedic Surgery Additional Past Surgical History / Comment(s): loop monitor in chest. one cardiac stent, rt knee Past Anesthesia/Blood Transfusion Reactions: No Reported Reaction Date of Last Stent Placement:: 2016 Type of Cardiac Device: Loop Device Placement Date:: Apr 2016 Past Psychological History: Anxiety Smoking Status: Former smoker Past Alcohol Use History: Rare Past Drug Use History: Marijuana - Past Family History Father Family Medical History: Myocardial Infarction ([place]) Additional Family Medical History / Comment(s): of [place] Mother Family Medical History: No Reported History Brother(s) Additional Family Medical History / Comment(s): Bipolar disorder General Exam - General Exam Comments Initial Comments: GENERAL: Well-appearing, well-nourished and in no acute distress. Obese. HEAD: Atraumatic, normocephalic. EYES: Pupils equal round and reactive to light, extraocular movements intact, sclera anicteric, conjunctiva are normal. ENT: TMs normal, nares patent, oropharynx clear without exudates. Moist mucous membranes. NECK: Normal range of motion, supple without lymphadenopathy or JVD. LUNGS: Breath sounds clear to auscultation bilaterally and equal. No wheezes rales or rhonchi. HEART: Regular rate and rhythm without murmurs, rubs or gallops. ABDOMEN: Soft, nontender, normoactive bowel sounds. No guarding, no rebound. No masses appreciated. : Deferred EXTREMITIES: Pain with palpation of the entire left ankle joint. Patient has swelling and very mild erythema of the ankle joint. Patient has decreased range of motion secondary to pain. Neurovascular intact. NEUROLOGICAL: Cranial nerves II through XII grossly intact. Normal speech, normal gait. PSYCH: Normal mood, normal affect. SKIN: Warm, Dry, normal turgor, no rashes or lesions noted. Limitations: no limitations Course Vital Signs 10/08/19 20:14 Temperature 97.8 F Pulse Rate 89 Respiratory 16 Rate Blood Pressure 140/78 O2 Sat by Pulse 98 Oximetry Medical Decision Making - Medical Decision Making Patient is a 48-year-old male presenting with left ankle pain and swelling 2 days. Patient has history of gout. There is no signs of infection or trauma to the left ankle. Vital signs are normal. X-rays reveal no acute fractures dislocations. Discussed with patient this is most likely another gout flare. Patient was given Toradol injection and will continue with ibuprofen for the next 3-5 days. Patient was also given a Tylenol 3 starter pack. Patient is stable for discharge at this time and will follow up with PCP this week. Patient is in agreement this plan of care. Return parameters were discussed with the patient and he verbalized understanding. Case discussed with Dr. Lu. Disposition Clinical Impression: Left ankle pain, Left ankle swelling, Gout flare Disposition: HOME SELF-CARE Condition: Stable Instructions (If sedation given, give patient instructions): Gout (ED) Additional Instructions: Please return to the Emergency Department if symptoms worsen or any other concerns. Take 6-800 mg of ibuprofen 3 times a day for 3-5 days. Follow up with Dr. Spivey as discussed if symptoms do not improve. Is patient prescribed a controlled substance at d/c from ED?: No Referrals: Maude pSivey MD [Primary Care Provider] - 1-2 days
== END 2019-04-01 21:18 | disposition home or self-care (01) ==
LOC: EC 20:00
DX: M10.9 Gout, unspecified (principal); I48.91 Unspecified atrial fibrillation; I25.10 Atherosclerotic heart disease of native coronary artery without angina pectoris; I25.2 Old myocardial infarction; M19.90 Unspecified osteoarthritis, unspecified site; E07.9 Disorder of thyroid, unspecified; G25.81 Restless legs syndrome; G47.30 Sleep apnea, unspecified; Z87.891 Personal history of nicotine dependence; Z79.01 Long term (current) use of anticoagulants; Z79.890 Hormone replacement therapy; Z79.899 Other long term (current) drug therapy; Z86.73 Personal history of transient ischemic attack (TIA), and cerebral infarction without residual deficits; Z95.5 Presence of coronary angioplasty implant and graft; Z96.651 Presence of right artificial knee joint; Z99.89 Dependence on other enabling machines and devices
CPT/HCPCS: 73610; 99283; 96372; J1885

== ENCOUNTER 2019-04-20 14:05 | Observation (INO) | payer OTHER ==
[2019-04-20] MEDS ORDERED: HYDROmorphone 1 MG/ML 1 ML SYRINGE IVP STA ×2 (15:05→16:56)
--- NOTE | 2019-04-20 15:12 | ED ---
General Adult HPI - General Source: patient, RN notes reviewed Mode of arrival: ambulatory Limitations: no limitations <Emery Avina - Last Filed: 04/20/19 16:50> <Chente Hwang - Last Filed: 04/20/19 18:29> - General Chief complaint: Extremity Problem,Nontraumatic Stated complaint: Left Arm Pain and Swelling Time Seen by Provider: 04/20/19 14:54 - History of Present Illness Initial comments: Patient is a pleasant 48-year-old male presenting to the emergency department with left forearm discomfort. Onset of symptoms was yesterday. Symptoms have progressively worsened since that time. Patient states symptoms started mostly in the elbow and continue to the hand. Discomfort is greatly increased with movement. Patient denies any trauma. No history of similar symptoms previously. Patient has not noticed any rash. No fevers. Patient denies IVDA. Patient denies any discomfort of the upper arm or shoulder. No chest pain. No dyspnea. (Emery Avina) - Related Data Home Medications Medication Instructions Recorded Confirmed Apixaban [Eliquis] 5 mg PO BID 05/07/18 04/20/19 Chlorthalidone 25 mg PO DAILY 09/09/18 04/20/19 Metoprolol Tartrate [Lopressor] 25 mg PO DAILY 09/09/18 04/20/19 rOPINIRole HCL [Requip] 0.5 mg PO HS 09/09/18 04/20/19 Levothyroxine Sodium [Synthroid] 200 mcg PO DAILY 10/11/18 04/20/19 Levothyroxine Sodium [Synthroid] 50 mcg PO DAILY 12/09/18 04/20/19 Atorvastatin [Lipitor] 40 mg PO HS 04/20/19 04/20/19 Furosemide [Lasix] 20 mg PO DAILY 04/20/19 04/20/19 HYDROcodone/APAP 5-325MG [[place] 1 tab PO DAILY PRN 04/20/19 04/20/19 5-325] Previous Rx's Medication Instructions Recorded Ibuprofen [Motrin] 600 mg PO Q6HR PRN #40 day 07/30/18 Allergies Allergy/AdvReac Type Severity Reaction Status Date / Time No Known Allergies Allergy Verified 04/20/19 17:59 Review of Systems ROS Other: All systems not noted in ROS Statement are negative. Constitutional: Denies: fever ENT: Denies: ear pain Respiratory: Denies: cough Cardiovascular: Denies: chest pain Endocrine: Denies: fatigue Gastrointestinal: Denies: abdominal pain Genitourinary: Denies: dysuria Musculoskeletal: Reports: as per HPI. Denies: back pain Skin: Denies: rash Psychiatric: Denies: anxiety <Emery Avina - Last Filed: 04/20/19 16:50> ROS Other: All systems not noted in ROS Statement are negative. <Chente Hwang - Last Filed: 04/20/19 18:29> ROS Statement: Those systems with pertinent positive or pertinent negative responses have been documented in the HPI. Past Medical History Past Medical History: Atrial Fibrillation, Coronary Artery Disease (CAD), CVA/TIA, Memory Impairment, Myocardial Infarction ([place]), Osteoarthritis (OA), Sle ep Apnea/CPAP/BIPAP, Thyroid Disorder Additional Past Medical History / Comment(s): denies hx hypertension, restless leg syndrome, "TIA (x 5) last Apr 2016", memory loss and numbness left fingers left hand and occ lt arm weakness, gout, wears CPAP at home Last Myocardial Infarction Date:: unk History of Any Multi-Drug Resistant Organisms: None Reported Past Surgical History: Heart Catheterization, Heart Catheterization With Stent, Hernia Repair, Joint Replacement, Orthopedic Surgery Additional Past Surgical History / Comment(s): loop monitor in chest. one cardiac stent, rt knee Past Anesthesia/Blood Transfusion Reactions: No Reported Reaction Date of Last Stent Placement:: 2016 Type of Cardiac Device: Loop Device Placement Date:: Apr 2016 Past Psychological History: Anxiety Smoking Status: Former smoker Past Alcohol Use History: Rare Past Drug Use History: None Reported - Past Family History Father Family Medical History: Myocardial Infarction ([place]) Additional Family Medical History / Comment(s): of [place] Mother Family Medical History: No Reported History Brother(s) Additional Family Medical History / Comment(s): Bipolar disorder <Emery Avina - Last Filed: 04/20/19 16:50> General Exam Limitations: no limitations General appearance: alert, in no apparent distress Head exam: Present: normocephalic Eye exam: Present: normal appearance, PERRL ENT exam: Present: normal oropharynx Neck exam: Present: normal inspection Respiratory exam: Present: normal lung sounds bilaterally. Absent: chest wall tenderness Cardiovascular Exam: Present: regular rate, normal rhythm Expanded Peripheral pulses: 2+: Radial (L) GI/Abdominal exam: Present: soft. Absent: tenderness Extremities exam: Present: other (Patient with mild to moderate swelling left elbow to distal hand with moderate tenderness to palpation. Discomfort is increased with active and passive range of motion. Distally the extremity is neurovascular intact. Strength intact however patient does have discomfort with physical therapist aide. Cap refill less than 2 seconds. Sensation intact. Swelling is not tense. There is no pallor. There is no paralysis. There is no pulselessness.) Neurological exam: Present: alert Psychiatric exam: Present: normal affect, normal mood Skin exam: Present: other (There may be a trace amount of erythema of the left forearm) <Emery Avina - Last Filed: 04/20/19 16:50> General appearance: alert, in no apparent distress Head exam: Present: atraumatic, normocephalic, normal inspection Eye exam: Present: normal appearance, PERRL, EOMI. Absent: scleral icterus, conjunctival injection, periorbital swelling ENT exam: Present: normal exam, mucous membranes moist Neck exam: Present: normal inspection. Absent: tenderness, meningismus, lymphadenopathy Respiratory exam: Present: normal lung sounds bilaterally. Absent: respiratory distress, wheezes, rales, rhonchi, stridor Cardiovascular Exam: Present: regular rate, normal rhythm, normal heart sounds. Absent: systolic murmur, diastolic murmur, rubs, gallop, clicks GI/Abdominal exam: Present: soft, normal bowel sounds. Absent: distended, tenderness, guarding, rebound, rigid Extremities exam: Present: normal inspection, full ROM, normal capillary refill. Absent: tenderness, pedal edema, joint swelling, calf tenderness Left General: Present: other (Edematous left upper extremity mainly the posterior aspect of the left hand) Hand Wrist exam: Present: tenderness, swelling. Absent: full ROM (Decreased secondary to pain) Vascular: Present: normal capillary refill, radial pulse, ulnar pulse. Absent: Pallo, pulse deficit radial art, pulse deficit ulnar art Back exam: Present: normal inspection Neurological exam: Present: alert, oriented X3, CN II-XII intact Psychiatric exam: Present: normal affect, normal mood Skin exam: Present: warm, dry, intact, normal color. Absent: rash <Chente Hwang - Last Filed: 04/20/19 18:29> Course <Emery Avina - Last Filed: 04/20/19 16:50> <Chente Hwang - Last Filed: 04/20/19 18:29> Vital Signs 04/20/19 04/20/19 14:34 16:52 Temperature 98.2 F Pulse Rate 62 60 Respiratory 16 16 Rate Blood Pressure 140/87 113/81 O2 Sat by Pulse 97 95 Oximetry - Reevaluation(s) Reevaluation #1: 04/20/19 16:00 Case was discussed with Dr. Dutton, who will admit. Case also discussed with Dr. Hartman who did come evaluate the patient. He does request adding computed tomography scan of the left arm. 04/20/19 16:[address] Hwang pending results. (Emery Avina) Reevaluation #2: 04/20/19 18:28 Patient seen and evaluated here in the ER by orthopedics (Chente Hwang) - Consultations Consultation #1: Spoke with Dr. Stone admission (Chente Hwang) EKG Findings - EKG Comments: EKG Findings:: Sinus bradycardia 53. AK 188. QRS 86. QT 400. QTc 375. Normal axis. Low QRS voltage. No acute ST change. <Emery Avina - Last Filed: 04/20/19 16:50> Medical Decision Making - Lab Data Result diagrams: 04/20/19 15:16 04/20/19 15:16 <Emery Avina - Last Filed: 04/20/19 16:50> - Lab Data Result diagrams: 04/20/19 15:16 04/20/19 15:16 - Radiology Data Radiology results: report reviewed (US LUE Negative for DVT CT Left Upper Extremity Negative for Acute Disease), image reviewed <Chente Hwang - Last Filed: 04/20/19 18:29> - Medical Decision Making 48 male the ER for evaluation of left upper extremity pain. Left hand swelling. Arm is swollen and tender, patient be admitted for continued orthopedic monitor. Inflammatory markers are elevated we'll start on antibiotics (Chente Hwang) - Lab Data Lab Results 10/27/19 10/27/19 10/27/19 Range/Units 15:16 15:16 15:16 WBC 7.4 (3.8-10.6) k/uL RBC 4.73 (4.30-5.90) m/uL Hgb 13.8 (13.0-17.5) gm/dL Hct 40.8 (39.0-53.0) % MCV 86.2 (80.0-100.0) fL MCH 29.1 (25.0-35.0) pg MCHC 33.8 (31.0-37.0) g/dL RDW 14.3 (11.5-15.5) % Plt Count 202 (150-450) k/uL Neutrophils % 65 % Lymphocytes % 23 % Monocytes % 6 % Eosinophils % 3 % Basophils % 0 % Neutrophils # 4.8 (1.3-7.7) k/uL Lymphocytes # 1.7 (1.0-4.8) k/uL Monocytes # 0.5 (0-1.0) k/uL Eosinophils # 0.2 (0-0.7) k/uL Basophils # 0.0 (0-0.2) k/uL ESR 68 H (0-15) mm/hr PT (9.0-12.0) sec INR (<1.2) APTT (22.0-30.0) sec Sodium 137 (137-145) mmol/L Potassium 4.2 (3.5-5.1) mmol/L Chloride 101 (98-107) mmol/L Carbon Dioxide 27 (22-30) mmol/L Anion Gap 9 mmol/L BUN 12 (9-20) mg/dL Creatinine 0.69 (0.66-1.25) mg/dL Est GFR (CKD-EPI)AfAm >90 (>60 ml/min/1.73 sqM) Est GFR (CKD-EPI)NonAf >90 (>60 ml/min/1.73 sqM) Glucose 217 H (74-99) mg/dL Plasma Lactic Acid Carlos 1.1 (0.7-2.0) mmol/L Calcium 9.2 (8.4-10.2) mg/dL Total Bilirubin 0.6 (0.2-1.3) mg/dL AST 29 (17-59) U/L ALT 36 (21-72) U/L Alkaline Phosphatase 112 (38-126) U/L Creatine Kinase 306 H (55-170) U/L C-Reactive Protein 73.7 H (<10.0) mg/L Total Protein 7.6 (6.3-8.2) g/dL Albumin 4.1 (3.5-5.0) g/dL 04/20/19 Range/Units 15:16 WBC (3.8-10.6) k/uL RBC (4.30-5.90) m/uL Hgb (13.0-17.5) gm/dL Hct (39.0-53.0) % MCV (80.0-100.0) fL MCH (25.0-35.0) pg MCHC (31.0-37.0) g/dL RDW (11.5-15.5) % Plt Count (150-450) k/uL Neutrophils % % Lymphocytes % % Monocytes % % Eosinophils % % Basophils % % Neutrophils # (1.3-7.7) k/uL Lymphocytes # (1.0-4.8) k/uL Monocytes # (0-1.0) k/uL Eosinophils # (0-0.7) k/uL Basophils # (0-0.2) k/uL ESR (0-15) mm/hr PT 9.7 (9.0-12.0) sec INR 0.9 (<1.2) APTT 25.2 (22.0-30.0) sec Sodium (137-145) mmol/L Potassium (3.5-5.1) mmol/L Chloride (98-107) mmol/L Carbon Dioxide (22-30) mmol/L Anion Gap mmol/L BUN (9-20) mg/dL Creatinine (0.66-1.25) mg/dL Est GFR (CKD-EPI)AfAm (>60 ml/min/1.73 sqM) Est GFR (CKD-EPI)NonAf (>60 ml/min/1.73 sqM) Glucose (74-99) mg/dL Plasma Lactic Acid Carlos (0.7-2.0) mmol/L Calcium (8.4-10.2) mg/dL Total Bilirubin (0.2-1.3) mg/dL AST (17-59) U/L ALT (21-72) U/L Alkaline Phosphatase (38-126) U/L Creatine Kinase (55-170) U/L C-Reactive Protein (<10.0) mg/L Total Protein (6.3-8.2) g/dL Albumin (3.5-5.0) g/dL Disposition <Emery Avina - Last Filed: 04/20/19 16:50> Is patient prescribed a controlled substance at d/c from ED?: No <Chente Hwang - Last Filed: 04/20/19 18:29> Clinical Impression: Cellulitis of left forearm, Left forearm pain Disposition: ADMITTED IP TO THIS HOSP Condition: Good Referrals: Maude Spivey MD [Primary Care Provider] - 1-2 days
[2019-04-20 15:33] LABS: Basophils % (A) 0 %; Eosinophils # (A) 0.2 k/uL (0-0.7); Eosinophils % (A) 3 %; HCT 40.8 % (39.0-53.0); HGB 13.8 gm/dL (13.0-17.5); Lymphocytes # (A) 1.7 k/uL (1.0-4.8); Lymphocytes % (A) 23 %; MCH 29.1 pg (25.0-35.0); MCHC 33.8 g/dL (31.0-37.0); MCV 86.2 fL (80.0-100.0); Mean Platelet Volume 6.5; Monocytes # (A) 0.5 k/uL (0-1.0); Monocytes % (A) 6 %; Neutrophils # (A) 4.8 k/uL (1.3-7.7); Neutrophils % (A) 65 %; Platelet Count 202 k/uL (150-450); RBC 4.73 m/uL (4.30-5.90); RDW 14.3 % (11.5-15.5); WBC 7.4 k/uL (3.8-10.6)
[2019-04-20 15:42] LABS: INR 0.9 (<1.2); Partial Thromboplastin Time 25.2 sec (22.0-30.0); Prothrombin Time 9.7 sec (9.0-12.0)
[2019-04-20 15:52] LABS: ALT 36 U/L (21-72); AST 29 U/L (17-59); African American GFR (CKD) >90 (>60 ml/min/1.73 sqM); Albumin 4.1 g/dL (3.5-5.0); Alkaline Phosphatase 112 U/L (38-126); Anion Gap 9 mmol/L; Blood Urea Nitrogen 12 mg/dL (9-20); C Reactive Protein 73.7 mg/L (<10.0); Calcium 9.2 mg/dL (8.4-10.2); Carbon Dioxide 27 mmol/L (22-30); Chloride 101 mmol/L (98-107); Creatine Kinase 306 U/L (55-170); Glucose 217 mg/dL (74-99); Non-African American GFR(CKD) >90 (>60 ml/min/1.73 sqM); Potassium 4.2 mmol/L (3.5-5.1); Sodium 137 mmol/L (137-145); Total Bilirubin 0.6 mg/dL (0.2-1.3); Total Protein 7.6 g/dL (6.3-8.2)
[2019-04-20] MEDS ORDERED: RX INFO: IV CONTRAST WAS GIVEN 1 EACH MISC MISCELLANE PRN (16:00)
[2019-04-20 16:15] LABS: Erythrocyte Sedimentation Rate 68 mm/hr (0-15)
--- NOTE | 2019-04-20 16:16 | US ---
EXAMINATION TYPE: US venous doppler duplex UE LT DATE OF EXAM: 04/20/2019 COMPARISON: US 2016 CLINICAL HISTORY: pain and swelling. Left arm pain and swelling, patient on blood thinners SIDE PERFORMED: Left Left Arm: Appears negative for DVT IMPRESSION: There is no evidence of deep venous thrombosis in the left arm.
--- NOTE | 2019-04-20 16:26 | P.CNOR ---
History of Present Illness - [facility] Consult date: 04/20/19 History of present illness: The patient is a [id number] 48-year-old male with a medical history significant for atrial fibrillation currently on eliquis presenting to the ER with 3 days of increasing pain in the left forearm and hand. Dr. Avina, the treating ER physician, asked that I evaluate the patient while he is in the ER. At the time of my evaluation the patient is complaining of pain in the left forearm and hand. He says the pain is worse with any types of movement. He denies fevers, chills, or feelings of generalized malaise. He denies any trauma to the hand or arm. He denies any neck pain. He states it hurts when he moves his fingers. Past Medical History Past Medical History: Atrial Fibrillation, Coronary Artery Disease (CAD), CVA/TIA, Memory Impairment, Myocardial Infarction ([place]), Osteoarthritis (OA), Sleep Apnea/CPAP/BIPAP, Thyroid Disorder Additional Past Medical History / Comment(s): denies hx hypertension, restless leg syndrome, "TIA (x 5) last Apr 2016", memory loss and numbness left fingers left hand and occ lt arm weakness, gout, wears CPAP at home Last Myocardial Infarction Date:: unk History of Any Multi-Drug Resistant Organisms: None Reported Past Surgical History: Heart Catheterization, Heart Catheterization With Stent, Hernia Repair, Joint Replacement, Orthopedic Surgery Additional Past Surgical History / Comment(s): loop monitor in chest. one cardiac stent, rt knee Past Anesthesia/Blood Transfusion Reactions: No Reported Reaction Date of Last Stent Placement:: 2016 Type of Cardiac Device: Loop Device Placement Date:: Apr 2016 Past Psychological History: Anxiety Smoking Status: Former smoker Past Alcohol Use History: Rare Past Drug Use History: None Reported - Past Family History Father Family Medical History: Myocardial Infarction ([place]) Additional Family Medical History / Comment(s): of [place] Mother Family Medical History: No Reported History Brother(s) Additional Family Medical History / Comment(s): Bipolar disorder Medications and Allergies Home Medications Medication Instructions Recorded Confirmed Type Apixaban [Eliquis] 5 mg PO BID 05/07/18 12/09/18 History Ibuprofen [Motrin] 600 mg PO Q6HR PRN #40 day 07/30/18 12/09/18 Rx Chlorthalidone 25 mg PO DAILY 09/09/18 12/09/18 History Metoprolol Tartrate [Lopressor] 25 mg PO DAILY 09/09/18 12/09/18 History rOPINIRole HCL [Requip] 0.5 mg PO HS 09/09/18 12/09/18 History Levothyroxine Sodium [Synthroid] 200 mcg PO DAILY 10/11/18 12/09/18 History HYDROcodone/APAP 7.5-325MG [[place] 1 tab PO Q6HR PRN 12/09/18 12/09/18 History 7.5] Levothyroxine Sodium [Synthroid] 50 mcg PO DAILY 12/09/18 12/09/18 History Allergies Allergy/AdvReac Type Severity Reaction Status Date / Time No Known Allergies Allergy Verified 04/01/19 20:14 Physical Examination The patient is in moderate distress secondary to pain. A focused examination of the left upper extremity was conducted. On inspection of the left forearm there is mild erythema and warmth over the volar aspect of the distal forearm extending into the hand. There is mild swelling but no open wounds. There is no palpable fluctuance or subcutaneous crepitance. There is minor discomfort with passive range of motion of the fingers. The arm and forearm are soft. Results - Labs Labs: Abnormal Lab Results - Last 24 Hours (Table) 04/20/19 04/20/19 Range/Units 15:16 15:16 ESR 68 H (0-15) mm/hr Glucose 217 H (74-99) mg/dL Creatine Kinase 306 H (55-170) U/L C-Reactive Protein 73.7 H (<10.0) mg/L H & H 04/20/19 Range/Units 15:16 Hgb 13.8 (13.0-17.5) gm/dL Hct 40.8 (39.0-53.0) % Coagulation 04/20/19 Range/Units 15:16 INR 0.9 (<1.2) Result Diagrams: 04/20/19 15:16 04/20/19 15:16 Assessment and Plan Plan: I was asked to evaluate the patient for his left forearm and hand pain. I do not think that the patient has acute compartment syndrome requiring emergent fasciotomies. I'm not sure the exact etiology of the underlying pain and swelling but I recommended further workup to exclude deep space infection. I recommended a computed tomography scan with and without contrast as well as an ESR level, CRP, and uric acid. I also suggested admitting the patient to internal medicine for a trial of antibiotics, splint and close observation. I see no acute surgical indication at this time, but we will continue to closely follow the patient and the results of the further workup. Time with Patient: Greater than 30
[2019-04-20] MEDS ORDERED: KETOROLAC 30 MG/ML 1 ML VIAL IVP PRN (16:55)
--- NOTE | 2019-04-20 17:05 | P.HPIM ---
History of Present Illness 48-year-old pleasant gentleman with history of atrial fibrillation coronary artery disease previous stents came in with complaints of pain in the left forearm going on for about 4 days with swelling which she noticed about couple days ago. Patient denied any fever chills patient denied using any IV drug use drugs patient denied any recent trauma patient cannot attribute his symptoms to any significant event that affected his left forearm. Patient had a Doppler of the left upper extremity which did not show any DVT. Patient was evaluated by orthopedic surgery as well. CAT scan of the left upper arm is still pending patient was started on Toradol we'll obtain a CRP and ESR and CPK will be obtained. Clinically there is no evidence of compartment syndrome patient is significantly swollen left hand along with the left forearm which is swollen a bit with some tenderness no significant redness in that area Review of Systems REVIEW OF SYSTEMS: CONSTITUTIONAL: No fever, no malaise, no fatigue. HEENT: No recent visual problems or hearing problems. Denied any sore throat. CARDIOVASCULAR: No chest pain, orthopnea, PND, no palpitations, no syncope. PULMONARY: No shortness of breath, no cough, no hemoptysis. GASTROINTESTINAL: No diarrhea, no nausea, no vomiting, no abdominal pain. NEUROLOGICAL: No headaches, no weakness, no numbness. HEMATOLOGICAL: Denies any bleeding or petechiae. GENITOURINARY: Denies any burning micturition, frequency, or urgency. MUSCULOSKELETAL/RHEUMATOLOGICAL: As mentioned in HPI ENDOCRINE: Denies any polyuria or polydipsia. The rest of the 14-point review of systems is negative. Past Medical History Past Medical History: Atrial Fibrillation, Coronary Artery Disease (CAD), CVA/TIA, Memory Impairment, Myocardial Infarction ([place]), Osteoarthritis (OA), Sleep Apnea/CPAP/BIPAP, Thyroid Disorder Additional Past Medical History / Comment(s): denies hx hypertension, restless leg syndrome, "TIA (x 5) last Apr 2016", memory loss and numbness left fingers left hand and occ lt arm weakness, gout, wears CPAP at home Last Myocardial Infarction Date:: unk History of Any Multi-Drug Resistant Organisms: None Reported Past Surgical History: Heart Catheterization, Heart Catheterization With Stent, Hernia Repair, Joint Replacement, Orthopedic Surgery Additional Past Surgical History / Comment(s): loop monitor in chest. one cardiac stent, rt knee Past Anesthesia/Blood Transfusion Reactions: No Reported Reaction Date of Last Stent Placement:: 2016 Type of Cardiac Device: Loop Device Placement Date:: Apr 2016 Past Psychological History: Anxiety Smoking Status: Former smoker Past Alcohol Use History: Rare Past Drug Use History: None Reported - Past Family History Father Family Medical History: Myocardial Infarction ([place]) Additional Family Medical History / Comment(s): of [place] Mother Family Medical History: No Reported History Brother(s) Additional Family Medical History / Comment(s): Bipolar disorder Medications and Allergies Home Medications Medication Instructions Recorded Confirmed Type Apixaban [Eliquis] 5 mg PO BID 05/07/18 12/09/18 History Ibuprofen [Motrin] 600 mg PO Q6HR PRN #40 day 07/30/18 12/09/18 Rx Chlorthalidone 25 mg PO DAILY 09/09/18 12/09/18 History Metoprolol Tartrate [Lopressor] 25 mg PO DAILY 09/09/18 12/09/18 History rOPINIRole HCL [Requip] 0.5 mg PO HS 09/09/18 12/09/18 History Levothyroxine Sodium [Synthroid] 200 mcg PO DAILY 10/11/18 12/09/18 History HYDROcodone/APAP 7.5-325MG [[place] 1 tab PO Q6HR PRN 12/09/18 12/09/18 History 7.5] Levothyroxine Sodium [Synthroid] 50 mcg PO DAILY 12/09/18 12/09/18 History Allergies Allergy/AdvReac Type Severity Reaction Status Date / Time No Known Allergies Allergy Verified 04/01/19 20:14 Physical Exam Vitals: Vital Signs Temp Pulse Resp BP Pulse Ox 04/20/19 16:52 60 16 113/81 95 04/20/19 14:34 98.2 F 62 16 140/87 97 Intake and Output 04/20/19 04/20/19 04/20/19 06:59 14:59 22:59 Other: Weight 158.304 kg PHYSICAL EXAMINATION: GENERAL: The patient is alert and oriented x3, not in any acute distress. Obese HEENT: Pupils are round and equally reacting to light. EOMI. No scleral icterus. No conjunctival pallor. Normocephalic, atraumatic. No pharyngeal erythema. No thyromegaly. CARDIOVASCULAR: S1 and S2 present. No murmurs, rubs, or gallops. PULMONARY: Chest is clear to auscultation, no wheezing or crackles. ABDOMEN: Soft, nontender, nondistended, normoactive bowel sounds. No palpable organomegaly. MUSCULOSKELETAL: No joint swelling or deformity. Patient has a swelling in the left forearm and hand with no localized of temperature with some tenderness. EXTREMITIES: No cyanosis, clubbing, or pedal edema. NEUROLOGICAL: Gross neurological examination did not reveal any focal deficits. SKIN: No rashes. Results CBC & Chem 7: 04/20/19 15:16 04/20/19 15:16 Labs: Abnormal Lab Results - Last 24 Hours (Table) 04/20/19 04/20/19 Range/Units 15:16 15:16 ESR 68 H (0-15) mm/hr Glucose 217 H (74-99) mg/dL Creatine Kinase 306 H (55-170) U/L C-Reactive Protein 73.7 H (<10.0) mg/L Assessment and Plan Plan: - left forearm and hand swelling: Etiology is not clear patient doesn't have any DVT patient is on Eliquis will look for any hematoma CAT scan of the left upper extremity is pending. We'll obtain ESR CRP and CPK levels. Patient will be started on on nonsteroidal anti-inflammatory medications for pain and swelling along with GI prophylaxis -Atrial fibrillation presently rate controlled patient will be continued on Eliquis and metoprolol -Conetta disease with stents in 2017 -CVA TIA in the past -ST sleep apnea continue CPAP machine -Hypothyroidism
--- NOTE | 2019-04-20 17:12 | CT ---
EXAMINATION TYPE: CT upper extremity LT w con DATE OF EXAM: 04/20/2019 COMPARISON: HISTORY: Left forearm swelling and pain. CT DLP: 163.5 mGycm Automated exposure control for dose reduction was used. CONTRAST: Performed with IV Contrast, patient injected with 100 mL of Isovue 300. FINDINGS: Multiple axial sections were obtained from the distal humerus to the tip of the fingers with intraven ous contrast. There is normal contrast opacification of the palmar arch. THERE IS NORMAL CONTRAST OPACIFICATION OF THE BRACHIAL AND RADIAL AND ULNAR ARTERIES. THE RADIUS AND ULNA APPEAR INTACT. CARPAL BONES ARE INTACT. BONES OF THE HAND APPEAR INTACT. ELBOW JOINT APPEARS INTACT. THERE IS NO EVIDENCE OF A SOFT TISSUE MASS OF THE FOREARM. THERE IS MILD SUBCUTANEOUS EDEMA OF THE HAND. THIS IS SEEN ANTERIORLY AND POSTERIORLY. IMPRESSION: Subcutaneous edema of the hand. No evidence of a soft tissue mass. No fracture. No sign of osteomyeli tis. No vascular abnormality.
--- NOTE | 2019-04-20 17:15 | US ---
EXAMINATION TYPE: US extremity nonvasc complt LT DATE OF EXAM: 04/20/2019 COMPARISON: NONE CLINICAL HISTORY: Forearm swelling, evaluate for hematoma. Left forearm pain and swelling Left forearm area of swelling: no mass, fluid collection or other abnormality seen at this time IMPRESSION: No discrete mass identified in the left forearm in the area of concern.
[2019-04-20] MEDS ORDERED: SODIUM CHLORIDE 0.9% 1,000 ML IV ONE (18:26)
[2019-04-20] MEDS ORDERED: VANCOMYCIN IV PER PHARMACY 1 EACH MISC MISCELLANE PRN (18:30)
[2019-04-20] MEDS ORDERED: DEXAMETHASONE SOD PHOSPHATE 4 MG/ML 1 ML VIAL IV PRN (19:09)
[2019-04-20] MEDS ORDERED: DEXAMETHASONE SOD PHOSPHATE 10 MG/ML 1 ML VIAL IV STA (19:09)
[2019-04-20] MEDS: VANCOMYCIN 2,500 MG in SODIUM CHLORIDE 0.9% 500 ML 500 ML IVPB SCH (20:59)
[2019-04-20] MEDS: FAMOTIDINE 20 MG TAB PO SCH (21:03)
[2019-04-20] MEDS: APIXABAN 5 MG TAB PO SCH (21:03)
[2019-04-21] MEDS: HYDROcodone/APAP 7.5-325MG 1 EACH TAB PO PRN ×2 (00:34→08:27)
[2019-04-21 02:08] VITALS: RESP 16
[2019-04-21] MEDS: VANCOMYCIN 2,500 MG in SODIUM CHLORIDE 0.9% 500 ML 500 ML IVPB SCH (06:19)
[2019-04-21] MEDS ORDERED: LEVOTHYROXINE 50 MCG TAB PO SCH (06:30)
[2019-04-21 07:30] VITALS: BP 115/72; PULSE 43; TEMP 97.8
[2019-04-21] MEDS: FAMOTIDINE 20 MG TAB PO SCH (08:27)
[2019-04-21] MEDS: APIXABAN 5 MG TAB PO SCH (08:27)
--- NOTE | 2019-04-21 08:49 | P.PN ---
Subjective Progress Note Date: 04/21/19 This patient is a 48-year-old male with past medical history of atrial fibrillation currently on Eliquis with previous stent placement that presented to [facility] ER on 04/20/19 with complaints of increasing left forearm and hand pain. He states there was no trauma to the area. There is no signi ficant event that affected his left forearm or hand prior to symptoms appearing. He was evaluated by Dr. Hartman yesterday in the ER. Computed tomography scan was ordered, as well as an ESR, CRP, and uric acid level. He states his symptoms have drastically improved on IV antibiotics. He states the swelling and erythema has improved. He states movement of the wrist and elbow mildly painful, although this has drastically improved overnight. He states he otherwise feels well. He denies chest pain, shortness breath, nausea, vomiting, fevers, chills. He denies feelings of generalized malaise. He tolerated his breakfast well. Vital signs stable. Objective - Vital Signs Vital signs: Vital Signs Temp 97.8 F 04/21/19 07:14 Pulse 43 L 04/21/19 07:14 Resp 16 04/21/19 07:14 BP 115/72 04/21/19 07:14 Pulse Ox 96 04/21/19 07:14 Intake & Output 04/20/19 04/21/19 04/21/19 18:59 06:59 18:59 Intake Total 20 540 Balance 20 540 Weight 158.304 kg Intake: Oral 20 540 Other: Voiding Method Toilet - Exam On examination, the patient is sitting up in bed in no apparent distress. He is alert and oriented 3. On inspection of the left upper extremity, there is minimal erythema of the distal forearm and hand. There is mild swelling of the hand. No open wounds or lacerations. There is no palpable fluctuance or subcutaneous crepitance. There is minimal discomfort with passive range of motion of the fingers, wrist, elbow. Radial pulse palpable, brisk capillary refill of fingers. Sensation is intact to light to the hand and forearm. Motor functions intact. - Labs CBC & Chem 7: 04/20/19 15:16 04/20/19 15:16 Labs: Abnormal Lab Results - Last 24 Hours (Table) 04/20/19 04/20/19 Range/Units 15:16 15:16 ESR 68 H (0-15) mm/hr Glucose 217 H (74-99) mg/dL Creatine Kinase 306 H (55-170) U/L C-Reactive Protein 73.7 H (<10.0) mg/L - Imaging and Cardiology Computed tomography scan left upper extremity with contrast 04/20/19: Subcutaneous edema of the hand. No evidence of soft tissue mass. No fracture. No sign of osteomyelitis. No vascular abnormality. Assessment and Plan Assessment: Cellulitis, left upper extremity. Plan: - Clinical and computed tomography scan findings were discussed with patient. There is no surgical intervention planned at this time. - Continue IV antibiotics and medical management per admitting team. - We will continue to follow the patient closely while he remains inpatient, and make recommendations as needed. Patient discussed with Dr. Hartman.
[2019-04-21] MEDS ORDERED: METOPROLOL TARTRATE 25 MG TAB PO SCH (09:00)
--- NOTE | 2019-04-21 16:48 | P.DS ---
Providers Date of admission: 04/20/19 18:26 Attending physician: Eliu Stone Consults: 04/20/19 18:26 Consult Physician Routine Consulting Provider: Dmitriy Hartman Consult Reason/Comments: arm pain Do you want consulting provider notified?: Yes Primary care physician: Allyssa Smith [facility] Course: 48-year-old pleasant gentleman with history of atrial fibrillation coronary artery disease previous stents came in with complaints of pain in the left forearm going on for about 4 days with swelling which she noticed about couple days ago. Patient denied any fever chills patient denied using any IV drug use drugs patient denied any recent trauma patient cannot attribute his symptoms to any significant event that affected his left forearm. Patient had a Doppler of the left upper extremity which did not show any DVT. Patient was evaluated by orthopedic surgery as well. CAT scan of the left upper arm is still pending patient was started on Toradol we'll obtain a CRP and ESR and CPK will be obtained. Clinically there is no evidence of compartment syndrome patient is significantly swollen left hand along with the left forearm which is swollen a bit with some tenderness no significant redness in that area. 04/21/2019 -Patient swelling in the left arm and hand improved there is no clear evidence of infection and do not believe patient will require antibiotics but as per the request of the patient patient will be started on antibiotics patient CRP and ESR elevated but these are nonspecific test CAT scan of the left upper limb did not reveal any significant abnormality except for soft tissue edema. CPK is only minimally elevated and there is no evidence of myositis and CAT scan either. Patient will be discharged on Decadron patient already has ibuprofen patient was asked to use GI prophylaxis and patient will be given a prescription for Keflex and patient will be discharged today pain and swelling did improve PHYSICAL EXAMINATION: GENERAL: The patient is alert and oriented x3, not in any acute distress. Obese HEENT: Pupils are round and equally reacting to light. EOMI. No scleral icterus. No conjunctival pallor. Normocephalic, atraumatic. No pharyngeal erythema. No thyromegaly. CARDIOVASCULAR: S1 and S2 present. No murmurs, rubs, or gallops. PULMONARY: Chest is clear to auscultation, no wheezing or crackles. ABDOMEN: Soft, nontender, nondistended, normoactive bowel sounds. No palpable organomegaly. MUSCULOSKELETAL: No joint swelling or deformity. Patient has a swelling in the left forearm and hand with no localized of temperature with some tenderness. Swelling did improve and pain did improve EXTREMITIES: No cyanosis, clubbing, or pedal edema. NEUROLOGICAL: Gross neurological examination did not reveal any focal deficits. SKIN: No rashes. Assessment and Plan Plan: - left forearm and hand swelling: Etiology is not clear patient doesn't have any DVT urology of his left arm swelling is unknown at this time -Atrial fibrillation presently rate controlled patient will be continued on Eliquis and metoprolol -Conetta disease with stents in 2017 -CVA TIA in the past - sleep apnea continue CPAP machine -Hypothyroidism Patient Condition at Discharge: Good Plan - Discharge Summary New Discharge Prescriptions: New Cephalexin [Keflex] 500 mg PO Q8HR #15 cap Dexamethasone [Decadron] 4 mg PO AC-TID #20 tablet Discontinued Chlorthalidone 25 mg PO DAILY No Action Apixaban [Eliquis] 5 mg PO BID Ibuprofen [Motrin] 600 mg PO Q6HR PRN #40 day PRN Reason: Pain Metoprolol Tartrate [Lopressor] 25 mg PO DAILY rOPINIRole HCL [Requip] 0.5 mg PO HS Levothyroxine Sodium [Synthroid] 200 mcg PO DAILY Levothyroxine Sodium [Synthroid] 50 mcg PO DAILY HYDROcodone/APAP 5-325MG [[place] 5-325] 1 tab PO DAILY PRN PRN Reason: Pain Furosemide [Lasix] 20 mg PO DAILY Atorvastatin [Lipitor] 40 mg PO HS Discharge Medication List Apixaban [Eliquis] 5 mg PO BID 05/07/18 [History] Ibuprofen [Motrin] 600 mg PO Q6HR PRN #40 day 07/30/18 [Rx] Metoprolol Tartrate [Lopressor] 25 mg PO DAILY 09/09/18 [History] rOPINIRole HCL [Requip] 0.5 mg PO HS 09/09/18 [History] Levothyroxine Sodium [Synthroid] 200 mcg PO DAILY 10/11/18 [History] Levothyroxine Sodium [Synthroid] 50 mcg PO DAILY 12/09/18 [History] Atorvastatin [Lipitor] 40 mg PO HS 04/20/19 [History] Furosemide [Lasix] 20 mg PO DAILY 04/20/19 [History] HYDROcodone/APAP 5-325MG [[place] 5-325] 1 tab PO DAILY PRN 04/20/19 [History] Cephalexin [Keflex] 500 mg PO Q8HR #15 cap 04/21/19 [Rx] Dexamethasone [Decadron] 4 mg PO AC-TID #20 tablet 04/21/19 [Rx] Follow up Appointment(s)/Referral(s): Maude Spivey MD [Primary Care Provider] - 04/25/19 1:10 pm Dmitriy Hartman MD [Medical Doctor] - As Needed Patient Instructions/Handouts: Cellulitis (DC) Discharge Disposition: HOME SELF-CARE
== END 2019-04-21 15:51 | disposition home or self-care (01) ==
LOC: EC 14:05 → 4SSUR 18:26
PROVIDERS: ADMIT Hospitalist; ATTEND Hospitalist
DX: M79.632 Pain in left forearm (principal); M79.642 Pain in left hand; R22.32 Localized swelling, mass and lump, left upper limb; R70.0 Elevated erythrocyte sedimentation rate; R79.82 Elevated C-reactive protein (CRP); I48.91 Unspecified atrial fibrillation; I25.10 Atherosclerotic heart disease of native coronary artery without angina pectoris; G47.30 Sleep apnea, unspecified; M19.90 Unspecified osteoarthritis, unspecified site; Z99.89 Dependence on other enabling machines and devices; M10.9 Gout, unspecified; R41.3 Other amnesia; F41.9 Anxiety disorder, unspecified; E03.9 Hypothyroidism, unspecified; G25.81 Restless legs syndrome; R20.0 Anesthesia of skin; Z79.01 Long term (current) use of anticoagulants; Z79.890 Hormone replacement therapy; Z79.891 Long term (current) use of opiate analgesic; Z79.899 Other long term (current) drug therapy; Z86.73 Personal history of transient ischemic attack (TIA), and cerebral infarction without residual deficits; I25.2 Old myocardial infarction; Z87.891 Personal history of nicotine dependence; Z95.5 Presence of coronary angioplasty implant and graft; Z96.651 Presence of right artificial knee joint; Z95.818 Presence of other cardiac implants and grafts; Z81.8 Family history of other mental and behavioral disorders; Z82.49 Family history of ischemic heart disease and other diseases of the circulatory system
CPT/HCPCS: 96366 ×2; 96367; 96375 ×2; 96376; 96365; 99285; 36415; 93005; 80053; 85652; 82550; 83605; 85025; 85610; 85730; 86140; 87040; 76882; 93971; 73201; G0378 ×2; J3370 ×2; J1100; J0696 ×2; J1885; J1170; Q9967

== ENCOUNTER 2019-04-23 18:17 | Emergency (ER) | payer OTHER ==
[2019-04-23 18:46] VITALS: RESP 18
[2019-04-23] MEDS ORDERED: ACET/COD 300 MG/30 MG STARTER PACK 6 TAB BTL PO STA (20:03)
[2019-04-23] MEDS ORDERED: KETOROLAC 30 MG/ML 1 ML VIAL IM STA (20:03)
[2019-04-23] MEDS ORDERED: methylPREDNISolone SOD SUCCI 125 MG/2 ML VIAL IM ONE (20:03)
--- NOTE | 2019-04-23 20:18 | ED ---
Extremity Problem HPI - General Chief complaint: Extremity Problem,Nontraumatic Stated complaint: left arm pain/swelling Time Seen by Provider: 04/23/19 18:52 Source: patient Mode of arrival: ambulatory Limitations: no limitations - History of Present Illness Initial comments: 48 year-old male patient presents to the emergency department today for evalua tion of left hand and wrist pain and swelling. Patient states that he was recently admitted to the hospital for similar symptoms. He was discharged yesterday. States while in the hospital symptoms did improve however over the last few hours symptoms have been worsening again. Denies any redness to the area. Denies any known injury. He denies fever or chills. Patient states they're unable to determine the cause for his symptoms however he was discharged with antibiotics and a Medrol Dosepak. He has been taking diclofenac for pain without much relief. Patient denies any headache, neck pain, back pain, chest pain, shortness of breath, dizziness, weakness, abdominal pain, nausea, vomiting, or difficulties with bowel movements or urination. - Related Data Home Medications Medication Instructions Recorded Confirmed Apixaban [Eliquis] 5 mg PO BID 05/07/18 04/23/19 Metoprolol Tartrate [Lopressor] 25 mg PO DAILY 09/09/18 04/23/19 rOPINIRole HCL [Requip] 0.5 mg PO HS 09/09/18 04/23/19 Levothyroxine Sodium [Synthroid] 200 mcg PO DAILY 10/11/18 04/23/19 HYDROcodone/APAP 5-325MG [[place] 1 tab PO DAILY PRN 04/20/19 04/23/19 5-325] Aspirin EC [Ecotrin Low Dose] 81 mg PO DAILY 04/23/19 04/23/19 Chlorthalidone [Hygroton] 25 mg PO DAILY 04/23/19 04/23/19 Dexamethasone [Decadron] See Taper PO DIRECTED 04/23/19 04/23/19 Previous Rx's Medication Instructions Recorded Ibuprofen [Motrin] 600 mg PO Q6HR PRN #40 day 07/30/18 Cephalexin [Keflex] 500 mg PO Q8HR #15 cap 04/21/19 predniSONE 50 mg PO DAILY #5 tablet 04/23/19 Allergies Allergy/AdvReac Type Severity Reaction Status Date / Time No Known Allergies Allergy Verified 04/23/19 19:32 Review of Systems ROS Statement: Those systems with pertinent positive or pertinent negative responses have been documented in the HPI. ROS Other: All systems not noted in ROS Statement are negative. Past Medical History Past Medical History: Atrial Fibrillation, Coronary Artery Disease (CAD), CVA/TIA, Memory Impairment, Myocardial Infarction ([place]), Osteoarthritis (OA), Sleep Apnea/CPAP/BIPAP, Thyroid Disorder Additional Past Medical History / Comment(s): denies hx hypertension, restless leg syndrome, "TIA (x 5) last Apr 2016", memory loss and numbness left fingers left hand and occ lt arm weakness, gout, wears CPAP at home Last Myocardial Infarction Date:: unk History of Any Multi-Drug Resistant Organisms: None Reported Past Surgical History: Heart Catheterization, Heart Catheterization With Stent, Hernia Repair, Joint Replacement, Orthopedic Surgery Additional Past Surgical History / Comment(s): loop monitor in chest. one cardiac stent, rt knee, rt shoulder Past Anesthesia/Blood Transfusion Reactions: No Reported Reaction Date of Last Stent Placement:: 2016 Type of Cardiac Device: Loop Device Placement Date:: Apr 2016 Past Psychological History: Anxiety Smoking Status: Former smoker Past Alcohol Use History: Occasional Past Drug Use History: None Reported - Past Family History Father Additional Family Medical History / Comment(s): of [place] Mother Family Medical History: No Reported History Brother(s) Additional Family Medical History / Comment(s): Bipolar disorder General Exam Limitations: no limitations General appearance: alert, in no apparent distress, other (This is a well- developed, well-nourished adult male patient in no acute distress. Vital signs upon presentation are temperature 98.4F, pulse 60, respirations 18, blood pressure 102/57, pulse ox 97% on room air.) Eye exam: Present: normal appearance, PERRL, EOMI. Absent: scleral icterus, conjunctival injection, periorbital swelling ENT exam: Present: normal exam, normal oropharynx, mucous membranes moist Respiratory exam: Present: normal lung sounds bilaterally. Absent: respiratory distress, wheezes, rales, rhonchi, stridor Cardiovascular Exam: Present: regular rate, normal rhythm, normal heart sounds. Absent: systolic murmur, diastolic murmur, rubs, gallop, clicks GI/Abdominal exam: Present: soft, normal bowel sounds. Absent: distended, tenderness, guarding, rebound, rigid Extremities exam: Present: normal capillary refill, other (There is mild soft tissue swelling over the hand and wrist. Skin is pink, warm, dry. Radial pulses 2+ and equal bilaterally.). Absent: normal inspection, full ROM (Increased pain with movement), tenderness, pedal edema, joint swelling, calf tenderness Neurological exam: Present: alert, oriented X3, CN II-XII intact Psychiatric exam: Present: normal affect, normal mood Skin exam: Present: warm, dry, intact, normal color. Absent: rash Course Vital Signs 04/23/19 04/23/19 18:43 20:35 Temperature 98.4 F 98.6 F Pulse Rate 60 88 Respiratory 18 18 Rate Blood Pressure 102/57 126/78 O2 Sat by Pulse 97 100 Oximetry Medical Decision Making - Medical Decision Making 48 year-old male patient presented to the emergency department today for evaluation of left wrist and hand pain and swelling. Physical examination did reveal soft tissue swelling with no erythema. Radial pulses intact. Neurovascular status is intact. Patient was discharged from the hospital yesterday after being matted for similar symptoms. CT of the arm and ultrasound of the arm was negative. Labs at that visit did reveal elevated ESR and CRP. He is currently taking a Medrol Dosepak, we will switch this to a burst of prednisone. He'll be given a starter pack for Tylenol with codeine. He is instructed to follow-up with pricing specialist for further evaluation as soon as possible. Return parameters were discussed in detail. He verbalizes understanding and agrees with this plan. Disposition Clinical Impression: Arthralgia, Arm pain Disposition: HOME SELF-CARE Condition: Good Instructions (If sedation given, give patient instructions): Arthralgia (ED), Arm Pain (ED) Additional Instructions: Stop taking the Decadron/methylprednisolone and started taking a new steroid prescription. Complete antibiotics. Follow up with pricing specialist for further evaluation as soon as possible. Return for any new, worsening, or concerning symptoms. Prescriptions: predniSONE 50 mg PO DAILY #5 tablet Is patient prescribed a controlled substance at d/c from ED?: No Referrals: Maude Spivey MD [Primary Care Provider] - 1-2 days Woo Gibson MD [STAFF PHYSICIAN] - 1-2 days Time of Disposition: 20:18
[2019-04-23 20:36] VITALS: BP 126/78; PULSE 88; TEMP 98.6
== END 2019-04-23 20:36 | disposition home or self-care (01) ==
LOC: EC 18:17
DX: M25.532 Pain in left wrist (principal); R70.0 Elevated erythrocyte sedimentation rate; R79.82 Elevated C-reactive protein (CRP); M79.89 Other specified soft tissue disorders; M79.642 Pain in left hand; I48.91 Unspecified atrial fibrillation; I25.10 Atherosclerotic heart disease of native coronary artery without angina pectoris; I25.2 Old myocardial infarction; M19.90 Unspecified osteoarthritis, unspecified site; G47.30 Sleep apnea, unspecified; E07.9 Disorder of thyroid, unspecified; I10 Essential (primary) hypertension; G25.81 Restless legs syndrome; M10.9 Gout, unspecified; Z87.891 Personal history of nicotine dependence; Z79.01 Long term (current) use of anticoagulants; Z79.52 Long term (current) use of systemic steroids; Z79.82 Long term (current) use of aspirin; Z79.890 Hormone replacement therapy; Z79.899 Other long term (current) drug therapy; Z86.73 Personal history of transient ischemic attack (TIA), and cerebral infarction without residual deficits; Z95.5 Presence of coronary angioplasty implant and graft; Z96.611 Presence of right artificial shoulder joint; Z96.651 Presence of right artificial knee joint
CPT/HCPCS: 99283; 96372 ×2; J2930; J1885

== ENCOUNTER 2019-04-26 16:16 | Inpatient (IN) | payer OTHER ==
[2019-04-26] MEDS ORDERED: DEXAMETHASONE SOD PHOSPHATE 10 MG/ML 1 ML VIAL IV STA (17:03)
[2019-04-26] MEDS ORDERED: KETOROLAC 30 MG/ML 1 ML VIAL IVP STA (17:03)
[2019-04-26] MEDS ORDERED: SODIUM CHLORIDE 0.9% 1,000 ML IV STA ×2 (17:03→19:09)
[2019-04-26] MEDS ORDERED: ONDANSETRON 4 MG/2 ML VIAL IVP STA (17:03)
[2019-04-26 17:13] LABS: Basophils # (A) 0.1 k/uL (0-0.2); Basophils % (A) 2 %; Eosinophils # (A) 0.2 k/uL (0-0.7); Eosinophils % (A) 2 %; HCT 45.6 % (39.0-53.0); HGB 14.9 gm/dL (13.0-17.5); Lymphocytes # (A) 2.1 k/uL (1.0-4.8); Lymphocytes % (A) 26 %; MCH 28.3 pg (25.0-35.0); MCHC 32.7 g/dL (31.0-37.0); MCV 86.7 fL (80.0-100.0); Mean Platelet Volume 6.9; Monocytes # (A) 0.4 k/uL (0-1.0); Monocytes % (A) 5 %; Neutrophils # (A) 5.1 k/uL (1.3-7.7); Neutrophils % (A) 64 %; Platelet Count 262 k/uL (150-450); RBC 5.25 m/uL (4.30-5.90); RDW 14.2 % (11.5-15.5); WBC 7.9 k/uL (3.8-10.6)
[2019-04-26 17:25] LABS: INR 0.9 (<1.2); Partial Thromboplastin Time 23.6 sec (22.0-30.0); Prothrombin Time 9.9 sec (9.0-12.0)
[2019-04-26 17:27] LABS: ALT 51 U/L (21-72); AST 51 U/L (17-59); African American GFR (CKD) >90 (>60 ml/min/1.73 sqM); Albumin 4.3 g/dL (3.5-5.0); Alkaline Phosphatase 142 U/L (38-126); Anion Gap 10 mmol/L; Blood Urea Nitrogen 20 mg/dL (9-20); C Reactive Protein 6.1 mg/L (<10.0); Calcium 9.7 mg/dL (8.4-10.2); Carbon Dioxide 27 mmol/L (22-30); Chloride 95 mmol/L (98-107); Creatine Kinase 100 U/L (55-170); Glucose 449 mg/dL (74-99); Magnesium 1.9 mg/dL (1.6-2.3); Phosphorus 3.8 mg/dL (2.5-4.5); Sodium 132 mmol/L (137-145); Total Bilirubin 0.5 mg/dL (0.2-1.3); Total Protein 7.9 g/dL (6.3-8.2); Uric Acid 5.3 mg/dL (3.5-8.5)
[2019-04-26 17:32] LABS: Potassium 5.1 mmol/L (3.5-5.1)
--- NOTE | 2019-04-26 17:39 | ED ---
Nausea/Vomiting/Diarrhea HPI - General Chief complaint: Nausea/Vomiting/Diarrhea Stated complaint: Diarrhea Time Seen by Provider: 04/26/19 16:22 Source: patient, RN notes reviewed, old records reviewed Mode of arrival: ambulatory Limitations: no limitations - History of Present Illness Initial comments: This is a 48 showed male the ER for evaluation patient resents today for evaluation regards to multiple complaints. Patient's initial complaints revolve around recent illness recent illness was a cellulitis of his left hand swelling of his left hand. Patient was post antibiotics is not been taking them as he is not feeling well to go get antibiotics. Patient swelling has resolved of the left hand and left arm is had some diarrhea. Believes is had some blood in his diarrhea but overall does not feel well. Patient's medical record is [facility]. Patient's complaints are nonspecific. Patient states mainly complaints or alcohol falling on not feeling well. MD complaint: nausea, vomiting, diarrhea -: days(s) Description of Vomiting: food contents Description of Diarrhea: water, blood-streaked Associated Abdominal Pain: Yes Location: diffuse Severity: mild Severity scale (1-10): 3 Quality: cramping, aching Consistency: constant Improves with: none Worsens with: none Context: sick contacts, recent antibiotic use Associated Symptoms: loss of appetite, malaise, nausea/vomiting, weakness - Related Data Home Medications Medication Instructions Recorded Confirmed Apixaban [Eliquis] 5 mg PO BID 05/07/18 04/26/19 Metoprolol Tartrate [Lopressor] 25 mg PO DAILY 09/09/18 04/26/19 rOPINIRole HCL [Requip] 0.5 mg PO HS 09/09/18 04/26/19 Levothyroxine Sodium [Synthroid] 200 mcg PO DAILY 10/11/18 04/26/19 HYDROcodone/APAP 5-325MG [[place] 1 tab PO DAILY PRN 04/20/19 04/26/19 5-325] Aspirin EC [Ecotrin Low Dose] 81 mg PO DAILY 04/23/19 04/26/19 Chlorthalidone [Hygroton] 25 mg PO DAILY 04/23/19 04/26/19 Allopurinol [Zyloprim] 300 mg PO DAILY 04/26/19 04/26/19 Atorvastatin [Lipitor] 40 mg PO DAILY 04/26/19 04/26/19 Furosemide [Lasix] 20 mg PO DAILY 04/26/19 04/26/19 Previous Rx's Medication Instructions Recorded Ibuprofen [Motrin] 600 mg PO Q6HR PRN #40 day 07/30/18 Allergies Allergy/AdvReac Type Severity Reaction Status Date / Time No Known Allergies Allergy Verified 04/26/19 18:44 Review of Systems ROS Statement: Those systems with pertinent positive or pertinent negative responses have been documented in the HPI. ROS Other: All systems not noted in ROS Statement are negative. Past Medical History Past Medical History: Atrial Fibrillation, Coronary Artery Disease (CAD), CVA/TIA, Memory Impairment, Myocardial Infarction ([place]), Osteoarthritis (OA), Sleep Apnea/CPAP/BIPAP, Thyroid Disorder Additional Past Medical History / Comment(s): denies hx hypertension, restless leg syndrome, "TIA (x 5) last Apr 2016", memory loss and numbness left fingers left hand and occ lt arm weakness, gout, wears CPAP at home Last Myocardial Infarction Date:: unk History of Any Multi-Drug Resistant Organisms: None Reported Past Surgical History: Heart Catheterization, Heart Catheterization With Stent, Hernia Repair, Joint Replacement, Orthopedic Surgery Additional Past Surgical History / Comment(s): loop monitor in chest. one cardiac stent, rt knee, rt shoulder Past Anesthesia/Blood Transfusion Reactions: No Reported Reaction Date of Last Stent Placement:: 2016 Type of Cardiac Device: Loop Device Placement Date:: Apr 2016 Past Psychological History: Anxiety Smoking Status: Former smoker Past Alcohol Use History: Occasional Past Drug Use History: None Reported - Past Family History Father Additional Family Medical History / Comment(s): of [place] Mother Family Medical History: No Reported History Brother(s) Additional Family Medical History / Comment(s): Bipolar disorder General Exam Limitations: no limitations General appearance: alert, in no apparent distress Head exam: Present: atraumatic, normocephalic, normal inspection Eye exam: Present: normal appearance, PERRL, EOMI. Absent: scleral icterus, conjunctival injection, periorbital swelling ENT exam: Present: normal exam, mucous membranes moist Neck exam: Present: normal inspection. Absent: tenderness, meningismus, lymphadenopathy Respiratory exam: Present: normal lung sounds bilaterally. Absent: respiratory distress, wheezes, rales, rhonchi, stridor Cardiovascular Exam: Present: regular rate, normal rhythm, normal heart sounds. Absent: systolic murmur, diastolic murmur, rubs, gallop, clicks GI/Abdominal exam: Present: soft, normal bowel sounds. Absent: distended, tenderness, guarding, rebound, rigid Extremities exam: Present: normal inspection, full ROM, normal capillary refill. Absent: tenderness, pedal edema, joint swelling, calf tenderness Back exam: Present: normal inspection Neurological exam: Present: alert, oriented X3, CN II-XII intact Psychiatric exam: Present: normal affect, normal mood Skin exam: Present: warm, dry, intact, normal color. Absent: rash Course Vital Signs 04/26/19 16:19 Temperature 97.9 F Pulse Rate 64 Respiratory 18 Rate Blood Pressure 141/88 O2 Sat by Pulse 97 Oximetry - Reevaluation(s) Reevaluation #1: 04/26/19 19:10 Medical record is reviewed including recent hospital admission as well as ER subsequent visit Reevaluation #2: 04/26/19 19:10 Patient informed of Diagnosis of diabetes will admit for blood sugar control - Consultations Consultation #1: Spoke with Dr. Rios who is aware Medical Decision Making - Medical Decision Making 48 male the ER for evaluation of not feeling well. Patient found is significantly elevated blood sugar with newly diagnosed diabetes type 2. Patie nt will be admitted for blood sugar control and diabetic counseling - Lab Data Result diagrams: 04/26/19 16:40 04/26/19 16:40 Lab Results 04/26/19 04/26/19 04/26/19 Range/Units 16:40 16:40 16:40 WBC 7.9 (3.8-10.6) k/uL RBC 5.25 (4.30-5.90) m/uL Hgb 14.9 (13.0-17.5) gm/dL Hct 45.6 (39.0-53.0) % MCV 86.7 (80.0-100.0) fL MCH 28.3 (25.0-35.0) pg MCHC 32.7 (31.0-37.0) g/dL RDW 14.2 (11.5-15.5) % Plt Count 262 (150-450) k/uL Neutrophils % 64 % Lymphocytes % 26 % Monocytes % 5 % Eosinophils % 2 % Basophils % 2 % Neutrophils # 5.1 (1.3-7.7) k/uL Lymphocytes # 2.1 (1.0-4.8) k/uL Monocytes # 0.4 (0-1.0) k/uL Eosinophils # 0.2 (0-0.7) k/uL Basophils # 0.1 (0-0.2) k/uL ESR 18 H (0-15) mm/hr PT (9.0-12.0) sec INR (<1.2) APTT (22.0-30.0) sec Sodium 132 L (137-145) mmol/L Potassium 5.1 (3.5-5.1) mmol/L Chloride 95 L (98-107) mmol/L Carbon Dioxide 27 (22-30) mmol/L Anion Gap 10 mmol/L BUN 20 (9-20) mg/dL Creatinine 0.76 (0.66-1.25) mg/dL Est GFR (CKD-EPI)AfAm >90 (>60 ml/min/1.73 sqM) Est GFR (CKD-EPI)NonAf >90 (>60 ml/min/1.73 sqM) Glucose 449 H (74-99) mg/dL Plasma Lactic Acid Carlos 2.5 H* (0.7-2.0) mmol/L Uric Acid 5.3 (3.5-8.5) mg/dL Calcium 9.7 (8.4-10.2) mg/dL Phosphorus 3.8 (2.5-4.5) mg/dL Magnesium 1.9 (1.6-2.3) mg/dL Total Bilirubin 0.5 (0.2-1.3) mg/dL AST 51 (17-59) U/L ALT 51 (21-72) U/L Alkaline Phosphatase 142 H (38-126) U/L Creatine Kinase 100 (55-170) U/L Troponin I (0.000-0.034) ng/mL C-Reactive Protein 6.1 (<10.0) mg/L Total Protein 7.9 (6.3-8.2) g/dL Albumin 4.3 (3.5-5.0) g/dL TSH 66.300 H (0.465-4.680) mIU/L Free T4 0.59 L (0.78-2.19) ng/dL Free T3 pg/mL 2.9 (2.8-5.3) pg/ml Urine Color Urine Appearance (Clear) Urine pH (5.0-8.0) Ur Specific [place] (1.001-1.035) Urine Protein (Negative) Urine Glucose (UA) (Negative) Urine Ketones (Negative) Urine Blood (Negative) Urine Nitrite (Negative) Urine Bilirubin (Negative) Urine Urobilinogen (<2.0) mg/dL Ur Leukocyte Esterase (Negative) Influenza Type A RNA (Not Detectd) Influenza Type B (PCR) (Not Detectd) 04/26/19 04/26/19 04/26/19 Range/Units 16:40 16:40 17:20 WBC (3.8-10.6) k/uL RBC (4.30-5.90) m/uL Hgb (13.0-17.5) gm/dL Hct (39.0-53.0) % MCV (80.0-100.0) fL MCH (25.0-35.0) pg MCHC (31.0-37.0) g/dL RDW (11.5-15.5) % Plt Count (150-450) k/uL Neutrophils % % Lymphocytes % % Monocytes % % Eosinophils % % Basophils % % Neutrophils # (1.3-7.7) k/uL Lymphocytes # (1.0-4.8) k/uL Monocytes # (0-1.0) k/uL Eosinophils # (0-0.7) k/uL Basophils # (0-0.2) k/uL ESR (0-15) mm/hr PT 9.9 (9.0-12.0) sec INR 0.9 (<1.2) APTT 23.6 (22.0-30.0) sec Sodium (137-145) mmol/L Potassium (3.5-5.1) mmol/L Chloride (98-107) mmol/L Carbon Dioxide (22-30) mmol/L Anion Gap mmol/L BUN (9-20) mg/dL Creatinine (0.66-1.25) mg/dL Est GFR (CKD-EPI)AfAm (>60 ml/min/1.73 sqM) Est GFR (CKD-EPI)NonAf (>60 ml/min/1.73 sqM) Glucose (74-99) mg/dL Plasma Lactic Acid [place] (0.7-2.0) mmol/L Uric Acid (3.5-8.5) mg/dL Calcium (8.4-10.2) mg/dL Phosphorus (2.5-4.5) mg/dL Magnesium (1.6-2.3) mg/dL Total Bilirubin (0.2-1.3) mg/dL AST (17-59) U/L ALT (21-72) U/L Alkaline Phosphatase (38-126) U/L Creatine Kinase (55-170) U/L Troponin I <0.012 (0.000-0.034) ng/mL C-Reactive Protein (<10.0) mg/L Total Protein (6.3-8.2) g/dL Albumin (3.5-5.0) g/dL TSH (0.465-4.680) mIU/L Free T4 (0.78-2.19) ng/dL Free T3 pg/mL (2.8-5.3) pg/ml Urine Color Urine Appearance (Clear) Urine pH (5.0-8.0) Ur Specific [place] (1.001-1.035) Urine Protein (Negative) Urine Glucose (UA) (Negative) Urine Ketones (Negative) Urine Blood (Negative) Urine Nitrite (Negative) Urine Bilirubin (Negative) Urine Urobilinogen (<2.0) mg/dL Ur Leukocyte Esterase (Negative) Influenza Type A RNA Not Detected (Not Detectd) Influenza Type B (PCR) Not Detected (Not Detectd) 04/26/19 Range/Units 17:35 WBC (3.8-10.6) k/uL RBC (4.30-5.90) m/uL Hgb (13.0-17.5) gm/dL Hct (39.0-53.0) % MCV (80.0-100.0) fL MCH (25.0-35.0) pg MCHC (31.0-37.0) g/dL RDW (11.5-15.5) % Plt Count (150-450) k/uL Neutrophils % % Lymphocytes % % Monocytes % % Eosinophils % % Basophils % % Neutrophils # (1.3-7.7) k/uL Lymphocytes # (1.0-4.8) k/uL Monocytes # (0-1.0) k/uL Eosinophils # (0-0.7) k/uL Basophils # (0-0.2) k/uL ESR (0-15) mm/hr PT (9.0-12.0) sec INR (<1.2) APTT (22.0-30.0) sec Sodium (137-145) mmol/L Potassium (3.5-5.1) mmol/L Chloride (98-107) mmol/L Carbon Dioxide (22-30) mmol/L Anion Gap mmol/L BUN (9-20) mg/dL Creatinine (0.66-1.25) mg/dL Est GFR (CKD-EPI)AfAm (>60 ml/min/1.73 sqM) Est GFR (CKD-EPI)NonAf (>60 ml/min/1.73 sqM) Glucose (74-99) mg/dL Plasma Lactic Acid Carlos (0.7-2.0) mmol/L Uric Acid (3.5-8.5) mg/dL Calcium (8.4-10.2) mg/dL Phosphorus (2.5-4.5) mg/dL Magnesium (1.6-2.3) mg/dL Total Bilirubin (0.2-1.3) mg/dL AST (17-59) U/L ALT (21-72) U/L Alkaline Phosphatase (38-126) U/L Creatine Kinase (55-170) U/L Troponin I (0.000-0.034) ng/mL C-Reactive Protein (<10.0) mg/L Total Protein (6.3-8.2) g/dL Albumin (3.5-5.0) g/dL TSH (0.465-4.680) mIU/L Free T4 (0.78-2.19) ng/dL Free T3 pg/mL (2.8-5.3) pg/ml Urine Color Light Yellow Urine Appearance Clear (Clear) Urine pH 5.5 (5.0-8.0) Ur Specific [place] 1.023 (1.001-1.035) Urine Protein Negative (Negative) Urine Glucose (UA) 4+ H (Negative) Urine Ketones Negative (Negative) Urine Blood Negative (Negative) Urine Nitrite Negative (Negative) Urine Bilirubin Negative (Negative) Urine Urobilinogen <2.0 (<2.0) mg/dL Ur Leukocyte Esterase Negative (Negative) Influenza Type A RNA (Not Detectd) Influenza Type B (PCR) (Not Detectd) - EKG Data -: EKG Interpreted by Me (EKG shows sinus bradycardia rate of 54, AL 174, QRS 86, QTC 373) - Radiology Data Radiology results: report reviewed (X-ray abdominal series and chest is negative for acute disease), image reviewed Disposition Clinical Impression: Dehydration, Newly diagnosed diabetes, Hyperglycemia Disposition: ADMITTED IP TO THIS HOSP Condition: Good Is patient prescribed a controlled substance at d/c from ED?: No Referrals: Maude Spivey MD [Primary Care Provider] - 1-2 days
[2019-04-26 17:40] LABS: T4, Free (Free Thyroxine) 0.59 ng/dL (0.78-2.19)
[2019-04-26 17:46] LABS: Appearance,Urine Clear (Clear); Bilirubin,Urine Negative (Negative); Blood,Urine Negative (Negative); Color,Urine Light Yellow; Glucose,Urine (UA) 4+ (Negative); Ketones,Urine Negative (Negative); Leukocyte Esterase,Urine Negative (Negative); Nitrite,Urine Negative (Negative); PH, Urine 5.5 (5.0-8.0); Protein,Urine Negative (Negative); Specific Gravity,Urine 1.023 (1.001-1.035); Urobilinogen,Urine <2.0 mg/dL (<2.0)
[2019-04-26 17:56] LABS: Erythrocyte Sedimentation Rate 18 mm/hr (0-15)
--- NOTE | 2019-04-26 18:02 | XR ---
EXAMINATION TYPE: XR abdomen acute w cxr DATE OF EXAM: 04/26/2019 COMPARISON: NONE HISTORY: Abdominal pain TECHNIQUE: Chest x-ray with supine and upright abdomen FINDINGS: There is no sign of intestinal obstruction or pneumoperitoneum. Fecal pattern is normal. There is no heart failure. Heart appears borderline enlarged. There is coarsening of the interstitial pulmonary m arkings. There are no pathologic calcifications over the kidneys. IMPRESSION: Mild pulmonary fibrotic changes. Lung markings increased compared to 03/27/2018 chest x-ray. Nonacute abdomen.
[2019-04-26] MEDS ORDERED: SODIUM CHLORIDE 0.9% 1,000 ML IV ONE (19:08)
[2019-04-26] MEDS ORDERED: SODIUM CHLORIDE 0.9% 500 ML 500 ML IV STA (19:09)
[2019-04-26] MEDS ORDERED: INSULIN REGULAR 100 UNIT/ML VIAL IV ONE (19:09)
[2019-04-26] MEDS ORDERED: ACETAMINOPHEN TAB 325 MG TAB PO PRN (19:41)
[2019-04-26 20:33] LABS: Glucose,Whole Blood 248 mg/dL (75-99)
[2019-04-26] MEDS ORDERED: IBUPROFEN 600 MG TAB PO PRN (20:58)
[2019-04-26] MEDS: APIXABAN 5 MG TAB PO SCH (21:25)
[2019-04-26] MEDS: HYDROcodone/APAP 5-325MG 1 EACH TAB PO PRN (21:31)
[2019-04-27 07:11] LABS: Glucose,Whole Blood 273 mg/dL (75-99)
[2019-04-27] MEDS: INSULIN ASPART (NovoLOG) 100 UNIT/ML VIAL SQ SCH ×3 (07:21→17:53)
[2019-04-27] MEDS: APIXABAN 5 MG TAB PO SCH ×2 (07:22→20:23)
[2019-04-27] MEDS: FUROSEMIDE 20 MG TAB PO SCH (11:08)
[2019-04-27] MEDS: CHLORTHALIDONE 25 MG TAB PO SCH (11:08)
[2019-04-27] MEDS: ALLOPURINOL 300 MG TAB PO SCH (11:08)
[2019-04-27] MEDS: ASPIRIN 81 MG PO SCH (11:08)
[2019-04-27] MEDS: METOPROLOL TARTRATE 25 MG TAB PO SCH (11:09)
[2019-04-27 12:21] LABS: Glucose,Whole Blood 247 mg/dL (75-99)
[2019-04-27] MEDS ORDERED: metFORMIN 500 MG TAB PO STA (13:09)
[2019-04-27 13:10] VITALS: BMI 48.8
[2019-04-27] MEDS ORDERED: INSULIN DETEMIR (LEVEMIR) 100 UNIT/ML SYR SQ ONE (13:15)
--- NOTE | 2019-04-27 15:49 | HP ---
HISTORY AND PHYSICAL CHIEF COMPLAINTS: Weakness and diarrhea. HISTORY OF PRESENT ILLNESS: This 48-year-old gentleman with a past medical history of multiple medical problems including atrial fibrillation, CAD, CVA, TIA, memory impairment, history of DJD, history of sleep apnea, history of hypothyroidism, history of hypertension, CAD, being followed by Dr. Spivey in the outpatient setting, was recently admitted with left forearm cellulitis and swelling. The patient treated symptomatically and currently the patient complains of tiredness, weakness and diarrhea. In the emergency room, evaluation showed blood sugar elevated to 449, indicating new onset diabetes type 2. There is no evidence of ketosis. The patient admitted for further evaluation and treatment. Anion gap is normal at 10. TSH also elevated to 6.3, and free T4 is low indicating relative hypothyroidism. Patient is tolerating 250 mcg of levothyroxine a day. There is no history of fever, rigors or chills. No history of headache, loss of consciousness or seizures. PAST MEDICAL HISTORY: History of recent left arm swelling, history of atrial fibrillation, CAD, CVA, TIA, memory impairment, history of DJD, history of sleep apnea, hypothyroidism. MEDICATIONS: Home medications are: 1. Requip 0.5 mg q.h.s. 2. Lopressor 25 mg p.r.n. 3. Synthroid 200 mcg p.o. daily. 4. Motrin 600 mg q.6h p.r.n. 5. [place] 5 mg daily p.r.n. 6. Lasix 20 mg daily. 7. [place] 25 mg p.o. daily. 8. Lipitor 40 mg p.o. daily. 9. Ecotrin 81 mg p.o. daily. 10.Eliquis 5 mg p.o. b.i.d. 11.Zyloprim 300 mg p.o. daily. ALLERGIES: None. FAMILY HISTORY: History of myocardial infarction in the family. SOCIAL HISTORY: Previous history of smoking. Occasional alcohol intake. REVIEW OF SYSTEMS: ENT: No diminished vision. No diminished hearing. CARDIOVASCULAR: No angina or palpitations. RESPIRATION: No cough or hemoptysis. GI as mentioned earlier. no dysuria. NERVOUS SYSTEM: No numbness or weakness. ALLERGY/IMMUNOLOGY: No asthma or hay fever. MUSCULOSKELETAL as mentioned earlier. HEMATOLOGY/ONCOLOGY: No history of anemia. ENDOCRINE: Diabetes mellitus, hypothyroidism. CONSTITUTIONAL: As mentioned earlier. DERMATOLOGY: Negative. RHEUMATOLOGY: Negative. PSYCHIATRY: As mentioned earlier. PHYSICAL EXAMINATION: Alert and oriented times three. Pulse 84, blood pressure 160/98, respiration 16, temperature 97.6, pulse ox 94% on room air. HEENT: Conjunctivae normal. Oral mucosa moist. NECK is no jugular venous distention. No carotid bruit. No lymph node enlargement. Cardiovascular system: S1, S2 muffled. No S3, no S4. RESPIRATORY: Breath sounds diminished in the bases. No rhonchi. No crackles. ABDOMEN: Soft, obese, nontender. No mass palpable. LEGS: No edema. No swelling. NERVOUS SYSTEM: Higher functions as mentioned earlier. Moves all 4 limbs. No focal motor or sensory deficits. LYMPHATICS: No lymph nodes palpable in the neck, axilla or groin. SKIN no ulcer. No rash and no bleeding. JOINTS: No active deforming arthropathy. LABS: CBC within normal limits. Sodium 130, potassium 4.2. Glucose noted 449, 240 and 247. ASSESSMENT: 1. Acute onset of diabetes type 2 new onset with hyperglycemia. 2. Generalized weakness for evaluation, possible acute on chronic diabetes type 2. 3. Diarrhea for evaluation. 4. Hypothyroidism with TSH 66.3. 5. Hyponatremia. 6. History of atrial fibrillation. 7. Coronary artery disease. 8. Cerebrovascular accident, transient ischemic attack. 9. History of myocardial infarction. 10.History of sleep apnea. 11.History of hypothyroidism. 12.History of restless legs syndrome. 13.History of transient ischemic attack multiple times. 14.History of coronary artery disease/ stent. 15.History of anxiety. 16.Remote history of nicotine dependence. RECOMMENDATIONS AND DISCUSSION: This 48-year-old gentleman who presented with multiple medical issues, we will monitor the patient closely, continue the current medications, management and symptomatic treatment. We will initiate metformin as well as small dose of Lantus about 20 units subcu q.h.s. We will monitor the patient closely. Hemoglobin A1c is pending at this time. Resume the rest of medications. Closely follow. Also recommend outpatient followup with diabetic education team also. Home medications will be resumed and guarded prognosis because of multiple complex medical issues. Further recommendations to follow. A copy of dictation being forwarded to Dr. Spivey who is the primary care physician. See orders for details. MMODL / IJN: [id number] /
[2019-04-27] MEDS: HYDROcodone/APAP 5-325MG 1 EACH TAB PO PRN (15:53)
[2019-04-27 17:24] LABS: Glucose,Whole Blood 231 mg/dL (75-99)
[2019-04-27] MEDS: metFORMIN 500 MG TAB PO SCH (17:52)
[2019-04-27 20:51] LABS: Glucose,Whole Blood 249 mg/dL (75-99)
[2019-04-27] MEDS: INSULIN DETEMIR (LEVEMIR) 100 UNIT/ML SYR SQ SCH (20:59)
[2019-04-28] MEDS: LEVOTHYROXINE 100 MCG TAB PO SCH (05:04)
[2019-04-28] MEDS ORDERED: LEVOTHYROXINE 100 MCG TAB PO SCH (06:30)
[2019-04-28] MEDS ORDERED: LEVOTHYROXINE 50 MCG TAB PO SCH (06:30)
[2019-04-28 06:58] LABS: Glucose,Whole Blood 238 mg/dL (75-99)
[2019-04-28 07:14] LABS: Basophils # (A) 0.1 k/uL (0-0.2); Basophils % (A) 1 %; Eosinophils # (A) 0.1 k/uL (0-0.7); Eosinophils % (A) 1 %; HCT 41.4 % (39.0-53.0); HGB 13.8 gm/dL (13.0-17.5); Lymphocytes # (A) 2.8 k/uL (1.0-4.8); Lymphocytes % (A) 29 %; MCH 28.6 pg (25.0-35.0); MCHC 33.2 g/dL (31.0-37.0); MCV 86.3 fL (80.0-100.0); Mean Platelet Volume 6.4; Monocytes # (A) 0.4 k/uL (0-1.0); Monocytes % (A) 4 %; Neutrophils # (A) 6.3 k/uL (1.3-7.7); Neutrophils % (A) 65 %; Platelet Count 218 k/uL (150-450); RDW 13.8 % (11.5-15.5); WBC 9.8 k/uL (3.8-10.6)
[2019-04-28 07:35] LABS: African American GFR (CKD) >90 (>60 ml/min/1.73 sqM); Anion Gap 8 mmol/L; Blood Urea Nitrogen 21 mg/dL (9-20); Calcium 9.1 mg/dL (8.4-10.2); Carbon Dioxide 30 mmol/L (22-30); Chloride 97 mmol/L (98-107); Glucose 257 mg/dL (74-99); Potassium 4.4 mmol/L (3.5-5.1); Sodium 135 mmol/L (137-145)
[2019-04-28] MEDS: CHLORTHALIDONE 25 MG TAB PO SCH (07:43)
[2019-04-28] MEDS: INSULIN ASPART (NovoLOG) 100 UNIT/ML VIAL SQ SCH ×3 (07:43→17:50)
[2019-04-28] MEDS: metFORMIN 500 MG TAB PO SCH ×2 (07:44→17:50)
[2019-04-28] MEDS: METOPROLOL TARTRATE 25 MG TAB PO SCH (07:44)
[2019-04-28] MEDS: ASPIRIN 81 MG PO SCH (07:44)
[2019-04-28] MEDS: ALLOPURINOL 300 MG TAB PO SCH (07:45)
[2019-04-28] MEDS: ATORVASTATIN 40 MG TAB PO SCH (07:45)
[2019-04-28] MEDS: FUROSEMIDE 20 MG TAB PO SCH (07:45)
[2019-04-28] MEDS: APIXABAN 5 MG TAB PO SCH ×2 (07:45→20:49)
[2019-04-28] MEDS ORDERED: LEVOTHYROXINE SODIUM 200 MCG PO SCH (09:00)
[2019-04-28 12:04] LABS: Glucose,Whole Blood 132 mg/dL (75-99)
[2019-04-28] MEDS ORDERED: ALPRAZolam 0.25 MG TAB PO PRN (12:05)
[2019-04-28 12:07] LABS: Hemoglobin A1C 10.2 % (4.0-6.0)
[2019-04-28] MEDS: HYDROcodone/APAP 5-325MG 1 EACH TAB PO PRN ×2 (16:46→23:15)
[2019-04-28 16:59] LABS: Glucose,Whole Blood 197 mg/dL (75-99)
--- NOTE | 2019-04-28 20:07 | PN ---
PROGRESS NOTE DATE OF SERVICE: 04/28/2019 This 48-year-old gentleman with weakness and difficulties had new onset diabetes mellitus with uncontrolled hyperglycemia. Hemoglobin A1c is pending. No chest pain. No palpitations. No fever. EXAM: Alert and oriented x3. Pulse 52. Blood pressure 106/65, respirations 16, temperature 97.2, pulse ox 97% on room air. HEENT: Conjunctivae normal. Oral mucosa moist. NECK: No jugular venous distention. No lymph node enlargement. CARDIOVASCULAR: S1, S2. RESPIRATORY: Diminished breath sounds at the bases. No rhonchi, no crackles. ABDOMEN: Soft, obese, nontender. LEGS: No swelling. NERVOUS SYSTEM: No focal deficits. LABS: At this time shows CBC within normal limits. Glucose of 238, 132, 197. ASSESSMENT: 1. Acute onset diabetes mellitus type 2 new onset with hyperglycemia. 2. Generalized weakness for evaluation, possibly secondary to diabetes mellitus new onset. 3. Sinus bradycardia. 4. Diarrhea for evaluation. 5. Hypothyroidism with TSH 6.3. 6. Hyponatremia. 7. History of atrial fibrillation. 8. History of coronary artery disease. 9. History of cerebrovascular accident, transient ischemic attack. 10.History of myocardial infarction. 11.History of sleep apnea. 12.History of hypothyroidism. 13.History of restless legs syndrome. 14.History of transient ischemic attack, multiple times. 15.History of coronary artery disease and stent. 16.History of anxiety. 17.Remote history of nicotine dependence. RECOMMENDATIONS AND DISCUSSION: I recommend to continue current management, continue symptomatic treatment, continue with insulin dosage. Guarded prognosis because of multiple complex medical conditions: Hemoglobin A1c is 10.2. Further recommendations to follow. The patient will require home insulin at this time. MMODL / IJN: [id number] /
[2019-04-28 20:22] LABS: Glucose,Whole Blood 197 mg/dL (75-99)
[2019-04-28] MEDS: INSULIN DETEMIR (LEVEMIR) 100 UNIT/ML SYR SQ SCH (20:49)
[2019-04-29] MEDS: LEVOTHYROXINE 100 MCG TAB PO SCH (05:22)
[2019-04-29 07:11] LABS: Glucose,Whole Blood 182 mg/dL (75-99)
[2019-04-29 07:28] LABS: Basophils % (A) 1 %; Eosinophils # (A) 0.1 k/uL (0-0.7); Eosinophils % (A) 2 %; HCT 44.2 % (39.0-53.0); HGB 14.6 gm/dL (13.0-17.5); Lymphocytes # (A) 2.5 k/uL (1.0-4.8); Lymphocytes % (A) 34 %; MCH 28.7 pg (25.0-35.0); MCV 86.8 fL (80.0-100.0); Mean Platelet Volume 6.1; Monocytes # (A) 0.3 k/uL (0-1.0); Monocytes % (A) 5 %; Neutrophils # (A) 4.2 k/uL (1.3-7.7); Neutrophils % (A) 57 %; Platelet Count 189 k/uL (150-450); RDW 13.9 % (11.5-15.5); WBC 7.3 k/uL (3.8-10.6)
[2019-04-29] MEDS: INSULIN ASPART (NovoLOG) 100 UNIT/ML VIAL SQ SCH ×2 (07:51→15:24)
[2019-04-29] MEDS: CHLORTHALIDONE 25 MG TAB PO SCH (07:51)
[2019-04-29] MEDS: metFORMIN 500 MG TAB PO SCH (07:51)
[2019-04-29] MEDS: APIXABAN 5 MG TAB PO SCH (07:52)
[2019-04-29] MEDS: FUROSEMIDE 20 MG TAB PO SCH (07:52)
[2019-04-29] MEDS: ALLOPURINOL 300 MG TAB PO SCH (07:52)
[2019-04-29] MEDS: ATORVASTATIN 40 MG TAB PO SCH (07:52)
[2019-04-29] MEDS: METOPROLOL TARTRATE 25 MG TAB PO SCH (07:53)
[2019-04-29] MEDS: ASPIRIN 81 MG PO SCH (07:53)
[2019-04-29 08:00] LABS: African American GFR (CKD) >90 (>60 ml/min/1.73 sqM); Anion Gap 10 mmol/L; Blood Urea Nitrogen 21 mg/dL (9-20); Calcium 9.5 mg/dL (8.4-10.2); Carbon Dioxide 29 mmol/L (22-30); Chloride 97 mmol/L (98-107); Glucose 170 mg/dL (74-99); Potassium 4.1 mmol/L (3.5-5.1); Sodium 136 mmol/L (137-145)
[2019-04-29 12:04] LABS: Glucose,Whole Blood 127 mg/dL (75-99)
[2019-04-29 14:43] LABS: Glucose,Whole Blood 185 mg/dL (75-99)
[2019-04-29 14:52] VITALS: BP 139/83; PULSE 60; RESP 15; TEMP 97.9
--- NOTE | 2019-04-30 09:09 | P.DS ---
Providers Date of admission: 04/28/19 09:50 Expected date of discharge: 04/29/19 Attending physician: Eliu Stone [facility]: Final diagnosis Acute onset diabetes mellitus type 2, new onset with hyperglycemia Generalized weakness, possibly secondary to diabetes mellitus new-onset Sinus bradycardia Diarrhea Hypothyroidism Hyponatremia History of atrial fibrillation History of coronary artery disease History cerebrovascular accident, TIA History of myocardial infarction History of sleep apnea History of hypothyroidism History of restless leg syndrome History of TIA, multiple times History of coronary artery disease and stent History of anxiety Remote history of nicotine dependence Discharge disposition Patient is being discharged in a stable condition with guarded prognosis to home and will follow-up with primary care provider in the outpatient setting. Case management and social work have arranged for diabetic supplies will be sent home on insulin. Total time taken is 35 minutes. History of present illness This is a 48-year-old male was recently admitted with weakness and also had new onset diabetes mellitus with uncontrolled hyperglycemia and was being closely monitored. Hemoglobin A1c was found to be 10.2. Patient is being set up upon discharge with diabetic supplies and will go home on insulin and follow-up with primary care provider in the outpatient setting upon discharge. Patient was instructed to continue monitoring blood sugars before meals at bedtime and keep a log or diary of the blood sugar readings and bring with him to his follow-up appointment. Currently patient's condition is stable with much improvement and is ready for discharge. Patient denies any chest pain, shortness of breath, or palpitations at this time. Patient is afebrile. Patient denies any nausea or vomiting and is tolerating diet. Patient instructed to follow a heart healthy diabetic diet and to keep track of what he is eating for follow-up with primary care provider. Guarded prognosis. On exam vital signs are stable. Temp is 97.9F, pulse is 60, respirations are 15, blood pressure is 139/83 him a oxygen saturation is 94% on room air. Cardio S1 and S2 are muffled. Respiratory system shows diminished breath sounds at the bases. Abdomen is soft, obese, nontender. Nervous system shows no focal deficits. Please refer to medication reconciliation sheet for a list of medications. Patient Condition at Discharge: Good Plan - Discharge Summary Discharge Rx Participant: Yes New Discharge Prescriptions: New metFORMIN HCL [Glucophage] 1,000 mg PO BID-W/MEALS 30 Days #60 tab Insulin Glargine [Lantus] 20 unit SQ HS 30 Days #1 vial Levothyroxine Sodium [Synthroid] 300 mcg PO DAILY@30 30 Days #30 tab Continue Apixaban [Eliquis] 5 mg PO BID Ibuprofen [Motrin] 600 mg PO Q6HR PRN #40 day PRN Reason: Pain Metoprolol Tartrate [Lopressor] 25 mg PO DAILY rOPINIRole HCL [Requip] 0.5 mg PO HS HYDROcodone/APAP 5-325MG [[place] 5-325] 1 tab PO DAILY PRN PRN Reason: Pain Chlorthalidone [Hygroton] 25 mg PO DAILY Aspirin EC [Ecotrin Low Dose] 81 mg PO DAILY Furosemide [Lasix] 20 mg PO DAILY Atorvastatin [Lipitor] 40 mg PO DAILY Allopurinol [Zyloprim] 300 mg PO DAILY Discontinued Levothyroxine Sodium [Synthroid] 200 mcg PO DAILY Discharge Medication List Apixaban [Eliquis] 5 mg PO BID 05/07/18 [History] Ibuprofen [Motrin] 600 mg PO Q6HR PRN #40 day 07/30/18 [Rx] Metoprolol Tartrate [Lopressor] 25 mg PO DAILY 09/09/18 [History] rOPINIRole HCL [Requip] 0.5 mg PO HS 09/09/18 [History] HYDROcodone/APAP 5-325MG [[place] 5-325] 1 tab PO DAILY PRN 04/20/19 [History] Aspirin EC [Ecotrin Low Dose] 81 mg PO DAILY 04/23/19 [History] Chlorthalidone [Hygroton] 25 mg PO DAILY 04/23/19 [History] Allopurinol [Zyloprim] 300 mg PO DAILY 04/26/19 [History] Atorvastatin [Lipitor] 40 mg PO DAILY 04/26/19 [History] Furosemide [Lasix] 20 mg PO DAILY 04/26/19 [History] Insulin Glargine [Lantus] 20 unit SQ HS 30 Days #1 vial 04/29/19 [Rx] Levothyroxine Sodium [Synthroid] 300 mcg PO DAILY@0630 30 Days #30 tab 04/29/19 [Rx] metFORMIN HCL [Glucophage] 1,000 mg PO BID-W/MEALS 30 Days #60 tab 04/29/19 [Rx] Follow up Appointment(s)/Referral(s): Maude Spivey MD [Primary Care Provider] - 05/06/19 9:30 am Patient Instructions/Handouts: Type 2 Diabetes in Adults: New Diagnosis (DC) Activity/Diet/Wound Care/Special Instructions: Diabetic supplies order faxed to [facility]. , . Continue diabetic/heart healthy diet Activity Limited until follow-up Follow-up with Dr. Spivey in 1-2 days Continue monitoring blood sugars before meals at bedtime Keep a diary or log of blood sugar readings and bring with you to follow up appointment with primary care provider Discharge Disposition: HOME SELF-CARE
== END 2019-04-29 14:45 | disposition home or self-care (01) | DRG 638 ==
LOC: EC 16:16 → 4SSUR 19:08 → OBSVTOIN 04-28 09:50
PROVIDERS: ADMIT Hospitalist; ATTEND Hospitalist
DX: E11.65 Type 2 diabetes mellitus with hyperglycemia (principal); Z68.42 Body mass index [BMI] 45.0-49.9, adult; E87.1 Hypo-osmolality and hyponatremia; I69.354 Hemiplegia and hemiparesis following cerebral infarction affecting left non-dominant side; E03.9 Hypothyroidism, unspecified; E66.9 Obesity, unspecified; E86.0 Dehydration; G25.81 Restless legs syndrome; I10 Essential (primary) hypertension; I25.10 Atherosclerotic heart disease of native coronary artery without angina pectoris; I25.2 Old myocardial infarction; I48.91 Unspecified atrial fibrillation; Z79.01 Long term (current) use of anticoagulants; Z79.82 Long term (current) use of aspirin; Z79.890 Hormone replacement therapy; Z79.899 Other long term (current) drug therapy; Z82.49 Family history of ischemic heart disease and other diseases of the circulatory system; Z87.891 Personal history of nicotine dependence; Z95.5 Presence of coronary angioplasty implant and graft; Z79.1 Long term (current) use of non-steroidal anti-inflammatories (NSAID); G47.30 Sleep apnea, unspecified; Z99.89 Dependence on other enabling machines and devices; I69.311 Memory deficit following cerebral infarction; Z71.3 Dietary counseling and surveillance
CPT/HCPCS: 36415; 74022; 80048; 80053; 81003; 82550; 83036; 83605; 83735; 84100; 84439; 84443; 84481; 84484; 84550; 85025; 85610; 85652; 85730; 86140; 87040; 87502; 93005; 96361; 96374; 96375; 99285

== ENCOUNTER 2019-05-06 21:52 | Emergency (ER) | payer OTHER ==
[2019-05-06 22:00] VITALS: TEMP 98.2
[2019-05-06] MEDS ORDERED: SODIUM CHLORIDE 0.9% 1,000 ML IV STA ×2 (22:07)
[2019-05-06] MEDS ORDERED: SODIUM CHLORIDE 0.9% 500 ML 500 ML IV STA (22:10)
[2019-05-06 22:40] LABS: Appearance,Urine Clear (Clear); Basophils # (A) 0.1 k/uL (0-0.2); Basophils % (A) 2 %; Bilirubin,Urine Negative (Negative); Blood,Urine Negative (Negative); Color,Urine Yellow; Eosinophils # (A) 0.2 k/uL (0-0.7); Eosinophils % (A) 2 %; Glucose,Urine (UA) 4+ (Negative); HCT 38.9 % (39.0-53.0); HGB 13.1 gm/dL (13.0-17.5); Ketones,Urine Negative (Negative); Leukocyte Esterase,Urine Negative (Negative); Lymphocytes # (A) 1.7 k/uL (1.0-4.8); Lymphocytes % (A) 26 %; MCH 28.9 pg (25.0-35.0); MCHC 33.6 g/dL (31.0-37.0); Mean Platelet Volume 7.3; Monocytes # (A) 0.3 k/uL (0-1.0); Monocytes % (A) 5 %; Neutrophils # (A) 4.1 k/uL (1.3-7.7); Neutrophils % (A) 64 %; Nitrite,Urine Negative (Negative); Platelet Count 184 k/uL (150-450); Protein,Urine Negative (Negative); RBC 4.52 m/uL (4.30-5.90); RDW 14.1 % (11.5-15.5); Urobilinogen,Urine <2.0 mg/dL (<2.0); WBC 6.5 k/uL (3.8-10.6)
--- NOTE | 2019-05-06 22:45 | ED ---
Recheck HPI - General Chief Complaint: Recheck/Abnormal Lab/Rx Stated Complaint: Hyperglycemia Time Seen by Provider: 05/06/19 22:01 Source: patient, RN notes reviewed, old records reviewed Mode of arrival: wheelchair Limitations: no limitations - History of Present Illness Initial Comments: This is a 48-year-old male the ER for evaluation presents today for evaluation regards to elevated blood sugar not feeling well. Patient is recent diagnosis of diabetes, recently had a CAT scan 3 did stop his metformin at the time Is been diminished. Patient feeling weak a little lethargic but mainly just nervous nurses blood sugars running too high and is not controlling it well. States that is causing a lot of anxiety was seen at different hospital yesterday and discharged home 40 foot he hasn't felt much better since discharge. I am patient's blood sugars of burning in the 200s. But he does have a fine appetite eating and drinking well MD Complaint: abnormal lab (elevated BS) Returns Today for: other (Patient is not feeling well) Context: ran out of medication (Told to stop medication secondary to CT scanning complications of kidneys) Associated Symptoms: none - Related Data Home Medications Medication Instructions Recorded Confirmed Apixaban [Eliquis] 5 mg PO BID 05/07/18 05/06/19 Metoprolol Tartrate [Lopressor] 25 mg PO DAILY 09/09/18 05/06/19 rOPINIRole HCL [Requip] 0.5 mg PO HS 09/09/18 05/06/19 HYDROcodone/APAP 5-325MG [[place] 1 tab PO DAILY PRN 04/20/19 05/06/19 5-325] Aspirin EC [Ecotrin Low Dose] 81 mg PO DAILY 04/23/19 05/06/19 Chlorthalidone [Hygroton] 25 mg PO DAILY 04/23/19 05/06/19 Allopurinol [Zyloprim] 300 mg PO DAILY 04/26/19 05/06/19 Atorvastatin [Lipitor] 40 mg PO DAILY 04/26/19 05/06/19 Furosemide [Lasix] 20 mg PO DAILY 04/26/19 05/06/19 Previous Rx's Medication Instructions Recorded Ibuprofen [Motrin] 600 mg PO Q6HR PRN #40 day 07/30/18 Insulin Glargine [Lantus] 20 unit SQ HS 30 Days #1 vial 04/29/19 Levothyroxine Sodium [Synthroid] 300 mcg PO DAILY@0630 30 Days #30 04/29/19 tab metFORMIN HCL [Glucophage] 1,000 mg PO BID-W/MEALS 30 Days 04/29/19 #60 tab Allergies Allergy/AdvReac Type Severity Reaction Status Date / Time No Known Allergies Allergy Verified 05/06/19 22:28 Review of Systems ROS Statement: Those systems with pertinent positive or pertinent negative responses have been documented in the HPI. ROS Other: All systems not noted in ROS Statement are negative. Past Medical History Past Medical History: Atrial Fibrillation, Coronary Artery Disease (CAD), CVA/TIA, Diabetes Mellitus, Memory Impairment, Myocardial Infarction ([place]), Osteoarthritis (OA), Sleep Apnea/CPAP/BIPAP, Thyroid Disorder Additional Past Medical History / Comment(s): denies hx hypertension, restless leg syndrome, "TIA (x 5) last Apr 2016", memory loss and numbness left fingers left hand and occ lt arm weakness, gout, wears CPAP at home. new diagnosis diabetes 05/13 Last Myocardial Infarction Date:: unk History of Any Multi-Drug Resistant Organisms: None Reported Past Surgical History: Heart Catheterization, Heart Catheterization With Stent, Hernia Repair, Joint Replacement, Orthopedic Surgery Additional Past Surgical History / Comment(s): loop monitor in chest. one cardiac stent, rt knee, rt shoulder Past Anesthesia/Blood Transfusion Reactions: No Reported Reaction Date of Last Stent Placement:: 2016 Type of Cardiac Device: Loop Device Placement Date:: Apr 2016 Past Psychological History: Anxiety Smoking Status: Former smoker Past Alcohol Use History: None Reported Past Drug Use History: None Reported - Past Family History Father Additional Family Medical History / Comment(s): of [place] Mother Family Medical History: No Reported History Brother(s) Additional Family Medical History / Comment(s): Bipolar disorder General Exam Limitations: no limitations General appearance: alert, in no apparent distress Head exam: Present: atraumatic, normocephalic, normal inspection Eye exam: Present: normal appearance, PERRL, EOMI. Absent: scleral icterus, conjunctival injection, periorbital swelling ENT exam: Present: normal exam, mucous membranes moist Neck exam: Present: normal inspection. Absent: tenderness, meningismus, lymphadenopathy Respiratory exam: Present: normal lung sounds bilaterally. Absent: respiratory distress, wheezes, rales, rhonchi, stridor Cardiovascular Exam: Present: regular rate, normal rhythm, normal heart sounds. Absent: systolic murmur, diastolic murmur, rubs, gallop, clicks GI/Abdominal exam: Present: soft, normal bowel sounds. Absent: distended, tenderness, guarding, rebound, rigid Extremities exam: Present: normal inspection, full ROM, normal capillary refill. Absent: tenderness, pedal edema, joint swelling, calf tenderness Back exam: Present: normal inspection Neurological exam: Present: alert, oriented X3, CN II-XII intact Psychiatric exam: Present: normal affect, normal mood Skin exam: Present: warm, dry, intact, normal color. Absent: rash Course Vital Signs 05/06/19 05/06/19 21:56 23:18 Temperature 98.2 F Pulse Rate 86 77 Respiratory 20 18 Rate Blood Pressure 179/99 137/87 O2 Sat by Pulse 95 96 Oximetry - Reevaluation(s) Reevaluation #1: 05/06/19 23:34 Medical record is reviewed Reevaluation #2: 05/06/19 23:34 Patient symptoms are significantly improved I did give patient along diet long talk and diabetic counseling. Questions were answered g Medical Decision Making - Lab Data Result diagrams: 05/06/19 22:30 05/06/19 22:30 Lab Results 05/06/19 05/06/19 05/06/19 Range/Units 22:30 22:30 22:30 WBC 6.5 (3.8-10.6) k/uL RBC 4.52 (4.30-5.90) m/uL Hgb 13.1 (13.0-17.5) gm/dL Hct 38.9 L (39.0-53.0) % MCV 86.0 (80.0-100.0) fL MCH 28.9 (25.0-35.0) pg MCHC 33.6 (31.0-37.0) g/dL RDW 14.1 (11.5-15.5) % Plt Count 184 (150-450) k/uL Neutrophils % 64 % Lymphocytes % 26 % Monocytes % 5 % Eosinophils % 2 % Basophils % 2 % Neutrophils # 4.1 (1.3-7.7) k/uL Lymphocytes # 1.7 (1.0-4.8) k/uL Monocytes # 0.3 (0-1.0) k/uL Eosinophils # 0.2 (0-0.7) k/uL Basophils # 0.1 (0-0.2) k/uL Sodium 139 (137-145) mmol/L Potassium 3.9 (3.5-5.1) mmol/L Chloride 102 (98-107) mmol/L Carbon Dioxide 29 (22-30) mmol/L Anion Gap 8 mmol/L BUN 16 (9-20) mg/dL Creatinine 0.95 (0.66-1.25) mg/dL Est GFR (CKD-EPI)AfAm >90 (>60 ml/min/1.73 sqM) Est GFR (CKD-EPI)NonAf >90 (>60 ml/min/1.73 sqM) Glucose 296 H (74-99) mg/dL Calcium 9.4 (8.4-10.2) mg/dL Phosphorus 3.1 (2.5-4.5) mg/dL Magnesium 1.7 (1.6-2.3) mg/dL Total Bilirubin 0.3 (0.2-1.3) mg/dL AST 35 (17-59) U/L ALT 65 (21-72) U/L Alkaline Phosphatase 142 H (38-126) U/L Creatine Kinase 169 (55-170) U/L Total Protein 7.3 (6.3-8.2) g/dL Albumin 4.2 (3.5-5.0) g/dL Urine Color Yellow Urine Appearance Clear (Clear) Urine pH 6.0 (5.0-8.0) Ur Specific [place] 1.020 (1.001-1.035) Urine Protein Negative (Negative) Urine Glucose (UA) 4+ H (Negative) Urine Ketones Negative (Negative) Urine Blood Negative (Negative) Urine Nitrite Negative (Negative) Urine Bilirubin Negative (Negative) Urine Urobilinogen <2.0 (<2.0) mg/dL Ur Leukocyte Esterase Negative (Negative) Acetone, Qual Negative (Negative) Disposition Clinical Impression: Hyperglycemia Disposition: HOME SELF-CARE Condition: Good Instructions (If sedation given, give patient instructions): Diabetic Hyperglycemia (ED) Is patient prescribed a controlled substance at d/c from ED?: No Referrals: Maude Spivey MD [Primary Care Provider] - 1-2 days
[2019-05-06 22:50] LABS: ALT 65 U/L (21-72); AST 35 U/L (17-59); African American GFR (CKD) >90 (>60 ml/min/1.73 sqM); Albumin 4.2 g/dL (3.5-5.0); Alkaline Phosphatase 142 U/L (38-126); Anion Gap 8 mmol/L; Blood Urea Nitrogen 16 mg/dL (9-20); Calcium 9.4 mg/dL (8.4-10.2); Carbon Dioxide 29 mmol/L (22-30); Chloride 102 mmol/L (98-107); Creatine Kinase 169 U/L (55-170); Glucose 296 mg/dL (74-99); Magnesium 1.7 mg/dL (1.6-2.3); Phosphorus 3.1 mg/dL (2.5-4.5); Potassium 3.9 mmol/L (3.5-5.1); Sodium 139 mmol/L (137-145); Total Bilirubin 0.3 mg/dL (0.2-1.3); Total Protein 7.3 g/dL (6.3-8.2)
[2019-05-06] MEDS ORDERED: INSULIN REGULAR 100 UNIT/ML VIAL IV ONE (22:57)
[2019-05-06 23:19] VITALS: BP 137/87; PULSE 77; RESP 18
[2019-05-07 00:07] LABS: Glucose,Whole Blood 194 mg/dL (75-99)
[2019-05-07 05:12] LABS: Hemoglobin A1C 8.9 % (4.0-6.0)
== END 2019-05-07 00:09 | disposition home or self-care (01) ==
LOC: EC 21:52
DX: E11.65 Type 2 diabetes mellitus with hyperglycemia (principal); I48.91 Unspecified atrial fibrillation; I25.10 Atherosclerotic heart disease of native coronary artery without angina pectoris; I25.2 Old myocardial infarction; M19.90 Unspecified osteoarthritis, unspecified site; G47.30 Sleep apnea, unspecified; G25.81 Restless legs syndrome; M10.9 Gout, unspecified; Z87.891 Personal history of nicotine dependence; Z79.01 Long term (current) use of anticoagulants; Z79.82 Long term (current) use of aspirin; Z79.899 Other long term (current) drug therapy; Z86.73 Personal history of transient ischemic attack (TIA), and cerebral infarction without residual deficits; Z95.5 Presence of coronary angioplasty implant and graft; Z96.611 Presence of right artificial shoulder joint; Z96.651 Presence of right artificial knee joint; Z99.89 Dependence on other enabling machines and devices
CPT/HCPCS: 36415; 80053; 81003; 82009; 82550; 83036; 83735; 84100; 85025; 96360; 96361; 99285

== ENCOUNTER 2019-05-13 13:42 | Emergency (ER) | payer OTHER ==
[2019-05-13 13:47] VITALS: BP 180/74; PULSE 74; RESP 20; TEMP 98.5
--- NOTE | 2019-05-13 13:57 | ED ---
Lower Extremity Injury HPI - General Chief Complaint: Extremity Injury, Lower Stated Complaint: L knee pain Time Seen by Provider: 05/13/19 13:48 Source: patient Mode of arrival: wheelchair Limitations: no limitations - History of Present Illness Initial Comments: 48 yo male presents emergency department today for chief complaint of left knee pain patient's history of previous right meniscal injury history of heavy weightlifting in past. Patient states the pain feels identical to when he had problems with his right meniscus patient describes the pain as a bandlike over the center of the knee switching from the front to the back he states it feels like is no central the knee he denies any swelling redness he states the pain is increasing with weightbearing or twisting of the lower leg. Patient denies any fever or flulike symptoms or recent illness. Patient denies IV drug use. Remaining review of systems negative upon arrival patient appears well as signs of acute distress. - Related Data Home Medications Medication Instructions Recorded Confirmed Apixaban [Eliquis] 5 mg PO BID 05/07/18 05/06/19 Metoprolol Tartrate [Lopressor] 25 mg PO DAILY 09/09/18 05/06/19 rOPINIRole HCL [Requip] 0.5 mg PO HS 09/09/18 05/06/19 HYDROcodone/APAP 5-325MG [[place] 1 tab PO DAILY PRN 04/20/19 05/06/19 5-325] Aspirin EC [Ecotrin Low Dose] 81 mg PO DAILY 04/23/19 05/06/19 Chlorthalidone [Hygroton] 25 mg PO DAILY 04/23/19 05/06/19 Allopurinol [Zyloprim] 300 mg PO DAILY 04/26/19 05/06/19 Atorvastatin [Lipitor] 40 mg PO DAILY 04/26/19 05/06/19 Furosemide [Lasix] 20 mg PO DAILY 04/26/19 05/06/19 Previous Rx's Medication Instructions Recorded Ibuprofen [Motrin] 600 mg PO Q6HR PRN #40 day 07/30/18 Insulin Glargine [Lantus] 20 unit SQ HS 30 Days #1 vial 04/29/19 Levothyroxine Sodium [Synthroid] 300 mcg PO DAILY@0630 30 Days #30 04/29/19 tab metFORMIN HCL [Glucophage] 1,000 mg PO BID-W/MEALS 30 Days 04/29/19 #60 tab Ibuprofen 800 mg PO Q8H PRN 7 Days #21 tablet 05/13/19 Allergies Allergy/AdvReac Type Severity Reaction Status Date / Time No Known Allergies Allergy Verified 05/13/19 13:47 Review of Systems ROS Statement: Those systems with pertinent positive or pertinent negative responses have been documented in the HPI. ROS Other: All systems not noted in ROS Statement are negative. Past Medical History Past Medical History: Atrial Fibrillation, Coronary Artery Disease (CAD), CVA/TIA, Diabetes Mellitus, Memory Impairment, Myocardial Infarction ([place]), Osteoarthritis ([place]), Sleep Apnea/CPAP/BIPAP, Thyroid Disorder Additional Past Medical History / Comment(s): denies hx hypertension, restless leg syndrome, "TIA (x 5) last Apr 2016", memory loss and numbness left fingers left hand and occ lt arm weakness, gout, wears CPAP at home. new diagnosis diabetes 05/13 Last Myocardial Infarction Date:: unk History of Any Multi-Drug Resistant Organisms: None Reported Past Surgical History: Heart Catheterization, Heart Catheterization With Stent, Hernia Repair, Joint Replacement, Orthopedic Surgery Additional Past Surgical History / Comment(s): loop monitor in chest. one cardiac stent, rt knee, rt shoulder Past Anesthesia/Blood Transfusion Reactions: No Reported Reaction Date of Last Stent Placement:: 2016 Type of Cardiac Device: Loop Device Placement Date:: Apr 2016 Past Psychological History: Anxiety Smoking Status: Former smoker Past Alcohol Use History: None Reported Past Drug Use History: None Reported - Past Family History Father Additional Family Medical History / Comment(s): of [place] Mother Family Medical History: No Reported History Brother(s) Additional Family Medical History / Comment(s): Bipolar disorder General Exam - General Exam Comments Initial Comments: General: The patient is awake and alert, in no distress, and does not appear acutely ill. Eye: Pupils are equal, round and reactive to light, extra-ocular movements are intact. No nystagmus. There is normal conjunctiva bilaterally. No signs of icterus. Cardiovascular: There is a regular rate and rhythm. No murmur, rub or gallop is appreciated. Respiratory: Lungs are clear to auscultation, respirations are non-labored, breath sounds are equal. No wheezes, stridor, rales, or rhonchi. Musculoskeletal: Normal inspection of the knees bilaterally nose and obvious soft tissue swelling no redness. Patient has + apleys compression test. Patient is able to range at the knee. Strength 5/5. Sensation intact. DP pulses equal bilaterally 2+. Neurological: A&O x 3. CN II-XII intact, There are no obvious motor or sensory deficits. Coordination appears grossly intact. Speech is normal. Skin: Skin is warm and dry and no rashes or lesions are noted. Psychiatric: Cooperative, appropriate mood & affect, normal judgment. Limitations: no limitations Course Vital Signs 05/13/19 13:43 Temperature 98.5 F Pulse Rate 74 Respiratory 20 Rate Blood Pressure 180/74 O2 Sat by Pulse 95 Oximetry Medical Decision Making - Medical Decision Making 48 year old male previous right meniscus injury history of heavy lifting in his past. Patient complaining of bandlike pain over the center the knee. Increases with any weightbearing or twisting of the lower knee. Positive apleys compression test. He says revealing a small effusion. Patient is no warmth erythema or significant swelling of the knee. Able to range. No constitutional symptoms at this time I feel this is a possible issue with his meniscus versus inflammatory process. Term parameters and the importance of orthopedic follow- up were discussed and patient was discharged appearing well with an anti- inflammatory medication case discussed with any provider Dr. Avina was agreeable. Disposition Clinical Impression: Left knee pain Disposition: HOME SELF-CARE Condition: Good Instructions (If sedation given, give patient instructions): Knee Pain (ED), Meniscus Tear (ED) Additional Instructions: Please use medication as discussed. Please follow-up with your orthopedic surgeon. Please return to emergency room if the symptoms increase or worsen or for any other concerns. Prescriptions: Ibuprofen 800 mg PO Q8H PRN 7 Days #21 tablet PRN Reason: Pain Is patient prescribed a controlled substance at d/c from ED?: No Referrals: Maude Spivey MD [Primary Care Provider] - 1-2 days [place] Mcdonough DO [Doctor of Osteopathic Medicine] - 1-2 days Time of Disposition: 14:26
[2019-05-13] MEDS ORDERED: ACET/COD 300 MG/30 MG STARTER PACK 6 TAB BTL PO STA (13:59)
[2019-05-13] MEDS ORDERED: KETOROLAC 30 MG/ML 1 ML VIAL IM STA (13:59)
--- NOTE | 2019-05-13 14:15 | XR ---
Left knee HISTORY: Left knee pain 3 views of the left knee Bone mineralization, joint spaces and alignment are maintained. No fracture or dislocation. Suprapate llar increased density is compatible with joint effusion. IMPRESSION: Joint effusion, knee MRI may be of benefit
== END 2019-05-13 14:32 | disposition home or self-care (01) ==
LOC: EC 13:42
DX: M25.562 Pain in left knee (principal); M79.89 Other specified soft tissue disorders; I48.91 Unspecified atrial fibrillation; I25.10 Atherosclerotic heart disease of native coronary artery without angina pectoris; E11.9 Type 2 diabetes mellitus without complications; I25.2 Old myocardial infarction; M19.90 Unspecified osteoarthritis, unspecified site; G47.30 Sleep apnea, unspecified; G25.81 Restless legs syndrome; M10.9 Gout, unspecified; Z87.891 Personal history of nicotine dependence; Z79.01 Long term (current) use of anticoagulants; Z79.82 Long term (current) use of aspirin; Z79.899 Other long term (current) drug therapy; Z86.73 Personal history of transient ischemic attack (TIA), and cerebral infarction without residual deficits; Z95.5 Presence of coronary angioplasty implant and graft; Z96.651 Presence of right artificial knee joint; Z96.611 Presence of right artificial shoulder joint; Z99.89 Dependence on other enabling machines and devices; Z87.828 Personal history of other (healed) physical injury and trauma
CPT/HCPCS: 73562; 99283; 96372; J1885

== ENCOUNTER → 2019-06-13 | Outpatient (CLI) | payer OTHER ==
--- NOTE | 2019-06-15 15:38 | MR ---
EXAMINATION TYPE: MR knee LT wo con DATE OF EXAM: 06/13/2019 COMPARISON: Outside left knee x-ray May 21, 2019. HISTORY: Lt knee pain per order. Pain, swelling, and locking for 7 months per patient. TECHNIQUE: Multiplanar, multisequence images of the knee is performed without IV contrast. FINDINGS: MEDIAL MENISCUS: Anterior and posterior horns are intact without tear. LATERAL MENISCUS: Anterior and posterior horns are intact without tear. CRUCIATE LIGAMENTS: The anterior and posterior cruciate ligaments are intact and unremarkable. COLLATERAL LIGAMENTS: The medial collateral ligament and lateral collateral ligament complex are inta ct and unremarkable. EXTENSOR MECHANISM: Visualized quadriceps and patellar tendons are intact. EFFUSION: There is moderate size suprapatellar joint effusion with synovial thickening. POPLITEAL CYST: No popliteal/gan cyst. TRICOMPARTMENT SPACES: Mild narrowing medial tibiofemoral compartment. No significant spurring is pre sent. CARTILAGE: Tricompartment articular cartilage is preserved. BONE MARROW SIGNAL: No focal abnormal marrow signal is appreciated. OTHER: No additional significant abnormality is appreciated. IMPRESSION: 1. No meniscal or ligamentous tear is seen. 2. Moderate suprapatellar joint effusion with suggestion of underlying synovitis, correlate clinicall y. 3. Mild osteoarthritic changes.
== END | disposition home or self-care (01) ==
LOC: RADMRIMAIN 21:02
PROVIDERS: ATTEND Orthopaedic Surgery
DX: M17.12 Unilateral primary osteoarthritis, left knee (principal)

== ENCOUNTER 2019-07-04 12:07 | Emergency (ER) | payer OTHER ==
[2019-07-04] MEDS ORDERED: SODIUM CHLORIDE 0.9% 1,000 ML IV STA (12:46)
--- NOTE | 2019-07-04 12:50 | ED ---
General Adult HPI - General Chief complaint: Dizziness Stated complaint: dizziness/lightheaded Time Seen by Provider: 07/04/19 12:40 Source: patient, RN notes reviewed Mode of arrival: wheelchair Limitations: no limitations - History of Present Illness Initial comments: 48-year-old male with a past medical history of atrial fibrillation, CAD with stent in 2016, NIDDM type II, thyroid disorder presents to the emergency department for a chief complaint of lightheadedness. Patient states this has been ongoing for about one hour. Patient states that he had left his appointment and was walking into a store when this occurred.. States that he was getting a knee injection and steroid injection by Dr. schwarz for chronic knee pain.. He denies any dizziness, denies room spinning. Denies any episodes of syncope. Denies any chest pain or shortness of breath. Patient has no other complaints at this time including shortness of breath, chest pain, abdominal pain, nausea or vomiting, headache, or visual changes. - Related Data Home Medications Medication Instructions Recorded Confirmed Apixaban [Eliquis] 5 mg PO BID 05/07/18 05/06/19 Metoprolol Tartrate [Lopressor] 25 mg PO DAILY 09/09/18 05/06/19 rOPINIRole HCL [Requip] 0.5 mg PO HS 09/09/18 05/06/19 HYDROcodone/APAP 5-325MG [[place] 1 tab PO DAILY PRN 04/20/19 05/06/19 5-325] Aspirin EC [Ecotrin Low Dose] 81 mg PO DAILY 04/23/19 05/06/19 Chlorthalidone [Hygroton] 25 mg PO DAILY 04/23/19 05/06/19 Allopurinol [Zyloprim] 300 mg PO DAILY 04/26/19 05/06/19 Atorvastatin [Lipitor] 40 mg PO DAILY 04/26/19 05/06/19 Furosemide [Lasix] 20 mg PO DAILY 04/26/19 05/06/19 Previous Rx's Medication Instructions Recorded Ibuprofen [Motrin] 600 mg PO Q6HR PRN #40 day 07/30/18 Insulin Glargine [Lantus] 20 unit SQ HS 30 Days #1 vial 04/29/19 Levothyroxine Sodium [Synthroid] 300 mcg PO DAILY@0630 30 Days #30 11/05/19 tab metFORMIN HCL [Glucophage] 1,000 mg PO BID-W/MEALS 30 Days 04/29/19 #60 tab Ibuprofen 800 mg PO Q8H PRN 7 Days #21 tablet 05/13/19 Allergies Allergy/AdvReac Type Severity Reaction Status Date / Time No Known Allergies Allergy Verified 05/13/19 13:47 Review of Systems ROS Statement: Those systems with pertinent positive or pertinent negative responses have been documented in the HPI. ROS Other: All systems not noted in ROS Statement are negative. Past Medical History Past Medical History: Atrial Fibrillation, Coronary Artery Disease (CAD), CVA/TIA, Diabetes Mellitus, Memory Impairment, Myocardial Infarction ([place]), Osteoarthritis ([place]), Sleep Apnea/CPAP/BIPAP, Thyroid Disorder Additional Past Medical History / Comment(s): denies hx hypertension, restless leg syndrome, "TIA (x 5) last Apr 2016", memory loss and numbness left fingers left hand and occ lt arm weakness, gout, wears CPAP at home. new diagnosis diabetes 05/13 Last Myocardial Infarction Date:: unk History of Any Multi-Drug Resistant Organisms: None Reported Past Surgical History: Heart Catheterization, Heart Catheterization With Stent, Hernia Repair, Joint Replacement, Orthopedic Surgery Additional Past Surgical History / Comment(s): loop monitor in chest. one cardiac stent, rt knee, rt shoulder Past Anesthesia/Blood Transfusion Reactions: No Reported Reaction Date of Last Stent Placement:: 2016 Type of Cardiac Device: Loop Device Placement Date:: Apr 2016 Past Psychological History: Anxiety Smoking Status: Former smoker Past Alcohol Use History: None Reported Past Drug Use History: None Reported - Past Family History Father Additional Family Medical History / Comment(s): of [place] Mother Family Medical History: No Reported History Brother(s) Additional Family Medical History / Comment(s): Bipolar disorder General Exam Limitations: no limitations General appearance: alert, in no apparent distress Head exam: Present: atraumatic, normocephalic, normal inspection Eye exam: Present: normal appearance, PERRL, EOMI. Absent: scleral icterus, conjunctival injection, periorbital swelling ENT exam: Present: normal exam, mucous membranes moist Neck exam: Present: normal inspection, full ROM. Absent: tenderness, meningismus, lymphadenopathy Respiratory exam: Present: normal lung sounds bilaterally. Absent: respiratory distress, wheezes, rales, rhonchi, stridor Cardiovascular Exam: Present: regular rate, normal rhythm, normal heart sounds. Absent: systolic murmur, diastolic murmur, rubs, gallop, clicks Neurological exam: Present: alert Course Vital Signs 07/04/19 12:12 Temperature 98.1 F Pulse Rate 62 Respiratory 18 Rate Blood Pressure 121/86 O2 Sat by Pulse 96 Oximetry EKG Findings - EKG Comments: EKG Findings:: Sinus bradycardia, ventricular rate 59, UT interval 174, QTC 374 Medical Decision Making - Medical Decision Making She is well-appearing. Vitals are stable. Patient denies any dizziness. Patient is not ataxic. All neuro exam. CBC CMP unremarkable. Chest x-ray shows no acute cardio pulmonary process. EKG shows a sinus bradycardia with a v entricular rate of 59. Patient was given a liter bolus. Patient reevaluated and is feeling "100% better". Denies any lightheadedness whatsoever. Patient is really requesting discharge as his daughter has a doctor's appointment. - Lab Data Result diagrams: 07/04/19 12:57 07/04/19 12:57 Lab Results 07/04/19 07/04/19 07/04/19 Range/Units 12:57 12:57 12:57 WBC 5.1 (3.8-10.6) k/uL RBC 4.91 (4.30-5.90) m/uL Hgb 13.8 (13.0-17.5) gm/dL Hct 42.3 (39.0-53.0) % MCV 86.3 (80.0-100.0) fL MCH 28.0 (25.0-35.0) pg MCHC 32.5 (31.0-37.0) g/dL RDW 14.9 (11.5-15.5) % Plt Count 171 (150-450) k/uL Neutrophils % 65 % Lymphocytes % 25 % Monocytes % 5 % Eosinophils % 3 % Basophils % 0 % Neutrophils # 3.4 (1.3-7.7) k/uL Lymphocytes # 1.3 (1.0-4.8) k/uL Monocytes # 0.3 (0-1.0) k/uL Eosinophils # 0.1 (0-0.7) k/uL Basophils # 0.0 (0-0.2) k/uL PT 10.6 (9.0-12.0) sec INR 1.0 (<1.2) APTT 24.6 (22.0-30.0) sec Sodium 139 (137-145) mmol/L Potassium 4.3 (3.5-5.1) mmol/L Chloride 104 (98-107) mmol/L Carbon Dioxide 25 (22-30) mmol/L Anion Gap 10 mmol/L BUN 12 (9-20) mg/dL Creatinine 0.84 (0.66-1.25) mg/dL Est GFR (CKD-EPI)AfAm >90 (>60 ml/min/1.73 sqM) Est GFR (CKD-EPI)NonAf >90 (>60 ml/min/1.73 sqM) Glucose 169 H (74-99) mg/dL Calcium 9.4 (8.4-10.2) mg/dL Total Bilirubin 0.5 (0.2-1.3) mg/dL AST 38 (17-59) U/L ALT 35 (4-49) U/L Alkaline Phosphatase 106 (38-126) U/L Troponin I (0.000-0.034) ng/mL Total Protein 7.9 (6.3-8.2) g/dL Albumin 4.4 (3.5-5.0) g/dL 07/04/19 Range/Units 12:57 WBC (3.8-10.6) k/uL RBC (4.30-5.90) m/uL Hgb (13.0-17.5) gm/dL Hct (39.0-53.0) % MCV (80.0-100.0) fL MCH (25.0-35.0) pg MCHC (31.0-37.0) g/dL RDW (11.5-15.5) % Plt Count (150-450) k/uL Neutrophils % % Lymphocytes % % Monocytes % % Eosinophils % % Basophils % % Neutrophils # (1.3-7.7) k/uL Lymphocytes # (1.0-4.8) k/uL Monocytes # (0-1.0) k/uL Eosinophils # (0-0.7) k/uL Basophils # (0-0.2) k/uL PT (9.0-12.0) sec INR (<1.2) APTT (22.0-30.0) sec Sodium (137-145) mmol/L Potassium (3.5-5.1) mmol/L Chloride (98-107) mmol/L Carbon Dioxide (22-30) mmol/L Anion Gap mmol/L BUN (9-20) mg/dL Creatinine (0.66-1.25) mg/dL Est GFR (CKD-EPI)AfAm (>60 ml/min/1.73 sqM) Est GFR (CKD-EPI)NonAf (>60 ml/min/1.73 sqM) Glucose (74-99) mg/dL Calcium (8.4-10.2) mg/dL Total Bilirubin (0.2-1.3) mg/dL AST (17-59) U/L ALT (4-49) U/L Alkaline Phosphatase (38-126) U/L Troponin I <0.012 (0.000-0.034) ng/mL Total Protein (6.3-8.2) g/dL Albumin (3.5-5.0) g/dL Disposition Clinical Impression: Light-headed Disposition: HOME SELF-CARE Condition: Good Instructions (If sedation given, give patient instructions): Lightheadedness (ED) Additional Instructions: Please drink plenty of fluids. Follow up with primary care in 1-2 days. Return here to the emergency department if you have any worsening symptoms. Is patient prescribed a controlled substance at d/c from ED?: No Referrals: Maude Spivey MD [Primary Care Provider] - 1-2 days Time of Disposition: 14:31
--- NOTE | 2019-07-04 13:25 | XR ---
EXAMINATION TYPE: XR chest 2V DATE OF EXAM: 07/04/2019 COMPARISON: Chest x-ray March 27, 2018 HISTORY: Near syncope. TECHNIQUE: Frontal and lateral views of the chest are obtained. FINDINGS: Overlying EKG leads. Somewhat low lung volumes redemonstrated. There is no focal air space opacity, pleural effusion, or pneumothorax seen. The cardiac silhouette size is upper limits of norm al with overlying loop recorder redemonstrated. The osseous structures are intact. IMPRESSION: No acute cardiopulmonary process. No significant change from prior.
[2019-07-04 13:50] LABS: Basophils % (A) 0 %; Eosinophils # (A) 0.1 k/uL (0-0.7); Eosinophils % (A) 3 %; HCT 42.3 % (39.0-53.0); HGB 13.8 gm/dL (13.0-17.5); Lymphocytes # (A) 1.3 k/uL (1.0-4.8); Lymphocytes % (A) 25 %; MCHC 32.5 g/dL (31.0-37.0); MCV 86.3 fL (80.0-100.0); Mean Platelet Volume 7.8; Monocytes # (A) 0.3 k/uL (0-1.0); Monocytes % (A) 5 %; Neutrophils # (A) 3.4 k/uL (1.3-7.7); Neutrophils % (A) 65 %; Platelet Count 171 k/uL (150-450); RBC 4.91 m/uL (4.30-5.90); RDW 14.9 % (11.5-15.5); WBC 5.1 k/uL (3.8-10.6)
[2019-07-04 14:00] LABS: Partial Thromboplastin Time 24.6 sec (22.0-30.0); Prothrombin Time 10.6 sec (9.0-12.0)
[2019-07-04 14:02] LABS: ALT 35 U/L (4-49); AST 38 U/L (17-59); African American GFR (CKD) >90 (>60 ml/min/1.73 sqM); Albumin 4.4 g/dL (3.5-5.0); Alkaline Phosphatase 106 U/L (38-126); Anion Gap 10 mmol/L; Blood Urea Nitrogen 12 mg/dL (9-20); Calcium 9.4 mg/dL (8.4-10.2); Carbon Dioxide 25 mmol/L (22-30); Chloride 104 mmol/L (98-107); Glucose 169 mg/dL (74-99); Non-African American GFR(CKD) >90 (>60 ml/min/1.73 sqM); Potassium 4.3 mmol/L (3.5-5.1); Sodium 139 mmol/L (137-145); Total Bilirubin 0.5 mg/dL (0.2-1.3); Total Protein 7.9 g/dL (6.3-8.2)
[2019-07-04 14:41] VITALS: BP 155/101; PULSE 56; RESP 16; TEMP 98
== END 2019-07-04 14:38 | disposition home or self-care (01) ==
LOC: EC 12:07
DX: R42 Dizziness and giddiness (principal); R00.1 Bradycardia, unspecified; I48.91 Unspecified atrial fibrillation; I25.10 Atherosclerotic heart disease of native coronary artery without angina pectoris; I25.2 Old myocardial infarction; M19.90 Unspecified osteoarthritis, unspecified site; G25.81 Restless legs syndrome; M10.9 Gout, unspecified; G47.30 Sleep apnea, unspecified; Z99.89 Dependence on other enabling machines and devices; Z86.73 Personal history of transient ischemic attack (TIA), and cerebral infarction without residual deficits; Z95.818 Presence of other cardiac implants and grafts; Z95.5 Presence of coronary angioplasty implant and graft; Z96.698 Presence of other orthopedic joint implants; Z87.891 Personal history of nicotine dependence; Z79.01 Long term (current) use of anticoagulants; Z79.82 Long term (current) use of aspirin; Z79.891 Long term (current) use of opiate analgesic; Z79.899 Other long term (current) drug therapy
CPT/HCPCS: 36415; 71046; 80053; 84484; 85025; 85610; 85730; 93005; 96360; 99284

== ENCOUNTER 2019-09-17 22:09 | Emergency (ER) | payer OTHER ==
[2019-09-17 22:14] VITALS: RESP 18
--- NOTE | 2019-09-17 22:47 | ED ---
General Adult HPI - General Chief complaint: Abdominal Pain Stated complaint: Abd Pain Time Seen by Provider: 09/17/19 22:14 Source: patient Mode of arrival: ambulatory Limitations: no limitations - History of Present Illness Initial comments: 48-year-old male patient presents to the emergency department today for evaluation of abdominal bloating and tightness. Patient is also reporting drainage in the back of his throat and a feeling of having a swollen throat. Patient states symptoms started one to 2 days ago. States his appetite is normal. Denies any constipation or diarrhea. Denies any difficulty with urination. Denies fever or chills. Patient denies history of similar symptoms. Patient denies any recent rash, cough, shortness of breath, chest pain, back pain, numbness, tingling, dizziness, weakness, hematuria, dysuria, urinary urgen cy, urinary frequency, headache, visual changes, or any other complaints. - Related Data Home Medications Medication Instructions Recorded Confirmed Apixaban [Eliquis] 5 mg PO BID 05/07/18 05/06/19 Metoprolol Tartrate [Lopressor] 25 mg PO DAILY 09/09/18 05/06/19 rOPINIRole HCL [Requip] 0.5 mg PO HS 09/09/18 05/06/19 HYDROcodone/APAP 5-325MG [[place] 1 tab PO DAILY PRN 04/20/19 05/06/19 5-325] Aspirin EC [Ecotrin Low Dose] 81 mg PO DAILY 04/23/19 05/06/19 Chlorthalidone [Hygroton] 25 mg PO DAILY 04/23/19 05/06/19 Allopurinol [Zyloprim] 300 mg PO DAILY 04/26/19 05/06/19 Atorvastatin [Lipitor] 40 mg PO DAILY 04/26/19 05/06/19 Furosemide [Lasix] 20 mg PO DAILY 04/26/19 05/06/19 Previous Rx's Medication Instructions Recorded Ibuprofen [Motrin] 600 mg PO Q6HR PRN #40 day 07/30/18 Insulin Glargine [Lantus] 20 unit SQ HS 30 Days #1 vial 04/29/19 Levothyroxine Sodium [Synthroid] 300 mcg PO DAILY@0630 30 Days #30 04/29/19 tab metFORMIN HCL [Glucophage] 1,000 mg PO BID-W/MEALS 30 Days 04/29/19 #60 tab Ibuprofen 800 mg PO Q8H PRN 7 Days #21 tablet 05/13/19 Allergies Allergy/AdvReac Type Severity Reaction Status Date / Time No Known Allergies Allergy Verified 09/17/19 22:14 Review of Systems ROS Statement: Those systems with pertinent positive or pertinent negative responses have been documented in the HPI. ROS Other: All systems not noted in ROS Statement are negative. Past Medical History Past Medical History: Atrial Fibrillation, Coronary Artery Disease (CAD), CVA/TIA, Diabetes Mellitus, Memory Impairment, Myocardial Infarction ([place]), Osteoarthritis (OA), Sleep Apnea/CPAP/BIPAP, Thyroid Disorder Additional Past Medical History / Comment(s): denies hx hypertension, restless leg syndrome, "TIA (x 5) last Apr 2016", memory loss and numbness left fingers left hand and occ lt arm weakness, gout, wears CPAP at home. new diagnosis diabetes 05/13 Last Myocardial Infarction Date:: unk History of Any Multi-Drug Resistant Organisms: None Reported Past Surgical History: Heart Catheterization, Heart Catheterization With Stent, Hernia Repair, Joint Replacement, Orthopedic Surgery Additional Past Surgical History / Comment(s): loop monitor in chest. one cardiac stent, rt knee, rt shoulder Past Anesthesia/Blood Transfusion Reactions: No Reported Reaction Date of Last Stent Placement:: 2016 Type of Cardiac Device: Loop Device Placement Date:: Apr 2016 Past Psychological History: Anxiety Smoking Status: Former smoker Past Alcohol Use History: None Reported Past Drug Use History: None Reported - Past Family History Father Additional Family Medical History / Comment(s): of [place] Mother Family Medical History: No Reported History Brother(s) Additional Family Medical History / Comment(s): Bipolar disorder General Exam Limitations: no limitations General appearance: alert, in no apparent distress, other (This is a well- developed, well-nourished adult male patient in no acute distress. Vital signs upon presentation are temperature 98.4F, pulse 71, respirations 18, blood pressure 160/92, pulse ox 96% on room air.) ENT exam: Present: normal exam, normal oropharynx, mucous membranes moist Respiratory exam: Present: normal lung sounds bilaterally. Absent: respiratory distress, wheezes, rales, rhonchi, stridor Cardiovascular Exam: Present: regular rate, normal rhythm, normal heart sounds. Absent: systolic murmur, diastolic murmur, rubs, gallop, clicks GI/Abdominal exam: Present: distended, normal bowel sounds. Absent: soft (Firm), tenderness, guarding, rebound, rigid Neurological exam: Present: alert, oriented X3, CN II-XII intact Psychiatric exam: Present: normal affect, normal mood Skin exam: Present: warm, dry, intact, normal color. Absent: rash Course Vital Signs 09/17/19 22:10 Temperature 98.4 F Pulse Rate 71 Respiratory 18 Rate Blood Pressure 160/92 O2 Sat by Pulse 96 Oximetry Medical Decision Making - Medical Decision Making 48-year-old male patient presents to the emergency department today for e valuation of abdominal distention and tightness. Physical examination did reveal distention of the abdomen, firm palpation. No tenderness noted. Labs reviewed and were unremarkable. KUB x-ray was negative. I did discuss findings and results with the patient. He will be discharged with his primary care physician for recheck in 1-2 days. Return parameters were discussed in detail. He verbalizes understanding and agrees with this plan. - Lab Data Result diagrams: 09/17/19 22:50 09/17/19 22:50 Lab Results 09/17/19 09/17/19 09/17/19 Range/Units 22:50 22:50 22:50 WBC 6.8 (3.8-10.6) k/uL RBC 5.02 (4.30-5.90) m/uL Hgb 13.9 (13.0-17.5) gm/dL Hct 41.9 (39.0-53.0) % MCV 83.4 (80.0-100.0) fL MCH 27.7 (25.0-35.0) pg MCHC 33.2 (31.0-37.0) g/dL RDW 14.7 (11.5-15.5) % Plt Count 198 (150-450) k/uL Neutrophils % 58 % Lymphocytes % 32 % Monocytes % 5 % Eosinophils % 3 % Basophils % 0 % Neutrophils # 3.9 (1.3-7.7) k/uL Lymphocytes # 2.2 (1.0-4.8) k/uL Monocytes # 0.3 (0-1.0) k/uL Eosinophils # 0.2 (0-0.7) k/uL Basophils # 0.0 (0-0.2) k/uL PT 9.9 (9.0-12.0) sec INR 0.9 (<1.2) APTT 23.2 (22.0-30.0) sec Sodium 138 (137-145) mmol/L Potassium 4.1 (3.5-5.1) mmol/L Chloride 104 (98-107) mmol/L Carbon Dioxide 29 (22-30) mmol/L Anion Gap 5 mmol/L BUN 15 (9-20) mg/dL Creatinine 1.00 (0.66-1.25) mg/dL Est GFR (CKD-EPI)AfAm >90 (>60 ml/min/1.73 sqM) Est GFR (CKD-EPI)NonAf 90 (>60 ml/min/1.73 sqM) Glucose 173 H (74-99) mg/dL Plasma Lactic Acid Carlos (0.7-2.0) mmol/L Calcium 9.2 (8.4-10.2) mg/dL Total Bilirubin 0.3 (0.2-1.3) mg/dL AST 38 (17-59) U/L ALT 45 (4-49) U/L Alkaline Phosphatase 121 (38-126) U/L NT-Pro-B Natriuret Pep pg/mL Total Protein 7.5 (6.3-8.2) g/dL Albumin 4.1 (3.5-5.0) g/dL Amylase 40 (30-110) U/L Lipase 84 (23-300) U/L Urine Color Urine Appearance (Clear) Urine pH (5.0-8.0) Ur Specific [place] (1.001-1.035) Urine Protein (Negative) Urine Glucose (UA) (Negative) Urine Ketones (Negative) Urine Blood (Negative) Urine Nitrite (Negative) Urine Bilirubin (Negative) Urine Urobilinogen (<2.0) mg/dL Ur Leukocyte Esterase (Negative) 09/17/19 09/17/19 09/17/19 Range/Units 22:50 22:50 23:22 WBC (3.8-10.6) k/uL RBC (4.30-5.90) m/uL Hgb (13.0-17.5) gm/dL Hct (39.0-53.0) % MCV (80.0-100.0) fL MCH (25.0-35.0) pg MCHC (31.0-37.0) g/dL RDW (11.5-15.5) % Plt Count (150-450) k/uL Neutrophils % % Lymphocytes % % Monocytes % % Eosinophils % % Basophils % % Neutrophils # (1.3-7.7) k/uL Lymphocytes # (1.0-4.8) k/uL Monocytes # (0-1.0) k/uL Eosinophils # (0-0.7) k/uL Basophils # (0-0.2) k/uL PT (9.0-12.0) sec INR (<1.2) APTT (22.0-30.0) sec Sodium (137-145) mmol/L Potassium (3.5-5.1) mmol/L Chloride (98-107) mmol/L Carbon Dioxide (22-30) mmol/L Anion Gap mmol/L BUN (9-20) mg/dL Creatinine (0.66-1.25) mg/dL Est GFR (CKD-EPI)AfAm (>60 ml/min/1.73 sqM) Est GFR (CKD-EPI)NonAf (>60 ml/min/1.73 sqM) Glucose (74-99) mg/dL Plasma Lactic Acid Carlos 1.3 (0.7-2.0) mmol/L Calcium (8.4-10.2) mg/dL Total Bilirubin (0.2-1.3) mg/dL AST (17-59) U/L ALT (4-49) U/L Alkaline Phosphatase (38-126) U/L NT-Pro-B Natriuret Pep 30 pg/mL Total Protein (6.3-8.2) g/dL Albumin (3.5-5.0) g/dL Amylase (30-110) U/L Lipase (23-300) U/L Urine Color Yellow Urine Appearance Clear (Clear) Urine pH 7.0 (5.0-8.0) Ur Specific [place] 1.021 (1.001-1.035) Urine Protein Negative (Negative) Urine Glucose (UA) Negative (Negative) Urine Ketones Negative (Negative) Urine Blood Negative (Negative) Urine Nitrite Negative (Negative) Urine Bilirubin Negative (Negative) Urine Urobilinogen 2.0 (<2.0) mg/dL Ur Leukocyte Esterase Negative (Negative) - Radiology Data Radiology results: report reviewed, image reviewed KUB x-ray was obtained. Report was reviewed in its entirety. Impression by Dr. Mo shows nonacute abdomen. No change. Disposition Clinical Impression: Abdominal bloating Disposition: HOME SELF-CARE Condition: Good Instructions (If sedation given, give patient instructions): Gas and Bloating (ED) Additional Instructions: Increase fluids. Rest. Follow up through primary care physician for recheck in 1-2 days. Return to the emergency department immediately for any new, worsening, or concerning symptoms. Is patient prescribed a controlled substance at d/c from ED?: No Referrals: Maude Spivey MD [Primary Care Provider] - 1-2 days Time of Disposition: 00:02
[2019-09-17 23:07] LABS: Basophils % (A) 0 %; Eosinophils # (A) 0.2 k/uL (0-0.7); Eosinophils % (A) 3 %; HCT 41.9 % (39.0-53.0); HGB 13.9 gm/dL (13.0-17.5); Lymphocytes # (A) 2.2 k/uL (1.0-4.8); Lymphocytes % (A) 32 %; MCH 27.7 pg (25.0-35.0); MCHC 33.2 g/dL (31.0-37.0); MCV 83.4 fL (80.0-100.0); Mean Platelet Volume 7.7; Monocytes # (A) 0.3 k/uL (0-1.0); Monocytes % (A) 5 %; Neutrophils # (A) 3.9 k/uL (1.3-7.7); Neutrophils % (A) 58 %; Platelet Count 198 k/uL (150-450); RBC 5.02 m/uL (4.30-5.90); RDW 14.7 % (11.5-15.5); WBC 6.8 k/uL (3.8-10.6)
[2019-09-17 23:12] LABS: ALT 45 U/L (4-49); AST 38 U/L (17-59); African American GFR (CKD) >90 (>60 ml/min/1.73 sqM); Albumin 4.1 g/dL (3.5-5.0); Alkaline Phosphatase 121 U/L (38-126); Amylase 40 U/L (30-110); Anion Gap 5 mmol/L; Blood Urea Nitrogen 15 mg/dL (9-20); Calcium 9.2 mg/dL (8.4-10.2); Carbon Dioxide 29 mmol/L (22-30); Chloride 104 mmol/L (98-107); Glucose 173 mg/dL (74-99); INR 0.9 (<1.2); Non-African American GFR(CKD) 90 (>60 ml/min/1.73 sqM); Partial Thromboplastin Time 23.2 sec (22.0-30.0); Potassium 4.1 mmol/L (3.5-5.1); Prothrombin Time 9.9 sec (9.0-12.0); Sodium 138 mmol/L (137-145); Total Bilirubin 0.3 mg/dL (0.2-1.3); Total Protein 7.5 g/dL (6.3-8.2)
--- NOTE | 2019-09-17 23:15 | XR ---
EXAMINATION TYPE: XR KUB DATE OF EXAM: 09/17/2019 COMPARISON: April 26, 2019 HISTORY: Abdominal pain TECHNIQUE: 3 views upright FINDINGS: There is no sign of intestinal obstruction or pneumoperitoneum. Fecal pattern is normal. [place] ng bases are clear. There are no pathologic calcifications over the kidneys. There is no evidence of a mass. IMPRESSION: Nonacute abdomen. No change.
[2019-09-17 23:39] LABS: Appearance,Urine Clear (Clear); Bilirubin,Urine Negative (Negative); Blood,Urine Negative (Negative); Color,Urine Yellow; Glucose,Urine (UA) Negative (Negative); Ketones,Urine Negative (Negative); Leukocyte Esterase,Urine Negative (Negative); Nitrite,Urine Negative (Negative); Protein,Urine Negative (Negative); Specific Gravity,Urine 1.021 (1.001-1.035)
[2019-09-18 00:13] VITALS: BP 155/87; PULSE 70; TEMP 98
== END 2019-09-18 00:13 | disposition home or self-care (01) ==
LOC: EC 22:09
DX: R14.0 Abdominal distension (gaseous) (principal); J39.2 Other diseases of pharynx; I48.91 Unspecified atrial fibrillation; I25.10 Atherosclerotic heart disease of native coronary artery without angina pectoris; E11.9 Type 2 diabetes mellitus without complications; G31.84 Mild cognitive impairment of uncertain or unknown etiology; I25.2 Old myocardial infarction; M19.90 Unspecified osteoarthritis, unspecified site; M10.9 Gout, unspecified; G25.81 Restless legs syndrome; G47.30 Sleep apnea, unspecified; Z87.891 Personal history of nicotine dependence; Z79.01 Long term (current) use of anticoagulants; Z79.82 Long term (current) use of aspirin; Z79.899 Other long term (current) drug therapy; Z86.73 Personal history of transient ischemic attack (TIA), and cerebral infarction without residual deficits; Z99.89 Dependence on other enabling machines and devices
CPT/HCPCS: 36415; 74018; 80053; 81003; 82150; 83605; 83690; 83880; 85025; 85610; 85730; 99284

== ENCOUNTER 2019-11-23 01:28 | Emergency (ER) | payer OTHER ==
[2019-11-23 01:37] VITALS: BP 125/80; PULSE 75; RESP 18; TEMP 98.1
[2019-11-23] MEDS ORDERED: KETOROLAC 60 MG/2 ML VIAL IM STA (02:03)
[2019-11-23] MEDS ORDERED: ACET/COD 300 MG/30 MG STARTER PACK 6 TAB BTL PO STA (02:03)
--- NOTE | 2019-11-23 02:04 | ED ---
Recheck HPI - General Chief Complaint: Recheck/Abnormal Lab/Rx Stated Complaint: RT sided pain Time Seen by Provider: 11/23/19 01:37 Source: patient Mode of arrival: wheelchair Limitations: no limitations - History of Present Illness Initial Comments: 49yo male presenting for right shoulder and right knee pain. Patient states his history of right-sided frozen shoulder/rotator cuff injury he states the past week he has had pain and stiffness in the right shoulder. That this feels similar 20s had frozen shoulder in the past. Patient states she also has issues with this meniscus in the right knee and has been having significant pain in the right knee denies any swelling or redness in those joints he denies any numbness or weakness in the right upper extremity or left lower extremity. Patient denies nausea, vomiting, abdominal pain, chest pain or SOB. Denies recent bite by tick, rashes. Denies any other join involvement. Patient states he does think he can work secondary to the pain. Patient states he has seen Dr. Beaulieu in the past for both of these complaints. Patient denies additional complaints. He is ambulatory on arrival. Morbidly obese. - Related Data Home Medications Medication Instructions Recorded Confirmed Apixaban [Eliquis] 5 mg PO BID 05/07/18 05/06/19 Metoprolol Tartrate [Lopressor] 25 mg PO DAILY 09/09/18 05/06/19 rOPINIRole HCL [Requip] 0.5 mg PO HS 09/09/18 05/06/19 HYDROcodone/APAP 5-325MG [[place] 1 tab PO DAILY PRN 04/20/19 05/06/19 5-325] Aspirin EC [Ecotrin Low Dose] 81 mg PO DAILY 04/23/19 05/06/19 Chlorthalidone [Hygroton] 25 mg PO DAILY 04/23/19 05/06/19 Allopurinol [Zyloprim] 300 mg PO DAILY 04/26/19 05/06/19 Atorvastatin [Lipitor] 40 mg PO DAILY 04/26/19 05/06/19 Furosemide [Lasix] 20 mg PO DAILY 04/26/19 05/06/19 Previous Rx's Medication Instructions Recorded Ibuprofen [Motrin] 600 mg PO Q6HR PRN #40 day 07/30/18 Insulin Glargine [Lantus] 20 unit SQ HS 30 Days #1 vial 04/29/19 Levothyroxine Sodium [Synthroid] 300 mcg PO DAILY@0630 30 Days #30 04/29/19 tab metFORMIN HCL [Glucophage] 1,000 mg PO BID-W/MEALS 30 Days 04/29/19 #60 tab Ibuprofen 800 mg PO Q8H PRN 7 Days #21 tablet 05/13/19 Allergies Allergy/AdvReac Type Severity Reaction Status Date / Time No Known Allergies Allergy Verified 11/23/19 01:32 Review of Systems ROS Statement: Those systems with pertinent positive or pertinent negative responses have been documented in the HPI. ROS Other: All systems not noted in ROS Statement are negative. Past Medical History Past Medical History: Atrial Fibrillation, Coronary Artery Disease (CAD), CVA/TIA, Diabetes Mellitus, Memory Impairment, Myocardial Infarction ([place]), Osteoarthritis (OA), Sleep Apnea/CPAP/BIPAP, Thyroid Disorder Additional Past Medical History / Comment(s): denies hx hypertension, restless leg syndrome, "TIA (x 5) last Apr 2016", memory loss and numbness left fingers left hand and occ lt arm weakness, gout, wears CPAP at home. new diagnosis diabetes 05/13 Last Myocardial Infarction Date:: unk History of Any Multi-Drug Resistant Organisms: None Reported Past Surgical History: Heart Catheterization, Heart Catheterization With Stent, Hernia Repair, Joint Replacement, Orthopedic Surgery Additional Past Surgical History / Comment(s): loop monitor in chest. one cardiac stent, rt knee, rt shoulder Past Anesthesia/Blood Transfusion Reactions: No Reported Reaction Date of Last Stent Placement:: 2016 Type of Cardiac Device: Loop Device Placement Date:: Apr 2016 Past Psychological History: Anxiety Smoking Status: Former smoker Past Alcohol Use History: None Reported Past Drug Use History: None Reported - Past Family History Father Additional Family Medical History / Comment(s): of [place] Mother Family Medical History: No Reported History Brother(s) Additional Family Medical History / Comment(s): Bipolar disorder General Exam - General Exam Comments Initial Comments: General: The patient is awake and alert, in no distress Eye: +3 mm pupils are equal, round and reactive to light, extra-ocular movements are intact. No nystagmus. There is normal conjunctiva bilaterally. No signs of icterus. Ears, nose, mouth and throat: There are moist mucous membranes and no oral lesions. Neck: The neck is supple, there is no tenderness or JVD. Cardiovascular: There is a regular rate and rhythm. No murmur, rub or gallop is appreciated. Respiratory: Lungs are clear to auscultation, respirations are non-labored, breath sounds are equal. No wheezes, stridor, rales, or rhonchi. Gastrointestinal: Soft, non-distended, non-tender abdomen without masses or organomegaly noted. There is no rebound or guarding present. Musculoskeletal: Normal inspection of the right shoulder elbow wrist hand as well as the right knee, ankle, foot. No swelling or redness. NO skin changes. no calf pain or swelling. Normal ROM, wiht mild to moderate discomfort localized to right knee mostly with flexion. No limitation. Patient has stiff right shoulder that is moderately painful to rotation. Strength 5/5 of the shoulder, elbow, wrist and hip knee and ankle. Sensation intact jus the UE and LE equal b/l. Radial and DP pulses equal bilaterally 2+. Neurological: A&O x 3. CN II-XII intact grossly, There are no obvious motor or sensory deficits. Coordination appears grossly intact. Speech is normal. Skin: Skin is warm and dry and no rashes or lesions are noted. Psychiatric: Cooperative, appropriate mood & affect, normal judgment. Limitations: no limitations Course Vital Signs 11/23/19 01:32 Temperature 98.1 F Pulse Rate 75 Respiratory 18 Rate Blood Pressure 125/80 O2 Sat by Pulse 96 Oximetry Medical Decision Making - Medical Decision Making 49 yo male presenting for right shoulder stiffness/pain and right knee pain. Orthopedic history + of both joints. Patient states similar to pain in past ongoing for week. Cant work like this patient states. Neurovascularly intact. No skin changes, no fevers. Patient will be discharged with toradol, tylenol #3 starter packa nd work note. Recommend he f/u with orthopedic surgeon and rest joints. Return parameters discussed, case discussed with attending patient discharged appearing well. ambulatory. Disposition Clinical Impression: Right knee pain, Right shoulder pain Disposition: HOME SELF-CARE Condition: Good Instructions (If sedation given, give patient instructions): Adhesive Capsulitis (ED), Knee Pain (ED) Additional Instructions: Please use medication as discussed. Please follow-up with family doctor in the next 2 days, orthopedics in next week. Please return to emergency room if the symptoms increase or worsen or for any other concerns. Is patient prescribed a controlled substance at d/c from ED?: No Referrals: Maude Spivey MD [Primary Care Provider] - 1-2 days [place] Mcdonough DO [Doctor of Osteopathic Medicine] - 1-2 days Time of Disposition: 02:04
== END 2019-11-23 03:00 | disposition home or self-care (01) ==
LOC: EC 01:28
DX: M25.511 Pain in right shoulder (principal); M25.561 Pain in right knee; I48.91 Unspecified atrial fibrillation; I25.10 Atherosclerotic heart disease of native coronary artery without angina pectoris; I25.2 Old myocardial infarction; E11.9 Type 2 diabetes mellitus without complications; G47.30 Sleep apnea, unspecified; E66.01 Morbid (severe) obesity due to excess calories; Z68.42 Body mass index [BMI] 45.0-49.9, adult; Z79.82 Long term (current) use of aspirin; Z79.899 Other long term (current) drug therapy; Z95.5 Presence of coronary angioplasty implant and graft; Z99.89 Dependence on other enabling machines and devices
CPT/HCPCS: 99283; 96372; J1885

== ENCOUNTER 2020-01-13 16:39 | Emergency (ER) | payer OTHER ==
[2020-01-13 17:10] VITALS: RESP 18
[2020-01-13] MEDS ORDERED: SODIUM CHLORIDE 0.9% 500 ML 500 ML IV STA (17:18)
[2020-01-13] MEDS ORDERED: MAG HYDROX/AL HYDROX/SIMETH 30 ML, HYOSCYAMINE ELIXIR 10 ML, LIDOCAINE VISCOUS 2% 10 ML PO STA ×3 (17:19)
--- NOTE | 2020-01-13 17:21 | ED ---
General Adult HPI - General Chief complaint: Abdominal Pain Stated complaint: Dizziness,light headed Time Seen by Provider: 01/13/20 16:50 Source: patient, RN notes reviewed, old records reviewed Mode of arrival: wheelchair Limitations: no limitations - History of Present Illness Initial comments: This a 49-year-old male who presents to the emergency department complaining of 2 months of abdominal pain after he eats. Patient states sometimes it lasts for an hour sometimes it lasts all day. Patient states it makes no difference what he eats it always hurts in the epigastric region. Patient states he saw his doctor was given some antacids and it seemed to help a little but it hasn't been helping lately. Patient denies any fever chills per patient denies any vomiting or diarrhea. Patient states occasionally he has woke up and had some dry heaves but not recently. Patient denies any back pain. Patient denies any weight gain or weight loss. Patient denies any chest pain difficulty breathing or shortness of breath - Related Data Home Medications Medication Instructions Recorded Confirmed Apixaban [Eliquis] 5 mg PO BID 05/07/18 01/13/20 Metoprolol Tartrate [Lopressor] 25 mg PO DAILY 09/09/18 01/13/20 rOPINIRole HCL [Requip] 0.5 mg PO HS 09/09/18 01/13/20 Aspirin EC [Ecotrin Low Dose] 81 mg PO DAILY 04/23/19 01/13/20 Chlorthalidone [Hygroton] 25 mg PO DAILY 04/23/19 01/13/20 Allopurinol [Zyloprim] 300 mg PO DAILY 04/26/19 01/13/20 Atorvastatin [Lipitor] 40 mg PO DAILY 04/26/19 01/13/20 Furosemide [Lasix] 20 mg PO DAILY 04/26/19 01/13/20 Chlorthalidone 25 mg PO DAILY 01/13/20 01/13/20 Glimepiride [Amaryl] 2 mg PO BID 01/13/20 01/13/20 Insulin Glargine,Hum.rec.anlog 20 unit SQ 01/13/20 01/13/20 [Jerad Doshi U-100] Omeprazole 20 mg PO DAILY 01/13/20 01/13/20 Ondansetron Odt [Zofran Odt] 4 mg PO Q8HR PRN 01/13/20 01/13/20 Previous Rx's Medication Instructions Recorded Levothyroxine Sodium [Synthroid] 300 mcg PO DAILY@0630 30 Days #30 04/29/19 tab Allergies Allergy/AdvReac Type Severity Reaction Status Date / Time No Known Allergies Allergy Verified 01/13/20 18:02 Review of Systems ROS Statement: Those systems with pertinent positive or pertinent negative responses have been documented in the HPI. ROS Other: All systems not noted in ROS Statement are negative. Past Medical History Past Medical History: Atrial Fibrillation, Coronary Artery Disease (CAD), CVA/TIA, Diabetes Mellitus, Memory Impairment, Myocardial Infarction ([place]), Osteoarthritis (OA), Sleep Apnea/CPAP/BIPAP, Thyroid Disorder Additional Past Medical History / Comment(s): denies hx hypertension, restless leg syndrome, "TIA (x 5) last Apr 2016", memory loss and numbness left fingers left hand and occ lt arm weakness, gout, wears CPAP at home. new diagnosis diabetes 05/13 Last Myocardial Infarction Date:: unk History of Any Multi-Drug Resistant Organisms: None Reported Past Surgical History: Heart Catheterization, Heart Catheterization With Stent, Hernia Repair, Joint Replacement, Orthopedic Surgery Additional Past Surgical History / Comment(s): loop monitor in chest. one cardiac stent, rt knee, rt shoulder Past Anesthesia/Blood Transfusion Reactions: No Reported Reaction Date of Last Stent Placement:: 2016 Type of Cardiac Device: Loop Device Placement Date:: Apr 2016 Past Psychological History: Anxiety Smoking Status: Never smoker Past Alcohol Use History: None Reported Past Drug Use History: None Reported - Past Family History Father Additional Family Medical History / Comment(s): of [place] Mother Family Medical History: No Reported History Brother(s) Additional Family Medical History / Comment(s): Bipolar disorder General Exam - General Exam Comments Initial Comments: GENERAL: Patient is well-developed and well-nourished. Patient is nontoxic and well-hydrated and is in no acute distress. ENT: Neck is soft and supple. No significant lymphadenopathy is noted. Oropharynx is clear. Moist mucous membranes. Neck has full range of motion without eliciting any pain. EYES: The sclera were anicteric and conjunctiva were pink and moist. Extraocular movements were intact and pupils were equal round and reactive to light. Eyelids were unremarkable. PULMONARY: Unlabored respirations. Good breath sounds bilaterally. No audible rales rhonchi or wheezing was noted. CARDIOVASCULAR: There is a regular rate and rhythm without any murmurs gallops or rubs. ABDOMEN: Patient is morbidly obese his abdomen is nontender to palpation SKIN: Skin is clear with no lesions or rashes and otherwise unremarkable. NEUROLOGIC: Patient is alert and oriented x3. Cranial nerves II through XII are grossly intact. Motor and sensory are also intact. Normal speech, volume and content. Symmetrical smile. MUSCULOSKELETAL: Normal extremities with adequate strength and full range of motion. LYMPHATICS: No significant lymphadenopathy is noted PSYCHIATRIC: Normal psychiatric evaluation. Limitations: no limitations Course Vital Signs 01/13/20 01/13/20 01/13/20 16:47 17:09 18:12 Temperature 98.7 F 98.4 F Pulse Rate 80 83 Respiratory 16 18 Rate Blood Pressure 133/79 123/72 O2 Sat by Pulse 95 94 L 97 Oximetry Medical Decision Making - Medical Decision Making Patient's sugar was 500 psychiatric the patient 10 of NovoLog. Patient's ultrasound of the gallbladder showed no acute abnormality.patient states the GI cocktail took away his pain. Patient also states he was not following his diabetic diet. Patient states it continue to follow-up neuro follow-up with his doctor and Dr. dunlap. EKG shows normal sinus rhythm at 67 bpm WV interval is 168 QRSs 84 QT interval 370 QTC is 399. Patient's EKG shows no ST segment elevation or depression. - Lab Data Result diagrams: 01/13/20 17:40 01/13/20 17:40 Lab Results 01/13/20 01/13/20 01/13/20 Range/Units 17:40 17:40 17:40 WBC 5.5 (3.8-10.6) k/uL RBC 4.87 (4.30-5.90) m/uL Hgb 14.6 (13.0-17.5) gm/dL Hct 43.3 (39.0-53.0) % MCV 88.8 (80.0-100.0) fL MCH 30.0 (25.0-35.0) pg MCHC 33.8 (31.0-37.0) g/dL RDW 13.7 (11.5-15.5) % Plt Count 178 (150-450) k/uL Neutrophils % 64 % Lymphocytes % 27 % Monocytes % 5 % Eosinophils % 3 % Basophils % 0 % Neutrophils # 3.5 (1.3-7.7) k/uL Lymphocytes # 1.5 (1.0-4.8) k/uL Monocytes # 0.3 (0-1.0) k/uL Eosinophils # 0.1 (0-0.7) k/uL Basophils # 0.0 (0-0.2) k/uL Sodium 134 L (137-145) mmol/L Potassium 4.0 (3.5-5.1) mmol/L Chloride 97 L (98-107) mmol/L Carbon Dioxide 27 (22-30) mmol/L Anion Gap 10 mmol/L BUN 19 (9-20) mg/dL Creatinine 0.87 (0.66-1.25) mg/dL Est GFR (CKD-EPI)AfAm >90 (>60 ml/min/1.73 sqM) Est GFR (CKD-EPI)NonAf >90 (>60 ml/min/1.73 sqM) Glucose 500 H (74-99) mg/dL POC Glucose (mg/dL) (75-99) mg/dL POC Glu Spinning Doffer ID Calcium 9.4 (8.4-10.2) mg/dL Total Bilirubin 0.5 (0.2-1.3) mg/dL AST 85 H (17-59) U/L ALT 93 H (4-49) U/L Alkaline Phosphatase 179 H (38-126) U/L Total Protein 7.3 (6.3-8.2) g/dL Albumin 4.2 (3.5-5.0) g/dL Amylase 42 (30-110) U/L Lipase 134 (23-300) U/L Urine Color Light Yellow Urine Appearance Clear (Clear) Urine pH 5.0 (5.0-8.0) Ur Specific [place] 1.028 (1.001-1.035) Urine Protein Negative (Negative) Urine Glucose (UA) 4+ H (Negative) Urine Ketones Negative (Negative) Urine Blood Negative (Negative) Urine Nitrite Negative (Negative) Urine Bilirubin Negative (Negative) Urine Urobilinogen <2.0 (<2.0) mg/dL Ur Leukocyte Esterase Negative (Negative) 01/13/20 Range/Units 19:35 WBC (3.8-10.6) k/uL RBC (4.30-5.90) m/uL Hgb (13.0-17.5) gm/dL Hct (39.0-53.0) % MCV (80.0-100.0) fL MCH (25.0-35.0) pg MCHC (31.0-37.0) g/dL RDW (11.5-15.5) % Plt Count (150-450) k/uL Neutrophils % % Lymphocytes % % Monocytes % % Eosinophils % % Basophils % % Neutrophils # (1.3-7.7) k/uL Lymphocytes # (1.0-4.8) k/uL Monocytes # (0-1.0) k/uL Eosinophils # (0-0.7) k/uL Basophils # (0-0.2) k/uL Sodium (137-145) mmol/L Potassium (3.5-5.1) mmol/L Chloride (98-107) mmol/L Carbon Dioxide (22-30) mmol/L Anion Gap mmol/L BUN (9-20) mg/dL Creatinine (0.66-1.25) mg/dL Est GFR (CKD-EPI)AfAm (>60 ml/min/1.73 sqM) Est GFR (CKD-EPI)NonAf (>60 ml/min/1.73 sqM) Glucose (74-99) mg/dL POC Glucose (mg/dL) 372 H (75-99) mg/dL POC Glu Spinning Doffer ID [place], [place] Calcium (8.4-10.2) mg/dL Total Bilirubin (0.2-1.3) mg/dL AST (17-59) U/L ALT (4-49) U/L Alkaline Phosphatase (38-126) U/L Total Protein (6.3-8.2) g/dL Albumin (3.5-5.0) g/dL Amylase (30-110) U/L Lipase (23-300) U/L Urine Color Urine Appearance (Clear) Urine pH (5.0-8.0) Ur Specific [place] (1.001-1.035) Urine Protein (Negative) Urine Glucose (UA) (Negative) Urine Ketones (Negative) Urine Blood (Negative) Urine Nitrite (Negative) Urine Bilirubin (Negative) Urine Urobilinogen (<2.0) mg/dL Ur Leukocyte Esterase (Negative) Disposition Clinical Impression: Abdominal pain, Hyperglycemia Disposition: HOME SELF-CARE Condition: Good Instructions (If sedation given, give patient instructions): Abdominal Pain (ED) Is patient prescribed a controlled substance at d/c from ED?: No Referrals: Maude Spivey MD [Primary Care Provider] - 1-2 days Lydia Ceballos MD [STAFF PHYSICIAN] - 1-2 days Time of Disposition: 19:34
[2020-01-13 17:58] LABS: Basophils % (A) 0 %; Eosinophils # (A) 0.1 k/uL (0-0.7); Eosinophils % (A) 3 %; HCT 43.3 % (39.0-53.0); HGB 14.6 gm/dL (13.0-17.5); Lymphocytes # (A) 1.5 k/uL (1.0-4.8); Lymphocytes % (A) 27 %; MCHC 33.8 g/dL (31.0-37.0); MCV 88.8 fL (80.0-100.0); Mean Platelet Volume 7.9; Monocytes # (A) 0.3 k/uL (0-1.0); Monocytes % (A) 5 %; Neutrophils # (A) 3.5 k/uL (1.3-7.7); Neutrophils % (A) 64 %; Platelet Count 178 k/uL (150-450); RBC 4.87 m/uL (4.30-5.90); RDW 13.7 % (11.5-15.5); WBC 5.5 k/uL (3.8-10.6)
[2020-01-13 18:04] LABS: Appearance,Urine Clear (Clear); Bilirubin,Urine Negative (Negative); Blood,Urine Negative (Negative); Color,Urine Light Yellow; Glucose,Urine (UA) 4+ (Negative); Ketones,Urine Negative (Negative); Leukocyte Esterase,Urine Negative (Negative); Nitrite,Urine Negative (Negative); Protein,Urine Negative (Negative); Specific Gravity,Urine 1.028 (1.001-1.035); Urobilinogen,Urine <2.0 mg/dL (<2.0)
[2020-01-13 18:07] LABS: ALT 93 U/L (4-49); AST 85 U/L (17-59); African American GFR (CKD) >90 (>60 ml/min/1.73 sqM); Albumin 4.2 g/dL (3.5-5.0); Alkaline Phosphatase 179 U/L (38-126); Amylase 42 U/L (30-110); Anion Gap 10 mmol/L; Blood Urea Nitrogen 19 mg/dL (9-20); Calcium 9.4 mg/dL (8.4-10.2); Carbon Dioxide 27 mmol/L (22-30); Chloride 97 mmol/L (98-107); Glucose 500 mg/dL (74-99); Non-African American GFR(CKD) >90 (>60 ml/min/1.73 sqM); Sodium 134 mmol/L (137-145); Total Bilirubin 0.5 mg/dL (0.2-1.3); Total Protein 7.3 g/dL (6.3-8.2)
[2020-01-13] MEDS ORDERED: INSULIN ASPART (NovoLOG) 100 UNIT/ML VIAL SQ ONE (18:10)
--- NOTE | 2020-01-13 19:24 | US ---
EXAMINATION TYPE: US gallbladder DATE OF EXAM: 01/13/2020 COMPARISON: CT CLINICAL HISTORY: Pain after eating. Pain after eating x 3 months. EXAM MEASUREMENTS: Liver Length: 23.15 cm Gallbladder Wall: 0.21 cm CBD: 0.48 cm Right Kidney: 13.7 x 5.8 x 7.2 cm *Limited due to gas and patient body habitus. Pancreas: Limited Liver: Appears to have an increased echogenicity and increased attenuation. Appears coarse. Measures enlarged. Limited. Gallbladder: There appear to be internal echoes. Gallbladder appears to be distended measuring 11.6 cm in length. Evidence for sonographic Wong's sign: No CBD: Appears wnl, limited Right Kidney: Measures enlarged. IMPRESSION: There is some echogenic bile. No gallstones seen. No dilated ducts seen. No focal liver d efect. There is probably some fatty infiltration of the liver.
[2020-01-13 19:38] LABS: Glucose,Whole Blood 372 mg/dL (75-99)
[2020-01-13 19:54] VITALS: BP 136/81; PULSE 67; TEMP 98.1
== END 2020-01-13 19:54 | disposition home or self-care (01) ==
LOC: EC 16:39
DX: E11.65 Type 2 diabetes mellitus with hyperglycemia (principal); R42 Dizziness and giddiness; I48.91 Unspecified atrial fibrillation; I25.10 Atherosclerotic heart disease of native coronary artery without angina pectoris; I25.2 Old myocardial infarction; M19.90 Unspecified osteoarthritis, unspecified site; G25.81 Restless legs syndrome; M10.9 Gout, unspecified; G47.30 Sleep apnea, unspecified; Z99.89 Dependence on other enabling machines and devices; Z86.73 Personal history of transient ischemic attack (TIA), and cerebral infarction without residual deficits; Z95.818 Presence of other cardiac implants and grafts; Z95.5 Presence of coronary angioplasty implant and graft; Z96.9 Presence of functional implant, unspecified; Z79.01 Long term (current) use of anticoagulants; Z79.82 Long term (current) use of aspirin; Z79.4 Long term (current) use of insulin; Z79.899 Other long term (current) drug therapy
CPT/HCPCS: 36415; 76705; 80053; 81003; 82150; 83690; 85025; 93005; 96360; 96361; 99285

== ENCOUNTER 2020-02-07 23:55 | Emergency (ER) | payer OTHER ==
[2020-02-08 00:09] VITALS: TEMP 98.5
[2020-02-08 00:57] LABS: Appearance,Urine Clear (Clear)
[2020-02-08 00:58] LABS: Bilirubin,Urine Negative (Negative); Blood,Urine Negative (Negative); Color,Urine Yellow; Glucose,Urine (UA) 2+ (Negative); Ketones,Urine Negative (Negative); Leukocyte Esterase,Urine Negative (Negative); Nitrite,Urine Negative (Negative); Protein,Urine Negative (Negative); Urobilinogen,Urine <2.0 mg/dL (<2.0)
--- NOTE | 2020-02-08 01:32 | US ---
EXAMINATION TYPE: US scrotum with doppler. Grayscale and color Doppler Duplex imaging performed of hans crum scrotum. DATE OF EXAM: 02/08/2020 COMPARISON: US 10/11/2018 CLINICAL HISTORY: Scrotal swelling. EXAM MEASUREMENTS: TESTICLES: Right Testicle: 4.0 x 2.9 x 2.4 cm Left Testicle: 4.0 x 2.5 x 2.9 cm EPIDIDYMIS HEAD: Right Epididymis: 1.0 cm Left Epididymis: 0.9 cm Doppler performed to assess for testicular vascularity; good bilateral color flow and waveforms are s een. There is no evidence of testicular torsion. Presence of hydroceles: Yes, bilaterally. Right greater than left Presence of varicoceles: No Bilateral hydroceles. Right epididymal cyst measuring 0.6 cm IMPRESSION: Moderate bilateral hydroceles. No evidence of testicular torsion or mass. Right side epid idymal cyst.
--- NOTE | 2020-02-08 01:36 | ED ---
Male Urogenital HPI - General Chief complaint: Urogenital Stated complaint: Male Time Seen by Provider: 02/08/20 00:21 Source: patient Mode of arrival: ambulatory Limitations: no limitations - History of Present Illness Initial comments: 49-year-old male patient presents to the emergency department today for evaluation of scrotal swelling and discomfort. Patient states that his informed him that his testicles and scrotum appeared to be more swollen than usual. Stated that his skin seemed to be thicker. Patient states that the left side of his scrotum is more tender. He denies any hematuria, dysuria, urinary urgency. States he is having some urinary frequency but he has been taking a water pill for the last couple of months. States he stopped taking this a couple of days ago. He denies any fever or chills. Denies any concerns for sexually transmitted infections. Denies nausea or vomiting. Denies any abdominal pain. Patient denies any recent rash, cough, shortness of breath, chest pain, diarrhea, constipation, back pain, numbness, tingling, dizziness, weakness, headache, visual changes, or any other complaints. - Related Data Home Medications Medication Instructions Recorded Confirmed Apixaban [Eliquis] 5 mg PO BID 05/07/18 01/13/20 Metoprolol Tartrate [Lopressor] 25 mg PO DAILY 09/09/18 01/13/20 rOPINIRole HCL [Requip] 0.5 mg PO HS 09/09/18 01/13/20 Aspirin EC [Ecotrin Low Dose] 81 mg PO DAILY 04/23/19 01/13/20 Chlorthalidone [Hygroton] 25 mg PO DAILY 04/23/19 01/13/20 Atorvastatin [Lipitor] 40 mg PO DAILY 04/26/19 01/13/20 Furosemide [Lasix] 20 mg PO DAILY 04/26/19 01/13/20 allopurinoL [Zyloprim] 300 mg PO DAILY 04/26/19 01/13/20 Chlorthalidone 25 mg PO DAILY 01/13/20 01/13/20 Glimepiride [Amaryl] 2 mg PO BID 01/13/20 01/13/20 Insulin Glargine,Hum.rec.anlog 20 unit SQ 01/13/20 01/13/20 [Jerad Doshi U-100] Omeprazole 20 mg PO DAILY 01/13/20 01/13/20 Ondansetron Odt [Zofran Odt] 4 mg PO Q8HR PRN 01/13/20 01/13/20 Previous Rx's Medication Instructions Recorded Levothyroxine Sodium [Synthroid] 300 mcg PO DAILY@0630 30 Days #30 04/29/19 tab Allergies Allergy/AdvReac Type Severity Reaction Status Date / Time No Known Allergies Allergy Verified 02/08/20 00:09 Review of Systems ROS Statement: Those systems with pertinent positive or pertinent negative responses have been documented in the HPI. ROS Other: All systems not noted in ROS Statement are negative. Past Medical History Past Medical History: Atrial Fibrillation, Coronary Artery Disease (CAD), CVA/TIA, Diabetes Mellitus, Memory Impairment, Myocardial Infarction ([place]), Osteoarthritis (OA), Sleep Apnea/CPAP/BIPAP, Thyroid Disorder Additional Past Medical History / Comment(s): denies hx hypertension, restless leg syndrome, "TIA (x 5) last Apr 2016", memory loss and numbness left fingers left hand and occ lt arm weakness, gout, wears CPAP at home. new diagnosis diabetes 05/13 Last Myocardial Infarction Date:: unk History of Any Multi-Drug Resistant Organisms: None Reported Past Surgical History: Heart Catheterization, Heart Catheterization With Stent, Hernia Repair, Joint Replacement, Orthopedic Surgery Additional Past Surgical History / Comment(s): loop monitor in chest. one cardiac stent, rt knee, rt shoulder Past Anesthesia/Blood Transfusion Reactions: No Reported Reaction Date of Last Stent Placement:: 2016 Type of Cardiac Device: Loop Device Placement Date:: Apr 2016 Past Psychological History: Anxiety Smoking Status: Never smoker Past Alcohol Use History: None Reported Past Drug Use History: None Reported - Past Family History Father Additional Family Medical History / Comment(s): of [place] Mother Family Medical History: No Reported History Brother(s) Additional Family Medical History / Comment(s): Bipolar disorder General Exam Limitations: no limitations General appearance: alert, in no apparent distress, other (This is a well- developed, well-nourished adult male patient in no acute distress. Vital signs upon presentation are temperature 98.5F, pulse 64, respirations 18, blood pressure 132/86, pulse ox 95% on room air.) Eye exam: Present: normal appearance, PERRL, EOMI. Absent: scleral icterus, conjunctival injection, periorbital swelling ENT exam: Present: normal exam, normal oropharynx, mucous membranes moist Respiratory exam: Present: normal lung sounds bilaterally. Absent: respiratory distress, wheezes, rales, rhonchi, stridor Cardiovascular Exam: Present: regular rate, normal rhythm, normal heart sounds. Absent: systolic murmur, diastolic murmur, rubs, gallop, clicks GI/Abdominal exam: Present: soft, normal bowel sounds. Absent: distended, tenderness, guarding, rebound, rigid exam: Present: normal inspection, scrotal swelling, other (No inguinal tenderness. Hospital Attendant is Fela Bryant RN. ). Absent: testicular tenderness Neurological exam: Present: alert, oriented X3, CN II-XII intact Psychiatric exam: Present: normal affect, normal mood Skin exam: Present: warm, dry, intact, normal color. Absent: rash Course Vital Signs 02/08/20 02/08/20 00:02 01:54 Temperature 98.5 F Pulse Rate 64 62 Respiratory 18 20 Rate Blood Pressure 132/86 118/80 O2 Sat by Pulse 95 98 Oximetry Medical Decision Making - Medical Decision Making 49 year-old male patient presents to the emergency department today for evaluation of scrotal swelling and discomfort. Physical examination did reveal enlarged scrotum equal bilaterally. No inguinal tenderness, no scrotal tenderness. No drainage from the penis. Ultrasound was obtained and showed bilateral hydroceles, right epididymal cyst. Urinalysis was negative. We did discuss the enlargement could be due to stopping his diuretic. He is instructed to continue taking this. He is given instructions to follow-up with his primary care physician for recheck in 1-2 days. Instructed follow up with urology for further evaluation. Return parameters discussed in detail. He verbalizes understanding and agrees with this plan. - Lab Data Lab Results 02/08/20 Range/Units 00:38 Urine Color Yellow Urine Appearance Clear (Clear) Urine pH 6.0 (5.0-8.0) Ur Specific [place] 1.010 (1.001-1.035) Urine Protein Negative (Negative) Urine Glucose (UA) 2+ H (Negative) Urine Ketones Negative (Negative) Urine Blood Negative (Negative) Urine Nitrite Negative (Negative) Urine Bilirubin Negative (Negative) Urine Urobilinogen <2.0 (<2.0) mg/dL Ur Leukocyte Esterase Negative (Negative) - Radiology Data Radiology results: report reviewed, image reviewed Ultrasound of the scrotum was obtained. Report was reviewed in its entirety. Impression by Dr. Mo shows moderate bilateral hydroceles. No evidence of testicular torsion or mass. Right-sided epididymal cyst. Disposition Clinical Impression: Bilateral hydrocele, Epididymal cyst Disposition: HOME SELF-CARE Condition: Good Instructions (If sedation given, give patient instructions): Hydrocele (ED), Scrotal Pain (ED) Additional Instructions: Follow-up with urology for further evaluation. Take your water pill as directed. Follow-up with your primary care physician for recheck in 1-2 days. Return to the emergency department immediately for any new, worsening, or zahraa rning symptoms. Is patient prescribed a controlled substance at d/c from ED?: No Referrals: Maude Spivey MD [Primary Care Provider] - 1-2 days Saman Carvajal MD [STAFF PHYSICIAN] - 1-2 days Time of Disposition: 01:35
[2020-02-08 01:58] VITALS: BP 118/80; PULSE 62; RESP 20
== END 2020-02-08 01:56 | disposition home or self-care (01) ==
LOC: EC 23:55
DX: N43.3 Hydrocele, unspecified (principal); N50.3 Cyst of epididymis; E11.9 Type 2 diabetes mellitus without complications; M10.9 Gout, unspecified; G25.81 Restless legs syndrome; I48.91 Unspecified atrial fibrillation; I25.10 Atherosclerotic heart disease of native coronary artery without angina pectoris; I25.2 Old myocardial infarction; M19.90 Unspecified osteoarthritis, unspecified site; G47.30 Sleep apnea, unspecified; Z79.01 Long term (current) use of anticoagulants; Z79.4 Long term (current) use of insulin; Z79.82 Long term (current) use of aspirin; Z79.899 Other long term (current) drug therapy; Z86.73 Personal history of transient ischemic attack (TIA), and cerebral infarction without residual deficits; Z95.5 Presence of coronary angioplasty implant and graft; Z99.89 Dependence on other enabling machines and devices; Z96.651 Presence of right artificial knee joint
CPT/HCPCS: 76870; 81003; 93975; 99284

== ENCOUNTER 2020-03-29 07:53 | Day surgery (SDC) | payer OTHER ==
[2020-03-26 08:48] VITALS: BMI 47.5
[~2020-03-29 07:53] MED LIST changes: +LACTATED RINGERS 1,000 ML IV SCH; +LIDOCAINE 1% (10MG/ML) FOR IV START INTRADERMA PRN; -ceFAZolin 3 GM in SODIUM CHLORIDE 0.9% 100 ML IVPB ONE
[2020-03-29 08:17] VITALS: RESP 16; TEMP 96.7
[2020-03-29 08:34] LABS: Glucose,Whole Blood 432 mg/dL (75-99)
[2020-03-29] MEDS ORDERED: INSULIN ASPART (NovoLOG) 100 UNIT/ML VIAL SQ ONE (08:34)
[2020-03-29] MEDS ORDERED: PROPOFOL 10 MG/ML 20 ML VIAL IV ONE (08:39)
[2020-03-29] MEDS ORDERED: LIDOCAINE 1% INJ 10MG/ML (20 ML MDV) ONE (08:39)
--- NOTE | 2020-03-29 08:58 | P.PCN ---
Date of Procedure: 03/29/20 Description of Procedure: BRIEF HISTORY: Patient is a 49-year-old male presenting for outpatient EGD for evaluation of GERD. Patient's long-standing history of reflux. Continues to have some symptoms on daily PPI therapy. Also reports some abdominal pain and was given dietary modifications on outpatient visit. PROCEDURE PERFORMED: Esophagogastroduodenoscopy with biopsy. PREOPERATIVE DIAGNOSIS: GERD, abdominal pain. ESTIMATED BLOOD LOSS: Minimal. IV sedation per anesthesia. PROCEDURE: After informed consent was obtained, the patient was brought into the endoscopy unit. IV sedation was administered by Anesthesia under continuous monitoring. Initially the Olympus GIF-190 video endoscope was inserted into the mouth. Esophagus intubated without any difficulty. It was gradually advanced into the stomach and duodenum and carefully examined. The bulb and the second part of the duodenum appeared normal, with biopsies taken to rule out celiac sprue. The scope at this time was withdrawn to the stomach, adequately insufflated with air, and upon careful examination, mucosa of the antrum, body, cardia and the fundus appeared normal, except for some mild punctate erythema in the antrum and body suggestive of mild gastritis with biopsies taken. The scope was then withdrawn into the esophagus. The GE junction was located at 42 cm from the incisors and biopsied. The esophagus appeared normal. There were no erosions or ulcerations seen and the patient tolerated the procedure well. IMPRESSION: 1. Mild gastritis. 2. Biopsies of the GE junction, antrum body and duodenum. RECOMMENDATIONS: The findings of this examination were discussed with the patient. Okay to resume diet. Okay to resume medications. Would restart Eliquis later today. Await pathology from biopsies. Follow up in GI clinic as scheduled.
[2020-03-29 09:07] LABS: Glucose,Whole Blood 363 mg/dL (75-99)
[2020-03-29 09:30] VITALS: BP 125/79; PULSE 59
== END 2020-03-29 09:42 | disposition home or self-care (01) ==
LOC: ORWHC2ENDO 07:53
PROVIDERS: ATTEND Internal Medicine
DX: K29.50 Unspecified chronic gastritis without bleeding (principal); K21.00 Gastro-esophageal reflux disease with esophagitis, without bleeding; I25.10 Atherosclerotic heart disease of native coronary artery without angina pectoris; G47.33 Obstructive sleep apnea (adult) (pediatric); E07.9 Disorder of thyroid, unspecified; E11.9 Type 2 diabetes mellitus without complications; F41.9 Anxiety disorder, unspecified; Z86.73 Personal history of transient ischemic attack (TIA), and cerebral infarction without residual deficits; Z79.4 Long term (current) use of insulin; Z79.890 Hormone replacement therapy; Z79.01 Long term (current) use of anticoagulants; Z79.82 Long term (current) use of aspirin; Z79.899 Other long term (current) drug therapy; Z95.5 Presence of coronary angioplasty implant and graft; Z98.890 Other specified postprocedural states; Z87.891 Personal history of nicotine dependence
CPT/HCPCS: 88305; 43239; J2001; J2704

== ENCOUNTER 2020-04-07 16:24 | Emergency (ER) | payer OTHER ==
[2020-04-07 16:30] LABS: Glucose,Whole Blood 234 mg/dL (75-99)
[2020-04-07 16:32] VITALS: TEMP 98
[2020-04-07] MEDS ORDERED: SODIUM CHLORIDE 0.9% 1,000 ML IV ONE (17:29)
[2020-04-07] MEDS ORDERED: SODIUM CHLORIDE 0.9% 1,000 ML IV SCH (17:30)
[2020-04-07] MEDS ORDERED: KETOROLAC 15 MG/ML 1 ML VIAL IVP STA (17:51)
[2020-04-07 18:25] LABS: Basophils % (A) 1 %; Eosinophils # (A) 0.2 k/uL (0-0.7); Eosinophils % (A) 3 %; HGB 15.5 gm/dL (13.0-17.5); Lymphocytes # (A) 1.6 k/uL (1.0-4.8); Lymphocytes % (A) 25 %; MCHC 33.7 g/dL (31.0-37.0); MCV 88.9 fL (80.0-100.0); Mean Platelet Volume 7.5; Monocytes # (A) 0.3 k/uL (0-1.0); Monocytes % (A) 5 %; Neutrophils # (A) 4.2 k/uL (1.3-7.7); Neutrophils % (A) 65 %; Platelet Count 182 k/uL (150-450); RBC 5.17 m/uL (4.30-5.90); RDW 13.9 % (11.5-15.5); WBC 6.4 k/uL (3.8-10.6)
[2020-04-07 18:34] LABS: African American GFR (CKD) >90 (>60 ml/min/1.73 sqM); Anion Gap 9 mmol/L; Blood Urea Nitrogen 20 mg/dL (9-20); Calcium 9.9 mg/dL (8.4-10.2); Carbon Dioxide 24 mmol/L (22-30); Chloride 105 mmol/L (98-107); Glucose 251 mg/dL (74-99); Non-African American GFR(CKD) >90 (>60 ml/min/1.73 sqM); Potassium 4.3 mmol/L (3.5-5.1); Sodium 138 mmol/L (137-145)
--- NOTE | 2020-04-07 18:39 | ED ---
General Adult HPI - General Chief complaint: Recheck/Abnormal Lab/Rx Stated complaint: BLOOD SURGAR ISSUES Time Seen by Provider: 04/07/20 17:01 Source: patient, RN notes reviewed, old records reviewed Mode of arrival: ambulatory Limitations: no limitations - History of Present Illness Initial comments: 49 year old with history of diabetes with blurred vision for the past few months, but worsening over the past week. Pt wears glasses. He denies headache, eye pain. Pt reports his blood sugar has been difficult to control and manages Diabetes with oral medications. - Related Data Home Medications Medication Instructions Recorded Confirmed Apixaban [Eliquis] 5 mg PO BID 05/07/18 04/07/20 Metoprolol Tartrate [Lopressor] 25 mg PO DAILY 09/09/18 04/07/20 rOPINIRole HCL [Requip] 0.5 mg PO HS 09/09/18 04/07/20 Aspirin EC [Ecotrin Low Dose] 81 mg PO DAILY 04/23/19 04/07/20 allopurinoL [Zyloprim] 300 mg PO DAILY 04/26/19 04/07/20 Insulin Glargine,Hum.rec.anlog 20 unit SQ HS PRN 01/13/20 04/07/20 [Basaglar Kwikpen U-100] Pantoprazole [Protonix] 40 mg PO DAILY 04/07/20 04/07/20 Previous Rx's Medication Instructions Recorded Levothyroxine Sodium [Synthroid] 300 mcg PO DAILY@0630 30 Days #30 04/29/19 tab Allergies Allergy/AdvReac Type Severity Reaction Status Date / Time No Known Allergies Allergy Verified 04/07/20 18:41 Review of Systems ROS Statement: Those systems with pertinent positive or pertinent negative responses have been documented in the HPI. ROS Other: All systems not noted in ROS Statement are negative. Past Medical History Past Medical History: Atrial Fibrillation, Coronary Artery Disease (CAD), CVA/TIA, Diabetes Mellitus, GERD/Reflux, Memory Impairment, Myocardial Infarction ([place]), Osteoarthritis (OA), Sleep Apnea/CPAP/BIPAP, Thyroid Disorder Additional Past Medical History / Comment(s): restless leg syndrome, "TIA (x 5) last Apr 2016", memory loss and occ lt arm weakness, gout, wears CPAP at home Last Myocardial Infarction Date:: unk History of Any Multi-Drug Resistant Organisms: None Reported Past Surgical History: Heart Catheterization, Heart Catheterization With Stent, Hernia Repair, Orthopedic Surgery Additional Past Surgical History / Comment(s): loop monitor in chest, now removed, one cardiac stent, rt knee arthroscopy, rt shoulder rotator cuff Past Anesthesia/Blood Transfusion Reactions: No Reported Reaction Date of Last Stent Placement:: 2016 Type of Cardiac Device: Loop Device Placement Date:: Apr 2016 Past Psychological History: Anxiety Smoking Status: Former smoker Past Alcohol Use History: Rare Past Drug Use History: None Reported - Past Family History Father Additional Family Medical History / Comment(s): of [place] Mother Family Medical History: No Reported History Brother(s) Additional Family Medical History / Comment(s): Bipolar disorder General Exam - General Exam Comments Initial Comments: 49 year old male, no distress. Limitations: no limitations General appearance: alert, in no apparent distress Head exam: Present: atraumatic, normocephalic, normal inspection Eye exam: Present: normal appearance, PERRL, EOMI. Absent: scleral icterus, conjunctival injection, periorbital swelling ENT exam: Present: normal exam, mucous membranes moist Neck exam: Present: normal inspection. Absent: tenderness, meningismus, lymphadenopathy Respiratory exam: Present: normal lung sounds bilaterally. Absent: respiratory distress, wheezes, rales, rhonchi, stridor Cardiovascular Exam: Present: regular rate, normal rhythm, normal heart sounds. Absent: systolic murmur, diastolic murmur, rubs, gallop, clicks GI/Abdominal exam: Present: soft, normal bowel sounds. Absent: distended, tenderness, guarding, rebound, rigid Neurological exam: Present: alert, oriented X3, CN II-XII intact Psychiatric exam: Present: normal affect, normal mood Skin exam: Present: warm, dry, intact, normal color. Absent: rash Course Vital Signs 04/07/20 04/07/20 04/07/20 16:29 18:19 18:20 Temperature 98.0 F Pulse Rate 66 Respiratory 18 Rate Blood Pressure 143/90 123/71 O2 Sat by Pulse 96 95 96 Oximetry 04/07/20 04/07/20 04/07/20 18:40 19:00 19:10 Temperature Pulse Rate 87 54 L 62 Respiratory 18 16 Rate Blood Pressure 141/73 141/73 119/68 O2 Sat by Pulse 94 L 96 94 L Oximetry Medical Decision Making - Medical Decision Making 49 year old male whom presents to ED for blurred vision over the past few weeks. He is diabetic and reports glucose is poorly controlled. Visual acuity is 20/50 with glasses. Pt IOP is 16 in R and 18 on L. Labs reviewed and unremarkable. Pt advised to follow up with opthalomolgy and discusssed concrn for developing diabetic retinopathy. - Lab Data Result diagrams: 04/07/20 18:11 04/07/20 18:11 Lab Results 04/07/20 04/07/20 04/07/20 Range/Units 16:29 18:11 18:11 WBC 6.4 (3.8-10.6) k/uL RBC 5.17 (4.30-5.90) m/uL Hgb 15.5 (13.0-17.5) gm/dL Hct 46.0 (39.0-53.0) % MCV 88.9 (80.0-100.0) fL MCH 30.0 (25.0-35.0) pg MCHC 33.7 (31.0-37.0) g/dL RDW 13.9 (11.5-15.5) % Plt Count 182 (150-450) k/uL Neutrophils % 65 % Lymphocytes % 25 % Monocytes % 5 % Eosinophils % 3 % Basophils % 1 % Neutrophils # 4.2 (1.3-7.7) k/uL Lymphocytes # 1.6 (1.0-4.8) k/uL Monocytes # 0.3 (0-1.0) k/uL Eosinophils # 0.2 (0-0.7) k/uL Basophils # 0.0 (0-0.2) k/uL Sodium 138 (137-145) mmol/L Potassium 4.3 (3.5-5.1) mmol/L Chloride 105 (98-107) mmol/L Carbon Dioxide 24 (22-30) mmol/L Anion Gap 9 mmol/L BUN 20 (9-20) mg/dL Creatinine 0.85 (0.66-1.25) mg/dL Est GFR (CKD-EPI)AfAm >90 (>60 ml/min/1.73 sqM) Est GFR (CKD-EPI)NonAf >90 (>60 ml/min/1.73 sqM) Glucose 251 H (74-99) mg/dL POC Glucose (mg/dL) 234 H (75-99) mg/dL POC Glu Dog Sitter ID Cassie Ibarra Calcium 9.9 (8.4-10.2) mg/dL 04/07/20 18:38 ` EKG shows sinus bradycardia low voltage QRS. Borderline EKG. Ventricular rate of 59 bpm. Pulse 170 ms. Restrictions 80 ms. QT QTc is 392/80 ms. Disposition Clinical Impression: Blurred vision, Hx of diabetes mellitus Disposition: HOME SELF-CARE Condition: Good Instructions (If sedation given, give patient instructions): Diabetic Retinopathy (ED) Additional Instructions: Pt is advised to follow-up with tow truck driver for further testing of retina and to evaluate for diabetic retinopathy. Patient advised to also discuss PCP management of blood sugars. Patient should monitor her diet as well. Return to emergency department if any alarming signs or symptoms occur. Is patient prescribed a controlled substance at d/c from ED?: No Referrals: Maude Spivey MD [Primary Care Provider] - 1-2 days Vish Mccann MD [STAFF PHYSICIAN] - 1-2 days Time of Disposition: 18:54
[2020-04-07 19:32] VITALS: BP 119/68; PULSE 62; RESP 16
== END 2020-04-07 19:33 | disposition home or self-care (01) ==
LOC: EC 16:24
DX: E11.65 Type 2 diabetes mellitus with hyperglycemia (principal); H53.8 Other visual disturbances; I48.91 Unspecified atrial fibrillation; I25.2 Old myocardial infarction; K21.9 Gastro-esophageal reflux disease without esophagitis; M19.90 Unspecified osteoarthritis, unspecified site; G25.81 Restless legs syndrome; M10.9 Gout, unspecified; Z79.01 Long term (current) use of anticoagulants; Z79.82 Long term (current) use of aspirin; Z79.4 Long term (current) use of insulin; Z79.899 Other long term (current) drug therapy; Z95.5 Presence of coronary angioplasty implant and graft; Z87.891 Personal history of nicotine dependence; Z86.73 Personal history of transient ischemic attack (TIA), and cerebral infarction without residual deficits
CPT/HCPCS: 36415; 80048; 85025; 93005; 96360; 99284

== ENCOUNTER 2020-05-14 20:59 | Emergency (ER) | payer OTHER ==
[2020-05-14 21:12] VITALS: BP 144/86; PULSE 59; RESP 16; TEMP 97.3
[2020-05-14] MEDS ORDERED: HYDROcodone/APAP 5-325MG 1 EACH TAB PO STA (21:57)
--- NOTE | 2020-05-14 22:06 | XR ---
RESULT: HISTORY: pain TECHNIQUE: 3 views of the right knee were obtained. COMPARISON: None. FINDINGS: There is no acute fracture or dislocation. There is mild tricompartmental osteoarthritis. There are s [id number] knee joint effusion. IMPRESSION: Knee joint effusion without acute osseous abnormality.
--- NOTE | 2020-05-14 22:11 | ED ---
General Adult HPI - General Chief complaint: Extremity Injury, Lower Stated complaint: Knee Pain Time Seen by Provider: 05/14/20 21:15 Source: patient, RN notes reviewed, old records reviewed Mode of arrival: ambulatory Limitations: no limitations - History of Present Illness Initial comments: 49-year-old male patient to ED for evaluation of right knee pain. Patient reports that yesterday he is very active raking leaves in a knee started hurting him. Patient reports the knee pain is anterior. Patient reports that he does have a history of meniscus surgery about 2 years ago. Denies any falls or trauma. Denies any other complaints. Patient is ambulatory. Systemic: Pt denies fatigue, fever/chills, rash. Pt denies weakness, night sweats, weight loss. Neuro: Pt denies headache, visual disturbances, syncope or pre-syncope. HEENT: Pt denies ocular discharge or irritation, otalgia, rhinorrhea, pharyngitis or notable lymphadenopathy. Cardiopulmonary: Pt denies chest pain, SOB, heart palpitations, dyspnea on exertion. Abdominal/GI: Pt denies abdominal pain, n/v/d. : Pt denies dysuria, burning w/ urination, frequency/urgency. Denies new onset urinary or bowel incontinence. MSK: Pt denies myalgia, loss of strength or function in extremities. Neuro: Pt denies new onset weakness, paresthesias. - Related Data Home Medications Medication Instructions Recorded Confirmed Apixaban [Eliquis] 5 mg PO BID 05/07/18 04/07/20 Metoprolol Tartrate [Lopressor] 25 mg PO DAILY 09/09/18 04/07/20 rOPINIRole HCL [Requip] 0.5 mg PO HS 09/09/18 04/07/20 Aspirin EC [Ecotrin Low Dose] 81 mg PO DAILY 04/23/19 04/07/20 allopurinoL [Zyloprim] 300 mg PO DAILY 04/26/19 04/07/20 Insulin Glargine,Hum.rec.anlog 20 unit SQ HS PRN 01/13/20 04/07/20 [Basaglar Kwikpen U-100] Pantoprazole [Protonix] 40 mg PO DAILY 04/07/20 04/07/20 Previous Rx's Medication Instructions Recorded Levothyroxine Sodium [Synthroid] 300 mcg PO DAILY@0630 30 Days #30 04/29/19 tab Allergies Allergy/AdvReac Type Severity Reaction Status Date / Time No Known Allergies Allergy Verified 05/14/20 21:12 Review of Systems ROS Statement: Those systems with pertinent positive or pertinent negative responses have been documented in the HPI. ROS Other: All systems not noted in ROS Statement are negative. Past Medical History Past Medical History: Atrial Fibrillation, Coronary Artery Disease (CAD), CVA/TIA, Diabetes Mellitus, GERD/Reflux, Memory Impairment, Myocardial Infarction ([place]), Osteoarthritis (OA), Sleep Apnea/CPAP/BIPAP, Thyroid Disorder Additional Past Medical History / Comment(s): restless leg syndrome, "TIA (x 5) last Apr 2016", memory loss and occ lt arm weakness, gout, wears CPAP at home Last Myocardial Infarction Date:: unk History of Any Multi-Drug Resistant Organisms: None Reported Past Surgical History: Heart Catheterization, Heart Catheterization With Stent, Hernia Repair, Orthopedic Surgery Additional Past Surgical History / Comment(s): loop monitor in chest, now removed, one cardiac stent, rt knee arthroscopy, rt shoulder rotator cuff Past Anesthesia/Blood Transfusion Reactions: No Reported Reaction Date of Last Stent Placement:: 2016 Type of Cardiac Device: Loop Device Placement Date:: Apr 2016 Past Psychological History: Anxiety Smoking Status: Former smoker Past Alcohol Use History: Rare Past Drug Use History: None Reported - Past Family History Father Additional Family Medical History / Comment(s): of [place] Mother Family Medical History: No Reported History Brother(s) Additional Family Medical History / Comment(s): Bipolar disorder General Exam - General Exam Comments Initial Comments: Constitutional: NAD, AOX3, Pt has pleasant affect. HEENT: NC/AT, trachea midline, neck supple, no lymphadenopathy. Posterior pharynx non erythematous, without exudates. External ears appear normal, without discharge. Mucous membranes moist. Eyes PERRLA, EOM intact. There is no scleral icterus. No pallor noted. Cardiopulmonary: RRR, no murmurs, rubs or gallops, no JVD noted. Lungs CTAB in anterior and posterior eason. No peripheral edema. Abdominal exam: Abdomen soft and non-distended. Abdomen non-tender to palpation in all 4 quadrants. Bowel sounds active in LLQ. No hepatosplenomegaly. No ecchymosis Neuro: CN II-XII grossly intact. No nuchal rigidity. No raccon eyes, no chowdary sign, no hemotympanum. No cervical spinal tenderness. MSK: No posterior calf tenderness bilaterally, homans sign negative bilaterally. Posterior tibialis and radial pulse +2 bilaterally. Sensation intact in upper and lower extremities. Mild tenderness to the anterior aspect of the knee. Range of motion is intact. Full active ROM in upper and lower extremities, 5/5 stregnth. Very mild tenderness to the posterior aspect of knee. Limitations: no limitations Course Vital Signs 05/14/20 21:08 Temperature 97.3 F L Pulse Rate 59 L Respiratory 16 Rate Blood Pressure 144/86 O2 Sat by Pulse 95 Oximetry Medical Decision Making - Medical Decision Making 49-year-old male patient to ED for right knee pain which began after an active day raking leaves. Patient is tender at the anterior aspect of the knee. He does report a very mild amount of posterior knee tenderness. Plain film is negative for any acute osseous process he does have an effusion as well as arthritis. Patient is declining an ultrasound of his lower extremity for DVT. I discussed risks of DVT including . Denies chest pain shortness of breath. Pt verbalized understanding. He is on xaralto. Patient to follow-up with his primary care provider and orthopedic consult which I worsening symptoms. Case discussed with Dr. Jeong. Disposition Clinical Impression: Knee pain Disposition: HOME SELF-CARE Condition: Stable Instructions (If sedation given, give patient instructions): Knee Sprain (ED) Additional Instructions: Follow up with PCP and orthopedist tomorrow. Use crutches as needed. Return to ED with any worsening symptoms. Is patient prescribed a controlled substance at d/c from ED?: No Referrals: Maude Spivey MD [Primary Care Provider] - 1-2 days Phoenix Mcdonough DO [Doctor of Osteopathic Medicine] - 1-2 days
[2020-05-14] MEDS ORDERED: ACET/COD 300 MG/30 MG STARTER PACK 6 TAB BTL PO STA (22:27)
== END 2020-05-14 22:35 | disposition home or self-care (01) ==
LOC: EC 20:59
DX: M25.561 Pain in right knee (principal); I48.91 Unspecified atrial fibrillation; F41.9 Anxiety disorder, unspecified; E11.9 Type 2 diabetes mellitus without complications; K21.9 Gastro-esophageal reflux disease without esophagitis; I25.2 Old myocardial infarction; M19.90 Unspecified osteoarthritis, unspecified site; G47.33 Obstructive sleep apnea (adult) (pediatric); G25.81 Restless legs syndrome; M10.9 Gout, unspecified; Z79.01 Long term (current) use of anticoagulants; Z79.82 Long term (current) use of aspirin; Z79.4 Long term (current) use of insulin; Z79.899 Other long term (current) drug therapy; Z87.891 Personal history of nicotine dependence; Z95.5 Presence of coronary angioplasty implant and graft; Z99.89 Dependence on other enabling machines and devices; Z86.73 Personal history of transient ischemic attack (TIA), and cerebral infarction without residual deficits; X58.XXXA Exposure to other specified factors, initial encounter
CPT/HCPCS: 99284

== ENCOUNTER 2020-05-20 19:33 | Emergency (ER) | payer OTHER ==
[2020-05-20 19:48] VITALS: RESP 18
--- NOTE | 2020-05-20 20:20 | ED ---
General Adult HPI - General Chief complaint: Eye Problems Stated complaint: Can't see out of Left eye Time Seen by Provider: 05/20/20 19:49 Source: patient, family, RN notes reviewed - History of Present Illness Initial comments: 49-year-old male with a past medical history of atrial fibrillation on eliquis, CAD, CVA, IDDM, GERD, [place] presents to the emergency room for blurry vision 3 months. Patient reports that the blurry vision is in both eyes and slightly worse in the left eye. Patient reports that he has had blurry vision that has steadily been worsening. Patient states he noticed more of a difference yesterday. States his vision is just generally blurry. Denies black floaters or flashing lights. Patient does have a history of uncontrolled diabetes. He reports he has been in the 500s for years. He reports he just started to get this under control in the past few months and states this when his vision started to worsen. He states his eyes feel dry at this time. Patient denies h eadache. Denies weakness.Patient has no other complaints at this time including shortness of breath, chest pain, abdominal pain, nausea or vomiting, headache. - Related Data Home Medications Medication Instructions Recorded Confirmed Apixaban [Eliquis] 5 mg PO BID 05/07/18 04/07/20 Metoprolol Tartrate [Lopressor] 25 mg PO DAILY 09/09/18 04/07/20 rOPINIRole HCL [Requip] 0.5 mg PO HS 09/09/18 04/07/20 Aspirin EC [Ecotrin Low Dose] 81 mg PO DAILY 04/23/19 04/07/20 allopurinoL [Zyloprim] 300 mg PO DAILY 04/26/19 04/07/20 Insulin Glargine,Hum.rec.anlog 20 unit SQ HS PRN 01/13/20 04/07/20 [Basaglar Kwikpen U-100] Pantoprazole [Protonix] 40 mg PO DAILY 04/07/20 04/07/20 Previous Rx's Medication Instructions Recorded Levothyroxine Sodium [Synthroid] 300 mcg PO DAILY@0630 30 Days #30 04/29/19 tab Allergies Allergy/AdvReac Type Severity Reaction Status Date / Time No Known Allergies Allergy Verified 05/20/20 19:48 Review of Systems ROS Statement: Those systems with pertinent positive or pertinent negative responses have been documented in the HPI. ROS Other: All systems not noted in ROS Statement are negative. Past Medical History Past Medical History: Atrial Fibrillation, Coronary Artery Disease (CAD), CVA/TIA, Diabetes Mellitus, GERD/Reflux, Memory Impairment, Myocardial Infarction ([place]), Osteoarthritis (OA), Sleep Apnea/CPAP/BIPAP, Thyroid Disorder Additional Past Medical History / Comment(s): restless leg syndrome, "TIA (x 5) last Apr 2016", memory loss and occ lt arm weakness, gout, wears CPAP at home Last Myocardial Infarction Date:: unk History of Any Multi-Drug Resistant Organisms: None Reported Past Surgical History: Heart Catheterization, Heart Catheterization With Stent, Hernia Repair, Orthopedic Surgery Additional Past Surgical History / Comment(s): loop monitor in chest, now removed, one cardiac stent, rt knee arthroscopy, rt shoulder rotator cuff Past Anesthesia/Blood Transfusion Reactions: No Reported Reaction Date of Last Stent Placement:: 2016 Type of Cardiac Device: Loop Device Placement Date:: Apr 2016 Past Psychological History: Anxiety Smoking Status: Former smoker Past Alcohol Use History: Rare Past Drug Use History: None Reported - Past Family History Father Additional Family Medical History / Comment(s): of [place] Mother Family Medical History: No Reported History Brother(s) Additional Family Medical History / Comment(s): Bipolar disorder General Exam General appearance: alert, in no apparent distress Head exam: Present: atraumatic, normocephalic, normal inspection Eye exam: Present: normal appearance, PERRL, EOMI. Absent: scleral icterus, conjunctival injection, periorbital swelling Expanded Eyelids: Normal Inspection: Bilateral Pupils: Regular, Round: Bilateral Visual acuity (R) = 20/: 100 Visual acuity (L) = 20/: 100 With correction: Yes IOP (R) in mmH IOP (L) in mmH IOP measured with: [employer] ENT exam: Present: normal exam, mucous membranes moist Neck exam: Present: normal inspection, full ROM. Absent: tenderness, meningismus, lymphadenopathy Respiratory exam: Present: normal lung sounds bilaterally. Absent: respiratory distress, wheezes, rales, rhonchi, stridor Cardiovascular Exam: Present: regular rate, normal rhythm, normal heart sounds. Absent: systolic murmur, diastolic murmur, rubs, gallop, clicks Neurological exam: Present: alert, oriented X3, normal gait, other (GCS 15) Expanded Patient oriented to: Present: person, place, time Speech: Present: fluid speech Cranial nerves: EOM's Intact: Normal, Tongue Deviation: Normal, Nystagmus: Normal, Facial Sensation: Normal Cerebellar function: Finger to Nose: Normal Upper motor neuron: Pronator Drift: Normal Sensory exam: Upper Extremity Light Touch: Normal, Upper Extremity Pin Prick: Normal, Lower Extremity Light Touch: Normal, Lower Extremity Pin Prick: Normal Motor strength exam: RUE: 5, LUE: 5, RLE: 5, LLE: 5 Eye Response: (4) open spontaneously Motor Response: (6) obeys commands Verbal Response: (5) oriented [place] Total: 15 Course Vital Signs 05/20/20 05/20/20 19:39 21:21 Temperature 98.6 F Pulse Rate 60 66 Respiratory 18 18 Rate Blood Pressure 146/84 131/78 O2 Sat by Pulse 97 99 Oximetry Medical Decision Making - Medical Decision Making Vitals are stable. Patient is hyperglycemic with a glucose of 320. Patient reports that his sugars have generally been uncontrolled and then he has been working on [employer] the past few months. Exam was performed and is as documented. No focal neurologic deficits. Visual eason are intact. Did attempt to evaluate the posterior chamber however this was limited. Visual acuity is 20/100 in both eyes with correction. I did discuss this case with on- call hydraulic riveter Dr. Cortes. He feels that as this is bilateral and is likely related to his hyperglycemia. I did give patient 10 units subcu and this did improve to 3 of 7-30 minutes. Patient is resting discharge home does not want to wait longer. I discussed that Dr. Cortes want to see him Sunday morning between 8 and 9 AM his office is not open tomorrow. Patient is agreeable to this. He will return for any worsening symptoms. - Lab Data Lab Results 05/20/20 05/20/20 Range/Units 20:53 21:46 POC Glucose (mg/dL) 320 H 307 H (75-99) mg/dL POC Glu Sanitary Land[employer] Supervisor ID Silva Wang McKenna Disposition Clinical Impression: Blurry vision, Hyperglycemia Disposition: HOME SELF-CARE Condition: Good Instructions (If sedation given, give patient instructions): Blurred Vision (ED) Additional Instructions: Please go to Dr. Cortes's office Sunday morning between 8 and 9 AM. He would like to see you during this time. Follow-up with your doctor for high blood sugar. If you have any worsening symptoms return to the emergency room. Is patient prescribed a controlled substance at d/c from ED?: No Referrals: Maude Spivey MD [Primary Care Provider] - 1-2 days Arash Cortes MD [STAFF PHYSICIAN] - 1-2 days Time of Disposition: 20:36
[2020-05-20 20:55] LABS: Glucose,Whole Blood 320 mg/dL (75-99)
[2020-05-20] MEDS ORDERED: INSULIN ASPART (NovoLOG) 100 UNIT/ML VIAL SQ STA (21:08)
[2020-05-20 21:47] LABS: Glucose,Whole Blood 307 mg/dL (75-99)
[2020-05-20 22:07] VITALS: BP 129/89; PULSE 69; TEMP 98.1
== END 2020-05-20 22:07 | disposition home or self-care (01) ==
LOC: EC 19:33
DX: E11.65 Type 2 diabetes mellitus with hyperglycemia (principal); K21.9 Gastro-esophageal reflux disease without esophagitis; M10.9 Gout, unspecified; M19.90 Unspecified osteoarthritis, unspecified site; G47.30 Sleep apnea, unspecified; G25.81 Restless legs syndrome; I25.2 Old myocardial infarction; Z79.899 Other long term (current) drug therapy; Z79.01 Long term (current) use of anticoagulants; Z79.82 Long term (current) use of aspirin; Z79.4 Long term (current) use of insulin; Z86.73 Personal history of transient ischemic attack (TIA), and cerebral infarction without residual deficits; Z99.89 Dependence on other enabling machines and devices; Z87.891 Personal history of nicotine dependence
CPT/HCPCS: 36415; 96372; 99284

== ENCOUNTER 2020-08-03 21:38 | Emergency (ER) | payer OTHER ==
[2020-08-03 21:45] VITALS: TEMP 98.6
[2020-08-03 22:02] LABS: Glucose,Whole Blood 114 mg/dL (75-99)
--- NOTE | 2020-08-03 22:02 | ED ---
Chest Pain HPI - General Chief Complaint: Chest Pain Stated Complaint: Chest pain Time Seen by Provider: 08/03/20 21:55 Source: patient Mode of arrival: wheelchair Limitations: no limitations - History of Present Illness Initial Comments: 's patient is a 49-year-old male patient who presents to be evaluated for symptoms that started 1-2 hours ago. The patient states that initially he was having some substernal chest pain. He then began having some left arm weakness and numbness as well as some left-sided facial droop. Patient states that the facial droop had resolved prior to his arrival here. He is continuing to have just a little bit of left arm weakness though this has improved. The patient states she has had history of multiple previous TIAs. Patient's states that he had stopped taking some of his blood pressure control medicines. Patient had not noted any dyspnea, diaphoresis, nausea or vomiting. MD Complaint: chest pain -: hour(s) Onset: during rest Pain Location: substernal Pain Radiation: LUE Severity: moderate Quality: aching Consistency: constant Improves With: nothing Worsens With: nothing Treatments Prior to Arrival: none - Related Data Home Medications Medication Instructions Recorded Confirmed Apixaban [Eliquis] 5 mg PO BID 05/07/18 08/03/20 Metoprolol Tartrate [Lopressor] 50 mg PO DAILY 09/09/18 08/03/20 rOPINIRole HCL [Requip] 0.5 mg PO HS 09/09/18 08/03/20 Aspirin EC [Ecotrin Low Dose] 81 mg PO DAILY 04/23/19 08/03/20 allopurinoL [Zyloprim] 300 mg PO DAILY 04/26/19 08/03/20 Atorvastatin [Lipitor] 40 mg PO DAILY 08/03/20 08/03/20 Canagliflozin [Invokana] 300 mg PO DAILY 08/03/20 08/03/20 Glimepiride [Amaryl] 4 mg PO BID 08/03/20 08/03/20 HYDROcodone/APAP 10-325MG [[place] 1 tab PO DAILY 08/03/20 08/03/20 10-325] Levothyroxine Sodium [Synthroid] 300 mcg PO DAILY 08/03/20 08/03/20 Metoprolol Tartrate [Lopressor] 25 mg PO HS 08/03/20 08/03/20 Phentermine HCl [Adipex-P] 37.5 mg PO DAILY 08/03/20 08/03/20 Allergies Allergy/AdvReac Type Severity Reaction Status Date / Time No Known Allergies Allergy Verified 08/03/20 22:50 Review of Systems ROS Statement: Those systems with pertinent positive or pertinent negative responses have been documented in the HPI. ROS Other: All systems not noted in ROS Statement are negative. Constitutional: Denies: fever, chills Eyes: Reports: vision change (Blurry) Respiratory: Denies: cough, dyspnea, wheezes Cardiovascular: Reports: chest pain. Denies: palpitations, edema, syncope Gastrointestinal: Denies: abdominal pain, nausea, vomiting, diarrhea, melena, hematochezia Genitourinary: Denies: dysuria, hematuria Musculoskeletal: Denies: back pain Skin: Denies: rash Neurological: Reports: headache, weakness, numbness. Denies: confusion, abnormal gait Psychiatric: Reports: anxiety EKG Findings - EKG Results: EKG: interpreted by JOSLYN STEVEN, sinus rhythm (Rate 70 bpm), normal axis, normal QRS, normal ST/T, no acute changes - [place], Pacemaker, Normal: Normal tracing: normal tracing Past Medical History Past Medical History: Atrial Fibrillation, Coronary Artery Disease (CAD), CVA/TIA, Diabetes Mellitus, GERD/Reflux, Memory Impairment, Myocardial Infarction ([place]), Osteoarthritis (OA), Sleep Apnea/CPAP/BIPAP, Thyroid Disorder Additional Past Medical History / Comment(s): restless leg syndrome, "TIA (x 5) last Apr 2016", memory loss and occ lt arm weakness, gout, wears CPAP at home Last Myocardial Infarction Date:: unk History of Any Multi-Drug Resistant Organisms: None Reported Past Surgical History: Heart Catheterization, Heart Catheterization With Stent, Hernia Repair, Orthopedic Surgery Additional Past Surgical History / Comment(s): loop monitor in chest, now removed, one cardiac stent, rt knee arthroscopy, rt shoulder rotator cuff Past Anesthesia/Blood Transfusion Reactions: No Reported Reaction Date of Last Stent Placement:: 2016 Type of Cardiac Device: Loop Device Placement Date:: Apr 2016 Past Psychological History: Anxiety Smoking Status: Former smoker Past Alcohol Use History: Rare Past Drug Use History: None Reported - Past Family History Father Additional Family Medical History / Comment(s): of [place] Mother Family Medical History: No Reported History Brother(s) Additional Family Medical History / Comment(s): Bipolar disorder General Exam Limitations: no limitations General appearance: alert, in no apparent distress Head exam: Present: atraumatic, normocephalic Eye exam: Present: normal appearance. Absent: scleral icterus, conjunctival injection ENT exam: Present: normal oropharynx Neck exam: Present: normal inspection, full ROM Respiratory exam: Present: normal lung sounds bilaterally. Absent: respiratory distress, wheezes, rales, rhonchi, stridor Cardiovascular Exam: Present: regular rate, normal rhythm, normal heart sounds. Absent: systolic murmur, diastolic murmur, rubs, gallop GI/Abdominal exam: Present: soft. Absent: distended, tenderness, guarding, rebound, rigid Extremities exam: Present: normal inspection, normal capillary refill. Absent: pedal edema, calf tenderness Back exam: Present: normal inspection. Absent: CVA tenderness (R), CVA tenderness (L) Neurological exam: Present: alert, oriented X3, CN II-XII intact, other (Patient's neurologic exam is normal at this time.). Absent: motor sensory deficit Skin exam: Present: warm, dry, intact, normal color. Absent: rash Course Vital Signs 08/03/20 08/03/20 08/03/20 21:43 22:30 23:00 Temperature 98.6 F Pulse Rate 75 74 62 Respiratory 18 17 17 Rate Blood Pressure 165/116 141/88 138/85 O2 Sat by Pulse 98 96 98 Oximetry 08/03/20 23:30 Temperature Pulse Rate 60 Respiratory 16 Rate Blood Pressure 143/96 O2 Sat by Pulse 97 Oximetry Chest Pain [facility] Patient's 49-year-old man presenting with chest pain that started approximately 2 hours ago. He then also had left facial droop and left arm weakness. The patient's neurologic symptoms have resolved. The patient is worked up as code stroke as well as having cardiac workup. After the initial workup is complete, I went to reevaluate the patient, and he was requesting discharge. I discussed the risks associated with this, including of having a cardiac event as well as possibility of a stroke developing. Patient expresses understanding and did wish to proceed and may, he will return immediately should any symptoms recur or if any new symptoms develop. Disposition Clinical Impression: Hypertension, TIA (transient ischemic attack), Chest pain Disposition: Left Against Medical Advice Condition: Undetermined Instructions (If sedation given, give patient instructions): Transient Ischemic Attack (ED), Chest Pain (ED), Hypertension (ED) Is patient prescribed a controlled substance at d/c from ED?: No Referrals: Maude Spivey MD [Primary Care Provider] - 1-2 days Cayetano Kramer MD [REFERRING] - 1-2 days Marcelo Cummins MD [STAFF PHYSICIAN] - 1-2 days
[2020-08-03 22:28] LABS: Basophils % (A) 0 %; Eosinophils # (A) 0.1 k/uL (0-0.7); Eosinophils % (A) 1 %; HCT 50.5 % (39.0-53.0); Lymphocytes # (A) 1.6 k/uL (1.0-4.8); Lymphocytes % (A) 22 %; MCH 28.2 pg (25.0-35.0); MCHC 33.7 g/dL (31.0-37.0); MCV 83.7 fL (80.0-100.0); Mean Platelet Volume 7.4; Monocytes # (A) 0.3 k/uL (0-1.0); Monocytes % (A) 5 %; Neutrophils # (A) 5.1 k/uL (1.3-7.7); Neutrophils % (A) 71 %; Platelet Count 183 k/uL (150-450); RBC 6.03 m/uL (4.30-5.90); WBC 7.3 k/uL (3.8-10.6)
--- NOTE | 2020-08-03 22:33 | CT ---
EXAMINATION TYPE: CT brain wo con for TPA DATE OF EXAM: 08/03/2020 COMPARISON: 05/06/2016 HISTORY: Left sided facial droop, history of TIA. CT DLP: 1123.6 mGycm Automated exposure control for dose reduction was used. Exam performed with no contrast. Ventricles have normal size. There is no mass effect nor midline shift. There is no sign of intracran ial hemorrhage. The calvarium is intact. There is no evidence of cerebral edema. Sella turcica appear s normal. IMPRESSION: Normal unenhanced head CT scan. No change.
--- NOTE | 2020-08-03 22:36 | XR ---
EXAMINATION TYPE: XR chest 2V DATE OF EXAM: 08/03/2020 COMPARISON: 07/04/2019 HISTORY: Altered mental status TECHNIQUE: FINDINGS: Heart and mediastinum are normal. Lungs are clear. Diaphragm is normal. Bony thorax appears normal. There are chest leads. IMPRESSION: Normal chest. No change.
[2020-08-03 22:37] LABS: ALT 48 U/L (4-49); AST 42 U/L (17-59); African American GFR (CKD) >90 (>60 ml/min/1.73 sqM); Albumin 4.6 g/dL (3.5-5.0); Alkaline Phosphatase 141 U/L (38-126); Anion Gap 12 mmol/L; Blood Urea Nitrogen 12 mg/dL (9-20); Calcium 9.7 mg/dL (8.4-10.2); Carbon Dioxide 22 mmol/L (22-30); Chloride 104 mmol/L (98-107); Glucose 135 mg/dL (74-99); Non-African American GFR(CKD) >90 (>60 ml/min/1.73 sqM); Potassium 4.3 mmol/L (3.5-5.1); Sodium 138 mmol/L (137-145); Total Bilirubin 0.8 mg/dL (0.2-1.3); Total Protein 8.4 g/dL (6.3-8.2)
[2020-08-03] MEDS ORDERED: LABETALOL 5 MG/ML VIAL MDV IVP STA (22:37)
[2020-08-03 22:40] LABS: Partial Thromboplastin Time 23.7 sec (22.0-30.0); Prothrombin Time 10.4 sec (9.0-12.0)
--- NOTE | 2020-08-03 23:26 | CT ---
EXAMINATION TYPE: CT angio head neck DATE OF EXAM: 08/03/2020 COMPARISON: 05/06/2016 HISTORY: cva CT DLP: 1028.4 mGycm Automated exposure control for dose reduction was used. CONTRAST: Performed with IV Contrast, patient injected with 65cc mL of Isovue 370. Images obtained from the aortic arch to the vertex of the brain with IV contrast. There are 3-D post processed images. There is normal branching pattern of the great vessels on the aortic arch. There is bilateral arteria l flow in the subclavian arteries. There is arterial flow in the common internal and external carotid arteries bilaterally. There is arterial flow in both vertebral arteries. There is no evidence of car otid or vertebral artery aneurysm or dissection. There is minimal calcification at the posterior wall of the carotid artery bifurcations. There is no evidence of any significant stenosis. There is lumen narrowing less than 20% in the proximal left internal carotid artery. There is arterial flow in the vertebrobasilar artery system. Right vertebral artery is larger than th e left. There is arterial flow in the anterior middle and posterior cerebral arteries. There is normal contra st opacification of the venous sinuses. There is no mass effect. There is no sign of intracranial ane urysm or neovascularity. There is no evidence of hemodynamic stenosis. IMPRESSION: There is some plaque formation and approximate 20% stenosis proximal left internal carotid artery not changed significantly compared to old exam. No evidence of hemodynamic stenosis. No intracranial ang iographic abnormality.
[2020-08-03] MEDS ORDERED: HYDROcodone/APAP 5-325MG 1 EACH TAB PO STA (23:39)
[2020-08-03 23:42] VITALS: BP 143/96; PULSE 60; RESP 16
== END 2020-08-04 00:47 | disposition left against medical advice (07) ==
LOC: EC 21:38
DX: G45.9 Transient cerebral ischemic attack, unspecified (principal); I10 Essential (primary) hypertension; R07.9 Chest pain, unspecified; E11.9 Type 2 diabetes mellitus without complications; M19.90 Unspecified osteoarthritis, unspecified site; G47.30 Sleep apnea, unspecified; G25.81 Restless legs syndrome; M10.9 Gout, unspecified; I25.2 Old myocardial infarction; Z79.01 Long term (current) use of anticoagulants; Z79.899 Other long term (current) drug therapy; Z79.82 Long term (current) use of aspirin; Z79.84 Long term (current) use of oral hypoglycemic drugs; Z79.890 Hormone replacement therapy; Z99.89 Dependence on other enabling machines and devices; Z87.891 Personal history of nicotine dependence; Z86.73 Personal history of transient ischemic attack (TIA), and cerebral infarction without residual deficits; Z95.5 Presence of coronary angioplasty implant and graft
CPT/HCPCS: 36415; 93005; 80053; 84484; 85025; 85610; 85730; 71046; 70496; 70450; 70498; 99285; Q9967

== ENCOUNTER 2020-08-06 00:12 | Emergency (ER) | payer OTHER ==
[2020-08-06] MEDS ORDERED: SODIUM CHLORIDE 0.9% 500 ML 500 ML IV STA (00:32)
[2020-08-06 01:03] LABS: Basophils # (A) 0.1 k/uL (0-0.2); Basophils % (A) 1 %; Eosinophils # (A) 0.1 k/uL (0-0.7); Eosinophils % (A) 2 %; HCT 46.2 % (39.0-53.0); HGB 15.5 gm/dL (13.0-17.5); Lymphocytes # (A) 1.9 k/uL (1.0-4.8); Lymphocytes % (A) 31 %; MCH 27.8 pg (25.0-35.0); MCHC 33.6 g/dL (31.0-37.0); MCV 82.8 fL (80.0-100.0); Mean Platelet Volume 7.4; Monocytes # (A) 0.3 k/uL (0-1.0); Monocytes % (A) 4 %; Neutrophils # (A) 3.8 k/uL (1.3-7.7); Neutrophils % (A) 61 %; Platelet Count 168 k/uL (150-450); RBC 5.58 m/uL (4.30-5.90); WBC 6.2 k/uL (3.8-10.6)
--- NOTE | 2020-08-06 01:09 | XR ---
EXAM: XR Chest, 2 Views CLINICAL HISTORY: ITS.REASON XR Reason: Weakness TECHNIQUE: Frontal and lateral views of the chest. COMPARISON: Chest radiograph on 08/03/2020 FINDINGS: Hardware: None. Lungs/pleura: Normal. No focal consolidation. No pleural effusion or pneumothorax. Heart/mediastinum: Normal. No cardiomegaly. Soft tissues: Unremarkable. Bones: No acute fracture. Upper abdomen: Normal. IMPRESSION: No acute disease identified.
[2020-08-06 01:11] LABS: Partial Thromboplastin Time 23.7 sec (22.0-30.0); Prothrombin Time 10.3 sec (9.0-12.0)
[2020-08-06 01:21] LABS: ALT 38 U/L (4-49); AST 33 U/L (17-59); African American GFR (CKD) >90 (>60 ml/min/1.73 sqM); Albumin 4.1 g/dL (3.5-5.0); Alkaline Phosphatase 137 U/L (38-126); Anion Gap 11 mmol/L; Blood Urea Nitrogen 19 mg/dL (9-20); Calcium 9.6 mg/dL (8.4-10.2); Carbon Dioxide 27 mmol/L (22-30); Chloride 102 mmol/L (98-107); Glucose 179 mg/dL (74-99); Magnesium 1.8 mg/dL (1.6-2.3); Non-African American GFR(CKD) >90 (>60 ml/min/1.73 sqM); Potassium 4.2 mmol/L (3.5-5.1); Sodium 140 mmol/L (137-145); Total Bilirubin 0.5 mg/dL (0.2-1.3); Total Protein 7.6 g/dL (6.3-8.2)
--- NOTE | 2020-08-06 01:25 | ED ---
General Adult HPI - General Chief complaint: Weakness Stated complaint: Stroke-like symptoms Time Seen by Provider: 08/06/20 00:21 Source: patient, family Mode of arrival: ambulatory Limitations: no limitations - History of Present Illness Initial comments: 49 year-old male patient presents to the emergency department for evaluation of generalized weakness and "just not feeling right". Patient states he was seen here 2 days ago for chest pain and discharged. patient states he has not had anymore chest pain. Denies shortness of breath. Denies any headache, blurred vision, double vision. Denies numbness or tingling to his extremities. States his weakness is generalized and nonfocal to one side of the body or the other. Denies any recent head injuries. Denies any new medications. Denies any alcohol or drug use. Patient denies any recent rash, cough, shortness of breath, chest pain, abdominal pain, nausea, vomiting, diarrhea, constipation, back pain, hematuria, dysuria, urinary urgency, urinary frequency, headache, visual changes, or any other complaints. - Related Data Home Medications Medication Instructions Recorded Confirmed Apixaban [Eliquis] 5 mg PO BID 05/07/18 08/03/20 Metoprolol Tartrate [Lopressor] 50 mg PO DAILY 09/09/18 08/03/20 rOPINIRole HCL [Requip] 0.5 mg PO HS 09/09/18 08/03/20 Aspirin EC [Ecotrin Low Dose] 81 mg PO DAILY 04/23/19 08/03/20 allopurinoL [Zyloprim] 300 mg PO DAILY 04/26/19 08/03/20 Atorvastatin [Lipitor] 40 mg PO DAILY 08/03/20 08/03/20 Canagliflozin [Invokana] 300 mg PO DAILY 08/03/20 08/03/20 Glimepiride [Amaryl] 4 mg PO BID 08/03/20 08/03/20 HYDROcodone/APAP 10-325MG [[place] 1 tab PO DAILY 08/03/20 08/03/20 10-325] Levothyroxine Sodium [Synthroid] 300 mcg PO DAILY 08/03/20 08/03/20 Metoprolol Tartrate [Lopressor] 25 mg PO HS 08/03/20 08/03/20 Phentermine HCl [Adipex-P] 37.5 mg PO DAILY 08/03/20 08/03/20 Allergies Allergy/AdvReac Type Severity Reaction Status Date / Time No Known Allergies Allergy Verified 08/06/20 00:17 Review of Systems ROS Statement: Those systems with pertinent positive or pertinent negative responses have been documented in the HPI. ROS Other: All systems not noted in ROS Statement are negative. Past Medical History Past Medical History: Atrial Fibrillation, Coronary Artery Disease (CAD), CVA/TIA, Diabetes Mellitus, GERD/Reflux, Memory Impairment, Myocardial Infarction ([place]), Osteoarthritis (OA), Sleep Apnea/CPAP/BIPAP, Thyroid Disorder Additional Past Medical History / Comment(s): restless leg syndrome, "TIA (x 5) last Apr 2016", memory loss and occ lt arm weakness, gout, wears CPAP at home Last Myocardial Infarction Date:: unk History of Any Multi-Drug Resistant Organisms: None Reported Past Surgical History: Heart Catheterization, Heart Catheterization With Stent, Hernia Repair, Orthopedic Surgery Additional Past Surgical History / Comment(s): loop monitor in chest, now removed, one cardiac stent, rt knee arthroscopy, rt shoulder rotator cuff Past Anesthesia/Blood Transfusion Reactions: No Reported Reaction Date of Last Stent Placement:: 2016 Type of Cardiac Device: Loop Device Placement Date:: Apr 2016 Past Psychological History: Anxiety Smoking Status: Former smoker Past Alcohol Use History: Rare Past Drug Use History: None Reported - Past Family History Father Additional Family Medical History / Comment(s): of [place] Mother Family Medical History: No Reported History Brother(s) Additional Family Medical History / Comment(s): Bipolar disorder General Exam Limitations: no limitations General appearance: alert, in no apparent distress, other (this is a well- developed, well-nourished adult male patient in no acute distress. ) Eye exam: Present: normal appearance, PERRL, EOMI. Absent: scleral icterus, conjunctival injection, nystagmus, periorbital swelling Respiratory exam: Present: normal lung sounds bilaterally. Absent: respiratory distress, wheezes, rales, rhonchi, stridor Cardiovascular Exam: Present: regular rate, normal rhythm, normal heart sounds. Absent: systolic murmur, diastolic murmur, rubs, gallop, clicks GI/Abdominal exam: Present: soft, normal bowel sounds. Absent: distended, tenderness, guarding, rebound, rigid Neurological exam: Present: alert, oriented X3, CN II-XII intact Expanded Speech: Present: fluid speech Cranial nerves: EOM's Intact: Normal, Nystagmus: Normal Motor strength exam: RUE: 5, LUE: 5, RLE: 5, LLE: 5 Psychiatric exam: Present: normal affect, normal mood Skin exam: Present: warm, dry, intact, normal color. Absent: rash Course Vital Signs 08/06/20 08/06/20 00:12 01:55 Temperature 98.4 F Pulse Rate 63 61 Respiratory 20 22 Rate Blood Pressure 147/89 128/77 O2 Sat by Pulse 97 95 Oximetry Medical Decision Making - Medical Decision Making 49-year-old male patient presents to the emergency department today for evaluation of generalized weakness and just not feeling right. Physical e xamination was unremarkable. Reports weakness to all extremities, no focal weakness noted. He was neurologically intact with no focal deficits. Lungs are clear to auscultation. Heart sounds normal. EKG unremarkable. Labs reviewed and are unremarkable other than having a low TSH level but normal T4. Chest x- ray was negative. I did discuss findings and results with him. He does have an appointment with his primary care physician later today. He is urged to keep this appointment. Return parameters were discussed in detail. He verbalizes understanding and agrees with this plan. Case discussed with my attending Dr. Hwang. - Lab Data Result diagrams: 08/06/20 00:39 08/06/20 00:39 Lab Results 08/06/20 08/06/20 08/06/20 Range/Units 00:39 00:39 00:39 WBC 6.2 (3.8-10.6) k/uL RBC 5.58 (4.30-5.90) m/uL Hgb 15.5 (13.0-17.5) gm/dL Hct 46.2 (39.0-53.0) % MCV 82.8 (80.0-100.0) fL MCH 27.8 (25.0-35.0) pg MCHC 33.6 (31.0-37.0) g/dL RDW 14.0 (11.5-15.5) % Plt Count 168 (150-450) k/uL MPV 7.4 Neutrophils % 61 % Lymphocytes % 31 % Monocytes % 4 % Eosinophils % 2 % Basophils % 1 % Neutrophils # 3.8 (1.3-7.7) k/uL Lymphocytes # 1.9 (1.0-4.8) k/uL Monocytes # 0.3 (0-1.0) k/uL Eosinophils # 0.1 (0-0.7) k/uL Basophils # 0.1 (0-0.2) k/uL PT 10.3 (9.0-12.0) sec INR 1.0 (<1.2) APTT 23.7 (22.0-30.0) sec Sodium (137-145) mmol/L Potassium (3.5-5.1) mmol/L Chloride (98-107) mmol/L Carbon Dioxide (22-30) mmol/L Anion Gap mmol/L BUN (9-20) mg/dL Creatinine (0.66-1.25) mg/dL Est GFR (CKD-EPI)AfAm (>60 ml/min/1.73 sqM) Est GFR (CKD-EPI)NonAf (>60 ml/min/1.73 sqM) Glucose (74-99) mg/dL Plasma Lactic Acid Carlos (0.7-2.0) mmol/L Calcium (8.4-10.2) mg/dL Magnesium (1.6-2.3) mg/dL Total Bilirubin (0.2-1.3) mg/dL AST (17-59) U/L ALT (4-49) U/L Alkaline Phosphatase (38-126) U/L Troponin I (0.000-0.034) ng/mL Total Protein (6.3-8.2) g/dL Albumin (3.5-5.0) g/dL TSH (0.465-4.680) mIU/L Free T4 (0.78-2.19) ng/dL Urine Color Light Yellow Urine Appearance Clear (Clear) Urine pH 6.0 (5.0-8.0) Ur Specific [place] 1.028 (1.001-1.035) Urine Protein Negative (Negative) Urine Glucose (UA) 4+ H (Negative) Urine Ketones Negative (Negative) Urine Blood Negative (Negative) Urine Nitrite Negative (Negative) Urine Bilirubin Negative (Negative) Urine Urobilinogen <2.0 (<2.0) mg/dL Ur Leukocyte Esterase Negative (Negative) 08/06/20 08/06/20 08/06/20 Range/Units 00:39 00:39 00:39 WBC (3.8-10.6) k/uL RBC (4.30-5.90) m/uL Hgb (13.0-17.5) gm/dL Hct (39.0-53.0) % MCV (80.0-100.0) fL MCH (25.0-35.0) pg MCHC (31.0-37.0) g/dL RDW (11.5-15.5) % Plt Count (150-450) k/uL MPV Neutrophils % % Lymphocytes % % Monocytes % % Eosinophils % % Basophils % % Neutrophils # (1.3-7.7) k/uL Lymphocytes # (1.0-4.8) k/uL Monocytes # (0-1.0) k/uL Eosinophils # (0-0.7) k/uL Basophils # (0-0.2) k/uL PT (9.0-12.0) sec INR (<1.2) APTT (22.0-30.0) sec Sodium 140 (137-145) mmol/L Potassium 4.2 (3.5-5.1) mmol/L Chloride 102 (98-107) mmol/L Carbon Dioxide 27 (22-30) mmol/L Anion Gap 11 mmol/L BUN 19 (9-20) mg/dL Creatinine 0.74 (0.66-1.25) mg/dL Est GFR (CKD-EPI)AfAm >90 (>60 ml/min/1.73 sqM) Est GFR (CKD-EPI)NonAf >90 (>60 ml/min/1.73 sqM) Glucose 179 H (74-99) mg/dL Plasma Lactic Acid Carlos 1.6 (0.7-2.0) mmol/L Calcium 9.6 (8.4-10.2) mg/dL Magnesium 1.8 (1.6-2.3) mg/dL Total Bilirubin 0.5 (0.2-1.3) mg/dL AST 33 (17-59) U/L ALT 38 (4-49) U/L Alkaline Phosphatase 137 H (38-126) U/L Troponin I <0.012 (0.000-0.034) ng/mL Total Protein 7.6 (6.3-8.2) g/dL Albumin 4.1 (3.5-5.0) g/dL TSH 0.150 L (0.465-4.680) mIU/L Free T4 1.74 (0.78-2.19) ng/dL Urine Color Urine Appearance (Clear) Urine pH (5.0-8.0) Ur Specific [place] (1.001-1.035) Urine Protein (Negative) Urine Glucose (UA) (Negative) Urine Ketones (Negative) Urine Blood (Negative) Urine Nitrite (Negative) Urine Bilirubin (Negative) Urine Urobilinogen (<2.0) mg/dL Ur Leukocyte Esterase (Negative) - EKG Data -: EKG Interpreted by Me EKG Comments: EKG obtained at 00 26 shows normal sinus rhythm with a ventricular rate of 68, [place] interval 178, QRS duration 82, QT 368, QTC 391. No evidence of ST elevation or depression. - Radiology Data Radiology results: report reviewed, image reviewed Two-view x-ray of the chest is obtained. Report was reviewed in its entirety. Impression by Dr. Medina shows no acute disease process identified. Disposition Clinical Impression: Weakness Disposition: HOME SELF-CARE Condition: Good Instructions (If sedation given, give patient instructions): Weakness (ED) Additional Instructions: Follow-up through primary care physician for recheck in 1-2 days. Discuss your abnormal thyroid results. Return to the emergency department for any new, worsening, or concerning symptoms. Is patient prescribed a controlled substance at d/c from ED?: No Referrals: Maude Spivey MD [Primary Care Provider] - 1-2 days Time of Disposition: 02:33
[2020-08-06 01:36] LABS: Appearance,Urine Clear (Clear); Bilirubin,Urine Negative (Negative); Blood,Urine Negative (Negative); Color,Urine Light Yellow; Glucose,Urine (UA) 4+ (Negative); Ketones,Urine Negative (Negative); Leukocyte Esterase,Urine Negative (Negative); Nitrite,Urine Negative (Negative); Protein,Urine Negative (Negative); Specific Gravity,Urine 1.028 (1.001-1.035); Urobilinogen,Urine <2.0 mg/dL (<2.0)
[2020-08-06 02:31] LABS: T4, Free (Free Thyroxine) 1.74 ng/dL (0.78-2.19)
[2020-08-06 03:13] VITALS: BP 122/88; PULSE 62; RESP 18; TEMP 97.7
== END 2020-08-06 03:14 | disposition home or self-care (01) ==
LOC: EC 00:12
DX: R53.1 Weakness (principal); F41.9 Anxiety disorder, unspecified; I48.91 Unspecified atrial fibrillation; I25.10 Atherosclerotic heart disease of native coronary artery without angina pectoris; E11.9 Type 2 diabetes mellitus without complications; K21.9 Gastro-esophageal reflux disease without esophagitis; I25.2 Old myocardial infarction; M19.90 Unspecified osteoarthritis, unspecified site; G47.33 Obstructive sleep apnea (adult) (pediatric); M10.9 Gout, unspecified; G25.81 Restless legs syndrome; Z79.01 Long term (current) use of anticoagulants; Z79.82 Long term (current) use of aspirin; Z79.84 Long term (current) use of oral hypoglycemic drugs; Z79.899 Other long term (current) drug therapy; Z99.89 Dependence on other enabling machines and devices; Z87.891 Personal history of nicotine dependence; Z95.5 Presence of coronary angioplasty implant and graft; Z86.73 Personal history of transient ischemic attack (TIA), and cerebral infarction without residual deficits
CPT/HCPCS: 36415; 71046; 80053; 81003; 83605; 83735; 84439; 84443; 84484; 85025; 85610; 85730; 93005; 99285

== ENCOUNTER 2020-10-03 16:49 | Observation (INO) | payer OTHER ==
--- NOTE | 2020-10-03 16:54 | ED ---
General Adult HPI <Michael Rooney - Last Filed: 10/03/20 16:53> - General Source: patient Limitations: no limitations <Sterling Hayes - Last Filed: 10/03/20 18:27> - General Stated complaint: chest pain - History of Present Illness Initial comments: Patient was seen as a medical screen for advanced triage purposes: 49-year-old male with a significant cardiac history including atrial fibrillation, CAD, PR, TIA presents to the emergency room for a chief complaint of chest pain. Patient reports that he has had chest pain for the past few days. States his heart has also been racing. Patient took a baby aspirin this morning. (Michael Rooney) Patient presents the ED complaining of having intermittent left-sided chest pain radiating to his left arm and jaw for the past 3 days or so. Patient also states that he has had intermittent rapid heart palpitations over the past 3 days. Patient denies having any chest pain or any pain at all currently. Patient also denies having any palpitations currently. Patient states that he has a history of paroxysmal atrial fibrillation, for which he is treated with Eliquis anticoagulation. Patient also states that he has a history of coronary artery disease, and he has a cardiac stent. Patient denies trauma or injury, fever or chills, headache, focal numbness/weakness/neuro deficit, dyspnea, cough or cold symptoms, dizziness, syncope, nausea/vomiting/diaphoresis, abdominal pain, dysuria or urinary symptoms, leg or calf swelling or pain, or any other symptoms or complaints. (Sterling Hayes) - Related Data Home Medications Medication Instructions Recorded Confirmed Apixaban [Eliquis] 5 mg PO BID 05/07/18 10/03/20 rOPINIRole HCL [Requip] 0.5 mg PO HS 09/09/18 10/03/20 Aspirin EC [Ecotrin Low Dose] 81 mg PO DAILY 04/23/19 10/03/20 allopurinoL [Zyloprim] 300 mg PO DAILY 04/26/19 10/03/20 Atorvastatin [Lipitor] 40 mg PO DAILY 08/03/20 10/03/20 Canagliflozin [Invokana] 300 mg PO DAILY 08/03/20 10/03/20 Glimepiride [Amaryl] 4 mg PO BID 08/03/20 10/03/20 HYDROcodone/APAP 10-325MG [Gilbert 1 tab PO DAILY PRN 08/03/20 10/03/20 10-325] Levothyroxine Sodium [Synthroid] 300 mcg PO DAILY 08/03/20 10/03/20 Phentermine HCl [Adipex-P] 37.5 mg PO DAILY 08/03/20 10/03/20 Nitroglycerin Sl Tabs [Nitrostat] 0.4 mg SL Q5M PRN 10/03/20 10/03/20 Allergies Allergy/AdvReac Type Severity Reaction Status Date / Time No Known Allergies Allergy Verified 10/03/20 18:07 Review of Systems ROS Other: All systems not noted in ROS Statement are negative. <Michael Rooney - Last Filed: 10/03/20 16:53> ROS Other: All systems not noted in ROS Statement are negative. <Sterling Hayes - Last Filed: 10/03/20 18:27> ROS Statement: Those systems with pertinent positive or pertinent negative responses have been documented in the HPI. Past Medical History Past Medical History: Atrial Fibrillation, Coronary Artery Disease (CAD), CVA/T IA, Diabetes Mellitus, GERD/Reflux, Memory Impairment, Myocardial Infarction (PR), Osteoarthritis (OA), Sleep Apnea/CPAP/BIPAP, Thyroid Disorder Additional Past Medical History / Comment(s): restless leg syndrome, "TIA (x 5) last Apr 2016", memory loss and occ lt arm weakness, gout, wears CPAP at home Last Myocardial Infarction Date:: unk History of Any Multi-Drug Resistant Organisms: None Reported Past Surgical History: Heart Catheterization, Heart Catheterization With Stent, Hernia Repair, Orthopedic Surgery Additional Past Surgical History / Comment(s): loop monitor in chest, now removed, one cardiac stent, rt knee arthroscopy, rt shoulder rotator cuff Past Anesthesia/Blood Transfusion Reactions: No Reported Reaction Date of Last Stent Placement:: 2016 Type of Cardiac Device: Loop Device Placement Date:: Apr 2016 Past Psychological History: Anxiety Smoking Status: Former smoker Past Alcohol Use History: Rare Past Drug Use History: None Reported - Past Family History Father Additional Family Medical History / Comment(s): of [place] Mother Family Medical History: No Reported History Brother(s) Additional Family Medical History / Comment(s): Bipolar disorder <Michael Rooney - Last Filed: 10/03/20 16:53> General Exam Limitations: no limitations General appearance: alert, in no apparent distress Head exam: Present: atraumatic, normocephalic Eye exam: Present: normal appearance, EOMI ENT exam: Present: mucous membranes moist Neck exam: Present: other (Trachea is in midline) Respiratory exam: Present: normal lung sounds bilaterally. Absent: respiratory distress, wheezes, rales, rhonchi, stridor, chest wall tenderness Cardiovascular Exam: Present: normal rhythm, bradycardia, normal heart sounds, other (Normal radial pulses bilaterally) GI/Abdominal exam: Present: soft. Absent: distended, tenderness, guarding Extremities exam: Present: other (Negative Homans sign bilaterally). Absent: tenderness, pedal edema, calf tenderness Neurological exam: Present: alert, oriented X3. Absent: motor sensory deficit Psychiatric exam: Present: normal affect, normal mood Skin exam: Present: warm, dry, intact, normal color <Sterling Hayes - Last Filed: 10/03/20 18:27> Course <Sterling Hayes - Last Filed: 10/03/20 18:27> Vital Signs 10/03/20 16:50 Temperature 97.5 F L Pulse Rate 65 Respiratory 17 Rate Blood Pressure 136/94 O2 Sat by Pulse 98 Oximetry - Reevaluation(s) Reevaluation #1: 10/03/20 18:22 Case, H&P, test results and ED management were discussed with mid-level provider Bettie. She accepts admission on behalf of herself and Dr. Stone. She agrees with cardiology consultation. She has no further recommendations at this time. 10/03/20 18:26 Patient continues to deny having any chest pain, palpitations or any symptoms whatsoever while in the ED. Patient remains in a sinus rhythm on the library monitor. Patient remains alert and breathing comfortably. Patient is aware of his test results, and he agrees with hospital admission at this time. (Sterling Hayes) EKG Findings - EKG Comments: EKG Findings:: Sinus bradycardia, ventricular rate of 54 bpm, no ectopy, normal DE and QRS intervals, normal QT interval, normal axis, no ST or T-wave abnormality <Sterling Hayes - Last Filed: 10/03/20 18:27> Medical Decision Making - Lab Data Result diagrams: 10/03/20 17:15 10/03/20 17:15 - Radiology Data Radiology results: image reviewed (Chest x-ray is negative) <Sterling Hayes - Last Filed: 10/03/20 18:27> - Medical Decision Making Given the patient's reported chest pain with radiation to his left jaw and left arm, and given his history of cardiac stent placement, will admit the patient to the hospital for further cardiac evaluation, cardiac monitoring and PR rule out. Patient's initial troponin is negative, and his EKG does not show any acute ischemic abnormality. Mid-level provider Betite has accepted admission on behalf of herself and Dr. Stone. A cardiology consultation order has been placed. (Sterling Hayes) - Lab Data Lab Results 10/03/20 10/03/20 10/03/20 Range/Units 17:15 17:15 17:15 WBC 6.5 (3.8-10.6) k/uL RBC 5.59 (4.30-5.90) m/uL Hgb 15.9 (13.0-17.5) gm/dL Hct 45.9 (39.0-53.0) % MCV 82.2 (80.0-100.0) fL MCH 28.4 (25.0-35.0) pg MCHC 34.5 (31.0-37.0) g/dL RDW 14.1 (11.5-15.5) % Plt Count 176 (150-450) k/uL MPV 7.4 Neutrophils % 64 % Lymphocytes % 26 % Monocytes % 5 % Eosinophils % 3 % Basophils % 0 % Neutrophils # 4.2 (1.3-7.7) k/uL Lymphocytes # 1.7 (1.0-4.8) k/uL Monocytes # 0.3 (0-1.0) k/uL Eosinophils # 0.2 (0-0.7) k/uL Basophils # 0.0 (0-0.2) k/uL PT 10.3 (9.0-12.0) sec INR 1.0 (<1.2) APTT 23.4 (22.0-30.0) sec Sodium 138 (137-145) mmol/L Potassium 4.4 (3.5-5.1) mmol/L Chloride 105 (98-107) mmol/L Carbon Dioxide 27 (22-30) mmol/L Anion Gap 6 mmol/L BUN 12 (9-20) mg/dL Creatinine 0.75 (0.66-1.25) mg/dL Est GFR (CKD-EPI)AfAm >90 (>60 ml/min/1.73 sqM) Est GFR (CKD-EPI)NonAf >90 (>60 ml/min/1.73 sqM) Glucose 115 H (74-99) mg/dL Calcium 9.4 (8.4-10.2) mg/dL Magnesium 2.1 (1.6-2.3) mg/dL Total Bilirubin 0.7 (0.2-1.3) mg/dL AST 35 (17-59) U/L ALT 33 (4-49) U/L Alkaline Phosphatase 126 (38-126) U/L Troponin I (0.000-0.034) ng/mL NT-Pro-B Natriuret Pep pg/mL Total Protein 7.4 (6.3-8.2) g/dL Albumin 4.1 (3.5-5.0) g/dL 10/03/20 10/03/20 Range/Units 17:15 17:15 WBC (3.8-10.6) k/uL RBC (4.30-5.90) m/uL Hgb (13.0-17.5) gm/dL Hct (39.0-53.0) % MCV (80.0-100.0) fL MCH (25.0-35.0) pg MCHC (31.0-37.0) g/dL RDW (11.5-15.5) % Plt Count (150-450) k/uL MPV Neutrophils % % Lymphocytes % % Monocytes % % Eosinophils % % Basophils % % Neutrophils # (1.3-7.7) k/uL Lymphocytes # (1.0-4.8) k/uL Monocytes # (0-1.0) k/uL Eosinophils # (0-0.7) k/uL Basophils # (0-0.2) k/uL PT (9.0-12.0) sec INR (<1.2) APTT (22.0-30.0) sec Sodium (137-145) mmol/L Potassium (3.5-5.1) mmol/L Chloride (98-107) mmol/L Carbon Dioxide (22-30) mmol/L Anion Gap mmol/L BUN (9-20) mg/dL Creatinine (0.66-1.25) mg/dL Est GFR (CKD-EPI)AfAm (>60 ml/min/1.73 sqM) Est GFR (CKD-EPI)NonAf (>60 ml/min/1.73 sqM) Glucose (74-99) mg/dL Calcium (8.4-10.2) mg/dL Magnesium (1.6-2.3) mg/dL Total Bilirubin (0.2-1.3) mg/dL AST (17-59) U/L ALT (4-49) U/L Alkaline Phosphatase (38-126) U/L Troponin I <0.012 (0.000-0.034) ng/mL NT-Pro-B Natriuret Pep 27 pg/mL Total Protein (6.3-8.2) g/dL Albumin (3.5-5.0) g/dL Disposition <Michael Rooney - Last Filed: 10/03/20 16:53> Is patient prescribed a controlled substance at d/c from ED?: No Time of Disposition: 18:22 <Sterling Hayes - Last Filed: 10/03/20 18:27> Clinical Impression: Chest pain, Palpitations Disposition: ADMITTED IP TO THIS HOSP Condition: Stable Referrals: Maude Spivey MD [Primary Care Provider] - 1-2 days
[2020-10-03] MEDS ORDERED: ASPIRIN 81 MG PO STA (17:16)
[2020-10-03 17:25] LABS: Basophils % (A) 0 %; Eosinophils # (A) 0.2 k/uL (0-0.7); Eosinophils % (A) 3 %; HCT 45.9 % (39.0-53.0); HGB 15.9 gm/dL (13.0-17.5); Lymphocytes # (A) 1.7 k/uL (1.0-4.8); Lymphocytes % (A) 26 %; MCH 28.4 pg (25.0-35.0); MCHC 34.5 g/dL (31.0-37.0); MCV 82.2 fL (80.0-100.0); Mean Platelet Volume 7.4; Monocytes # (A) 0.3 k/uL (0-1.0); Monocytes % (A) 5 %; Neutrophils # (A) 4.2 k/uL (1.3-7.7); Neutrophils % (A) 64 %; Platelet Count 176 k/uL (150-450); RBC 5.59 m/uL (4.30-5.90); RDW 14.1 % (11.5-15.5); WBC 6.5 k/uL (3.8-10.6)
[2020-10-03 17:37] LABS: ALT 33 U/L (4-49); AST 35 U/L (17-59); African American GFR (CKD) >90 (>60 ml/min/1.73 sqM); Albumin 4.1 g/dL (3.5-5.0); Alkaline Phosphatase 126 U/L (38-126); Anion Gap 6 mmol/L; Blood Urea Nitrogen 12 mg/dL (9-20); Calcium 9.4 mg/dL (8.4-10.2); Carbon Dioxide 27 mmol/L (22-30); Chloride 105 mmol/L (98-107); Glucose 115 mg/dL (74-99); Magnesium 2.1 mg/dL (1.6-2.3); Non-African American GFR(CKD) >90 (>60 ml/min/1.73 sqM); Potassium 4.4 mmol/L (3.5-5.1); Sodium 138 mmol/L (137-145); Total Bilirubin 0.7 mg/dL (0.2-1.3); Total Protein 7.4 g/dL (6.3-8.2)
[2020-10-03 17:38] LABS: Partial Thromboplastin Time 23.4 sec (22.0-30.0); Prothrombin Time 10.3 sec (9.0-12.0)
--- NOTE | 2020-10-03 18:35 | XR ---
EXAMINATION TYPE: XR chest 2V DATE OF EXAM: 10/03/2020 COMPARISON: 08/03/2020. HISTORY: Chest pain. TECHNIQUE: Frontal and lateral views of the chest are obtained. FINDINGS: There is mild interstitial edema. No significant infiltrate pleural effusion, or pneumotho rax seen. The cardiac silhouette size is enlarged. The osseous structures are intact. IMPRESSION: Mild interstitial edema.
[2020-10-03] MEDS: APIXABAN 5 MG TAB PO SCH (22:14)
[2020-10-03 22:25] LABS: Glucose,Whole Blood 113 mg/dL (75-99)
[2020-10-04 05:52] LABS: ALT 33 U/L (4-49); AST 34 U/L (17-59); African American GFR (CKD) >90 (>60 ml/min/1.73 sqM); Albumin 3.7 g/dL (3.5-5.0); Albumin/Globulin Ratio 1.2; Alkaline Phosphatase 119 U/L (38-126); Anion Gap 7 mmol/L; Blood Urea Nitrogen 13 mg/dL (9-20); Calcium 9.2 mg/dL (8.4-10.2); Carbon Dioxide 29 mmol/L (22-30); Chloride 103 mmol/L (98-107); Globulin 3.1 g/dL; Glucose 123 mg/dL (74-99); Non-African American GFR(CKD) >90 (>60 ml/min/1.73 sqM); Potassium 4.1 mmol/L (3.5-5.1); Sodium 139 mmol/L (137-145); Total Bilirubin 0.6 mg/dL (0.2-1.3); Total Protein 6.8 g/dL (6.3-8.2)
[2020-10-04] MEDS ORDERED: LEVOTHYROXINE 100 MCG TAB PO SCH (06:30)
[2020-10-04] MEDS ORDERED: GLIMEPIRIDE 4 MG TAB PO SCH (07:30)
[2020-10-04 07:42] LABS: Glucose,Whole Blood 113 mg/dL (75-99)
[2020-10-04 07:59] VITALS: RESP 20
[2020-10-04] MEDS: APIXABAN 5 MG TAB PO SCH (08:19)
[2020-10-04] MEDS ORDERED: METOPROLOL TARTRATE 50 MG TAB PO SCH (09:00)
[2020-10-04] MEDS ORDERED: ATORVASTATIN 40 MG TAB PO SCH (09:00)
[2020-10-04 09:20] LABS: Basophils # (A) 0.02 X 10*3/uL (0.00-0.10); Basophils % (A) 0.3 %; Eosinophils # (A) 0.19 X 10*3/uL (0.04-0.35); HCT 47.5 % (39.6-50.0); HGB 15.1 g/dL (13.0-17.0); Lymphocytes # (A) 2.19 X 10*3/uL (0.90-5.00); Lymphocytes % (A) 34.8 %; MCH 27.4 pg (27.0-32.0); MCHC 31.8 g/dL (32.0-37.0); MCV 86.1 fL (80.0-97.0); Mean Platelet Volume 10.6 fL (9.5-12.2); Monocytes # (A) 0.52 X 10*3/uL (0.20-1.00); Monocytes % (A) 8.3 %; Neutrophils # (A) 3.36 X 10*3/uL (1.80-7.70); Neutrophils % (A) 53.3 %; Platelet Count 172 X 10*3/uL (140-440); RBC 5.52 X 10*6/uL (4.40-5.60)
--- NOTE | 2020-10-04 09:57 | P.CRDCN ---
History of Present Illness Consult date: 10/04/20 History of present illness: HISTORY OF PRESENT ILLNESS: This is a 49-year-old male with a past medical history significant for paroxysmal atrial fibrillation, IVs mellitus, hypertension, hyperlipidemia, GERD, and coronary artery disease with previous PCI. Patient follows in the office with Dr. Kennedy, but he thinks he may have seen Dr. Mane at his last visit. We have been asked to see the patient in consultation for chest pain and palpitations. Patient examined at the bedside this morning. Patient states over the last 2-3 days he has been feeling palpitations. He states these only last for a few minutes and then go away on their own. He states the palpitations can come with exertion or at rest. He states that doesn't seem to be any rhyme or reason to when he gets these palpitations. He currently denies any chest pain. He states he did not have any chest pain prior to coming to the hospital. He does report having some intermittent chest pain a few weeks ago when he was feeling palpitations. 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 Per nursing, the patients heart rate was down into the 30s overnight. Patient has a history of sleep apnea and wears a CPAP at home which he does not have with him. EKG reveals sinus bradycardia with a heart rate in the 50s. No acute ischemic changes noted. Chest xray mild interstitial edema Laboratory data: WBC 6.30. Hemoglobin 15.1. Platelet count 172. Sodium 139. Potassium 4.1. BUN 13. Creatinine 0.79. Troponin negative 3 Current home cardiac medications include metoprolol 50 mg in the morning and 25 mg in the evening, Lipitor 40 mg daily, aspirin 81 mg daily, and Eliquis 5 mg twice a day Most recent echocardiogram obtained in 2018 reveals an ejection fraction 50-55% Cardiac catheterization history: February [address] Mane revealing patent stent to the LAD. No significant obstructive coronary artery disease. REVIEW OF SYSTEMS: At the time of my exam: CONSTITUTIONAL: Denies fever or chills. HEENT: Denies blurred vision, vision changes, or eye pain. Denies hemoptysis CARDIOVASCULAR: Denies chest pain. Denies orthopnea. Denies PND. Denies palpitations RESPIRATORY: Denies shortness of breath. GASTROINTESTINAL: Denies abdominal pain. Denies nausea or vomiting. HEMATOLOGIC: Denies bleeding disorders. GENITOURINARY: Denies any blood in urine. SKIN: Denies pruitis. Denies rash. PHYSICAL EXAM: VITAL SIGNS: Reviewed. GENERAL: Well-developed in no acute distress. HEENT: Head is normocephalic. Pupils are equal, round. Sclerae anicteric. Mucous membranes of the mouth are moist. Neck supple. No JVD or thyromegaly LUNGS: Respirations even and unlabored. Lungs essentially clear to auscultation bilaterally. HEART: Regular rate and rhythm. S1 and S2 heard. ABDOMEN: Soft. Nondistended. Nontender. EXTREMITIES: Normal range of motion. No clubbing or cyanosis. Peripheral pulses intact. No lower extremity edema NEUROLOGIC: Awake and alert. Oriented x 3. ASSESSMENT: Palpitations Chest pain, troponin negative x 3 Paroxysmal atrial fibrillation, on anticoagulation with Eliquis Coronary artery disease with previous PCI to LAD Obstructive sleep apnea with CPAP use Bradycardia, while sleeping, secondary to SADE Diabetes mellitus Hypertension Hyperlipidemia Former nicotine dependence Anxiety Depression Morbid obesity: BMI 44.8 PLAN: An acute coronary event has been ruled out Obtain 2D echo to assess cardiac structure and function Resume home cardiac medications Continue Eliquis for anticoagulation Continue telemetry monitoring Patient to undergo stress echo today Further recommendations pending patient course Nurse practitioner note has been reviewed by physician. Signing provider agrees with the documented findings, assessment, and plan of care. Past Medical History Past Medical History: Atrial Fibrillation, Coronary Artery Disease (CAD), CVA/TIA, Diabetes Mellitus, GERD/Reflux, Memory Impairment, Myocardial Infarction ([place]), Osteoarthritis (OA), Sleep Apnea/CPAP/BIPAP, Thyroid Disorder Additional Past Medical History / Comment(s): restless leg syndrome, "TIA (x 5) last Apr 2016", memory loss and occ lt arm weakness, gout, wears CPAP at home Last Myocardial Infarction Date:: unk History of Any Multi-Drug Resistant Organisms: None Reported Past Surgical History: Heart Catheterization, Heart Catheterization With Stent, Hernia Repair, Orthopedic Surgery Additional Past Surgical History / Comment(s): loop monitor in chest, now removed, one cardiac stent, rt knee arthroscopy, rt shoulder rotator cuff Past Anesthesia/Blood Transfusion Reactions: No Reported Reaction Date of Last Stent Placement:: 2016 Type of Cardiac Device: Loop Device Placement Date:: Apr 2016 Past Psychological History: Anxiety, Depression Additional Psychological History / Comment(s): memory loss from TIA's Smoking Status: Former smoker Past Alcohol Use History: Rare Additional Past Alcohol Use History / Comment(s): quit smoking 08/2016- smoked for 4 yrs- 1/2 PPD Past Drug Use History: None Reported - Past Family History Father Additional Family Medical History / Comment(s): of [place] Mother Family Medical History: No Reported History Brother(s) Additional Family Medical History / Comment(s): Bipolar disorder Medications and Allergies Home Medications Medication Instructions Recorded Confirmed Type Apixaban [Eliquis] 5 mg PO BID 05/07/18 10/03/20 History rOPINIRole HCL [Requip] 0.5 mg PO HS 09/09/18 10/03/20 History Aspirin EC [Ecotrin Low Dose] 81 mg PO DAILY 04/23/19 10/03/20 History allopurinoL [Zyloprim] 300 mg PO DAILY 04/26/19 10/03/20 History Atorvastatin [Lipitor] 40 mg PO DAILY 08/03/20 10/03/20 History Glimepiride [Amaryl] 4 mg PO BID 08/03/20 10/03/20 History HYDROcodone/APAP 10-325MG [Alpha 1 tab PO DAILY PRN 08/03/20 10/03/20 History 10-325] Levothyroxine Sodium [Synthroid] 300 mcg PO DAILY 08/03/20 10/03/20 History Phentermine HCl [Adipex-P] 37.5 mg PO DAILY 08/03/20 10/03/20 History Nitroglycerin Sl Tabs [Nitrostat] 0.4 mg SL Q5M PRN 10/03/20 10/03/20 History Ertugliflozin Pidolate [Steglatro] 15 mg PO DAILY 10/04/20 10/04/20 History Metoprolol Tartrate [Lopressor] 25 mg PO HS 10/04/20 10/04/20 History Metoprolol Tartrate [Lopressor] 50 mg PO QAM 10/04/20 10/04/20 History Allergies Allergy/AdvReac Type Severity Reaction Status Date / Time No Known Allergies Allergy Verified 10/03/20 18:07 Physical Exam Vitals: Vital Signs Temp Pulse Pulse Resp BP BP BP 10/04/20 07:15 98.1 F 53 L 20 153/79 10/04/20 02:00 97.8 F 51 L 16 139/96 10/03/20 22:38 98.1 F 55 L 20 169/95 10/03/20 19:01 50 L 18 126/68 10/03/20 16:50 97.5 F L 65 17 136/94 Pulse Ox 10/04/20 07:15 99 10/04/20 02:00 96 10/03/20 22:38 97 10/03/20 19:01 98 10/03/20 16:50 98 Intake and Output 10/03/20 10/04/20 10/04/20 22:59 06:59 14:59 Other: # Voids 0 1 Weight 149.685 kg Results 10/04/20 04:47 10/04/20 04:47 Cardiac Enzymes 10/03/20 10/03/20 10/03/20 Range/Units 17:15 17:15 20:14 AST 35 (17-59) U/L Troponin I <0.012 <0.012 (0.000-0.034) ng/mL 10/03/20 10/04/20 Range/Units 23:17 04:47 AST 34 (17-59) U/L Troponin I <0.012 (0.000-0.034) ng/mL Coagulation 10/03/20 Range/Units 17:15 PT 10.3 (9.0-12.0) sec APTT 23.4 (22.0-30.0) sec CBC 10/03/20 10/04/20 Range/Units 17:15 04:47 WBC 6.5 6.30 (3.8-10.6) k/uL RBC 5.59 5.52 (4.30-5.90) m/uL Hgb 15.9 15.1 (13.0-17.5) gm/dL Hct 45.9 47.5 (39.0-53.0) % Plt Count 176 172 (150-450) k/uL Comprehensive Metabolic Panel 10/03/20 10/04/20 Range/Units 17:15 04:47 Sodium 138 139 (137-145) mmol/L Potassium 4.4 4.1 (3.5-5.1) mmol/L Chloride 105 103 (98-107) mmol/L Carbon Dioxide 27 29 (22-30) mmol/L BUN 12 13 (9-20) mg/dL Creatinine 0.75 0.79 (0.66-1.25) mg/dL Glucose 115 H 123 H (74-99) mg/dL Calcium 9.4 9.2 (8.4-10.2) mg/dL AST 35 34 (17-59) U/L ALT 33 33 (4-49) U/L Alkaline Phosphatase 126 119 (38-126) U/L Total Protein 7.4 6.8 (6.3-8.2) g/dL Albumin 4.1 3.7 (3.5-5.0) g/dL Current Medications Generic Name Dose Route Start Last Admin Trade Name Freq PRN Reason Stop Dose Admin Apixaban 5 mg 10/03/20 21:00 10/04/20 08:19 Apixaban 5 Mg Tab PO 5 mg BID LEVI Administration Atorvastatin Calcium 40 mg 10/04/20 09:00 10/04/20 08:19 Atorvastatin 40 Mg Tab PO 40 mg DAILY LEVI Administration Glimepiride 4 mg 10/04/20 07:30 10/04/20 08:19 Glimepiride 4 Mg Tab PO 4 mg AC-BID LEVI Administration Levothyroxine Sodium 300 mcg 10/04/20 06:30 10/04/20 05:55 Levothyroxine 100 Mcg Tab PO 300 mcg DAILY@0630 LEVI Administration Metoprolol Tartrate 50 mg 10/04/20 09:00 Metoprolol Tartrate 50 Mg Tab PO DAILY LEVI Metoprolol Tartrate 25 mg 10/04/20 21:00 Metoprolol Tartrate 25 Mg Tab PO HS LEVI Canagliflozin [ 300 mg 10/04/20 09:00 10/04/20 08:20 Invokana] 300 Mg PO Not Given Tablet DAILY LEVI Intake and Output 10/03/20 10/04/20 10/04/20 22:59 06:59 14:59 Other: # Voids 0 1 Weight 149.685 kg 10/04/20 04:47 10/04/20 04:47
[2020-10-04] MEDS ORDERED: HYDROcodone/APAP 10-325MG 1 EACH TAB PO PRN (10:42)
[2020-10-04] MEDS ORDERED: NITROGLYCERIN SL TABS 0.4 MG TAB SUBLINGUAL PRN (10:42)
[2020-10-04 11:42] LABS: Glucose,Whole Blood 144 mg/dL (75-99)
--- NOTE | 2020-10-04 12:30 | ECHOF ---
Referral Reason:lvf, palpitations MEASUREMENTS -------- HEIGHT: 182.9 cm WEIGHT: 149.7 kg BP: 153/79 RVIDd: 3.9 cm (< 3.3) IVSd: 1.6 cm (0.6 - 1.1) LVIDd: 5.0 cm (3.9 - 5.3) LVPWd: 1.6 cm (0.6 - 1.1) IVSs: 2.0 cm LVIDs: 2.6 cm LVPWs: 2.0 cm LA Diam: 3.9 cm (2.7 - 3.8) Ao Diam: 3.6 cm (2.0 - 3.7) AV Cusp: 2.1 cm (1.5 - 2.6) MV EXCURSION: 12.885 mm (> 18.000) MV EF SLOPE: 82 mm/s (70 - 150) EPSS: 0.5 cm MV E Rodriguez: 1.08 m/s MV DecT: 288 ms MV A Rodriguez: 0.85 m/s MV E/A Ratio: 1.27 FINDINGS -------- Resting bradycardia (HR<60bpm). This was a technically difficult study with suboptimal views. The left ventricular size is normal. There is moderate concentric left ventricular hypertrophy. O verall left ventricular systolic function is normal with, an EF between 60 - 65 %. The right ventricle is moderately enlarged. The left atrium is normal in size. The right atrium is normal in size. 5 ml of Lumason was utilized for enhancement of images. Interatrial and interventricular septum intact. The aortic valve is trileaflet and appears structurally normal. The mitral valve is normal. The tricuspid valve appears structurally normal. Trace/mild (physiologic) pulmonic regurgitation. The aortic root size is normal. Normal inferior vena cava with normal inspiratory collapse consistent with estimated right atrial pre ssure of 5 mmHg. There is no pericardial effusion. CONCLUSIONS -------- 1. Resting bradycardia (HR<60bpm). 2. The left ventricular size is normal. 3. There is moderate concentric left ventricular hypertrophy. 4. Overall left ventricular systolic function is normal with, an EF between 60 - 65 %. 5. The right ventricle is moderately enlarged. 6. 5 ml of Lumason was utilized for enhancement of images. 7. Trace/mild (physiologic) pulmonic regurgitation. 8. There is no pericardial effusion. WELDING MACHINE SETTER: Stephanie Rao RDCS
--- NOTE | 2020-10-04 13:32 | ECHOS ---
STRESS ECHOCARDIOGRAM LUMASON: N/A Vial INDICATIONS: Chest pain. MEDICATIONS: BASELINE HEART RATE: 49 BASELINE BLOOD PRESSURE: 100/57 MAXIMUM HEART RATE: 133 MAXIMUM BLOOD PRESSURE: 254/112 85% MPHR: 147 100% MPHR: 173 METS: 8 MAXIMUM STAGE REACHED: II TOTAL EXERCISE TIME: 6 minutes and 50 seconds CLINICAL INFORMATION: Baseline EKG shows sinus rhythm, normal axis, normal intervals. Patient exercised on Zack protocol for a total of 6 minutes and 50 seconds achieving 8 METs, 75% of predicted maximal heart rate without chest pain or diagnostic ST-segment depression. Test was stopped secondary to exercise. Baseline echo shows normal left ventricular size, wall motion and systolic function. Postexercise, there is normal hyperdynamic response of all segments of myocardium noted. A Lumason contrast was used for to enhance endocardial visualization. CONCLUSIONS: 1. Average exercise tolerance. 2. Inconclusive stress echo due to inability to attain target heart rate. MMODL / IJN: [id number] /
[2020-10-04 14:30] VITALS: BP 141/73; PULSE 54; TEMP 98.2
[2020-10-04 14:31] LABS: Hemoglobin A1C 7.1 % (4.0-6.0)
--- NOTE | 2020-10-04 16:37 | CT ---
EXAMINATION TYPE: CT brain wo con DATE OF EXAM: 10/04/2020 COMPARISON: 08/03/2020 HISTORY: 49-year-old male r/o stroke, TIA TECHNIQUE: Examination was done in axial plane without intravenous contrast. Coronal and sagittal r econstructions performed. CT DLP: 1233 mGycm Automated exposure control for dose reduction was used. FINDINGS: There is no evidence of acute intracranial hemorrhage, acute ischemic changes, mass, mass-effect, or extra-axial fluid collection. There is no effacement of cerebral sulci or basal subarachnoid cister ns. There is no hydrocephalus. There is no midline shift. Dyson-white matter distinction is preserv ed. A couple small polyps or mucosal retention cyst within the left ethmoid air cells and posterior wall of the right maxillary sinus measuring up to 9 mm. Mastoid air cells well pneumatized. Orbits and karan bes are intact. IMPRESSION: No acute intracranial abnormality seen.
--- NOTE | 2020-10-04 16:48 | P.HPIM ---
History of Present Illness Patient with history of proximal atrial fibrillation came in with complains of palpitations without any chest pain. Patient did appear to be bradycardic actually more so while sleeping because of his sleep apnea. Patient takes 25 mg of metoprolol at night and 50 mg during the daytime. Patient was evaluated by cardiology, underwent stress test which was negative was cleared by cardiology to be discharged regarding the dose of metoprolol it was not changed multiple times in recent days. Because of his complaints of palpitations although there is no significant the tachyarrhythmia on the telemetry, in spite of he being bradycardic at nighttime plan is to continue the same dose of metoprolol. Patient is a symptomatic at this time patient is on anti-correlation with Eliquis. Patient uses CPAP machine at home. Patient had a normal ejection fraction on the recent echocardiogram. Upon further questioning patient give me a history that he lost track of hold off last Sunday which is actually couple days ago which appeared to be transient global amnesia which warrants TIA evaluation as of which obtained a CT of the head which did not show any significant abnormality patient is already antiplatelet therapy and a statin and it's more than 24 hours since the incident patient will continue aspirin Eliquis and Lipitor and will follow with neurology as an outpatient. Patient had coronary artery disease with stent to LAD in February 2018 Review of Systems REVIEW OF SYSTEMS: CONSTITUTIONAL: No fever, no malaise, no fatigue. HEENT: No recent visual problems or hearing problems. Denied any sore throat. CARDIOVASCULAR: No chest pain, orthopnea, PND, no syncope. PULMONARY: No shortness of breath, no cough, no hemoptysis. GASTROINTESTINAL: No diarrhea, no nausea, no vomiting, no abdominal pain. NEUROLOGICAL: No headaches, no weakness, no numbness. HEMATOLOGICAL: Denies any bleeding or petechiae. GENITOURINARY: Denies any burning micturition, frequency, or urgency. MUSCULOSKELETAL/RHEUMATOLOGICAL: Denies any joint pain, swelling, or any muscle pain. ENDOCRINE: Denies any polyuria or polydipsia. The rest of the 14-point review of systems is negative. Past Medical History Past Medical History: Atrial Fibrillation, Coronary Artery Disease (CAD), CVA/TIA, Diabetes Mellitus, GERD/Reflux, Memory Impairment, Myocardial Infarcti on ([place]), Osteoarthritis (OA), Sleep Apnea/CPAP/BIPAP, Thyroid Disorder Additional Past Medical History / Comment(s): restless leg syndrome, "TIA (x 5) last Apr 2016", memory loss and occ lt arm weakness, gout, wears CPAP at home Last Myocardial Infarction Date:: unk History of Any Multi-Drug Resistant Organisms: None Reported Past Surgical History: Heart Catheterization, Heart Catheterization With Stent, Hernia Repair, Orthopedic Surgery Additional Past Surgical History / Comment(s): loop monitor in chest, now removed, one cardiac stent, rt knee arthroscopy, rt shoulder rotator cuff Past Anesthesia/Blood Transfusion Reactions: No Reported Reaction Date of Last Stent Placement:: 2016 Type of Cardiac Device: Loop Device Placement Date:: Apr 2016 Past Psychological History: Anxiety, Depression Additional Psychological History / Comment(s): memory loss from TIA's Smoking Status: Former smoker Past Alcohol Use History: Rare Additional Past Alcohol Use History / Comment(s): quit smoking 08/2016- smoked for 4 yrs- 1/2 PPD Past Drug Use History: None Reported - Past Family History Father Additional Family Medical History / Comment(s): of [place] Mother Family Medical History: No Reported History Brother(s) Additional Family Medical History / Comment(s): Bipolar disorder Medications and Allergies Home Medications Medication Instructions Recorded Confirmed Type Apixaban [Eliquis] 5 mg PO BID 05/07/18 10/03/20 History rOPINIRole HCL [Requip] 0.5 mg PO HS 09/09/18 10/03/20 History Aspirin EC [Ecotrin Low Dose] 81 mg PO DAILY 04/23/19 10/03/20 History allopurinoL [Zyloprim] 300 mg PO DAILY 04/26/19 10/03/20 History Atorvastatin [Lipitor] 40 mg PO DAILY 08/03/20 10/03/20 History Glimepiride [Amaryl] 4 mg PO BID 08/03/20 10/03/20 History HYDROcodone/APAP 10-325MG [[place] 1 tab PO DAILY PRN 08/03/20 10/03/20 History 10-325] Levothyroxine Sodium [Synthroid] 300 mcg PO DAILY 08/03/20 10/03/20 History Nitroglycerin Sl Tabs [Nitrostat] 0.4 mg SL Q5M PRN 10/03/20 10/03/20 History Ertugliflozin Pidolate [Steglatro] 15 mg PO DAILY 10/04/20 10/04/20 History Metoprolol Tartrate [Lopressor] 25 mg PO HS 10/04/20 10/04/20 History Metoprolol Tartrate [Lopressor] 50 mg PO QAM 10/04/20 10/04/20 History Allergies Allergy/AdvReac Type Severity Reaction Status Date / Time No Known Allergies Allergy Verified 10/03/20 18:07 Physical Exam Vitals: Vital Signs Temp Pulse Pulse Resp BP BP BP 10/04/20 14:00 54 L 20 10/04/20 13:47 98.2 F 54 L 20 141/73 10/04/20 08:00 55 L 20 10/04/20 07:15 98.1 F 53 L 20 153/79 10/04/20 02:00 97.8 F 51 L 16 139/96 10/03/20 22:38 98.1 F 55 L 20 169/95 10/03/20 19:01 50 L 18 126/68 10/03/20 16:50 97.5 F L 65 17 136/94 Pulse Ox 10/04/20 14:00 10/04/20 13:47 94 L 10/04/20 08:00 10/04/20 07:15 99 10/04/20 02:00 96 10/03/20 22:38 97 10/03/20 19:01 98 10/03/20 16:50 98 Intake and Output 10/04/20 10/04/20 10/04/20 06:59 14:59 22:59 Intake Total 240 Balance 240 Intake: Oral 240 Other: # Voids 1 2 PHYSICAL EXAMINATION: GENERAL: The patient is alert and oriented x3, not in any acute distress. Well developed, well nourished. HEENT: Pupils are round and equally reacting to light. EOMI. No scleral icterus. No conjunctival pallor. Normocephalic, atraumatic. No pharyngeal erythema. No thyromegaly. CARDIOVASCULAR: S1 and S2 present. No murmurs, rubs, or gallops. PULMONARY: Chest is clear to auscultation, no wheezing or crackles. ABDOMEN: Soft, nontender, nondistended, normoactive bowel sounds. No palpable organomegaly. MUSCULOSKELETAL: No joint swelling or deformity. EXTREMITIES: No cyanosis, clubbing, or pedal edema. NEUROLOGICAL: Gross neurological examination did not reveal any focal deficits. SKIN: No rashes. Results CBC & Chem 7: 10/04/20 04:47 10/04/20 04:47 Labs: Abnormal Lab Results - Last 24 Hours (Table) 10/03/20 10/03/20 10/04/20 Range/Units 17:15 22:23 04:47 MCHC 31.8 L (32.0-37.0) g/dL Glucose 115 H (74-99) mg/dL POC Glucose (mg/dL) 113 H (75-99) mg/dL Hemoglobin A1c (4.0-6.0) % 10/04/20 10/04/20 10/04/20 Range/Units 04:47 04:47 07:22 MCHC (32.0-37.0) g/dL Glucose 123 H (74-99) mg/dL POC Glucose (mg/dL) 113 H (75-99) mg/dL Hemoglobin A1c 7.1 H (4.0-6.0) % 10/04/20 Range/Units 11:29 MCHC (32.0-37.0) g/dL Glucose (74-99) mg/dL POC Glucose (mg/dL) 144 H (75-99) mg/dL Hemoglobin A1c (4.0-6.0) % Thrombosis Risk Factor Assmnt - Choose All That Apply Any of the Below Risk Factors Present?: Yes Each Factor Represents 1 point: Age 41-60 years, Obesity (BMI >25) Other Risk Factors: No Other congenital or acquired thrombophilia - If yes, enter type in comment: No Thrombosis Risk Factor Assessment Total Risk Factor Score: 2 Thrombosis Risk Factor Assessment Level: Low Risk Assessment and Plan Plan: Palpitations: No tachyarrhythmias in the telemetry patient will be continued on same dose of metoprolol Paroxysmal atrial fibrillation on anti-correlation at [facility] coronary -Coronary artery disease next and have an obstructive sleep apnea -Evidence mellitus type II -Hypertension -Transient global amnesia workup for TIA as mentioned above on this admission -History of nicotine dependence -Morbid obesity sleep apnea on CPAP machine -Depression - Patient had a stress test which was negative workup for TIA as mentioned above patient will continue Eliquis, aspirin, statin will follow-up with the neurologist and PCP as outpatient patient will be discharged
--- NOTE | 2020-10-04 16:50 | P.DS ---
Providers Date of admission: 10/03/20 18:22 Attending physician: Eliu Stone Consults: 10/03/20 18:23 Consult Physician Urgent Consulting Provider: Marcelo Cummins Consult Reason/Comments: chest pain, palpitations Do you want consulting provider notified?: Yes Primary care physician: Allyssa Santoro [facility] Course: Please of her dementia for further details Patient Condition at Discharge: Stable Plan - Discharge Summary Discharge Rx Participant: No New Discharge Prescriptions: Continue Apixaban [Eliquis] 5 mg PO BID rOPINIRole HCL [Requip] 0.5 mg PO HS Aspirin EC [Ecotrin Low Dose] 81 mg PO DAILY allopurinoL [Zyloprim] 300 mg PO DAILY HYDROcodone/APAP 10-325MG [[place] 10-325] 1 tab PO DAILY PRN PRN Reason: Pain Glimepiride [Amaryl] 4 mg PO BID Atorvastatin [Lipitor] 40 mg PO DAILY Levothyroxine Sodium [Synthroid] 300 mcg PO DAILY Nitroglycerin Sl Tabs [Nitrostat] 0.4 mg SL Q5M PRN PRN Reason: Chest Pain Metoprolol Tartrate [Lopressor] 25 mg PO HS Metoprolol Tartrate [Lopressor] 50 mg PO QAM Ertugliflozin Pidolate [Steglatro] 15 mg PO DAILY Discontinued Phentermine HCl [Adipex-P] 37.5 mg PO DAILY Discharge Medication List Apixaban [Eliquis] 5 mg PO BID 05/07/18 [History] rOPINIRole HCL [Requip] 0.5 mg PO HS 09/09/18 [History] Aspirin EC [Ecotrin Low Dose] 81 mg PO DAILY 04/23/19 [History] allopurinoL [Zyloprim] 300 mg PO DAILY 04/26/19 [History] Atorvastatin [Lipitor] 40 mg PO DAILY 08/03/20 [History] Glimepiride [Amaryl] 4 mg PO BID 08/03/20 [History] HYDROcodone/APAP 10-325MG [[place] 10-325] 1 tab PO DAILY PRN 08/03/20 [History] Levothyroxine Sodium [Synthroid] 300 mcg PO DAILY 08/03/20 [History] Nitroglycerin Sl Tabs [Nitrostat] 0.4 mg SL Q5M PRN 10/03/20 [History] Ertugliflozin Pidolate [Steglatro] 15 mg PO DAILY 10/04/20 [History] Metoprolol Tartrate [Lopressor] 25 mg PO HS 10/04/20 [History] Metoprolol Tartrate [Lopressor] 50 mg PO QAM 10/04/20 [History] Follow up Appointment(s)/Referral(s): Maude Spivey MD [Primary Care Provider] - 3 Days Patient Instructions/Handouts: Chest Pain ([place]), Cardiac Stress Test ([place])
[2020-10-04] MEDS ORDERED: METOPROLOL TARTRATE 25 MG TAB PO SCH (21:00)
[2020-10-05] MEDS ORDERED: ASPIRIN 81 MG PO SCH (09:00)
[2020-10-05] MEDS ORDERED: NON FORMULARY DRUG (Ertugliflozin Pidolate [Steglatro] 15 MG Tablet) PO SCH (09:00)
== END 2020-10-04 17:05 | disposition home or self-care (01) ==
LOC: EC 16:49 → 6NMEDSUR 18:22
PROVIDERS: ADMIT Hospitalist; ATTEND Hospitalist
DX: R00.2 Palpitations (principal); R07.89 Other chest pain; I48.0 Paroxysmal atrial fibrillation; I25.10 Atherosclerotic heart disease of native coronary artery without angina pectoris; E11.9 Type 2 diabetes mellitus without complications; E78.5 Hyperlipidemia, unspecified; I10 Essential (primary) hypertension; R00.1 Bradycardia, unspecified; E07.9 Disorder of thyroid, unspecified; K21.9 Gastro-esophageal reflux disease without esophagitis; M19.90 Unspecified osteoarthritis, unspecified site; G25.81 Restless legs syndrome; M10.9 Gout, unspecified; G45.4 Transient global amnesia; G47.33 Obstructive sleep apnea (adult) (pediatric); Z99.89 Dependence on other enabling machines and devices; F41.9 Anxiety disorder, unspecified; F32.9 Major depressive disorder, single episode, unspecified; E66.01 Morbid (severe) obesity due to excess calories; Z68.41 Body mass index [BMI] 40.0-44.9, adult; R91.8 Other nonspecific abnormal finding of lung field; Z20.822 Contact with and (suspected) exposure to COVID-19; Z79.01 Long term (current) use of anticoagulants; Z79.82 Long term (current) use of aspirin; Z79.890 Hormone replacement therapy; Z79.84 Long term (current) use of oral hypoglycemic drugs; Z79.891 Long term (current) use of opiate analgesic; Z79.899 Other long term (current) drug therapy; Z86.73 Personal history of transient ischemic attack (TIA), and cerebral infarction without residual deficits; I25.2 Old myocardial infarction; Z95.5 Presence of coronary angioplasty implant and graft; Z98.890 Other specified postprocedural states; Z87.891 Personal history of nicotine dependence; Z81.8 Family history of other mental and behavioral disorders; Z82.49 Family history of ischemic heart disease and other diseases of the circulatory system
CPT/HCPCS: 99285; 36415; 93005; 83880; 80053 ×2; 83735; 84484; 85025 ×2; 85610; 85730; 83036; 87635; 71046; 70450; G0378 ×2; C8929; C8930; Q9950; 93306; 93351

== ENCOUNTER 2021-01-23 23:24 | Emergency (ER) | payer OTHER ==
[2021-01-23 23:33] VITALS: BP 138/91; PULSE 62; RESP 18; TEMP 97.8
[2021-01-24] MEDS ORDERED: SULFAMETHOX-TMP 800-160MG 1 EACH TAB PO STA (00:01)
--- NOTE | 2021-01-24 00:03 | ED ---
Skin/Abscess/FB HPI - General Chief complaint: Skin/Abscess/Foreign Body Stated complaint: RT side jaw swelling Time Seen by Provider: 01/23/21 23:34 Source: patient, RN notes reviewed Mode of arrival: ambulatory Limitations: no limitations - History of Present Illness Initial comments: Patient is a 50-year-old male that presents to the emergency department with a picked that ingrown hair on the right side of his face with some warmth and tenderness traveling down towards his ear. He notes that he had what initially started as a ingrown hair that his got out. He notes that today she noted that she picked out some what looked like white skin. He denied any pain with his jaw movement any mastoid tenderness or ear tenderness. He notes that it was just minimally swollen and warm to the touch. He denied any other issues or complaints at this time. He denied any chest pain shortness of breath headache nausea vomiting diarrhea constipation fever fatigue chills. - Related Data Home Medications Medication Instructions Recorded Confirmed Apixaban [Eliquis] 5 mg PO BID 05/07/18 10/03/20 rOPINIRole HCL [Requip] 0.5 mg PO HS 09/09/18 10/03/20 Aspirin EC [Ecotrin Low Dose] 81 mg PO DAILY 04/23/19 10/03/20 allopurinoL [Zyloprim] 300 mg PO DAILY 04/26/19 10/03/20 Atorvastatin [Lipitor] 40 mg PO DAILY 08/03/20 10/03/20 Glimepiride [Amaryl] 4 mg PO BID 08/03/20 10/03/20 HYDROcodone/APAP 10-325MG [[place] 1 tab PO DAILY PRN 08/03/20 10/03/20 10-325] Levothyroxine Sodium [Synthroid] 300 mcg PO DAILY 08/03/20 10/03/20 Nitroglycerin Sl Tabs [Nitrostat] 0.4 mg SL Q5M PRN 10/03/20 10/03/20 Ertugliflozin Pidolate [Steglatro] 15 mg PO DAILY 10/04/20 10/04/20 Metoprolol Tartrate [Lopressor] 25 mg PO HS 10/04/20 10/04/20 Metoprolol Tartrate [Lopressor] 50 mg PO QAM 10/04/20 10/04/20 Previous Rx's Medication Instructions Recorded Sulfamethox-Tmp 800-160Mg [Bactrim 1 each PO Q12HR #20 tab 01/24/21 Ds] Allergies Allergy/AdvReac Type Severity Reaction Status Date / Time No Known Allergies Allergy Verified 01/23/21 23:33 Review of Systems ROS Statement: Those systems with pertinent positive or pertinent negative responses have been documented in the HPI. ROS Other: All systems not noted in ROS Statement are negative. Past Medical History Past Medical History: Atrial Fibrillation, Coronary Artery Disease (CAD), CVA/TIA, Diabetes Mellitus, GERD/Reflux, Memory Impairment, Myocardial Infarction ([place]), Osteoarthritis (OA), Sleep Apnea/CPAP/BIPAP, Thyroid Disorder Additional Past Medical History / Comment(s): restless leg syndrome, "TIA (x 5) last Apr 2016", memory loss and occ lt arm weakness, gout, wears CPAP at home Last Myocardial Infarction Date:: unk History of Any Multi-Drug Resistant Organisms: None Reported Past Surgical History: Heart Catheterization, Heart Catheterization With Stent, Hernia Repair, Orthopedic Surgery Additional Past Surgical History / Comment(s): loop monitor in chest, now removed, one cardiac stent, rt knee arthroscopy, rt shoulder rotator cuff Past Anesthesia/Blood Transfusion Reactions: No Reported Reaction Date of Last Stent Placement:: 2016 Type of Cardiac Device: Loop Device Placement Date:: Apr 2016 Past Psychological History: Anxiety, Depression Smoking Status: Former smoker Past Alcohol Use History: Rare Past Drug Use History: None Reported - Past Family History Father Additional Family Medical History / Comment(s): of [place] Mother Family Medical History: No Reported History Brother(s) Additional Family Medical History / Comment(s): Bipolar disorder General Exam Limitations: no limitations General appearance: alert, in no apparent distress Head exam: Present: atraumatic, normocephalic, normal inspection Eye exam: Present: normal appearance, PERRL, EOMI. Absent: scleral icterus, conjunctival injection, periorbital swelling Neck exam: Present: normal inspection Respiratory exam: Present: normal lung sounds bilaterally. Absent: respiratory distress, wheezes, rales, rhonchi, stridor Cardiovascular Exam: Present: regular rate, normal rhythm, normal heart sounds. Absent: systolic murmur, diastolic murmur, rubs, gallop, clicks Extremities exam: Present: normal inspection, full ROM, normal capillary refill. Absent: tenderness, pedal edema, joint swelling, calf tenderness Neurological exam: Present: alert, oriented X3 Psychiatric exam: Present: normal affect, normal mood Skin exam: Present: warm, dry, intact, normal color, erythema (Lateral to the right eye to right ear. Nontender.). Absent: rash Course Vital Signs 01/23/21 23:30 Temperature 97.8 F Pulse Rate 62 Respiratory 18 Rate Blood Pressure 138/91 O2 Sat by Pulse 97 Oximetry Medical Decision Making - Medical Decision Making 50-year-old male with a small open sore from ingrown hair with redness and minimal tenderness. Given patient's clinical symptoms and signs and history most likely has fol liculitis with some localized cellulitis. Patient will be given antibiotics. Case discussed with Dr. Hwang, patient discharge home with follow-up to primary care. Disposition Clinical Impression: Folliculitis, Cellulitis Disposition: HOME SELF-CARE Condition: Stable Instructions (If sedation given, give patient instructions): Cellulitis (ED) Additional Instructions: Please return to the Emergency Department if symptoms worsen or any other co ncerns. Follow-up with primary care next several days. Take antibiotics as prescribed. Is patient prescribed a controlled substance at d/c from ED?: No Referrals: Maude Spivey MD [Primary Care Provider] - 1-2 days Time of Disposition: 00:03
== END 2021-01-24 00:17 | disposition home or self-care (01) ==
LOC: EC 23:24
DX: L73.9 Follicular disorder, unspecified (principal); L03.211 Cellulitis of face; E11.9 Type 2 diabetes mellitus without complications; I25.10 Atherosclerotic heart disease of native coronary artery without angina pectoris; I25.2 Old myocardial infarction; I48.91 Unspecified atrial fibrillation; K21.9 Gastro-esophageal reflux disease without esophagitis; E07.9 Disorder of thyroid, unspecified; M10.9 Gout, unspecified; G25.81 Restless legs syndrome; M19.90 Unspecified osteoarthritis, unspecified site; Z79.01 Long term (current) use of anticoagulants; Z79.82 Long term (current) use of aspirin; Z79.84 Long term (current) use of oral hypoglycemic drugs; Z86.73 Personal history of transient ischemic attack (TIA), and cerebral infarction without residual deficits; Z87.891 Personal history of nicotine dependence; Z95.5 Presence of coronary angioplasty implant and graft; Z79.890 Hormone replacement therapy; Z79.899 Other long term (current) drug therapy
CPT/HCPCS: 99282

== ENCOUNTER 2021-05-19 17:17 | Emergency (ER) | payer OTHER ==
[2021-05-19 17:38] VITALS: BP 136/82; TEMP 97.9
--- NOTE | 2021-05-19 17:42 | ED ---
Abdominal Pain HPI - General Chief Complaint: Abdominal Pain Stated Complaint: hernia Time Seen by Provider: 05/19/21 17:40 Source: patient Mode of arrival: ambulatory Limitations: no limitations - History of Present Illness Initial Comments: Patrick 50-year-old gentleman with a known right inguinal hernia scheduled for repair in 2 weeks. Patient reports that he was roughhousing with his kids today when he heard something pop is been feeling pain in the right inguinal region since then. - Related Data Home Medications Medication Instructions Recorded Confirmed Apixaban [Eliquis] 5 mg PO BID 05/07/18 10/03/20 rOPINIRole HCL [Requip] 0.5 mg PO HS 09/09/18 10/03/20 Aspirin EC [Ecotrin Low Dose] 81 mg PO DAILY 04/23/19 10/03/20 allopurinoL [Zyloprim] 300 mg PO DAILY 04/26/19 10/03/20 Atorvastatin [Lipitor] 40 mg PO DAILY 08/03/20 10/03/20 Glimepiride [Amaryl] 4 mg PO BID 08/03/20 10/03/20 HYDROcodone/APAP 10-325MG [[place] 1 tab PO DAILY PRN 08/03/20 10/03/20 10-325] Levothyroxine Sodium [Synthroid] 300 mcg PO DAILY 08/03/20 10/03/20 Nitroglycerin Sl Tabs [Nitrostat] 0.4 mg SL Q5M PRN 10/03/20 10/03/20 Ertugliflozin Pidolate [Steglatro] 15 mg PO DAILY 10/04/20 10/04/20 Metoprolol Tartrate [Lopressor] 25 mg PO HS 10/04/20 10/04/20 Metoprolol Tartrate [Lopressor] 50 mg PO QAM 10/04/20 10/04/20 Previous Rx's Medication Instructions Recorded Sulfamethox-Tmp 800-160Mg [Bact[place] 1 each PO Q12HR #20 tab 01/24/21 Ds] Allergies Allergy/AdvReac Type Severity Reaction Status Date / Time No Known Allergies Allergy Verified 01/23/21 23:33 Review of Systems ROS Statement: Those systems with pertinent positive or pertinent negative responses have been documented in the HPI. ROS Other: All systems not noted in ROS Statement are negative. Past Medical History Past Medical History: Atrial Fibrillation, Coronary Artery Disease (CAD), CVA/TIA, Diabetes Mellitus, GERD/Reflux, Memory Impairment, Myocardial Infarction ([place]), Osteoarthritis ([place]), Sleep Apnea/CPAP/BIPAP, Thyroid Disorder Additional Past Medical History / Comment(s): restless leg syndrome, "TIA (x 5) last Apr 2016", memory loss and occ lt arm weakness, gout, wears CPAP at home Last Myocardial Infarction Date:: unk History of Any Multi-Drug Resistant Organisms: None Reported Past Surgical History: Heart Catheterization, Heart Catheterization With Stent, Hernia Repair, Orthopedic Surgery Additional Past Surgical History / Comment(s): loop monitor in chest, now removed, one cardiac stent, rt knee arthroscopy, rt shoulder rotator cuff Past Anesthesia/Blood Transfusion Reactions: No Reported Reaction Date of Last Stent Placement:: 2016 Type of Cardiac Device: Loop Device Placement Date:: Apr 2016 Past Psychological History: Anxiety, Depression Smoking Status: Former smoker Past Alcohol Use History: Rare Past Drug Use History: None Reported - Past Family History Father Additional Family Medical History / Comment(s): of [place] Mother Family Medical History: No Reported History Brother(s) Additional Family Medical History / Comment(s): Bipolar disorder General Exam - General Exam Comments Initial Comments: Physical Exam GENERAL: Patient is well-developed and well-nourished. Patient is nontoxic and well-hydrated and is in no distress. HENT: Normocephalic, Atraumatic. EYES: PERRL, EOMI PULMONARY: Unlabored respirations. CARDIOVASCULAR: RRR Warm and well perfused extremities ABDOMEN: Non-distended SKIN: No rashes or bruising : Deferred NEUROLOGIC: Alert and oriented Normal speech Normal gait MUSCULOSKELETAL: Moving all extremities with no apparent injury PSYCHIATRIC: No SI/HI Limitations: no limitations Course Vital Signs 05/19/21 05/19/21 17:36 19:41 Temperature 97.9 F Pulse Rate 76 88 Respiratory 19 18 Rate Blood Pressure 136/82 O2 Sat by Pulse 99 96 Oximetry Medical Decision Making - Medical Decision Making Patient was seen and evaluated, patient has pain in his right inguinal hernia. Labs are obtained and Dilaudid was given for pain management. Icepack was placed on the volar hernia. Upon reevaluation patient's pain has improved, with laying in Trendelenburg position the right inguinal hernia was able to be reduced. Patient did have some decrease in his pain after that. At this time patient has a reducible right inguinal hernia with a scheduled follow-up with surgeon for repair. Patient stable for discharge home. Review patient has bicytopenia with low platelets and transaminitis, patient did not report any viral syndrome but this is consistent with findings were expected from somebody suffering from COVID-19. - Lab Data Result diagrams: 05/19/21 18:58 05/19/21 18:58 Lab Results 05/19/21 05/19/21 05/19/21 Range/Units 18:58 18:58 18:58 WBC 2.8 L (3.8-10.6) k/uL RBC 4.72 (4.30-5.90) m/uL Hgb 13.8 (13.0-17.5) gm/dL Hct 39.9 (39.0-53.0) % MCV 84.6 (80.0-100.0) fL MCH 29.3 (25.0-35.0) pg MCHC 34.7 (31.0-37.0) g/dL RDW 13.9 (11.5-15.5) % Plt Count 131 L (150-450) k/uL MPV 7.7 Neutrophils % 60 % Lymphocytes % 25 % Monocytes % 9 % Eosinophils % 2 % Basophils % 0 % Neutrophils # 1.7 (1.3-7.7) k/uL Lymphocytes # 0.7 L (1.0-4.8) k/uL Monocytes # 0.3 (0-1.0) k/uL Eosinophils # 0.1 (0-0.7) k/uL Basophils # 0.0 (0-0.2) k/uL Sodium 136 L (137-145) mmol/L Potassium 4.1 (3.5-5.1) mmol/L Chloride 104 (98-107) mmol/L Carbon Dioxide 26 (22-30) mmol/L Anion Gap 6 mmol/L BUN 14 (9-20) mg/dL Creatinine 0.95 (0.66-1.25) mg/dL Est GFR (CKD-EPI)AfAm >90 (>60 ml/min/1.73 sqM) Est GFR (CKD-EPI)NonAf >90 (>60 ml/min/1.73 sqM) Glucose 255 H (74-99) mg/dL Plasma Lactic Acid Carlos 1.3 (0.7-2.0) mmol/L Calcium 8.6 (8.4-10.2) mg/dL Total Bilirubin 0.3 (0.2-1.3) mg/dL AST 60 H (17-59) U/L ALT 62 H (4-49) U/L Alkaline Phosphatase 149 H (38-126) U/L Total Protein 6.7 (6.3-8.2) g/dL Albumin 3.5 (3.5-5.0) g/dL Disposition Clinical Impression: Right inguinal hernia Disposition: HOME SELF-CARE Condition: Stable Instructions (If sedation given, give patient instructions): Inguinal Hernia (ED) Is patient prescribed a controlled substance at d/c from ED?: No Referrals: Maude Spivey MD [Primary Care Provider] - 1-2 days
[2021-05-19] MEDS ORDERED: HYDROmorphone 1 MG/ML 1 ML SYRINGE IVP STA (17:53)
[2021-05-19 19:11] LABS: Basophils % (A) 0 %; Eosinophils # (A) 0.1 k/uL (0-0.7); Eosinophils % (A) 2 %; HCT 39.9 % (39.0-53.0); HGB 13.8 gm/dL (13.0-17.5); Lymphocytes # (A) 0.7 k/uL (1.0-4.8); Lymphocytes % (A) 25 %; MCH 29.3 pg (25.0-35.0); MCHC 34.7 g/dL (31.0-37.0); MCV 84.6 fL (80.0-100.0); Mean Platelet Volume 7.7; Monocytes # (A) 0.3 k/uL (0-1.0); Monocytes % (A) 9 %; Neutrophils # (A) 1.7 k/uL (1.3-7.7); Neutrophils % (A) 60 %; Platelet Count 131 k/uL (150-450); RBC 4.72 m/uL (4.30-5.90); RDW 13.9 % (11.5-15.5); WBC 2.8 k/uL (3.8-10.6)
[2021-05-19 19:29] LABS: ALT 62 U/L (4-49); AST 60 U/L (17-59); African American GFR (CKD) >90 (>60 ml/min/1.73 sqM); Albumin 3.5 g/dL (3.5-5.0); Alkaline Phosphatase 149 U/L (38-126); Anion Gap 6 mmol/L; Blood Urea Nitrogen 14 mg/dL (9-20); Calcium 8.6 mg/dL (8.4-10.2); Carbon Dioxide 26 mmol/L (22-30); Chloride 104 mmol/L (98-107); Glucose 255 mg/dL (74-99); Non-African American GFR(CKD) >90 (>60 ml/min/1.73 sqM); Potassium 4.1 mmol/L (3.5-5.1); Sodium 136 mmol/L (137-145); Total Bilirubin 0.3 mg/dL (0.2-1.3); Total Protein 6.7 g/dL (6.3-8.2)
[2021-05-19 19:47] VITALS: PULSE 88; RESP 18
== END 2021-05-19 19:46 | disposition home or self-care (01) ==
LOC: EC 17:17
DX: K40.90 Unilateral inguinal hernia, without obstruction or gangrene, not specified as recurrent (principal); E11.9 Type 2 diabetes mellitus without complications; I25.2 Old myocardial infarction; E07.9 Disorder of thyroid, unspecified; I25.10 Atherosclerotic heart disease of native coronary artery without angina pectoris; E78.5 Hyperlipidemia, unspecified; K21.9 Gastro-esophageal reflux disease without esophagitis; I48.91 Unspecified atrial fibrillation; Z95.5 Presence of coronary angioplasty implant and graft; Z86.73 Personal history of transient ischemic attack (TIA), and cerebral infarction without residual deficits; Z79.82 Long term (current) use of aspirin; Z79.899 Other long term (current) drug therapy; Z87.891 Personal history of nicotine dependence; Z79.890 Hormone replacement therapy; Z79.84 Long term (current) use of oral hypoglycemic drugs
CPT/HCPCS: 36415; 80053; 83605; 85025; 99284; 96374; J1170; 99285

== ENCOUNTER 2021-05-21 15:37 | Emergency (ER) | payer OTHER ==
[2021-05-21 16:28] VITALS: BP 154/97; PULSE 67; RESP 18; TEMP 98.6
[2021-05-21] MEDS ORDERED: SODIUM CHLORIDE 0.9% 1,000 ML IV STA (19:12)
[2021-05-21] MEDS ORDERED: HYDROmorphone 1 MG/ML 1 ML SYRINGE IVP STA (19:12)
[2021-05-21] MEDS ORDERED: SODIUM CHLORIDE 0.9% 500 ML 500 ML IV STA (19:12)
[2021-05-21] MEDS ORDERED: ONDANSETRON 4 MG/2 ML VIAL IVP STA (19:12)
--- NOTE | 2021-05-21 21:35 | ED ---
Abdominal Pain HPI - General Chief Complaint: Abdominal Pain Stated Complaint: hernia pain Time Seen by Provider: 05/21/21 18:55 Source: patient Mode of arrival: wheelchair Limitations: no limitations - History of Present Illness Initial Comments: This 50-year-old male presents with a complaint of pain into his right inguinal region. He states that he has a right inguinal hernia. He is supposed to have this fixed within 2 weeks. He was just seen here 2 days ago and had this reduced. At that time he receives some Dilaudid and ice to the right groin region and then it was manually reduced. He states that he was just walking today when it popped out again. He has had pain into this region intermittently since. It is worse with movements or bearing down. He denies any fevers, chills, nausea, vomiting, or diarrhea. No other complaints or modifying factors. - Related Data Home Medications Medication Instructions Recorded Confirmed Apixaban [Eliquis] 5 mg PO BID 05/07/18 10/03/20 rOPINIRole HCL [Requip] 0.5 mg PO HS 09/09/18 10/03/20 Aspirin EC [Ecotrin Low Dose] 81 mg PO DAILY 04/23/19 10/03/20 allopurinoL [Zyloprim] 300 mg PO DAILY 04/26/19 10/03/20 Atorvastatin [Lipitor] 40 mg PO DAILY 08/03/20 10/03/20 Glimepiride [Amaryl] 4 mg PO BID 08/03/20 10/03/20 HYDROcodone/APAP 10-325MG [[place] 1 tab PO DAILY PRN 08/03/20 10/03/20 10-325] Levothyroxine Sodium [Synthroid] 300 mcg PO DAILY 08/03/20 10/03/20 Nitroglycerin Sl Tabs [Nitrostat] 0.4 mg SL Q5M PRN 10/03/20 10/03/20 Ertugliflozin Pidolate [Steglatro] 15 mg PO DAILY 10/04/20 10/04/20 Metoprolol Tartrate [Lopressor] 25 mg PO HS 10/04/20 10/04/20 Metoprolol Tartrate [Lopressor] 50 mg PO QAM 10/04/20 10/04/20 Previous Rx's Medication Instructions Recorded Sulfamethox-Tmp 800-160Mg [Bactrim 1 each PO Q12HR #20 tab 01/24/21 Ds] Allergies Allergy/AdvReac Type Severity Reaction Status Date / Time No Known Allergies Allergy Verified 05/21/21 16:28 Review of Systems ROS Statement: Those systems with pertinent positive or pertinent negative responses have been documented in the HPI. ROS Other: All systems not noted in ROS Statement are negative. Past Medical History Past Medical History: Atrial Fibrillation, Coronary Artery Disease (CAD), CVA/TIA, Diabetes Mellitus, GERD/Reflux, Memory Impairment, Myocardial Infarction ([place]), Osteoarthritis (OA), Sleep Apnea/CPAP/BIPAP, Thyroid Disorder Additional Past Medical History / Comment(s): restless leg syndrome, "TIA (x 5) last Apr 2016", memory loss and occ lt arm weakness, gout, wears CPAP at home Last Myocardial Infarction Date:: unk History of Any Multi-Drug Resistant Organisms: None Reported Past Surgical History: Heart Catheterization, Heart Catheterization With Stent, Hernia Repair, Orthopedic Surgery Additional Past Surgical History / Comment(s): loop monitor in chest, now removed, one cardiac stent, rt knee arthroscopy, rt shoulder rotator cuff Past Anesthesia/Blood Transfusion Reactions: No Reported Reaction Date of Last Stent Placement:: 2016 Type of Cardiac Device: Loop Device Placement Date:: Apr 2016 Past Psychological History: Anxiety, Depression Smoking Status: Former smoker Past Alcohol Use History: Rare Past Drug Use History: None Reported - Past Family History Father Additional Family Medical History / Comment(s): of [place] Mother Family Medical History: No Reported History Brother(s) Additional Family Medical History / Comment(s): Bipolar disorder General Exam - General Exam Comments Initial Comments: GENERAL: The patient is well nourished and well hydrated. VITAL SIGNS: Heart rate, blood pressure, respiratory rate reviewed as recorded in nurse's notes. EYES: Pupils are round and reactive. Extraocular movements are intact. No conjunctival / lid redness or swelling. ENT: No external evidence of injury, swelling, or ecchymosis. Airway is patent. Throat is clear. NECK: Nontender. No swelling or evidence of injury. No subcutaneous emphysema. Trachea is midline. No thyroid mass. HEART: Regular rate and rhythm. Good peripheral pulses. LUNGS/CHEST: Breath sounds clear and equal bilaterally. No rales, rhonchi, or wheezes. No ecchymosis, subcutaneous emphysema, or tenderness. ABDOMEN: Abdomen soft with tenderness noted to the right inguinal region. There is significant tenderness upon palpation of his right inguinal canal but no definitive significant masses are identified. Otherwise, No palpable masses or organomegaly. No peritoneal signs. No abdominal wall swelling or ecchymosis. EXTREMITIES: No extremity tenderness. Normal muscle tone and function. No thoracolumbar tenderness. NEUROLOGIC: Sensation is grossly intact. Cranial nerve exam reveals face is symmetrical, tongue is midline, speech is clear. SKIN: No abrasions or ecchymosis is noted. No induration or masses noted. PSYCHIATRIC: Alert and oriented. Appropriate behavior and judgment. Limitations: no limitations Course Vital Signs 05/21/21 16:26 Temperature 98.6 F Pulse Rate 67 Respiratory 18 Rate Blood Pressure 154/97 O2 Sat by Pulse 96 Oximetry Medical Decision Making - Medical Decision Making The patient was seen and examined. Diagnostics are ordered. Patient receives an IV as well as Dilaudid 1 mg IV and 4 mg of Zofran. Laboratory and computed tomography scan was also ordered. Old records reviewed. Shortly after receiving the medications the patient was no longer in the room. The nurse informs me that the patient apparently eloped prior to having any diagnostics completed. All efforts were made to find the patient but he apparently left the emergency department after receiving narcotic medications. Disposition Clinical Impression: Right inguinal hernia, History of elopement from health care facility Disposition: Left Against Medical Advice Condition: Fair Is patient prescribed a controlled substance at d/c from ED?: No Referrals: Maude Spivey MD [Primary Care Provider] - 1-2 days Time of Disposition: 21:34
== END 2021-05-21 20:00 | disposition left against medical advice (07) ==
LOC: EC 15:37
DX: K40.90 Unilateral inguinal hernia, without obstruction or gangrene, not specified as recurrent (principal); E11.9 Type 2 diabetes mellitus without complications; E07.9 Disorder of thyroid, unspecified; I25.2 Old myocardial infarction; M19.90 Unspecified osteoarthritis, unspecified site; I48.91 Unspecified atrial fibrillation; E78.5 Hyperlipidemia, unspecified; Z79.899 Other long term (current) drug therapy; Z95.5 Presence of coronary angioplasty implant and graft; Z79.84 Long term (current) use of oral hypoglycemic drugs; Z79.82 Long term (current) use of aspirin; Z79.890 Hormone replacement therapy; Z87.891 Personal history of nicotine dependence
CPT/HCPCS: 99283

== ENCOUNTER 2021-08-05 08:31 | Emergency (ER) | payer OTHER ==
[2021-08-05 08:36] VITALS: PULSE 76
[2021-08-05] MEDS ORDERED: KETOROLAC 15 MG/ML 1 ML VIAL IM STA (08:41)
--- NOTE | 2021-08-05 08:44 | ED ---
General Adult HPI - General Chief complaint: Extremity Injury, Lower Stated complaint: Rt Knee Pain/Swelling Time Seen by Provider: 08/05/21 08:40 Source: patient, RN notes reviewed, old records reviewed Mode of arrival: ambulatory Limitations: no limitations - History of Present Illness Initial comments: 50-year-old obese male presents to the emergency room after a slip and fall on Sunday. Patient states that his legs went out from underneath of him and he hyperextended his right knee. He's had increased pain and swelling to his right knee since the fall. He did not land on the knee. He does have a history of torn meniscus in that leg. He is able to ambulate and complains of pain with flexion and extension. -: days(s) (5) Location: right, lower extremity (knee) Severity scale (1-10): 9 Quality: constant Consistency: constant Improves with: immobilization Worsens with: movement Associated Symptoms: denies other symptoms - Related Data Home Medications Medication Instructions Recorded Confirmed Apixaban [Eliquis] 5 mg PO BID 05/07/18 10/03/20 rOPINIRole HCL [Requip] 0.5 mg PO HS 09/09/18 10/03/20 Aspirin EC [Ecotrin Low Dose] 81 mg PO DAILY 04/23/19 10/03/20 allopurinoL [Zyloprim] 300 mg PO DAILY 04/26/19 10/03/20 Atorvastatin [Lipitor] 40 mg PO DAILY 08/03/20 10/03/20 Glimepiride [Amaryl] 4 mg PO BID 08/03/20 10/03/20 HYDROcodone/APAP 10-325MG [[place] 1 tab PO DAILY PRN 08/03/20 10/03/20 10-325] Levothyroxine Sodium [Synthroid] 300 mcg PO DAILY 08/03/20 10/03/20 Nitroglycerin Sl Tabs [Nitrostat] 0.4 mg SL Q5M PRN 10/03/20 10/03/20 Ertugliflozin Pidolate [Steglatro] 15 mg PO DAILY 10/04/20 10/04/20 Metoprolol Tartrate [Lopressor] 25 mg PO HS 10/04/20 10/04/20 Metoprolol Tartrate [Lopressor] 50 mg PO QAM 10/04/20 10/04/20 Previous Rx's Medication Instructions Recorded Sulfamethox-Tmp 800-160Mg [Bactrim 1 each PO Q12HR #20 tab 01/24/21 Ds] Allergies Allergy/AdvReac Type Severity Reaction Status Date / Time No Known Allergies Allergy Verified 08/05/21 08:36 Review of Systems ROS Statement: Those systems with pertinent positive or pertinent negative responses have been documented in the HPI. ROS Other: All systems not noted in ROS Statement are negative. Past Medical History Past Medical History: Atrial Fibrillation, Coronary Artery Disease (CAD), CVA/TIA, Diabetes Mellitus, GERD/Reflux, Memory Impairment, Myocardial Infarction ([place]), Osteoarthritis ([place]), Sleep Apnea/CPAP/BIPAP, Thyroid Disorder Additional Past Medical History / Comment(s): restless leg syndrome, "TIA (x 5) last Apr 2016", memory loss and occ lt arm weakness, gout, wears CPAP at home Last Myocardial Infarction Date:: unk History of Any Multi-Drug Resistant Organisms: None Reported Past Surgical History: Heart Catheterization, Heart Catheterization With Stent, Hernia Repair, Orthopedic Surgery Additional Past Surgical History / Comment(s): loop monitor in chest, now removed, one cardiac stent, rt knee arthroscopy, rt shoulder rotator cuff Past Anesthesia/Blood Transfusion Reactions: No Reported Reaction Date of Last Stent Placement:: 2016 Type of Cardiac Device: Loop Device Placement Date:: Apr 2016 Past Psychological History: Anxiety, Depression Smoking Status: Former smoker Past Alcohol Use History: Rare Past Drug Use History: Marijuana - Past Family History Father Additional Family Medical History / Comment(s): of [place] Mother Family Medical History: No Reported History Brother(s) Additional Family Medical History / Comment(s): Bipolar disorder General Exam Limitations: no limitations General appearance: alert, in no apparent distress Eye exam: Present: normal appearance Respiratory exam: Present: normal lung sounds bilaterally Cardiovascular Exam: Present: regular rate Right Knee exam: Present: tenderness, swelling. Absent: full ROM, abrasion, laceration, ecchymosis, deformity Lower Leg exam: Present: normal inspection. Absent: tenderness, swelling Neurovascular tendon exam: Absent: no vascular compromise, abnormal cap refill, extremity cold to touch, foot drop Gait: observed and limited by pain Neurological exam: Present: alert, oriented X3 Psychiatric exam: Present: normal affect, normal mood Skin exam: Present: warm, dry, normal color. Absent: cyanosis, diaphoretic Course Vital Signs 08/05/21 08/05/21 08:34 08:49 Temperature 98.1 F 98.5 F Pulse Rate 76 76 Respiratory 18 16 Rate Blood Pressure 157/92 144/75 O2 Sat by Pulse 96 95 Oximetry Medical Decision Making - Medical Decision Making 50-year-old obese male presents to the emergency room after a slip and fall on Sunday. Patient states that his legs went out from underneath of him and he hyperextended his right knee. He's had increased pain and swelling to his right knee since the fall. He did not land on the knee. He does have a history of torn meniscus in that leg. He is able to ambulate and complains of pain with flexion and extension. X-ray of the right knee shows minimal degenerative change of the right knee with no acute osseous abnormality. There is no acute fracture or dislocation evident. There is no joint effusion noted. Patient was placed in a knee immobilizer and directed to follow up with orthopedics next week. He states that he has a cane that he can use at home and declined crutches. Motrin as needed for pain. Rest, ice and elevate well at home. Disposition Clinical Impression: Knee injury Disposition: HOME SELF-CARE Condition: Good Instructions (If sedation given, give patient instructions): Knee Pain (ED) Additional Instructions: Rest, ice, elevate and wear the knee immobilizer until seen by orthopedics next week, do not sleep with it on. Take Tylenol as needed for pain and swelling. Use your cane when ambulating. Return to emergency room if any new or concerning symptoms. Is patient prescribed a controlled substance at d/c from ED?: No Referrals: Maude Spivey MD [Primary Care Provider] - 1-2 days Jose Carlos Camacho PAC [PHYSICIAN RADAR MECHANIC] - 1-2 days Time of Disposition: 10:26
[2021-08-05 08:55] VITALS: BP 144/75; RESP 16; TEMP 98.5
--- NOTE | 2021-08-05 10:04 | XR ---
EXAMINATION TYPE: XR knee complete RT DATE OF EXAM: 08/05/2021 COMPARISON: 05/14/2020 HISTORY: Pain, fall TECHNIQUE: 3 view right knee FINDINGS: Joint spaces are preserved. Tiny medial femoral condylar and tibial plateau spurs are prese nt. No joint effusion is evident. No acute fracture or dislocation is evident. Follow up exams can be performed 7-10 days from acute trauma for continued pain. IMPRESSION: 1. Minimal degenerative change medial compartment right knee. 2. No acute osseous abnormality.
== END 2021-08-05 11:11 | disposition home or self-care (01) ==
LOC: EC 08:31
DX: S89.91XA Unspecified injury of right lower leg, initial encounter (principal); E11.9 Type 2 diabetes mellitus without complications; Z87.891 Personal history of nicotine dependence; M19.90 Unspecified osteoarthritis, unspecified site; Z79.82 Long term (current) use of aspirin; W01.0XXA Fall on same level from slipping, tripping and stumbling without subsequent striking against object, initial encounter
CPT/HCPCS: 73562; 99283; 96372; J1885

== ENCOUNTER 2021-11-27 20:22 | Emergency (ER) | payer OTHER ==
[2021-11-27] MEDS ORDERED: SODIUM CHLORIDE 0.9% 1,000 ML IV STA (21:02)
[2021-11-27] MEDS ORDERED: KETOROLAC 15 MG/ML 1 ML VIAL IVP STA (21:02)
--- NOTE | 2021-11-27 21:30 | XR ---
EXAMINATION TYPE: XR KUB DATE OF EXAM: 11/27/2021 COMPARISON: 09/17/2019 HISTORY: Abdominal pain TECHNIQUE: 3 views FINDINGS: There is no sign of intestinal obstruction or pneumoperitoneum. Fecal pattern is normal. No sign of a mass. Lung bases appear clear. IMPRESSION: Nonacute abdomen. No adverse change.
[2021-11-27 21:39] LABS: Basophils # (A) 0.1 k/uL (0-0.2); Basophils % (A) 1 %; Eosinophils # (A) 0.3 k/uL (0-0.7); Eosinophils % (A) 4 %; HCT 47.7 % (39.0-53.0); HGB 14.6 gm/dL (13.0-17.5); Lymphocytes # (A) 1.9 k/uL (1.0-4.8); Lymphocytes % (A) 29 %; MCH 27.2 pg (25.0-35.0); MCHC 30.6 g/dL (31.0-37.0); MCV 88.8 fL (80.0-100.0); Mean Platelet Volume 8.2; Monocytes # (A) 0.3 k/uL (0-1.0); Monocytes % (A) 4 %; Neutrophils # (A) 4.1 k/uL (1.3-7.7); Neutrophils % (A) 61 %; Platelet Count 143 k/uL (150-450); RBC 5.37 m/uL (4.30-5.90); RDW 13.9 % (11.5-15.5); WBC 6.7 k/uL (3.8-10.6)
[2021-11-27 21:41] LABS: Appearance,Urine Clear (Clear); Bilirubin,Urine Negative (Negative); Blood,Urine Negative (Negative); Color,Urine Colorless; Glucose,Urine (UA) 4+ (Negative); Ketones,Urine Negative (Negative); Leukocyte Esterase,Urine Negative (Negative); Nitrite,Urine Negative (Negative); Protein,Urine Negative (Negative); Specific Gravity,Urine 1.027 (1.001-1.035); Urobilinogen,Urine <2.0 mg/dL (<2.0)
[2021-11-27 21:44] LABS: ALT 36 U/L (4-49); AST 31 U/L (17-59); African American GFR (CKD) >90 (>60 ml/min/1.73 sqM); Albumin 4.2 g/dL (3.5-5.0); Alkaline Phosphatase 230 U/L (38-126); Amylase 58 U/L (30-110); Anion Gap 11 mmol/L; Blood Urea Nitrogen 16 mg/dL (9-20); Calcium 9.2 mg/dL (8.4-10.2); Carbon Dioxide 23 mmol/L (22-30); Chloride 100 mmol/L (98-107); Lipase 139 U/L (23-300); Non-African American GFR(CKD) >90 (>60 ml/min/1.73 sqM); Potassium 4.2 mmol/L (3.5-5.1); Sodium 134 mmol/L (137-145); Total Bilirubin 0.2 mg/dL (0.2-1.3); Total Protein 7.5 g/dL (6.3-8.2)
[2021-11-27 22:34] VITALS: PULSE 56
[2021-11-27 22:39] LABS: Glucose 524 mg/dL (74-99)
[2021-11-27] MEDS ORDERED: SODIUM CHLORIDE 0.9% 1,000 ML IV ONE (22:39)
[2021-11-27] MEDS ORDERED: INSULIN REGULAR 100 UNIT/ML VIAL (IV) IV ONE (22:39)
--- NOTE | 2021-11-27 23:11 | ED ---
General Adult HPI - General Chief complaint: Urogenital Stated complaint: Lower R side abd pain Time Seen by Provider: 11/27/21 20:54 Source: patient Mode of arrival: ambulatory Limitations: no limitations - History of Present Illness Initial comments: Patient is a 51-year-old male presenting with chief complaint of right-sided back pain that wraps around to the front. Patient states this has been going on for weeks. Patient also admits to urgency and frequency, he denies any dysuria or hematuria. He admits to occasional groin pain. He denies any nausea, vomiting, diarrhea, hematochezia, melena. Denies chest pain, shortness of breath, palpitations, lightheadedness, fever, chills, weakness, numbness, tingling, vision or hearing changes. - Related Data Home Medications Medication Instructions Recorded Confirmed Apixaban [Eliquis] 5 mg PO BID 05/07/18 10/03/20 rOPINIRole HCL [Requip] 0.5 mg PO HS 09/09/18 10/03/20 Aspirin EC [Ecotrin Low Dose] 81 mg PO DAILY 04/23/19 10/03/20 allopurinoL [Zyloprim] 300 mg PO DAILY 04/26/19 10/03/20 Atorvastatin [Lipitor] 40 mg PO DAILY 08/03/20 10/03/20 Glimepiride [Amaryl] 4 mg PO BID 08/03/20 10/03/20 HYDROcodone/APAP 10-325MG [[place] 1 tab PO DAILY PRN 08/03/20 10/03/20 10-325] Levothyroxine Sodium [Synthroid] 300 mcg PO DAILY 08/03/20 10/03/20 Nitroglycerin Sl Tabs [Nitrostat] 0.4 mg SL Q5M PRN 10/03/20 10/03/20 Ertugliflozin Pidolate [Steglatro] 15 mg PO DAILY 10/04/20 10/04/20 Metoprolol Tartrate [Lopressor] 25 mg PO HS 10/04/20 10/04/20 Metoprolol Tartrate [Lopressor] 50 mg PO QAM 10/04/20 10/04/20 Previous Rx's Medication Instructions Recorded Sulfamethox-Tmp 800-160Mg [Bactrim 1 each PO Q12HR #20 tab 01/24/21 Ds] Allergies Allergy/AdvReac Type Severity Reaction Status Date / Time No Known Allergies Allergy Verified 11/27/21 20:47 Review of Systems ROS Statement: Those systems with pertinent positive or pertinent negative responses have been documented in the HPI. ROS Other: All systems not noted in ROS Statement are negative. Past Medical History Past Medical History: Atrial Fibrillation, Coronary Artery Disease (CAD), CVA/TIA, Diabetes Mellitus, GERD/Reflux, Memory Impairment, Myocardial Infarction ([place]), Osteoarthritis (OA), Sleep Apnea/CPAP/BIPAP, Thyroid Disorder Additional Past Medical History / Comment(s): restless leg syndrome, "TIA (x 5) last Apr 2016", memory loss and occ lt arm weakness, gout, wears CPAP at home Last Myocardial Infarction Date:: unk History of Any Multi-Drug Resistant Organisms: None Reported Past Surgical History: Heart Catheterization, Heart Catheterization With Stent, Hernia Repair, Orthopedic Surgery Additional Past Surgical History / Comment(s): loop monitor in chest, now removed, one cardiac stent, rt knee arthroscopy, rt shoulder rotator cuff Past Anesthesia/Blood Transfusion Reactions: No Reported Reaction Date of Last Stent Placement:: 2016 Type of Cardiac Device: Loop Device Placement Date:: Apr 2016 Past Psychological History: Anxiety, Depression Smoking Status: Former smoker Past Alcohol Use History: Rare Past Drug Use History: Marijuana - Past Family History Father Additional Family Medical History / Comment(s): of [place] Mother Family Medical History: No Reported History Brother(s) Additional Family Medical History / Comment(s): Bipolar disorder General Exam Limitations: no limitations General appearance: alert, in no apparent distress Head exam: Present: atraumatic, normocephalic, normal inspection Eye exam: Present: normal appearance, EOMI. Absent: scleral icterus Neck exam: Present: normal inspection Respiratory exam: Present: normal lung sounds bilaterally. Absent: respiratory distress, wheezes, rales, rhonchi, stridor Cardiovascular Exam: Present: regular rate, normal rhythm, normal heart sounds. Absent: systolic murmur, diastolic murmur, rubs, gallop, clicks GI/Abdominal exam: Present: soft, tenderness (Right lower quadrant), normal bowel sounds. Absent: distended, guarding, rebound, rigid Back exam: Present: normal inspection, paraspinal tenderness. Absent: CVA tenderness (R), CVA tenderness (L), vertebral tenderness Neurological exam: Present: alert, oriented X3, CN II-XII intact Psychiatric exam: Present: normal affect, normal mood Skin exam: Present: warm, dry, intact, normal color. Absent: rash Course Vital Signs 11/27/21 11/27/21 11/27/21 20:45 22:33 23:35 Temperature 98.1 F Pulse Rate 68 56 L 56 L Respiratory 16 20 18 Rate Blood Pressure 147/85 143/78 137/89 O2 Sat by Pulse 96 96 96 Oximetry 11/28/21 00:00 Temperature 97.6 F Pulse Rate Respiratory Rate Blood Pressure O2 Sat by Pulse Oximetry Medical Decision Making - Medical Decision Making Patient is a 51-year-old male presenting with chief complaint of right-sided back pain which wraps around to the front. This was accompanied by urgency and frequency and radiates to the groin at times. On examination there is right lower quadrant tenderness. No testicular swelling or pain on palpation. Patient has a blood glucose of 524 and lactic acid of 2.3. Urine has 4+ glucose, no ketones. Acetone is negative. Patient states that he is currently on glimepiride and no other medication for his diabetes. KUB x-ray is negative. CT of the abdomen and pelvis with contrast suggests possible acute renal failure, however patient's BUN, creatinine, and GFR were all within normal ranges and this is highly unlikely. Patient is given fluids and insulin. Denisha harrell is instructed to follow up with his PCP tomorrow. Report back to ER with any new or worsening symptoms. I discussed return parameters answered all questions. Patient conveyed verbal understanding and agreed to the plan. I discussed these findings of this plan with my attending Dr. Hwang. - Lab Data Result diagrams: 11/27/21 21:22 11/27/21 21:22 Lab Results 11/27/21 11/27/21 11/27/21 Range/Units 21:22 21:22 21: WBC 6.7 (3.8-10.6) k/uL RBC 5.37 (4.30-5.90) m/uL Hgb 14.6 (13.0-17.5) gm/dL Hct 47.7 (39.0-53.0) % MCV 88.8 (80.0-100.0) fL MCH 27.2 (25.0-35.0) pg MCHC 30.6 L (31.0-37.0) g/dL RDW 13.9 (11.5-15.5) % Plt Count 143 L (150-450) k/uL MPV 8.2 Neutrophils % 61 % Lymphocytes % 29 % Monocytes % 4 % Eosinophils % 4 % Basophils % 1 % Neutrophils # 4.1 (1.3-7.7) k/uL Lymphocytes # 1.9 (1.0-4.8) k/uL Monocytes # 0.3 (0-1.0) k/uL Eosinophils # 0.3 (0-0.7) k/uL Basophils # 0.1 (0-0.2) k/uL Sodium 134 L (137-145) mmol/L Potassium 4.2 (3.5-5.1) mmol/L Chloride 100 (98-107) mmol/L Carbon Dioxide 23 (22-30) mmol/L Anion Gap 11 mmol/L BUN 16 (9-20) mg/dL Creatinine 0.80 (0.66-1.25) mg/dL Est GFR (CKD-EPI)AfAm >90 (>60 ml/min/1.73 sqM) Est GFR (CKD-EPI)NonAf >90 (>60 ml/min/1.73 sqM) Glucose 524 H* (74-99) mg/dL POC Glucose (mg/dL) (75-99) mg/dL POC Glu Certified Credit Counselor ID Plasma Lactic Acid Carlos (0.7-2.0) mmol/L Calcium 9.2 (8.4-10.2) mg/dL Total Bilirubin 0.2 (0.2-1.3) mg/dL AST 31 (17-59) U/L ALT 36 (4-49) U/L Alkaline Phosphatase 230 H (38-126) U/L Total Protein 7.5 (6.3-8.2) g/dL Albumin 4.2 (3.5-5.0) g/dL Amylase 58 (30-110) U/L Lipase 139 (23-300) U/L Urine Color Colorless Urine Appearance Clear (Clear) Urine pH 6.0 (5.0-8.0) Ur Specific [place] 1.027 (1.001-1.035) Urine Protein Negative (Negative) Urine Glucose (UA) 4+ H (Negative) Urine Ketones Negative (Negative) Urine Blood Negative (Negative) Urine Nitrite Negative (Negative) Urine Bilirubin Negative (Negative) Urine Urobilinogen <2.0 (<2.0) mg/dL Ur Leukocyte Esterase Negative (Negative) Acetone, Qual (Negative) 11/27/21 11/27/21 11/27/21 Range/Units 21:22 23:03 23:30 WBC (3.8-10.6) k/uL RBC (4.30-5.90) m/uL Hgb (13.0-17.5) gm/dL Hct (39.0-53.0) % MCV (80.0-100.0) fL MCH (25.0-35.0) pg MCHC (31.0-37.0) g/dL RDW (11.5-15.5) % Plt Count (150-450) k/uL MPV Neutrophils % % Lymphocytes % % Monocytes % % Eosinophils % % Basophils % % Neutrophils # (1.3-7.7) k/uL Lymphocytes # (1.0-4.8) k/uL Monocytes # (0-1.0) k/uL Eosinophils # (0-0.7) k/uL Basophils # (0-0.2) k/uL Sodium (137-145) mmol/L Potassium (3.5-5.1) mmol/L Chloride (98-107) mmol/L Carbon Dioxide (22-30) mmol/L Anion Gap mmol/L BUN (9-20) mg/dL Creatinine (0.66-1.25) mg/dL Est GFR (CKD-EPI)AfAm (>60 ml/min/1.73 sqM) Est GFR (CKD-EPI)NonAf (>60 ml/min/1.73 sqM) Glucose (74-99) mg/dL POC Glucose (mg/dL) 504 H (75-99) mg/dL POC Glu Certified Credit Counselor ID Holley Grimes Plasma Lactic Acid Carlos 2.3 H* (0.7-2.0) mmol/L Calcium (8.4-10.2) mg/dL Total Bilirubin (0.2-1.3) mg/dL AST (17-59) U/L ALT (4-49) U/L Alkaline Phosphatase (38-126) U/L Total Protein (6.3-8.2) g/dL Albumin (3.5-5.0) g/dL Amylase (30-110) U/L Lipase (23-300) U/L Urine Color Urine Appearance (Clear) Urine pH (5.0-8.0) Ur Specific [place] (1.001-1.035) Urine Protein (Negative) Urine Glucose (UA) (Negative) Urine Ketones (Negative) Urine Blood (Negative) Urine Nitrite (Negative) Urine Bilirubin (Negative) Urine Urobilinogen (<2.0) mg/dL Ur Leukocyte Esterase (Negative) Acetone, Qual Negative (Negative) Disposition Clinical Impression: Hyperglycemia Disposition: HOME SELF-CARE Condition: Good Instructions (If sedation given, give patient instructions): Diabetic Hyperglycemia (ED) Additional Instructions: Follow-up with PCP in one to 2 days. Report back to ER with any new or worsening symptoms. Is patient prescribed a controlled substance at d/c from ED?: No Referrals: Maude Spivey MD [Primary Care Provider] - 1-2 days Time of Disposition: 23:45
--- NOTE | 2021-11-27 23:20 | CT ---
EXAMINATION TYPE: CT abdomen pelvis w con DATE OF EXAM: 11/27/2021 COMPARISON: 01/10/2017 HISTORY: RLQ pain CT DLP: 3595 mGycm Automated exposure control for dose reduction was used. CONTRAST: Performed with IV Contrast, patient injected with 100 mL of Isovue 300. Lung bases are clear. No pleural effusion. Heart size is normal. No pericardial effusion. Liver splee n stomach pancreas appear intact. Gallbladder is slightly contracted. There is no adrenal mass. Kidneys show satisfactory contrast opacification. There is no hydronephrosi s. Delayed images show very little contrast excretion. Ureters are not dilated. There is no retroperi toneal adenopathy. Bladder distends smoothly. No inguinal hernia. No free fluid in the pelvis. Append ix is normal and medially located. There is no mesenteric edema. No ascites or free air. No sign of a bowel obstruction. The lumbar vertebrae have normal alignment. No compression fracture. Bony pelvis is intact. The hip joints are intact. IMPRESSION: Normal appendix. There is very little contrast in the kidneys on the delayed images and acute renal failure is possibl e. This is a change compared to the old exam.
[2021-11-27 23:31] LABS: Glucose,Whole Blood 504 mg/dL (75-99)
[2021-11-27 23:36] VITALS: BP 137/89; RESP 18
[2021-11-28 00:01] VITALS: TEMP 97.6
== END 2021-11-28 00:01 | disposition home or self-care (01) ==
LOC: EC 20:22
DX: R73.9 Hyperglycemia, unspecified (principal); I25.10 Atherosclerotic heart disease of native coronary artery without angina pectoris; E07.9 Disorder of thyroid, unspecified; Z79.1 Long term (current) use of non-steroidal anti-inflammatories (NSAID); Z79.82 Long term (current) use of aspirin; Z82.49 Family history of ischemic heart disease and other diseases of the circulatory system; Z87.891 Personal history of nicotine dependence
CPT/HCPCS: 36415; 80053; 82150; 82009; 83605; 83690; 85025; 81003; 74018; 74177; 99284; 96374; J1885; Q9967

== ENCOUNTER 2021-12-18 01:14 | Emergency (ER) | payer OTHER ==
[2021-12-18 01:21] VITALS: BP 120/86; PULSE 69; RESP 17; TEMP 98.9
--- NOTE | 2021-12-18 02:35 | XR ---
EXAM: XR Right Knee, 3 Views CLINICAL HISTORY: ITS.REASON XR Reason: pain TECHNIQUE: Three views of the right knee. COMPARISON: No relevant prior studies available. FINDINGS: Bones/joints: Small knee effusion. Mild degenerative changes. No acute fracture or dislocation. Soft tissues: Anterior soft tissue edema. IMPRESSION: Small knee effusion. No acute osseous abnormality.
[2021-12-18] MEDS ORDERED: HYDROcodone/APAP 7.5-325MG 1 EACH TAB PO ONE (02:54)
--- NOTE | 2021-12-18 02:58 | ED ---
General Adult HPI - General Chief complaint: Extremity Injury, Lower Stated complaint: RT knee pain Time Seen by Provider: 12/18/21 01:44 Source: patient, family, RN notes reviewed Mode of arrival: wheelchair Limitations: no limitations - History of Present Illness Initial comments: 51-year-old male presents to the emergency department for evaluation of right knee pain that has gradually worsened over the past few days. No new or recent trauma or injury. Patient states he had knee surgery 3 years ago due to a torn meniscus and has only had 1 issue with pain since. States with the previous episode of pain and it resolved with alternating rest and physical therapy/ROM exercises. Patient states he did take 800 mg of Motrin at home prior to arrival and did experience some improvement in symptoms. Denies any fever, chills, shortness of breath, difficulty breathing, prolonged immobilization, recent long car rides, or significant joint stiffness. - Related Data Home Medications Medication Instructions Recorded Confirmed Apixaban [Eliquis] 5 mg PO BID 05/07/18 10/03/20 rOPINIRole HCL [Requip] 0.5 mg PO HS 09/09/18 10/03/20 Aspirin EC [Ecotrin Low Dose] 81 mg PO DAILY 04/23/19 10/03/20 allopurinoL [Zyloprim] 300 mg PO DAILY 04/26/19 10/03/20 Atorvastatin [Lipitor] 40 mg PO DAILY 08/03/20 10/03/20 Glimepiride [Amaryl] 4 mg PO BID 08/03/20 10/03/20 HYDROcodone/APAP 10-325MG [[place] 1 tab PO DAILY PRN 08/03/20 10/03/20 10-325] Levothyroxine Sodium [Synthroid] 300 mcg PO DAILY 08/03/20 10/03/20 Nitroglycerin Sl Tabs [Nitrostat] 0.4 mg SL Q5M PRN 10/03/20 10/03/20 Ertugliflozin Pidolate [Steglatro] 15 mg PO DAILY 10/04/20 10/04/20 Metoprolol Tartrate [Lopressor] 25 mg PO HS 10/04/20 10/04/20 Metoprolol Tartrate [Lopressor] 50 mg PO QAM 10/04/20 10/04/20 Previous Rx's Medication Instructions Recorded Sulfamethox-Tmp 800-160Mg [Bactrim 1 each PO Q12HR #20 tab 01/24/21 Ds] Ibuprofen [Motrin] 800 mg PO Q6HR PRN #30 tab 12/18/21 Allergies Allergy/AdvReac Type Severity Reaction Status Date / Time No Known Allergies Allergy Verified 12/18/21 01:21 Review of Systems ROS Statement: Those systems with pertinent positive or pertinent negative responses have been documented in the HPI. ROS Other: All systems not noted in ROS Statement are negative. Past Medical History Past Medical History: Atrial Fibrillation, Coronary Artery Disease (CAD), CVA/TIA, Diabetes Mellitus, GERD/Reflux, Memory Impairment, Myocardial Infarction ([place]), Osteoarthritis ([place]), Sleep Apnea/CPAP/BIPAP, Thyroid Disorder Additional Past Medical History / Comment(s): restless leg syndrome, "TIA (x 5) last Apr 2016", memory loss and occ lt arm weakness, gout, wears CPAP at home Last Myocardial Infarction Date:: unk History of Any Multi-Drug Resistant Organisms: None Reported Past Surgical History: Heart Catheterization, Heart Catheterization With Stent, Hernia Repair, Orthopedic Surgery Additional Past Surgical History / Comment(s): loop monitor in chest, now removed, one cardiac stent, rt knee arthroscopy, rt shoulder rotator cuff Past Anesthesia/Blood Transfusion Reactions: No Reported Reaction Date of Last Stent Placement:: 2016 Type of Cardiac Device: Loop Device Placement Date:: Apr 2016 Past Psychological History: Anxiety, Depression Smoking Status: Former smoker Past Alcohol Use History: Rare Past Drug Use History: Marijuana - Past Family History Father Additional Family Medical History / Comment(s): of [place] Mother Family Medical History: No Reported History Brother(s) Additional Family Medical History / Comment(s): Bipolar disorder General Exam Limitations: no limitations (This is a well-developed, well-nourished male in no acute distress. Initial temperature 98.9, pulse 69, respirations 17, blood pressure 120/86, pulse ox 93% on room air.) General appearance: alert, in no apparent distress Eye exam: Present: normal appearance. Absent: scleral icterus, conjunctival injection, periorbital swelling, periorbital tenderness Respiratory exam: Present: normal lung sounds bilaterally. Absent: respiratory distress, wheezes, rales, rhonchi, stridor Cardiovascular Exam: Present: regular rate, normal rhythm, normal heart sounds. Absent: systolic murmur, diastolic murmur, rubs, gallop, clicks GI/Abdominal exam: Present: soft, normal bowel sounds. Absent: distended, tende rness, guarding, rebound, rigid Right Upper Leg exam: Present: normal inspection, full ROM. Absent: tenderness, swelling Knee exam: Present: tenderness (Tenderness upon palpation of the lateral and inferior borders of the patella), swelling (Mild edema along the lateral aspect of the right knee), full knee extension. Absent: full ROM (Flexion is mildly limited by pain. Extension is intact.), ecchymosis, deformity, erythema, pain/laxity with valgus, pain/laxity with varus Lower Leg exam: Present: normal inspection, full ROM. Absent: tenderness, swelling, Homans' sign Ankle exam: Present: normal inspection, full ROM. Absent: tenderness, swelling Foot/Toe exam: Present: normal inspection, full ROM. Absent: tenderness, swelling Neurovascular tendon exam: Present: no vascular compromise Neurological exam: Present: alert, oriented X3 Psychiatric exam: Present: normal affect, normal mood Skin exam: Present: warm, dry, intact, normal color Course Vital Signs 12/18/21 01:18 Temperature 98.9 F Pulse Rate 69 Respiratory 17 Rate Blood Pressure 120/86 O2 Sat by Pulse 93 L Oximetry Medical Decision Making - Medical Decision Making 51-year-old male with a past medical history of right knee meniscus tear requiring surgical repair presents to the emergency department for evaluation of atraumatic right knee pain. Upon exam, patient is well-appearing and in no acute distress. He reports pain with weightbearing activity and flexion of the knee. He has mild edema along the lateral border of the right knee. It is not erythematous or septic in appearance. Patient took Motrin prior to arrival. He was given [place] while present in the emergency department. X-ray was obtained showing small effusion. Amadou wrap was applied to the right knee. Reports some improvement. Patient will be discharged home to follow up with his orthopedist for further evaluation and treatment. Return parameters were discussed in detail. Patient spouse verbalized understanding and agreed with this plan. Attending: Elza. - Radiology Data Radiology results: report reviewed, image reviewed X-ray of the right knee was obtained. Report was reviewed in its entirety. Impression per Dr. Furubayashi is small knee effusion. No acute osseous abnormality. Disposition Clinical Impression: Knee pain, right Disposition: HOME SELF-CARE Condition: Stable Instructions (If sedation given, give patient instructions): Knee Pain (ED) Additional Instructions: Rest. Keep right leg elevated while seated. Amadou wraps are for compression. Maintain these for 48-72 hours. Take Motrin with food. Follow up with your orthopedist. Call the office on Sunday to schedule a follow up appointment. Return to the emergency department if you develop redness around the joint, fever, or significant increase in pain. Prescriptions: Ibuprofen [Motrin] 800 mg PO Q6HR PRN #30 tab PRN Reason: Pain Is patient prescribed a controlled substance at d/c from ED?: No Referrals: Carlo Louise MD [Primary Care Provider] - 1-2 days Phoenix Mcdonough DO [Doctor of Osteopathic Medicine] - 1-2 days Time of Disposition: 02:57
== END 2021-12-18 03:11 | disposition home or self-care (01) ==
LOC: EC 01:14
DX: M25.561 Pain in right knee (principal); E11.9 Type 2 diabetes mellitus without complications; I48.91 Unspecified atrial fibrillation; I25.10 Atherosclerotic heart disease of native coronary artery without angina pectoris; I25.2 Old myocardial infarction; M19.90 Unspecified osteoarthritis, unspecified site; K21.9 Gastro-esophageal reflux disease without esophagitis; E07.9 Disorder of thyroid, unspecified; M10.9 Gout, unspecified; F32.A Depression, unspecified; F41.9 Anxiety disorder, unspecified; Z79.01 Long term (current) use of anticoagulants; Z79.84 Long term (current) use of oral hypoglycemic drugs; Z79.890 Hormone replacement therapy; Z79.899 Other long term (current) drug therapy
CPT/HCPCS: 99283

== ENCOUNTER 2022-03-07 08:45 | Emergency (ER) | payer OTHER ==
[2022-03-07 13:28] VITALS: BP 123/82; PULSE 48; RESP 18; TEMP 98.6
--- NOTE | 2022-03-07 13:29 | ED ---
General Adult HPI - General Chief complaint: Recheck/Abnormal Lab/Rx Stated complaint: high blood sugar, body aches Time Seen by Provider: 03/07/22 13:20 Source: patient, RN notes reviewed, old records reviewed Mode of arrival: ambulatory Limitations: no limitations - History of Present Illness Initial comments: A 51-year-old male who presents emergency Department stating since yesterday he had generalized body aches and his sugars been up and down. Patient states she does take Lantus when his sugar gets high but that only time he takes. Patient states she does not take it on a daily basis. Patient also states he takes an oral hypoglycemic but he doesn't remember which one at this time. Patient denies any fevers or chills. Patient denies any cough. Patient denies any chest pain palpitations or difficulty breathing. Patient denies any abdominal pain patient denies nausea vomiting diarrhea. - Related Data Home Medications Medication Instructions Recorded Confirmed Apixaban [Eliquis] 5 mg PO BID 05/07/18 10/03/20 rOPINIRole HCL [Requip] 0.5 mg PO HS 09/09/18 10/03/20 Aspirin EC [Ecotrin Low Dose] 81 mg PO DAILY 04/23/19 10/03/20 allopurinoL [Zyloprim] 300 mg PO DAILY 04/26/19 10/03/20 Atorvastatin [Lipitor] 40 mg PO DAILY 08/03/20 10/03/20 Glimepiride [Amaryl] 4 mg PO BID 08/03/20 10/03/20 HYDROcodone/APAP 10-325MG [[place] 1 tab PO DAILY PRN 08/03/20 10/03/20 10-325] Levothyroxine Sodium [Synthroid] 300 mcg PO DAILY 08/03/20 10/03/20 Nitroglycerin Sl Tabs [Nitrostat] 0.4 mg SL Q5M PRN 10/03/20 10/03/20 Ertugliflozin Pidolate [Steglatro] 15 mg PO DAILY 10/04/20 10/04/20 Metoprolol Tartrate [Lopressor] 25 mg PO HS 10/04/20 10/04/20 Metoprolol Tartrate [Lopressor] 50 mg PO QAM 10/04/20 10/04/20 Previous Rx's Medication Instructions Recorded Sulfamethox-Tmp 800-160Mg [Bactrim 1 each PO Q12HR #20 tab 01/24/21 Ds] Ibuprofen [Motrin] 800 mg PO Q6HR PRN #30 tab 12/18/21 Allergies Allergy/AdvReac Type Severity Reaction Status Date / Time No Known Allergies Allergy Verified 03/07/22 09:11 Review of Systems ROS Statement: Those systems with pertinent positive or pertinent negative responses have been documented in the HPI. ROS Other: All systems not noted in ROS Statement are negative. Past Medical History Past Medical History: Atrial Fibrillation, Coronary Artery Disease (CAD), CVA/TIA, Diabetes Mellitus, GERD/Reflux, Memory Impairment, Myocardial Infarction ([place]), Osteoarthritis ([place]), Sleep Apnea/CPAP/BIPAP, Thyroid Disorder Additional Past Medical History / Comment(s): restless leg syndrome, "TIA (x 5) last Apr 2016", memory loss and occ lt arm weakness, gout, wears CPAP at home Last Myocardial Infarction Date:: unk History of Any Multi-Drug Resistant Organisms: None Reported Past Surgical History: Heart Catheterization, Heart Catheterization With Stent, Hernia Repair, Orthopedic Surgery Additional Past Surgical History / Comment(s): loop monitor in chest, now removed, one cardiac stent, rt knee arthroscopy, rt shoulder rotator cuff Past Anesthesia/Blood Transfusion Reactions: No Reported Reaction Date of Last Stent Placement:: 2016 Type of Cardiac Device: Loop Device Placement Date:: Apr 2016 Past Psychological History: Anxiety, Depression Smoking Status: Former smoker Past Alcohol Use History: Rare Past Drug Use History: Marijuana - Past Family History Father Additional Family Medical History / Comment(s): of [place] Mother Family Medical History: No Reported History Brother(s) Additional Family Medical History / Comment(s): Bipolar disorder General Exam - General Exam Comments Initial Comments: GENERAL: Patient is well-developed and well-nourished. Patient is nontoxic and well- hydrated and is in no acute distress. ENT: Neck is soft and supple. No significant lymphadenopathy is noted. Oropharynx is clear. Moist mucous membranes. Neck has full range of motion without eliciting any pain. EYES: The sclera were anicteric and conjunctiva were pink and moist. Extraocular movements were intact and pupils were equal round and reactive to light. Eyelids were unremarkable. PULMONARY: Unlabored respirations. Good breath sounds bilaterally. No audible rales rhonchi or wheezing was noted. CARDIOVASCULAR: Patient is bradycardic at about 50 beats a minute. ABDOMEN: Soft and nontender with normal bowel sounds. SKIN: Skin is clear with no lesions or rashes and otherwise unremarkable. NEUROLOGIC: Patient is alert and oriented x3. Cranial nerves II through XII are grossly intact. Motor and sensory are also intact. Normal speech, volume and content. Symmetrical smile. intact. MUSCULOSKELETAL: Normal extremities with adequate strength and full range of motion. LYMPHATICS: No significant lymphadenopathy is noted PSYCHIATRIC: Normal psychiatric evaluation. Limitations: no limitations Course Vital Signs 03/07/22 03/07/22 09:09 13:27 Temperature 97.8 F 98.6 F Pulse Rate 55 L 48 L Respiratory 20 18 Rate Blood Pressure 119/68 123/82 O2 Sat by Pulse 98 98 Oximetry Medical Decision Making - Medical Decision Making EKG shows sinus bradycardia at 46 bpm AL interval 288 QRSs 84 Q-T intervals 419 QTC is 378. Patient's EKG shows no ST segment elevation or depression. Patient's lab work had a glucose of 214. I spoke to Nataliia and about the way the gentleman was giving himself Lantus and he stated that the patient was supposed be on Lantus daily and the patient must have misunderstood. - Lab Data Result diagrams: 03/07/22 13:21 03/07/22 13:21 Lab Results 03/07/22 03/07/22 03/07/22 Range/Units 09:16 13:21 13:21 WBC 6.4 (3.8-10.6) k/uL RBC 5.48 (4.30-5.90) m/uL Hgb 15.4 (13.0-17.5) gm/dL Hct 47.8 (39.0-53.0) % MCV 87.2 (80.0-100.0) fL MCH 28.2 (25.0-35.0) pg MCHC 32.3 (31.0-37.0) g/dL RDW 13.8 (11.5-15.5) % Plt Count 167 (150-450) k/uL MPV 7.9 Neutrophils % 59 % Lymphocytes % 31 % Monocytes % 4 % Eosinophils % 3 % Basophils % 1 % Neutrophils # 3.8 (1.3-7.7) k/uL Lymphocytes # 2.0 (1.0-4.8) k/uL Monocytes # 0.3 (0-1.0) k/uL Eosinophils # 0.2 (0-0.7) k/uL Basophils # 0.1 (0-0.2) k/uL Sodium 139 (137-145) mmol/L Potassium 4.3 (3.5-5.1) mmol/L Chloride 103 (98-107) mmol/L Carbon Dioxide 24 (22-30) mmol/L Anion Gap 12 mmol/L BUN 12 (9-20) mg/dL Creatinine 0.65 L (0.66-1.25) mg/dL Est GFR (CKD-EPI)AfAm >90 (>60 ml/min/1.73 sqM) Est GFR (CKD-EPI)NonAf >90 (>60 ml/min/1.73 sqM) Glucose 214 H (74-99) mg/dL Calcium 9.1 (8.4-10.2) mg/dL Total Bilirubin 0.6 (0.2-1.3) mg/dL AST 31 (17-59) U/L ALT 37 (4-49) U/L Alkaline Phosphatase 129 H (38-126) U/L Total Protein 7.3 (6.3-8.2) g/dL Albumin 4.3 (3.5-5.0) g/dL Urine Color Urine Appearance (Clear) Urine pH (5.0-8.0) Ur Specific [place] (1.001-1.035) Urine Protein (Negative) Urine Glucose (UA) (Negative) Urine Ketones (Negative) Urine Blood (Negative) Urine Nitrite (Negative) Urine Bilirubin (Negative) Urine Urobilinogen (<2.0) mg/dL Ur Leukocyte Esterase (Negative) Acetone, Qual (Negative) Coronavirus (PCR) Not Detected (Not Detectd) 03/07/22 03/07/22 Range/Units 13:26 13:40 WBC (3.8-10.6) k/uL RBC (4.30-5.90) m/uL Hgb (13.0-17.5) gm/dL Hct (39.0-53.0) % MCV (80.0-100.0) fL MCH (25.0-35.0) pg MCHC (31.0-37.0) g/dL RDW (11.5-15.5) % Plt Count (150-450) k/uL MPV Neutrophils % % Lymphocytes % % Monocytes % % Eosinophils % % Basophils % % Neutrophils # (1.3-7.7) k/uL Lymphocytes # (1.0-4.8) k/uL Monocytes # (0-1.0) k/uL Eosinophils # (0-0.7) k/uL Basophils # (0-0.2) k/uL Sodium (137-145) mmol/L Potassium (3.5-5.1) mmol/L Chloride (98-107) mmol/L Carbon Dioxide (22-30) mmol/L Anion Gap mmol/L BUN (9-20) mg/dL Creatinine (0.66-1.25) mg/dL Est GFR (CKD-EPI)AfAm (>60 ml/min/1.73 sqM) Est GFR (CKD-EPI)NonAf (>60 ml/min/1.73 sqM) Glucose (74-99) mg/dL Calcium (8.4-10.2) mg/dL Total Bilirubin (0.2-1.3) mg/dL AST (17-59) U/L ALT (4-49) U/L Alkaline Phosphatase (38-126) U/L Total Protein (6.3-8.2) g/dL Albumin (3.5-5.0) g/dL Urine Color Yellow Urine Appearance Clear (Clear) Urine pH 5.5 (5.0-8.0) Ur Specific [place] 1.022 (1.001-1.035) Urine Protein Negative (Negative) Urine Glucose (UA) 4+ H (Negative) Urine Ketones Negative (Negative) Urine Blood Negative (Negative) Urine Nitrite Negative (Negative) Urine Bilirubin Negative (Negative) Urine Urobilinogen <2.0 (<2.0) mg/dL Ur Leukocyte Esterase Negative (Negative) Acetone, Qual Negative (Negative) Coronavirus (PCR) (Not Detectd) Disposition Clinical Impression: Hyperglycemia Disposition: HOME SELF-CARE Condition: Good Instructions (If sedation given, give patient instructions): Diabetic Hyperglycemia (ED) Additional Instructions: Patient should take Lantus daily Is patient prescribed a controlled substance at d/c from ED?: No Referrals: Carlo Louise MD [Primary Care Provider] - 1-2 days Time of Disposition: 14:39
[2022-03-07 13:32] LABS: Basophils # (A) 0.1 k/uL (0-0.2); Basophils % (A) 1 %; Eosinophils # (A) 0.2 k/uL (0-0.7); Eosinophils % (A) 3 %; HCT 47.8 % (39.0-53.0); HGB 15.4 gm/dL (13.0-17.5); Lymphocytes % (A) 31 %; MCH 28.2 pg (25.0-35.0); MCHC 32.3 g/dL (31.0-37.0); MCV 87.2 fL (80.0-100.0); Mean Platelet Volume 7.9; Monocytes # (A) 0.3 k/uL (0-1.0); Monocytes % (A) 4 %; Neutrophils # (A) 3.8 k/uL (1.3-7.7); Neutrophils % (A) 59 %; Platelet Count 167 k/uL (150-450); RBC 5.48 m/uL (4.30-5.90); RDW 13.8 % (11.5-15.5); WBC 6.4 k/uL (3.8-10.6)
[2022-03-07 13:44] LABS: ALT 37 U/L (4-49); AST 31 U/L (17-59); African American GFR (CKD) >90 (>60 ml/min/1.73 sqM); Albumin 4.3 g/dL (3.5-5.0); Alkaline Phosphatase 129 U/L (38-126); Anion Gap 12 mmol/L; Blood Urea Nitrogen 12 mg/dL (9-20); Calcium 9.1 mg/dL (8.4-10.2); Carbon Dioxide 24 mmol/L (22-30); Chloride 103 mmol/L (98-107); Glucose 214 mg/dL (74-99); Non-African American GFR(CKD) >90 (>60 ml/min/1.73 sqM); Potassium 4.3 mmol/L (3.5-5.1); Sodium 139 mmol/L (137-145); Total Bilirubin 0.6 mg/dL (0.2-1.3); Total Protein 7.3 g/dL (6.3-8.2)
[2022-03-07 13:56] LABS: Appearance,Urine Clear (Clear); Bilirubin,Urine Negative (Negative); Blood,Urine Negative (Negative); Color,Urine Yellow; Glucose,Urine (UA) 4+ (Negative); Ketones,Urine Negative (Negative); Leukocyte Esterase,Urine Negative (Negative); Nitrite,Urine Negative (Negative); PH, Urine 5.5 (5.0-8.0); Protein,Urine Negative (Negative); Specific Gravity,Urine 1.022 (1.001-1.035); Urobilinogen,Urine <2.0 mg/dL (<2.0)
== END 2022-03-07 14:52 | disposition home or self-care (01) ==
LOC: EC 08:45
DX: E11.65 Type 2 diabetes mellitus with hyperglycemia (principal); R00.1 Bradycardia, unspecified; K21.9 Gastro-esophageal reflux disease without esophagitis; Z86.73 Personal history of transient ischemic attack (TIA), and cerebral infarction without residual deficits; Z86.79 Personal history of other diseases of the circulatory system; Z99.89 Dependence on other enabling machines and devices; Z79.01 Long term (current) use of anticoagulants; Z79.84 Long term (current) use of oral hypoglycemic drugs; Z79.82 Long term (current) use of aspirin; Z95.5 Presence of coronary angioplasty implant and graft; Z87.891 Personal history of nicotine dependence; Z20.822 Contact with and (suspected) exposure to COVID-19
CPT/HCPCS: 36415; 80053; 81003; 82009; 85025; 87635; 93005; 99285

== ENCOUNTER 2022-03-24 22:50 | Emergency (ER) | payer OTHER ==
[2022-03-24 23:11] VITALS: BP 127/77; PULSE 58; RESP 16; TEMP 97.8
--- NOTE | 2022-03-25 00:17 | ED ---
Wound/Laceration HPI - General Chief Complaint: Wound/Laceration Stated Complaint: scratch on left leg Time Seen by Provider: 03/24/22 23:56 Source: patient Mode of arrival: ambulatory Limitations: no limitations - History of Present Illness Initial Comments: Patient is a 51-year-old male presents the emergency room with concerns regarding a scratch to his left lower leg that occurred earlier today but will not stop bleeding. He is applying multiple bandages and held pressure for prolonged periods of time and the wound continues to bleed. He reports no wound, scab or injury to the area that he scratched. He is on Eliquis along with the PVS for CAD and atrial fibrillation. In addition to his CAD and paroxysmal A. fib he has past medical history significant for TIA, diabetes, GERD, hypertension, hyperlipidemia, sleep apnea, thyroid disease and varicose veins. - Related Data Home Medications Medication Instructions Recorded Confirmed Apixaban [Eliquis] 5 mg PO BID 05/07/18 10/03/20 rOPINIRole HCL [Requip] 0.5 mg PO HS 09/09/18 10/03/20 Aspirin EC [Ecotrin Low Dose] 81 mg PO DAILY 04/23/19 10/03/20 allopurinoL [Zyloprim] 300 mg PO DAILY 04/26/19 10/03/20 Atorvastatin [Lipitor] 40 mg PO DAILY 08/03/20 10/03/20 Glimepiride [Amaryl] 4 mg PO BID 08/03/20 10/03/20 HYDROcodone/APAP 10-325MG [[place] 1 tab PO DAILY PRN 08/03/20 10/03/20 10-325] Levothyroxine Sodium [Synthroid] 300 mcg PO DAILY 08/03/20 10/03/20 Nitroglycerin Sl Tabs [Nitrostat] 0.4 mg SL Q5M PRN 10/03/20 10/03/20 Ertugliflozin Pidolate [Steglatro] 15 mg PO DAILY 10/04/20 10/04/20 Metoprolol Tartrate [Lopressor] 25 mg PO HS 10/04/20 10/04/20 Metoprolol Tartrate [Lopressor] 50 mg PO QAM 10/04/20 10/04/20 Previous Rx's Medication Instructions Recorded Sulfamethox-Tmp 800-160Mg [Bactrim 1 each PO Q12HR #20 tab 08/02/21 Ds] Ibuprofen [Motrin] 800 mg PO Q6HR PRN #30 tab 12/18/21 Allergies Allergy/AdvReac Type Severity Reaction Status Date / Time No Known Allergies Allergy Verified 03/24/22 23:07 Review of Systems ROS Statement: Those systems with pertinent positive or pertinent negative responses have been documented in the HPI. ROS Other: All systems not noted in ROS Statement are negative. Past Medical History Past Medical History: Atrial Fibrillation, Coronary Artery Disease (CAD), CVA/TIA, Diabetes Mellitus, GERD/Reflux, Hyperlipidemia, Hypertension, Memory Impairment, Myocardial Infarction ([place]), Osteoarthritis ([place]), Sleep Apnea/CPAP/BIPAP, Thyroid Disorder Additional Past Medical History / Comment(s): restless leg syndrome, "TIA (x 5) last Apr 2016", memory loss and occ lt arm weakness, gout Last Myocardial Infarction Date:: unk History of Any Multi-Drug Resistant Organisms: None Reported Past Surgical History: Heart Catheterization, Heart Catheterization With Stent, Hernia Repair, Orthopedic Surgery Additional Past Surgical History / Comment(s): loop monitor in chest, now removed, one cardiac stent, rt knee arthroscopy, rt shoulder rotator cuff Past Anesthesia/Blood Transfusion Reactions: No Reported Reaction Date of Last Stent Placement:: 2016 Type of Cardiac Device: Loop Device Placement Date:: Apr 2016 Past Psychological History: Anxiety, Depression Smoking Status: Former smoker Past Alcohol Use History: Rare Past Drug Use History: Marijuana - Past Family History Father Additional Family Medical History / Comment(s): of [place] Mother Family Medical History: No Reported History Brother(s) Additional Family Medical History / Comment(s): Bipolar disorder General Exam Limitations: no limitations General appearance: alert, in no apparent distress Head exam: Present: atraumatic, normocephalic, normal inspection Eye exam: Present: normal appearance, PERRL, EOMI. Absent: scleral icterus, conjunctival injection, periorbital swelling ENT exam: Present: normal exam, mucous membranes moist Neck exam: Present: normal inspection, full ROM Respiratory exam: Absent: respiratory distress, accessory muscle use Cardiovascular Exam: Present: bradycardia (mild) GI/Abdominal exam: Absent: distended Extremities exam: Present: other (Bilateral varicose veins mild). Absent: pedal edema, joint swelling Left Lower Leg exam: Present: abrasion (Due to scratching with persistent bleeding approximately 3 mm in diameter no significant depth no surrounding erythema ) Back exam: Present: normal inspection Neurological exam: Present: alert, oriented X3, CN II-XII intact Psychiatric exam: Present: normal affect, normal mood Skin exam: Present: warm, dry, intact, normal color. Absent: rash Course Vital Signs 03/24/22 23:08 Temperature 97.8 F Pulse Rate 58 L Respiratory 16 Rate Blood Pressure 127/77 O2 Sat by Pulse 98 Oximetry Medical Decision Making - Medical Decision Making 51-year-old male presenting to the emergency room with a scratch to his left lower extremity with persistent bleeding on blood thinners. No indication for diagnostic imaging or laboratory studies. Will attempt to control bleeding with Gelfoam; no indication for sutures. Gelfoam applied and bleeding controlled. Dressing applied. Patient tolerated Gelfoam application and dressing well. No indication for antibiotic therapy. Care of Gelfoam and dressing care reviewed with patient and spouse. Will discharge home. Case discussed with Dr. Hwang Disposition Clinical Impression: Wound of left lower extremity Disposition: HOME SELF-CARE Condition: Fair Instructions (If sedation given, give patient instructions): Acute Wound Care (ED) Additional Instructions: Please leave Gelfoam and dressing intact to lower extremity until a.m. Do not pull Gelfoam dressing off. Allow to fall off. Please follow-up with your primary care provider. Please return to the Emergency Department if symptoms worsen or any other concerns. Is patient prescribed a controlled substance at d/c from ED?: No Referrals: Carlo Louise MD [Primary Care Provider] - 1-2 days Time of Disposition: 00:16
[2022-03-25] MEDS ORDERED: GELATIN SPONGE,ABSORB (SMALL) 1 EACH SPONGE TOPICAL STA (00:24)
== END 2022-03-25 00:30 | disposition home or self-care (01) ==
LOC: EC 22:50
DX: S80.812A Abrasion, left lower leg, initial encounter (principal); I48.91 Unspecified atrial fibrillation; I25.10 Atherosclerotic heart disease of native coronary artery without angina pectoris; Z86.73 Personal history of transient ischemic attack (TIA), and cerebral infarction without residual deficits; E11.9 Type 2 diabetes mellitus without complications; K21.9 Gastro-esophageal reflux disease without esophagitis; I10 Essential (primary) hypertension; I25.2 Old myocardial infarction; M19.90 Unspecified osteoarthritis, unspecified site; E07.9 Disorder of thyroid, unspecified; F41.9 Anxiety disorder, unspecified; F32.A Depression, unspecified; Z87.891 Personal history of nicotine dependence; Z79.890 Hormone replacement therapy; Z79.82 Long term (current) use of aspirin; Z79.899 Other long term (current) drug therapy; X58.XXXA Exposure to other specified factors, initial encounter
CPT/HCPCS: 99283

== ENCOUNTER 2022-04-14 14:49 | Emergency (ER) | payer OTHER ==
[2022-04-14 14:57] VITALS: TEMP 97.8
--- NOTE | 2022-04-14 15:31 | ED ---
General Adult HPI - General Chief complaint: Chest Pain Stated complaint: chest pain Time Seen by Provider: 04/14/22 15:03 Source: patient, family, RN notes reviewed, old records reviewed Mode of arrival: wheelchair Limitations: no limitations - History of Present Illness Initial comments: 51-year-old male history of CAD, atrial fibrillation, diabetes presenting with chest discomfort, palpitations. Patient was noted to be in atrial fibrillation with rapid ventricular response on the monitor but converted prior to obtain EKG. He states that when his heart did change rhythms he felt a complete resolution in his symptoms, no chest pressure but no dyspnea or palpitations. Patient is chest pain-free at the time my evaluation. He's been compliant with his medication which includes metoprolol and Xarelto - Related Data Home Medications Medication Instructions Recorded Confirmed Apixaban [Eliquis] 5 mg PO BID 05/07/18 10/03/20 rOPINIRole HCL [Requip] 0.5 mg PO HS 09/09/18 10/03/20 Aspirin EC [Ecotrin Low Dose] 81 mg PO DAILY 04/23/19 10/03/20 allopurinoL [Zyloprim] 300 mg PO DAILY 04/26/19 10/03/20 Atorvastatin [Lipitor] 40 mg PO DAILY 08/03/20 10/03/20 Glimepiride [Amaryl] 4 mg PO BID 08/03/20 10/03/20 HYDROcodone/APAP 10-325MG [Iselin 1 tab PO DAILY PRN 08/03/20 10/03/20 10-325] Levothyroxine Sodium [Synthroid] 300 mcg PO DAILY 08/03/20 10/03/20 Nitroglycerin Sl Tabs [Nitrostat] 0.4 mg SL Q5M PRN 10/03/20 10/03/20 Ertugliflozin Pidolate [Steglatro] 15 mg PO DAILY 10/04/20 10/04/20 Metoprolol Tartrate [Lopressor] 25 mg PO HS 10/04/20 10/04/20 Metoprolol Tartrate [Lopressor] 50 mg PO QAM 10/04/20 10/04/20 Previous Rx's Medication Instructions Recorded Sulfamethox-Tmp 800-160Mg [Bactrim 1 each PO Q12HR #20 tab 01/24/21 Ds] Ibuprofen [Motrin] 800 mg PO Q6HR PRN #30 tab 12/18/21 Allergies Allergy/AdvReac Type Severity Reaction Status Date / Time No Known Allergies Allergy Verified 03/24/22 23:07 Review of Systems ROS Statement: Those systems with pertinent positive or pertinent negative responses have been documented in the HPI. ROS Other: All systems not noted in ROS Statement are negative. Past Medical History Past Medical History: Atrial Fibrillation, Coronary Artery Disease (CAD), CVA/TIA, Diabetes Mellitus, GERD/Reflux, Hyperlipidemia, Hypertension, Memory Impairment, Myocardial Infarction ([place]), Osteoarthritis (OA), Sleep Apnea/CPAP/BIPAP, Thyroid Disorder Additional Past Medical History / Comment(s): restless leg syndrome, "TIA (x 5) last Apr 2016", memory loss and occ lt arm weakness, gout Last Myocardial Infarction Date:: unk History of Any Multi-Drug Resistant Organisms: None Reported Past Surgical History: Heart Catheterization, Heart Catheterization With Stent, Hernia Repair, Orthopedic Surgery Additional Past Surgical History / Comment(s): loop monitor in chest, now removed, one cardiac stent, rt knee arthroscopy, rt shoulder rotator cuff Past Anesthesia/Blood Transfusion Reactions: No Reported Reaction Date of Last Stent Placement:: 2016 Type of Cardiac Device: Loop Device Placement Date:: Apr 2016 Past Psychological History: Anxiety, Depression Smoking Status: Former smoker Past Alcohol Use History: Rare Past Drug Use History: Marijuana - Past Family History Father Additional Family Medical History / Comment(s): of [place] Mother Family Medical History: No Reported History Brother(s) Additional Family Medical History / Comment(s): Bipolar disorder General Exam Limitations: no limitations General appearance: alert, in no apparent distress Head exam: Present: atraumatic, normocephalic Eye exam: Present: normal appearance, PERRL ENT exam: Present: normal exam Neck exam: Present: normal inspection. Absent: tenderness, meningismus Respiratory exam: Present: normal lung sounds bilaterally. Absent: respiratory distress, wheezes Cardiovascular Exam: Present: regular rate, normal rhythm GI/Abdominal exam: Present: soft. Absent: distended, tenderness, guarding Extremities exam: Present: normal inspection, normal capillary refill. Absent: pedal edema Neurological exam: Present: alert, oriented X3, CN II-XII intact. 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 EKG Findings - EKG Comments: EKG Findings:: Sinus rhythm, left axis deviation, rate of 90, [place] interval 160, QRS duration 84 and a QTC [address] segment elevation. Medical Decision Making - Medical Decision Making 51-year-old male presented for evaluation of chest pain. Initially in nature fibrillation with RVR, he does convert to sinus rhythm upon arrival. EKG is sinus without definitive signs of ischemia. Laboratory testing unremarkable. He will be observed on telemetry overnight, serial cardiac enzymes have been ordered. Case discussed with Dr. Louise who will admit. Cardiology placed on consult. - Lab Data Result diagrams: 04/14/22 15:19 04/14/22 15:19 Lab Results 04/14/22 04/14/22 04/14/22 Range/Units 15:19 15:19 15:19 WBC 6.9 (3.8-10.6) k/uL RBC 5.60 (4.30-5.90) m/uL Hgb 16.4 (13.0-17.5) gm/dL Hct 47.7 (39.0-53.0) % MCV 85.1 (80.0-100.0) fL MCH 29.2 (25.0-35.0) pg MCHC 34.3 (31.0-37.0) g/dL RDW 13.6 (11.5-15.5) % Plt Count 186 (150-450) k/uL MPV 7.9 Neutrophils % 69 % Lymphocytes % 23 % Monocytes % 5 % Eosinophils % 2 % Basophils % 0 % Neutrophils # 4.8 (1.3-7.7) k/uL Lymphocytes # 1.6 (1.0-4.8) k/uL Monocytes # 0.4 (0-1.0) k/uL Eosinophils # 0.1 (0-0.7) k/uL Basophils # 0.0 (0-0.2) k/uL PT 10.3 (9.0-12.0) sec INR 0.9 (<1.2) APTT 24.0 (22.0-30.0) sec Sodium 140 (137-145) mmol/L Potassium 3.9 (3.5-5.1) mmol/L Chloride 101 (98-107) mmol/L Carbon Dioxide 27 (22-30) mmol/L Anion Gap 12 mmol/L BUN 14 (9-20) mg/dL Creatinine 0.86 (0.66-1.25) mg/dL Est GFR (CKD-EPI)AfAm >90 (>60 ml/min/1.73 sqM) Est GFR (CKD-EPI)NonAf >90 (>60 ml/min/1.73 sqM) Glucose 159 H (74-99) mg/dL Calcium 9.6 (8.4-10.2) mg/dL Magnesium 2.0 (1.6-2.3) mg/dL Total Bilirubin 0.8 (0.2-1.3) mg/dL AST 40 (17-59) U/L ALT 39 (4-49) U/L Alkaline Phosphatase 136 H (38-126) U/L Troponin I (0.000-0.034) ng/mL Total Protein 7.8 (6.3-8.2) g/dL Albumin 4.6 (3.5-5.0) g/dL 04/14/22 Range/Units 15:19 WBC (3.8-10.6) k/uL RBC (4.30-5.90) m/uL Hgb (13.0-17.5) gm/dL Hct (39.0-53.0) % MCV (80.0-100.0) fL MCH (25.0-35.0) pg MCHC (31.0-37.0) g/dL RDW (11.5-15.5) % Plt Count (150-450) k/uL MPV Neutrophils % % Lymphocytes % % Monocytes % % Eosinophils % % Basophils % % Neutrophils # (1.3-7.7) k/uL Lymphocytes # (1.0-4.8) k/uL Monocytes # (0-1.0) k/uL Eosinophils # (0-0.7) k/uL Basophils # (0-0.2) k/uL PT (9.0-12.0) sec INR (<1.2) APTT (22.0-30.0) sec Sodium (137-145) mmol/L Potassium (3.5-5.1) mmol/L Chloride (98-107) mmol/L Carbon Dioxide (22-30) mmol/L Anion Gap mmol/L BUN (9-20) mg/dL Creatinine (0.66-1.25) mg/dL Est GFR (CKD-EPI)AfAm (>60 ml/min/1.73 sqM) Est GFR (CKD-EPI)NonAf (>60 ml/min/1.73 sqM) Glucose (74-99) mg/dL Calcium (8.4-10.2) mg/dL Magnesium (1.6-2.3) mg/dL Total Bilirubin (0.2-1.3) mg/dL AST (17-59) U/L ALT (4-49) U/L Alkaline Phosphatase (38-126) U/L Troponin I <0.012 (0.000-0.034) ng/mL Total Protein (6.3-8.2) g/dL Albumin (3.5-5.0) g/dL Disposition Clinical Impression: Chest pain, Paroxysmal a-fib Disposition: ADMITTED IP TO THIS HOSP Condition: Stable Is patient prescribed a controlled substance at d/c from ED?: No Referrals: Carlo Louise MD [Primary Care Provider] - 1-2 days Time of Disposition: 17:14
[2022-04-14 15:35] LABS: Basophils % (A) 0 %; Eosinophils # (A) 0.1 k/uL (0-0.7); Eosinophils % (A) 2 %; HCT 47.7 % (39.0-53.0); HGB 16.4 gm/dL (13.0-17.5); Lymphocytes # (A) 1.6 k/uL (1.0-4.8); Lymphocytes % (A) 23 %; MCH 29.2 pg (25.0-35.0); MCHC 34.3 g/dL (31.0-37.0); MCV 85.1 fL (80.0-100.0); Mean Platelet Volume 7.9; Monocytes # (A) 0.4 k/uL (0-1.0); Monocytes % (A) 5 %; Neutrophils # (A) 4.8 k/uL (1.3-7.7); Neutrophils % (A) 69 %; Platelet Count 186 k/uL (150-450); RDW 13.6 % (11.5-15.5); WBC 6.9 k/uL (3.8-10.6)
[2022-04-14 15:44] LABS: INR 0.9 (<1.2); Prothrombin Time 10.3 sec (9.0-12.0)
--- NOTE | 2022-04-14 15:57 | XR ---
EXAMINATION TYPE: XR chest 2V DATE OF EXAM: 04/14/2022 3:38 PM COMPARISON: Chest radiographs from 10/03/2020 TECHNIQUE: XR chest 2V Frontal and lateral views of the chest. CLINICAL INDICATION:Male, 51 years old with history of Chest Pain; FINDINGS: Lungs/Pleura: There is no evidence of pleural effusion, focal consolidation, or pneumothorax. Pulmonary vascularity: Unremarkable. Heart/mediastinum: Cardiomediastinal silhouette is unremarkable. A loop recorder projects over the le ft thorax over the heart. Musculoskeletal: No acute osseous pathology. IMPRESSION: No significant change from prior, No acute cardiopulmonary disease/process.
[2022-04-14 16:22] LABS: ALT 39 U/L (4-49); AST 40 U/L (17-59); African American GFR (CKD) >90 (>60 ml/min/1.73 sqM); Albumin 4.6 g/dL (3.5-5.0); Alkaline Phosphatase 136 U/L (38-126); Anion Gap 12 mmol/L; Blood Urea Nitrogen 14 mg/dL (9-20); Calcium 9.6 mg/dL (8.4-10.2); Carbon Dioxide 27 mmol/L (22-30); Chloride 101 mmol/L (98-107); Glucose 159 mg/dL (74-99); Non-African American GFR(CKD) >90 (>60 ml/min/1.73 sqM); Potassium 3.9 mmol/L (3.5-5.1); Sodium 140 mmol/L (137-145); Total Bilirubin 0.8 mg/dL (0.2-1.3); Total Protein 7.8 g/dL (6.3-8.2)
[2022-04-14] MEDS ORDERED: ACETAMINOPHEN TAB 325 MG TAB PO PRN (17:11)
[2022-04-14] MEDS ORDERED: NALOXONE 0.4 MG/ML 1 ML VIAL IV PRN (17:11)
[2022-04-14 20:02] VITALS: BP 149/77; PULSE 70; RESP 17
[2022-04-14] MEDS ORDERED: METOPROLOL TARTRATE 25 MG TAB PO SCH (21:00)
[2022-04-14] MEDS ORDERED: ATORVASTATIN 40 MG TAB PO SCH (21:00)
[2022-04-14] MEDS ORDERED: APIXABAN 5 MG TAB PO SCH (21:00)
[2022-04-15] MEDS ORDERED: LEVOTHYROXINE 100 MCG TAB PO SCH (06:30)
[2022-04-15] MEDS ORDERED: ASPIRIN 81 MG PO SCH (09:00)
[2022-04-15] MEDS ORDERED: METOPROLOL TARTRATE 50 MG TAB PO SCH (09:00)
== END 2022-04-14 21:14 | disposition other institution (70) ==
LOC: EC 14:49 → UNDOADMOB 20:26 → 6NMEDSUR 20:26 → EC 21:14
DX: I48.0 Paroxysmal atrial fibrillation (principal); I10 Essential (primary) hypertension; I25.10 Atherosclerotic heart disease of native coronary artery without angina pectoris; I63.9 Cerebral infarction, unspecified; E11.9 Type 2 diabetes mellitus without complications; K21.9 Gastro-esophageal reflux disease without esophagitis; E78.5 Hyperlipidemia, unspecified; I25.2 Old myocardial infarction; M19.90 Unspecified osteoarthritis, unspecified site; E03.9 Hypothyroidism, unspecified; G47.30 Sleep apnea, unspecified; F41.9 Anxiety disorder, unspecified; F32.A Depression, unspecified; F12.90 Cannabis use, unspecified, uncomplicated; Z87.891 Personal history of nicotine dependence; Z79.82 Long term (current) use of aspirin; Z79.890 Hormone replacement therapy; Z79.899 Other long term (current) drug therapy
CPT/HCPCS: 36415; 71046; 80053; 83735; 84484; 85025; 85610; 85730; 93005; 99291

== ENCOUNTER 2023-02-15 14:10 | Emergency (ER) | payer OTHER ==
[2023-02-15] MEDS ORDERED: KETOROLAC 15 MG/ML 1 ML VIAL IVP STA ×2 (14:21→15:44)
[2023-02-15] MEDS ORDERED: HYDROmorphone 1 MG/ML 1 ML SYRINGE IVP STA (14:21)
--- NOTE | 2023-02-15 14:30 | ED ---
Fall HPI - General Chief Complaint: Fall Stated Complaint: [facility] Knee injury Time Seen by Provider: 02/15/23 14:11 Source: patient, RN notes reviewed Mode of arrival: EMS Limitations: no limitations - History of Present Illness Initial Comments: This is a 52-year-old male who presents to the emergency department for a fall. 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 States that his right leg bent underneath him and he heard something pop in his knee. He is now experiencing severe pain to the knee and some discomfort to the right ankle. Denies hitting his head or sustaining any loss of consciousness. Not taking any blood thinners. He was given morphine by EMS in route, however he states that this did not help his pain whatsoever. Patient tearful in the examination room. MD Complaint: fall - Related Data Home Medications Medication Instructions Recorded Confirmed Apixaban [Eliquis] 5 mg PO BID 05/07/18 04/14/22 rOPINIRole HCL [Requip] 0.5 mg PO HS 09/09/18 04/14/22 Aspirin EC [Ecotrin Low Dose] 81 mg PO DAILY 04/23/19 04/14/22 Atorvastatin [Lipitor] 40 mg PO HS 08/03/20 04/14/22 Glimepiride [Amaryl] 4 mg PO BID 08/03/20 04/14/22 Levothyroxine Sodium [Synthroid] 300 mcg PO DAILY 08/03/20 04/14/22 Nitroglycerin Sl Tabs [Nitrostat] 0.4 mg SL Q5M PRN 10/03/20 04/14/22 Metoprolol Tartrate [Lopressor] 25 mg PO HS 10/04/20 04/14/22 Dulaglutide [Trulicity] 0.75 mg SQ SA 04/14/22 04/14/22 Empagliflozin [Jardiance] 10 mg PO DAILY 04/14/22 04/14/22 Ergocalciferol (Vitamin D2) 1,250 mcg PO TH 04/14/22 04/14/22 [Drisdol (50,000 Iu)] Metoprolol Tartrate [Lopressor] 50 mg PO DAILY 04/14/22 04/14/22 Previous Rx's Medication Instructions Recorded HYDROcodone/APAP 7.5-325MG [[place] 1 tab PO Q6HR PRN 3 Days #12 tab 08/24/23 7.5-325] Ibuprofen [Motrin] 800 mg PO Q8H PRN #30 tab 02/15/23 Allergies Allergy/AdvReac Type Severity Reaction Status Date / Time No Known Allergies Allergy Verified 02/15/23 14:36 Review of Systems ROS Statement: Those systems with pertinent positive or pertinent negative responses have been documented in the HPI. ROS Other: All systems not noted in ROS Statement are negative. Past Medical History Past Medical History: Atrial Fibrillation, Coronary Artery Disease (CAD), CVA/TIA, Diabetes Mellitus, GERD/Reflux, Hyperlipidemia, Hypertension, Memory Impairment, Myocardial Infarction ([place]), Osteoarthritis (OA), Sleep Apnea/CPAP/BIPAP, Thyroid Disorder Additional Past Medical History / Comment(s): restless leg syndrome, "TIA (x 5) last Apr 2016", memory loss and occ lt arm weakness, gout Last Myocardial Infarction Date:: unk History of Any Multi-Drug Resistant Organisms: None Reported Past Surgical History: Heart Catheterization, Heart Catheterization With Stent, Hernia Repair, Orthopedic Surgery Additional Past Surgical History / Comment(s): loop monitor in chest, now removed, one cardiac stent, rt knee arthroscopy, rt shoulder rotator cuff Past Anesthesia/Blood Transfusion Reactions: No Reported Reaction Date of Last Stent Placement:: 2016 Type of Cardiac Device: Loop Device Placement Date:: Apr 2016 Past Psychological History: Anxiety, Depression Smoking Status: Former smoker Past Alcohol Use History: Rare Past Drug Use History: Marijuana - Past Family History Father Additional Family Medical History / Comment(s): of [place] Mother Family Medical History: No Reported History Brother(s) Additional Family Medical History / Comment(s): Bipolar disorder General Exam Limitations: no limitations General appearance: in distress Head exam: Present: atraumatic, normocephalic, normal inspection Respiratory exam: Present: normal lung sounds bilaterally. Absent: respiratory distress, wheezes, rales, rhonchi, stridor Cardiovascular Exam: Present: regular rate, normal rhythm, normal heart sounds. Absent: systolic murmur, diastolic murmur, rubs, gallop, clicks Extremities exam: Present: other (Swelling just superior to and involving the right patella. Limited range of motion secondary to pain. 2+ DP and PT pulses. Capillary refill less than 1 second.) Neurological exam: Present: alert, oriented X3, CN II-XII intact Psychiatric exam: Present: normal affect, normal mood Skin exam: Present: warm, dry, intact, normal color. Absent: rash Course Vital Signs 02/15/23 02/15/23 14:36 16:19 Temperature 97.6 F 97.9 F Pulse Rate 60 60 Respiratory 18 18 Rate Blood Pressure 124/83 121/76 O2 Sat by Pulse 95 97 Oximetry Medical Decision Making - Medical Decision Making This is a 52-year-old male who presents to the emergency department for right knee pain after a fall. Was pt. sent in by a medical professional or institution? @ -No Did you speak to anyone other than the patient for history? @ -No Did you review nursing and triage notes? @ -Yes, and I agree, it is accurate with regards to the patient's symptoms. Were old charts reviewed? @ -No Differential Diagnosis? @ -Differential Knee Injury: Fracture, dislocation, sprain, contusion, meniscus injury, ACL/LCL/MCL/PCL injury, this is not meant to be an all-inclusive list. EKG interpreted by me (3pts min.)? @ -Not obtained X-rays interpreted by me (1pt min.)? @ -XR of the right patella, femur, and ankle obtained. My interpretation identifies a right patellar fracture. CT interpreted by me (1pt min.)? @ -Not obtained U/S interpreted by me (1pt. min.)? @ -Not obtained What testing was considered but not performed? (CT, X-rays, U/S, labs)? Why? @ -None What meds were considered but not given? Why? @ -None Did you discuss the management of the patient with other professionals? @ -No Did you reconcile home meds? @ -No Was smoking cessation discussed for >3mins.? @ -No Was critical care preformed (if so, how long)? @ -No Were there social determinants of health that impacted care today? How? (Homelessness, low income, unemployed, alcoholism, drug addiction, transportation, low edu. Level, literacy, decrease access to med. care, group home, rehab)? @ -No Was there de-escalation of care discussed even if they declined? (Discuss DNR or withdrawal of care, Hospice)? @ -No What co-morbidities impacted this encounter? (DM, HTN, Smoking, COPD, CAD, Cancer, CVA, Hep., AIDS, mental health diagnosis, sleep apnea, morbid obesity)? @ -Morbid obesity, OA Was patient admitted / discharged? @ -Discharged. X-ray of the right knee, femur, and ankle obtained. Findings revealed a right patellar fracture with mild displacement. This was discussed with the patient. He was put in a knee immobilizer and given a pair of crutches. Case management made him an appointment with Dr. Mcdonough, who he has seen in the past, for 02/20. Rx for Ibuprofen and [place] provided with dosing instructions reviewed. Advised he take the [place] sparingly when his pain is the most severe and avoid driving or operating machinery when taking this. Also discussed applying ice for 15-20 minutes every 2-3 hours and keeping the leg elevated. Undiagnosed new problem with uncertain prognosis? @ -None Drug Therapy requiring intensive monitoring for toxicity (Heparin, Nitro, Insulin, Cardizem)? @ -None Were any procedures done? @ -None Diagnosis/symptom? @ -Right patellar fracture Acute, or Chronic, or Acute on Chronic? @ -Acute Uncomplicated (without systemic symptoms) or Complicated (systemic symptoms)? @ -Uncomplicated Side effects of treatment? @ None Exacerbation, Progression, or Severe Exacerbation] @ -Not applicable Poses a threat to life or bodily function? @ -Yes, this will limit his ability to walk . Return precautions reviewed in depth, the patient is instructed to return to the emergency department with any new, worsening, or concerning symptoms. Patient verbalized understanding. This case was discussed in detail with the attending ED physician, Dr. Avina. Presentation, findings, and treatment plan discussed in detail as well. - Radiology Data Radiology results: report reviewed, image reviewed Disposition Clinical Impression: Fall, Right patella fracture Disposition: HOME SELF-CARE Instructions (If sedation given, give patient instructions): Patellar Fracture (ED), Knee Immobilizer (ED) Additional Instructions: Return to the emergency department with any new, worsening, or concerning symptoms. Alternate with ibuprofen and Tylenol as needed for pain relief. Take the [place] sparingly when your pain is the most severe and be aware that it may make you drowsy and you should avoid driving or operating machinery when taking this. You have an appointment scheduled Dr. Mcdonough on 02/20 at 3:45 PM. Follow up with your primary care provider in 1-2 days. Prescriptions: Ibuprofen [Motrin] 800 mg PO Q8H PRN #30 tab PRN Reason: Pain HYDROcodone/APAP 7.5-325MG [[place] 7.5-325] 1 tab PO Q6HR PRN 3 Days #12 tab PRN Reason: Pain Is patient prescribed a controlled substance at d/c from ED?: Yes When asked, does pt state using other controlled substances?: No If prescribed controlled substance>3 days was MAPS reviewed?: Prescribed <3 Days Referrals: Carlo Louise MD [Primary Care Provider] - 1-2 days [place] Mcdonough DO [Doctor of Osteopathic Medicine] - 02/20/23 3:45 pm (Ple ase bring ID card and insurance cards. )
[2023-02-15 14:42] VITALS: PULSE 60; RESP 18
--- NOTE | 2023-02-15 14:50 | XR ---
EXAMINATION TYPE: XR knee complete RT DATE OF EXAM: 02/15/2023 CLINICAL HISTORY: pain TECHNIQUE: Three views of the right knee are obtained. COMPARISON: None. FINDINGS: Mildly comminuted mildly displaced patellar fracture is noted. Displacement of 3 mm. No delia dence for distraction. Moderate hemarthrosis seen within the suprapatellar bursa. Prepatellar edema s een. No additional fractures noted within the [id number]. IMPRESSION: Patellar fracture.
--- NOTE | 2023-02-15 14:51 | XR ---
EXAMINATION TYPE: XR femur RT DATE OF EXAM: 02/15/2023 CLINICAL HISTORY: pain TECHNIQUE: Two views of the right femur are obtained. COMPARISON: None. FINDINGS: There is no acute fracture or dislocation seen of the femur. The hip and knee joints appear within normal limits. Suprapatellar hemarthrosis. Patellar fracture described on knee x-ray. IMPRESSION: There is no acute fracture or dislocation seen of the femur. ICD 10 NO FRACTURE, INITIAL EVALUATION
--- NOTE | 2023-02-15 14:52 | XR ---
EXAMINATION TYPE: XR ankle limited RT DATE OF EXAM: 02/15/2023 COMPARISON: NONE HISTORY: Pain TECHNIQUE: Frontal, lateral images of the right ankle are obtained. COMPARISON: None. FINDINGS: There is no acute fracture/dislocation evident. The joint spaces appear within normal reyes its. The overlying soft tissue appears unremarkable. IMPRESSION: There is no acute fracture or dislocation seen.
[2023-02-15] MEDS ORDERED: HYDROmorphone 0.5 MG/0.5 ML SYRINGE IVP STA (15:44)
[2023-02-15 16:20] VITALS: BP 121/76; TEMP 97.9
== END 2023-02-15 17:02 | disposition home or self-care (01) ==
LOC: EC 14:10
DX: S82.001A Unspecified fracture of right patella, initial encounter for closed fracture (principal); E11.9 Type 2 diabetes mellitus without complications; I10 Essential (primary) hypertension; I25.2 Old myocardial infarction; I25.10 Atherosclerotic heart disease of native coronary artery without angina pectoris; E07.9 Disorder of thyroid, unspecified; E78.5 Hyperlipidemia, unspecified; I48.91 Unspecified atrial fibrillation; F12.90 Cannabis use, unspecified, uncomplicated; Z79.890 Hormone replacement therapy; Z79.84 Long term (current) use of oral hypoglycemic drugs; Z79.85 Long-term (current) use of injectable non-insulin antidiabetic drugs; Z79.01 Long term (current) use of anticoagulants; Z79.899 Other long term (current) drug therapy; Z86.73 Personal history of transient ischemic attack (TIA), and cerebral infarction without residual deficits; Z87.891 Personal history of nicotine dependence; W18.30XA Fall on same level, unspecified, initial encounter; Y92.812 Truck as the place of occurrence of the external cause
CPT/HCPCS: 73552; 73562; 73600; 99284; 96374; 96375; 96376 ×2; L1830; J1170 ×2; J1885

== ENCOUNTER 2024-02-21 08:53 | Emergency (ER) | payer OTHER ==
[2024-02-21 08:58] VITALS: TEMP 97.4
--- NOTE | 2024-02-21 09:33 | ED ---
Chest Pain HPI - General Chief Complaint: Chest Pain Stated Complaint: Tachy Time Seen by Provider: 02/21/24 09:02 Source: patient, RN notes reviewed Mode of arrival: ambulatory Limitations: no limitations - History of Present Illness Initial Comments: 53-year-old male presents emergency department chief complaint of palpitations, chest discomfort. Patient states he woke up this morning felt like his heart was racing and has been fluctuating. Patient does have a history of A-fib but has not been taking his medications as directed. Patient denies any shortness of breath no headache or dizziness no recent fevers chills cough or cold-like symptoms no abdominal complaints. - Related Data Home Medications Medication Instructions Recorded Confirmed Apixaban [Eliquis] 5 mg PO BID 05/07/18 04/14/22 rOPINIRole HCL [Requip] 0.5 mg PO HS 09/09/18 04/14/22 Aspirin EC [Ecotrin Low Dose] 81 mg PO DAILY 04/23/19 04/14/22 Atorvastatin [Lipitor] 40 mg PO HS 08/03/20 04/14/22 Glimepiride [Amaryl] 4 mg PO BID 08/03/20 04/14/22 Levothyroxine Sodium [Synthroid] 300 mcg PO DAILY 08/03/20 04/14/22 Nitroglycerin Sl Tabs [Nitrostat] 0.4 mg SL Q5M PRN 10/03/20 04/14/22 Metoprolol Tartrate [Lopressor] 25 mg PO HS 10/04/20 04/14/22 Dulaglutide [Trulicity] 0.75 mg SQ SA 04/14/22 04/14/22 Empagliflozin [Jardiance] 10 mg PO DAILY 04/14/22 04/14/22 Ergocalciferol (Vitamin D2) 1,250 mcg PO TH 04/14/22 04/14/22 [Drisdol (50,000 Iu)] Metoprolol Tartrate [Lopressor] 50 mg PO DAILY 04/14/22 04/14/22 Previous Rx's Medication Instructions Recorded HYDROcodone/APAP 7.5-325MG [[place] 1 tab PO Q6HR PRN 3 Days #12 tab 02/15/23 7.5-325] Ibuprofen [Motrin] 800 mg PO Q8H PRN #30 tab 02/15/23 Ibuprofen [Motrin] 600 mg PO Q8HR PRN #20 tab 01/26/24 Allergies Allergy/AdvReac Type Severity Reaction Status Date / Time No Known Allergies Allergy Verified 02/21/24 08:58 Review of Systems ROS Statement: Those systems with pertinent positive or pertinent negative responses have been documented in the HPI. ROS Other: All systems not noted in ROS Statement are negative. EKG Findings - EKG Comments: EKG Findings:: EKG 10: 57 sinus bradycardia rate of 59 MT 205 QRS 90 QT/QTc 350/353. EKG performed at 9: 0 for A-fib with RVR rate of 133 QRS 76 QT/QTc 271/349 - EKG Results: EKG: interpreted by TENISHA Past Medical History Past Medical History: Atrial Fibrillation, Coronary Artery Disease (CAD), CVA/TIA, Diabetes Mellitus, GERD/Reflux, Hyperlipidemia, Hypertension, Memory Impairment, Myocardial Infarction (NH), Osteoarthritis (OA), Sleep Apnea/CPAP/BIPAP, Thyroid Disorder Additional Past Medical History / Comment(s): restless leg syndrome, "TIA (x 5) last Apr 2016", memory loss and occ lt arm weakness, gout Last Myocardial Infarction Date:: unk History of Any Multi-Drug Resistant Organisms: None Reported Past Surgical History: Heart Catheterization, Heart Catheterization With Stent, Hernia Repair, Orthopedic Surgery Additional Past Surgical History / Comment(s): loop monitor in chest, now removed, one cardiac stent, rt knee arthroscopy, rt shoulder rotator cuff Past Anesthesia/Blood Transfusion Reactions: No Reported Reaction Date of Last Stent Placement:: 2016 Type of Cardiac Device: Loop Device Placement Date:: Apr 2016 Past Psychological History: Anxiety, Depression Smoking Status: Former smoker Past Alcohol Use History: Rare Past Drug Use History: None Reported - Past Family History Father Additional Family Medical History / Comment(s): of [place] Mother Family Medical History: No Reported History Brother(s) Additional Family Medical History / Comment(s): Bipolar disorder General Exam Limitations: no limitations General appearance: alert, in no apparent distress Head exam: Present: atraumatic, normocephalic, normal inspection Eye exam: Present: normal appearance, PERRL, EOMI. Absent: scleral icterus, conjunctival injection, periorbital swelling ENT exam: Present: normal exam, normal oropharynx, mucous membranes moist Neck exam: Present: normal inspection, full ROM. Absent: tenderness, meningismus, lymphadenopathy Respiratory exam: Present: normal lung sounds bilaterally. Absent: respiratory distress, wheezes, rales, rhonchi, stridor Cardiovascular Exam: Present: tachycardia, irregular rhythm, normal heart sounds. Absent: regular rate, normal rhythm, systolic murmur, diastolic murmur, rubs, gallop, clicks GI/Abdominal exam: Present: soft, normal bowel sounds. Absent: distended, tenderness, guarding, rebound, rigid Neurological exam: Present: alert, oriented X3 Course Vital Signs 02/21/24 02/21/24 08:54 09:49 Temperature 97.4 F L Pulse Rate 85 130 H Respiratory 20 18 Rate Blood Pressure 139/78 126/97 O2 Sat by Pulse 97 98 Oximetry Chest Pain MDM - MDM Was pt. sent in by a medical professional or institution (, PA, GENERAL MATCHER, urgent care, hospital, or care home...) When possible be specific @ -No Did you speak to anyone other than the patient for history (EMS, parent, family, police, friend...)? What history was obtained from this source @ -No Did you review nursing and triage notes (agree or disagree)? Why? @ -I reviewed and agree with nursing and triage notes Were old charts reviewed (outside hosp., previous admission, EMS record, old EKG, old radiological studies, urgent care reports/EKG's, care home records)? Report findings @ -No old charts were reviewed Differential Diagnosis (chest pain, altered mental status, abdominal pain women, abdominal pain men, vaginal bleeding, weakness, fever, dyspnea, syncope, headache, dizziness, GI bleed, back pain, seizure, CVA, palpatations, mental health, musculoskeletal)? @ -Differential Palpitations Ventricular arrhythmias, atrial arrhythmias, myocardial infarction, anemia, thyrotoxicosis, electrolyte imbalance, hypokalemia, pulmonary embolism, pulmonary disease, drugs, alcohol, anxiety, stress.... This is not meant to be an all-inclusive list. EKG interpreted by me (3pts min.). @ -As above X-rays interpreted by me (1pt min.). @Chest shows no acute cardiopulmonary process CT interpreted by me (1pt min.). @ -None done U/S interpreted by me (1pt. min.). @ -None done What testing was considered but not performed or refused? (CT, X-rays, U/S, labs)? Why? @ -None What meds were considered but not given or refused? Why? @ -None Did you discuss the management of the patient with other professionals (professionals i.e. , PA, GENERAL MATCHER, lab, RT, psych nurse, criminal justice social worker, community arts officer, teacher, chief business officer, rn case mgr)? Give summary @ -No Was smoking cessation discussed for >3mins.? @ -No Was critical care preformed (if so, how long)? @ -35 minutes Were there social determinants of health that impacted care today? How? (Homelessness, low income, unemployed, alcoholism, drug addiction, transportation, low edu. Level, literacy, decrease access to med. care, usp, r ehab)? @ -No Was there de-escalation of care discussed even if they declined (Discuss DNR or withdrawal of care, Hospice)? DNR status @ -No What co-morbidities impacted this encounter? (DM, HTN, Smoking, COPD, CAD, Cancer, CVA, ARF, Chemo, Hep., AIDS, mental health diagnosis, sleep apnea, morbid obesity)? @ -A-fib Was patient admitted / discharged? Hospital course, mention meds given and route, prescriptions, significant lab abnormalities, going to OR and other pertinent info. @ -Discharge patient presented for palpitations found to be in A-fib RVR patient has not been medication up complaint. Patient did receive Cardizem patient did convert to sinus rhythm, sinus bradycardia patient is asymptomatic troponin is negative. Patient is discharged advised to take his medications as directed and follow-up with his part time, PCP. Undiagnosed new problem with uncertain prognosis? @ -No Drug Therapy requiring intensive monitoring for toxicity (Heparin, Nitro, Insulin, Cardizem)? @ -No Were any procedures done? @ -No Diagnosis/symptom? @ AFIB RVR Acute, or Chronic, or Acute on Chronic? @ -Acute Uncomplicated (without systemic symptoms) or Complicated (systemic symptoms)? @ -Complicated Side effects of treatment? @ -No Exacerbation, Progression, or Severe Exacerbation? @ -No Poses a threat to life or bodily function? How? (Chest pain, [place], [place], pneumonia, PE, COPD, DKA, ARF, appy, cholecystitis, CVA, Diverticulitis, Homicidal, Suicidal, threat to staff... and all critical care pts) @ -No Critical Care Time Critical Care Time: Yes Total Critical Care Time: 35 Disposition Clinical Impression: Paroxysmal a-fib, Atrial fibrillation with RVR Disposition: HOME SELF-CARE Condition: Stable Instructions (If sedation given, give patient instructions): A-fib (Atrial Fibrillation) (ED) Additional Instructions: Please return to the Emergency Department if symptoms worsen or any other concerns. Is patient prescribed a controlled substance at d/c from ED?: No Referrals: Carlo Louise MD [Primary Care Provider] - 1-2 days Time of Disposition: 11:13
[2024-02-21 09:44] LABS: Basophils % (A) 0 %; Eosinophils # (A) 0.2 k/uL (0-0.7); Eosinophils % (A) 3 %; HGB 14.6 gm/dL (13.0-17.5); Lymphocytes # (A) 1.7 k/uL (1.0-4.8); Lymphocytes % (A) 28 %; MCH 28.6 pg (25.0-35.0); MCHC 32.5 g/dL (31.0-37.0); MCV 88.2 fL (80.0-100.0); Mean Platelet Volume 7.9; Monocytes # (A) 0.4 k/uL (0-1.0); Monocytes % (A) 6 %; Neutrophils # (A) 3.6 k/uL (1.3-7.7); Neutrophils % (A) 61 %; Platelet Count 168 k/uL (150-450); RDW 13.9 % (11.5-15.5); WBC 5.9 k/uL (3.8-10.6)
[2024-02-21] MEDS: DILTIAZEM DRIP BOLUS FROM BAG 1 MG SOLN IV ONE (09:45)
[2024-02-21] MEDS: DILTIAZEM 125 MG in SODIUM CHLORIDE 0.9% 100 ML IV SCH (09:54)
[2024-02-21 09:57] LABS: INR 0.9 (<1.2); Partial Thromboplastin Time 23.5 sec (22.0-30.0); Prothrombin Time 10.2 sec (10.0-12.5)
[2024-02-21 10:10] LABS: ALT 27 U/L (4-49); AST 26 U/L (17-59); African American GFR (CKD) >90 (>60 ml/min/1.73 sqM); Albumin 4.3 g/dL (3.5-5.0); Alkaline Phosphatase 125 U/L (38-126); Anion Gap 6 mmol/L; Blood Urea Nitrogen 19 mg/dL (9-20); Calcium 9.6 mg/dL (8.4-10.2); Carbon Dioxide 25 mmol/L (22-30); Chloride 107 mmol/L (98-107); Glucose 164 mg/dL (74-99); Magnesium 1.9 mg/dL (1.6-2.3); Non-African American GFR(CKD) >90 (>60 ml/min/1.73 sqM); Potassium 4.3 mmol/L (3.5-5.1); Sodium 138 mmol/L (137-145); Total Bilirubin 0.4 mg/dL (0.2-1.3); Total Protein 7.4 g/dL (6.3-8.2)
--- NOTE | 2024-02-21 10:10 | XR ---
EXAMINATION TYPE: XR chest 2V DATE OF EXAM: 02/21/2024 COMPARISON: 04/14/2022 HISTORY: 53-year-old male with chest pain, elevated heart rate TECHNIQUE: PA and lateral views FINDINGS: Heart border line enlarged. Interstitial and vascular prominence. No nadiya consolidation or pleural e ffusion. Loop recorder device projecting at the left paramedian mid chest. IMPRESSION: Borderline heart size and increased interstitial/vascular density. Consider mild CHF with pulmonary v ascular congestion.
[2024-02-21 10:14] VITALS: BP 126/97; RESP 18
[2024-02-21 11:45] VITALS: PULSE 61
== END 2024-02-21 11:45 | disposition home or self-care (01) ==
LOC: EC 08:53
CPT/HCPCS: 36415; 71046; 80053; 83735; 84484; 85025; 85610; 85730; 93005; 96365; 96366; 99285

== ENCOUNTER 2024-03-26 23:13 | Emergency (ER) | payer OTHER ==
[2024-03-26 23:30] VITALS: RESP 19
[2024-03-27] MEDS: KETOROLAC 15 MG/ML 1 ML VIAL IM STA (00:06)
[2024-03-27] MEDS: LIDOCAINE 4% PATCH TOPICAL ONE (00:06)
[2024-03-27] MEDS: DEXAMETHASONE SOD PHOSPHATE 10 MG/ML 1 ML VIAL IM STA (00:06)
--- NOTE | 2024-03-27 00:34 | ED ---
Extremity Problem HPI - General Chief complaint: Extremity Problem,Nontraumatic Stated complaint: Rt shoulder pain Time Seen by Provider: 03/26/24 23:41 Source: patient Mode of arrival: ambulatory Limitations: no limitations - History of Present Illness Initial comments: 53-year-old male presenting with chief complaint of right shoulder pain. Patient has had ongoing pain for months. He has history of a rotator cuff surgery few years ago. He is unable to continue following with his surgeon because he does not accept his insurance anymore. He has been taking Motrin as needed which has not been doing much for the pain. Times where he does get some numbness and tingling down in the fingertips. Pain is centralized in the shoulder, some soreness in the neck but the pain does not stem from the neck. He is having no chest pain or difficulty breathing. No injury or trauma. No headache or vision or hearing changes. - Related Data Home Medications Medication Instructions Recorded Confirmed Apixaban [Eliquis] 5 mg PO BID 05/07/18 04/14/22 rOPINIRole HCL [Requip] 0.5 mg PO HS 09/09/18 04/14/22 Aspirin EC [Ecotrin Low Dose] 81 mg PO DAILY 04/23/19 04/14/22 Atorvastatin [Lipitor] 40 mg PO HS 08/03/20 04/14/22 Glimepiride [Amaryl] 4 mg PO BID 08/03/20 04/14/22 Levothyroxine Sodium [Synthroid] 300 mcg PO DAILY 08/03/20 04/14/22 Nitroglycerin Sl Tabs [Nitrostat] 0.4 mg SL Q5M PRN 10/03/20 04/14/22 Metoprolol Tartrate [Lopressor] 25 mg PO HS 10/04/20 04/14/22 Dulaglutide [Trulicity] 0.75 mg SQ SA 04/14/22 04/14/22 Empagliflozin [Jardiance] 10 mg PO DAILY 04/14/22 04/14/22 Ergocalciferol (Vitamin D2) 1,250 mcg PO TH 04/14/22 04/14/22 [Drisdol (50,000 Iu)] Metoprolol Tartrate [Lopressor] 50 mg PO DAILY 04/14/22 04/14/22 Previous Rx's Medication Instructions Recorded HYDROcodone/APAP 7.5-325MG [[place] 1 tab PO Q6HR PRN 3 Days #12 tab 02/15/23 7.5-325] Ibuprofen [Motrin] 800 mg PO Q8H PRN #30 tab 02/15/23 Ibuprofen [Motrin] 600 mg PO Q8HR PRN #20 tab 01/26/24 Cyclobenzaprine [Flexeril] 10 mg PO TID PRN #15 tab 03/27/24 Lidocaine 5% Patch [Lidoderm 5% 1 patch TOPICAL DAILY PRN #30 patch 03/27/24 Patch] methylPREDNISolone Dose Pack 4 mg PO DIRECTED #1 packet 03/27/24 [Medrol Dose Pack] Allergies Allergy/AdvReac Type Severity Reaction Status Date / Time No Known Allergies Allergy Verified 03/26/24 23:27 Review of Systems ROS Statement: Those systems with pertinent positive or pertinent negative responses have been documented in the HPI. ROS Other: All systems not noted in ROS Statement are negative. Past Medical History Past Medical History: Atrial Fibrillation, Coronary Artery Disease (CAD), CVA/TIA, Diabetes Mellitus, GERD/Reflux, Hyperlipidemia, Hypertension, Memory Impairment, Myocardial Infarction (NH), Osteoarthritis (OA), Sleep Apnea/CPAP/BIPAP, Thyroid Disorder Additional Past Medical History / Comment(s): restless leg syndrome, "TIA (x 5) last Apr 2016", memory loss and occ lt arm weakness, gout Last Myocardial Infarction Date:: unk History of Any Multi-Drug Resistant Organisms: None Reported Past Surgical History: Heart Catheterization, Heart Catheterization With Stent, Hernia Repair, Orthopedic Surgery Additional Past Surgical History / Comment(s): loop monitor in chest, now removed, one cardiac stent, rt knee arthroscopy, rt shoulder rotator cuff Past Anesthesia/Blood Transfusion Reactions: No Reported Reaction Date of Last Stent Placement:: 2016 Type of Cardiac Device: Loop Device Placement Date:: Apr 2016 Past Psychological History: No Psychological Hx Reported Smoking Status: Former smoker Past Alcohol Use History: None Reported Past Drug Use History: None Reported - Past Family History Father Additional Family Medical History / Comment(s): of [place] Mother Family Medical History: No Reported History Brother(s) Additional Family Medical History / Comment(s): Bipolar disorder General Exam Limitations: no limitations General appearance: alert, in no apparent distress Head exam: Present: atraumatic, normocephalic, normal inspection Eye exam: Present: normal appearance, EOMI Neck exam: Present: normal inspection. Absent: meningismus Respiratory exam: Absent: respiratory distress Left Shoulder Exam: Present: normal inspection, tenderness. Absent: full ROM, deformity Neurological exam: Present: alert, oriented X3 Psychiatric exam: Present: normal affect, normal mood Skin exam: Present: warm, dry Course Vital Signs 03/26/24 03/27/24 23:27 01:11 Temperature 97.9 F 98.6 F Pulse Rate 57 L 64 Respiratory 19 19 Rate Blood Pressure 144/92 138/89 O2 Sat by Pulse 96 97 Oximetry Medical Decision Making - Medical Decision Making Was pt. sent in by a medical professional or institution (, PA, INTEGRATED PEST MANAGEMENT TECHNICIAN, urgent care, hospital, or [facility]...) When possible be specific @ -No Did you speak to anyone other than the patient for history (EMS, parent, family, police, friend...)? What history was obtained from this source @ -No Did you review nursing and triage notes (agree or disagree)? Why? @ -I reviewed and agree with nursing and triage notes Were old charts reviewed (outside hosp., previous admission, EMS record, old EKG, old radiological studies, urgent care reports/EKG's, [facility] records)? Report findings @ -No old charts were reviewed Differential Diagnosis (chest pain, altered mental status, abdominal pain women, abdominal pain men, vaginal bleeding, weakness, fever, dyspnea, syncope, headache, dizziness, GI bleed, back pain, seizure, CVA, palpatations, mental health, musculoskeletal)? @ -Differential Musculoskeletal Muscular strain, contusion, ligament sprain, fracture, arthritis, septic arthritis, bursitis, cellulitis, muscle spasm, nerve compression, DVT, arterial occlusion, herpes zoster, electrolyte abnormality, tumor.... This is not meant to be in all inclusive list EKG interpreted by me (3pts min.). @ -As above X-rays interpreted by me (1pt min.). @ -None done CT interpreted by me (1pt min.). @ -None done U/S interpreted by me (1pt. min.). @ -None done What testing was considered but not performed or refused? (CT, X-rays, U/S, labs)? Why? @ -None What meds were considered but not given or refused? Why? @ -None Did you discuss the management of the patient with other professionals (professionals i.e. DrKrishna, PA, INTEGRATED PEST MANAGEMENT TECHNICIAN, lab, RT, psych nurse, administrator social welfare, scrap carrier, teacher, project control officer, major case detective)? Give summary @ -No Was smoking cessation discussed for >3mins.? @ -No Was critical care preformed (if so, how long)? @ -No Were there social determinants of health that impacted care today? How? (Homelessness, low income, unemployed, alcoholism, drug addiction, transportation, low edu. Level, literacy, decrease access to med. care, intermediate, rehab)? @ -No Was there de-escalation of care discussed even if they declined (Discuss DNR or withdrawal of care, Hospice)? DNR status @ -No What co-morbidities impacted this encounter? (DM, HTN, Smoking, COPD, CAD, Cancer, CVA, ARF, Chemo, Hep., AIDS, mental health diagnosis, sleep apnea, morbid obesity)? @ -None Was patient admitted / discharged? Hospital course, mention meds given and route, prescriptions, significant lab abnormalities, going to OR and other pertinent info. @ -83-year-old male presenting chief complaint of right shoulder pain. History of rotator cuff surgery. No new injury or trauma. On exam there is tenderness to the anterior portion of the shoulder. Limited range of motion secondary to pain. He is able to make a fist and squeeze my finger. Given pain medication on reassessment he reports improvement in his symptoms. Will be prescribed cyclobenzaprine Medrol Dosepak and lidocaine patches for home. He is unable to follow-up with his previous surgeon, provided with referral for orthopedics. Discharged. Follow-up with PCP. Report back to ER with any new or worsening symptoms. Discussed return parameters and answered all questions. Patient conveyed verbal understanding and agreed to the plan. My attending is Dr. Olivares Undiagnosed new problem with uncertain prognosis? @ -No Drug Therapy requiring intensive monitoring for toxicity (Heparin, Nitro, Insulin, Cardizem)? @ -No Were any procedures done? @ -No Diagnosis/symptom? @ -Shoulder pain Acute, or Chronic, or Acute on Chronic? @ -Acute on chronic Uncomplicated (without systemic symptoms) or Complicated (systemic symptoms)? @ -uncomplicated Side effects of treatment? @ -No Exacerbation, Progression, or Severe Exacerbation? @ -No Poses a threat to life or bodily function? How? (Chest pain, [place], [place], pneumonia, PE, COPD, DKA, ARF, appy, cholecystitis, CVA, Diverticulitis, Homicidal, Suicidal, threat to staff... and all critical care pts) @ -No Disposition Clinical Impression: Shoulder pain Disposition: HOME SELF-CARE Condition: Good Instructions (If sedation given, give patient instructions): Shoulder Pain (ED) Additional Instructions: Follow-up with PCP and orthopedics. Report back to ER with any new or worsening symptoms. Do not take cyclobenzaprine before driving or operating heavy machinery as it may cause drowsiness. Prescriptions: Cyclobenzaprine [Flexeril] 10 mg PO TID PRN #15 tab PRN Reason: Spasms Lidocaine 5% Patch [Lidoderm 5% Patch] 1 patch TOPICAL DAILY PRN #30 patch PRN Reason: Pain methylPREDNISolone Dose Pack [Medrol Dose Pack] 4 mg PO DIRECTED #1 packet Is patient prescribed a controlled substance at d/c from ED?: No Referrals: Carlo Louise MD [Primary Care Provider] - 1-2 days Dmitriy Hartman MD [Medical Doctor] - 1-2 days Time of Disposition: 00:33
[2024-03-27 01:12] VITALS: BP 138/89; PULSE 64; TEMP 98.6
== END 2024-03-27 01:18 | disposition home or self-care (01) ==
LOC: EC 23:13
DX: M25.511 Pain in right shoulder (principal); Z87.891 Personal history of nicotine dependence
CPT/HCPCS: 96372; 99283